=== PATIENT | male | born 1965 | race Hispanic/Latino ===

== ENCOUNTER 2016-11-05 17:50 | Inpatient (IN) | payer OTHER ==
[~2016-11-05 17:50] MED LIST: AMIDATE IV ONE; ZEMURON IV ONE
[2016-11-05 18:21] LABS: Urine Drugs of Abuse Note Disclamer
--- NOTE | 2016-11-05 18:26 | Emergency Department Report ---
HPI - General Chief Complaint: Altered Mental Status Time Seen by Provider: 11/05/16 18:13 - HPI HPI: Room 1 The patient is a 50-year-old male presenting with a chief complaint of altered mental status. The patient is not speaking and is unable to provide a history. Per EMS family called 911 and the patient walked down the stairs sat down and began having incoherent speech. Family was concerned the patient may have taken "speed." Patient does not respond to my questions verbally but does make eye contact Location: Mental status Duration: [see above] Quality: Altered Severity: Moderate Modifying factors: [see above] Context: [see above] Mode of transportation: [not driving] ED Past Medical Hx - Past Medical History Previous Medical History?: Yes Hx Hypertension: Yes - Surgical History Past Surgical History?: No - Family History Family history: no significant - Social History Smoking Status: Unknown if ever smoked - Medications Home Medications: Home Medications Medication Instructions Recorded Confirmed Last Taken Type Ketorolac [Toradol] 10 mg PO Q6H PRN #20 tablet 07/24/16 Unknown Rx Lisinopril [Zestril TAB] 20 mg PO QDAY #30 tablet 07/24/16 Unknown Rx oxyCODONE [Roxicodone] 5 mg PO Q6HR PRN #15 tablet 07/24/16 Unknown Rx ED Review of Systems ROS: Stated complaint: AMS Other details as noted in HPI Comment: Unobtainable due to pts medical conditions Physical Exam - Physical Exam Vital Signs: Vital Signs 11/05/16 17:53 Temperature 101.4 F H Pulse Rate 102 H Respiratory 40 H Rate Blood Pressure 125/99 Blood Pressure 125/99 [Left] O2 Sat by Pulse 100 Oximetry Physical Exam: GENERAL: The patient is well-developed well-nourished male lying on stretcher nonverbal with eyes and mouth open. [] HEENT: Normocephalic. Mucous membranes appear dry. Extraocular muscles intact NECK: Supple. Trachea midline CHEST/LUNGS: Clear to auscultation. There is no respiratory distress noted. HEART/CARDIOVASCULAR: Regular. There is tachycardia. There is no gallop rub or murmur. ABDOMEN: Abdomen is soft, but patient jumps and grimaces whenever palpated diffusely. Patient has normal bowel sounds. There is no abdominal distention. SKIN: There is no rash. There is no edema. There is no diaphoresis. NEURO: The patient is awake but does not respond verbally. Patient makes eye contact and grimaces when his abdomen is palpated. Gag reflex intact MUSCULOSKELETAL: There is no evidence of acute injury. ED Course Vital Signs 11/05/16 17:53 Temperature 101.4 F H Pulse Rate 102 H Respiratory 40 H Rate Blood Pressure 125/99 Blood Pressure 125/99 [Left] O2 Sat by Pulse 100 Oximetry - Consultations Consultation #1: 11/05/16 19:51 Nephrology paged 20:02-case discussed with Dr. Taylor. Requests plastic surgery be notified for access placement 11/05/16 20:02 Consultation #2: 11/05/16 20:02 Vascular surgery paged 20:14-case discussed with Dr. Sterling. Will come into the hospital to place dialysis access 11/05/16 20:14 ED Medical Decision Making - Lab Data Result diagrams: 11/05/16 19:03 11/05/16 19:03 Laboratory Tests 11/05/16 11/05/16 11/05/16 18:01 18:01 19:00 WBC RBC Hgb Hct MCV MCH MCHC RDW Plt Count Add Manual Diff Total Counted Seg Neutrophils % Seg Neuts % (Manual) Band Neutrophils % Lymphocytes % (Manual) Reactive Lymphs % (Man) Monocytes % (Manual) Eosinophils % (Manual) Basophils % (Manual) Metamyelocytes % Myelocytes % Promyelocytes % Blast Cells % Nucleated RBC % Seg Neutrophils # Man Band Neutrophils # Lymphocytes # (Manual) Abs React Lymphs (Man) Monocytes # (Manual) Eosinophils # (Manual) Basophils # (Manual) Metamyelocytes # Myelocytes # Promyelocytes # Blast Cells # WBC Morphology Hypersegmented Neuts Hyposegmented Neuts Hypogranular Neuts Smudge Cells Toxic Granulation Toxic Vacuolation Dohle Bodies Pelger-Huet Anomaly Holli Rods Platelet Estimate Clumped Platelets Plt Clumps, EDTA Large Platelets Giant Platelets Platelet Satelliting Plt Morphology Comment RBC Morphology Dimorphic RBCs Polychromasia Hypochromasia Poikilocytosis Anisocytosis Microcytosis Macrocytosis Spherocytes Pappenheimer Bodies Sickle Cells Target Cells Tear Drop Cells Ovalocytes Helmet Cells Saavedra-Colma Bodies [place] Rings Veto Cells Bite Cells Crenated Cell Elliptocytes Acanthocytes (Spur) Rouleaux Hemoglobin C Crystals Schistocytes Malaria parasites Yasmani Bodies Hem Pathologist Commnt PT 17.5 H INR 1.44 H APTT 40.0 H Sodium Potassium Chloride Carbon Dioxide Anion Gap BUN Creatinine Estimated GFR BUN/Creatinine Ratio Glucose Lactic Acid Calcium Magnesium Total Bilirubin AST ALT Alkaline Phosphatase Ammonia Total Creatine Kinase CK-MB (CK-2) CK-MB (CK-2) Rel Index Troponin T Total Protein Albumin Albumin/Globulin Ratio Triglycerides Cholesterol LDL Cholesterol Direct HDL Cholesterol Cholesterol/HDL Ratio TSH Free T4 Urine Color [place] Urine Turbidity Cloudy Urine pH 5.0 Ur Specific [place] 1.024 Urine Protein 100 mg/dl Urine Glucose (UA) 150 Urine Ketones Tr Urine Blood Lg Urine Nitrite Neg Urine Bilirubin Neg Urine Urobilinogen < 2.0 Ur Leukocyte Esterase Tr Urine WBC (Auto) 5.0 Urine RBC (Auto) 32.0 U Epithel Cells (Auto) 3.0 Urine Bacteria (Auto) 1+ Salicylates Urine Opiates Screen Presumptive negative Urine Methadone Screen Presumptive negative Acetaminophen Ur Barbiturates Screen Presumptive negative Ur Phencyclidine Scrn Presumptive negative Ur Amphetamines Screen Presumptive positive U Benzodiazepines Scrn Presumptive negative Urine Cocaine Screen Presumptive negative U Marijuana (THC) Screen Presumptive negative Drugs of Abuse Note Disclamer Plasma/Serum Alcohol 11/05/16 11/05/16 11/05/16 19:03 19:03 19:03 WBC 23.0 H RBC 6.48 H Hgb 19.1 H Hct 58.5 H MCV 90 MCH 30 MCHC 33 RDW 15.8 H Plt Count 239 Add Manual Diff Complete Total Counted 100 Seg Neutrophils % Metal Tube Cutter Seg Neuts % (Manual) 87.0 H Band Neutrophils % 0 Lymphocytes % (Manual) 9.0 L Reactive Lymphs % (Man) 0 Monocytes % (Manual) 4.0 Eosinophils % (Manual) 0 Basophils % (Manual) 0 Metamyelocytes % 0 Myelocytes % 0 Promyelocytes % 0 Blast Cells % 0 Nucleated RBC % Not Reportable Seg Neutrophils # Man 20.0 H Band Neutrophils # 0.0 Lymphocytes # (Manual) 2.1 Abs React Lymphs (Man) 0.0 Monocytes # (Manual) 0.9 H Eosinophils # (Manual) 0.0 Basophils # (Manual) 0.0 Metamyelocytes # 0.0 Myelocytes # 0.0 Promyelocytes # 0.0 Blast Cells # 0.0 WBC Morphology Not Reportable Hypersegmented Neuts Not Reportable Hyposegmented Neuts Not Reportable Hypogranular Neuts Not Reportable Smudge Cells Not Reportable Toxic Granulation Not Reportable Toxic Vacuolation Not Reportable Dohle Bodies Not Reportable Pelger-Huet Anomaly Not Reportable Holli Rods Not Reportable Platelet Estimate Appears normal Clumped Platelets Not Reportable Plt Clumps, EDTA Not Reportable Large Platelets Not Reportable Giant Platelets Not Reportable Platelet Satelliting Not Reportable Plt Morphology Comment Not Reportable RBC Morphology Normal Dimorphic RBCs Not Reportable Polychromasia Not Reportable Hypochromasia Not Reportable Poikilocytosis Not Reportable Anisocytosis Not Reportable Microcytosis Not Reportable Macrocytosis Not Reportable Spherocytes Not Reportable Pappenheimer Bodies Not Reportable Sickle Cells Not Reportable Target Cells Not Reportable Tear Drop Cells Not Reportable Ovalocytes Not Reportable Helmet Cells Not Reportable Saavedra-Colma Bodies Not Reportable [place] Rings Not Reportable [place] Cells Not Reportable Bite Cells Not Reportable Crenated Cell Not Reportable Elliptocytes Not Reportable Acanthocytes (Spur) Not Reportable Rouleaux Not Reportable Hemoglobin C Crystals Not Reportable Schistocytes Not Reportable Malaria parasites Not Reportable Yasmani Bodies Not Reportable Hem Pathologist Commnt No PT INR APTT Sodium 153 H Potassium 8.0 H* Chloride 102.8 Carbon Dioxide 10 L Anion Gap 48 BUN 110 H Creatinine 12.3 H Estimated GFR 4 BUN/Creatinine Ratio 8.94 Glucose 115 H Lactic Acid 5.7 H* Calcium 7.7 L Magnesium 3.5 H Total Bilirubin 1.1 AST 4086 H ALT 1684 H Alkaline Phosphatase 108 Ammonia Total Creatine Kinase CK-MB (CK-2) CK-MB (CK-2) Rel Index Troponin T Total Protein 9.1 H Albumin 4.3 Albumin/Globulin Ratio 0.9 Triglycerides Cholesterol LDL Cholesterol Direct HDL Cholesterol Cholesterol/HDL Ratio TSH Free T4 Urine Color Urine Turbidity Urine pH Ur Specific [place] Urine Protein Urine Glucose (UA) Urine Ketones Urine Blood Urine Nitrite Urine Bilirubin Urine Urobilinogen Ur Leukocyte Esterase Urine WBC (Auto) Urine RBC (Auto) U Epithel Cells (Auto) Urine Bacteria (Auto) Salicylates Urine Opiates Screen Urine Methadone Screen Acetaminophen Ur Barbiturates Screen Ur Phencyclidine Scrn Ur Amphetamines Screen U Benzodiazepines Scrn Urine Cocaine Screen U Marijuana (THC) Screen Drugs of Abuse Note Plasma/Serum Alcohol 11/05/16 11/05/16 11/05/16 19:03 19:03 19:03 WBC RBC Hgb Hct MCV MCH MCHC RDW Plt Count Add Manual Diff Total Counted Seg Neutrophils % Seg Neuts % (Manual) Band Neutrophils % Lymphocytes % (Manual) Reactive Lymphs % (Man) Monocytes % (Manual) Eosinophils % (Manual) Basophils % (Manual) Metamyelocytes % Myelocytes % Promyelocytes % Blast Cells % Nucleated RBC % Seg Neutrophils # Man Band Neutrophils # Lymphocytes # (Manual) Abs React Lymphs (Man) Monocytes # (Manual) Eosinophils # (Manual) Basophils # (Manual) Metamyelocytes # Myelocytes # Promyelocytes # Blast Cells # WBC Morphology Hypersegmented Neuts Hyposegmented Neuts Hypogranular Neuts Smudge Cells Toxic Granulation Toxic Vacuolation Dohle Bodies Pelger-Huet Anomaly Holli Rods Platelet Estimate Clumped Platelets Plt Clumps, EDTA Large Platelets Giant Platelets Platelet Satelliting Plt Morphology Comment RBC Morphology Dimorphic RBCs Polychromasia Hypochromasia Poikilocytosis Anisocytosis Microcytosis Macrocytosis Spherocytes Pappenheimer Bodies Sickle Cells Target Cells Tear Drop Cells Ovalocytes Helmet Cells Saavedra-Colma Bodies [place] Rings [place] Cells Bite Cells Crenated Cell Elliptocytes Acanthocytes (Spur) Rouleaux Hemoglobin C Crystals Schistocytes Malaria parasites Yasmani Bodies Hem Pathologist Commnt PT INR APTT Sodium Potassium Chloride Carbon Dioxide Anion Gap BUN Creatinine Estimated GFR BUN/Creatinine Ratio Glucose Lactic Acid Calcium Magnesium Total Bilirubin AST ALT Alkaline Phosphatase Ammonia Total Creatine Kinase CK-MB (CK-2) CK-MB (CK-2) Rel Index Troponin T Total Protein Albumin Albumin/Globulin Ratio Triglycerides Cholesterol LDL Cholesterol Direct HDL Cholesterol Cholesterol/HDL Ratio TSH Free T4 Urine Color Urine Turbidity Urine pH Ur Specific [place] Urine Protein Urine Glucose (UA) Urine Ketones Urine Blood Urine Nitrite Urine Bilirubin Urine Urobilinogen Ur Leukocyte Esterase Urine WBC (Auto) Urine RBC (Auto) U Epithel Cells (Auto) Urine Bacteria (Auto) Salicylates < 0.3 L Urine Opiates Screen Urine Methadone Screen Acetaminophen < 15.0 Ur Barbiturates Screen Ur Phencyclidine Scrn Ur Amphetamines Screen U Benzodiazepines Scrn Urine Cocaine Screen U Marijuana (THC) Screen Drugs of Abuse Note Plasma/Serum Alcohol < 0.01 11/05/16 11/05/16 11/05/16 19:03 19:03 19:03 WBC RBC Hgb Hct MCV MCH MCHC RDW Plt Count Add Manual Diff Total Counted Seg Neutrophils % Seg Neuts % (Manual) Band Neutrophils % Lymphocytes % (Manual) Reactive Lymphs % (Man) Monocytes % (Manual) Eosinophils % (Manual) Basophils % (Manual) Metamyelocytes % Myelocytes % Promyelocytes % Blast Cells % Nucleated RBC % Seg Neutrophils # Man Band Neutrophils # Lymphocytes # (Manual) Abs React Lymphs (Man) Monocytes # (Manual) Eosinophils # (Manual) Basophils # (Manual) Metamyelocytes # Myelocytes # Promyelocytes # Blast Cells # WBC Morphology Hypersegmented Neuts Hyposegmented Neuts Hypogranular Neuts Smudge Cells Toxic Granulation Toxic Vacuolation Dohle Bodies Pelger-Huet Anomaly Holli Rods Platelet Estimate Clumped Platelets Plt Clumps, EDTA Large Platelets Giant Platelets Platelet Satelliting Plt Morphology Comment RBC Morphology Dimorphic RBCs Polychromasia Hypochromasia Poikilocytosis Anisocytosis Microcytosis Macrocytosis Spherocytes Pappenheimer Bodies Sickle Cells Target Cells Tear Drop Cells Ovalocytes Helmet Cells Saavedra-Colma Bodies [place] Rings [place] Cells Bite Cells Crenated Cell Elliptocytes Acanthocytes (Spur) Rouleaux Hemoglobin C Crystals Schistocytes Malaria parasites Yasmani Bodies Hem Pathologist Commnt PT INR APTT Sodium Potassium Chloride Carbon Dioxide Anion Gap BUN Creatinine Estimated GFR BUN/Creatinine Ratio Glucose Lactic Acid Calcium Magnesium Total Bilirubin AST ALT Alkaline Phosphatase Ammonia 62.0 H Total Creatine Kinase 16429 H CK-MB (CK-2) 229.9 H CK-MB (CK-2) Rel Index 0.2 Troponin T 0.179 H* Total Protein Albumin Albumin/Globulin Ratio Triglycerides 551 H Cholesterol 255 H LDL Cholesterol Direct TNR HDL Cholesterol 36 L Cholesterol/HDL Ratio 7.08 TSH 3.430 Free T4 1.03 Urine Color Urine Turbidity Urine pH Ur Specific [place] Urine Protein Urine Glucose (UA) Urine Ketones Urine Blood Urine Nitrite Urine Bilirubin Urine Urobilinogen Ur Leukocyte Esterase Urine WBC (Auto) Urine RBC (Auto) U Epithel Cells (Auto) Urine Bacteria (Auto) Salicylates Urine Opiates Screen Urine Methadone Screen Acetaminophen Ur Barbiturates Screen Ur Phencyclidine Scrn Ur Amphetamines Screen U Benzodiazepines Scrn Urine Cocaine Screen U Marijuana (THC) Screen Drugs of Abuse Note Plasma/Serum Alcohol - EKG Data -: EKG Interpreted by Me EKG shows normal: sinus rhythm Rate: tachycardia (103 bpm) - EKG Data When compared to previous EKG there are: previous EKG unavailable Interpretation: other (no ischemic changes seen) - Radiology Data Radiology results: report reviewed (CT head, CT abdomen and pelvis), image reviewed (CT head, chest x-ray, CT abdomen and pelvis) interpreted by me: Chest x-ray-no definite focal infiltrates, no pneumothorax CT head (read by radiologist)-normal examination CT abdomen and pelvis (read by radiologist)-colitis with wall thickening on the right is likely infectious or inflammatory. No prescription. Hiatal hernia. - Differential Diagnosis substance abuse, pneumonia, sepsis, UTI, ICH Critical Care Time: Yes Critical care time in (mins) excluding proc time.: 45 Critical care attestation.: If time is entered above; I have spent that time in minutes in the direct care of this critically ill patient, excluding procedure time. ED Disposition Clinical Impression: Acute renal failure, Altered mental status, Fever, Hepatorenal failure, Hyperkalemia, Hepatic encephalopathy, Rhabdomyolysis, Acute colitis Disposition: OP ADMITTED IP TO THIS HOSP Is pt being admited?: Yes Does the pt Need Aspirin: No Condition: Serious Time of Disposition: 20:16 (hospitalist notified) Blank Doc - Documentation Documentation: Central line note Central line was placed secondary to lack of IV access and unsuccessful venipuncture Consent was unobtainable Location: Right femoral The site was prepped and draped in a sterile fashion Site was anesthetized with lidocaine 1% approximately 3 mL Landmarks identified and needle introduced until return of dark nonpulsatile blood Blood was obtained on first attempt Guidewire introduced using Seldinger technique and triple lumen catheter placed over guidewire There was blood return from all 3 ports Catheter was secured to patient by adhesive The patient tolerated procedure well There were no complications
[2016-11-05 18:55] LABS: Bacteria,Urine 1+ /HPF (Negative); Bilirubin,Urine NEG (Negative); Blood,Urine LG (Negative); Ketones,Urine TR mg/dL (Negative); Leukocyte Esterase,Urine TR (Negative); Nitrite,Urine NEG (Negative); Urobilinogen,Urine < 2.0 mg/dL (<2.0)
[2016-11-05 19:18] LABS: Hematocrit 58.5 % (35.5-45.6); Hemoglobin 19.1 gm/dl (11.8-15.2); Mean Corpuscular HGB Conc 33 % (32-34); Mean Corpuscular Hemoglobin 30 pg (28-32); Mean Corpuscular Volume 90 fl (84-94); Platelet Count 239 K/mm3 (140-440); Red Blood Count 6.48 M/mm3 (3.65-5.03); Red Cell Distribution Width 15.8 % (13.2-15.2)
[2016-11-05 19:42] LABS: Albumin 4.3 g/dL (3.9-5); Albumin/Globulin Ratio 0.9 %; BUN/Creatinine Ratio 8.94; Bilirubin,Total 1.1 mg/dL (0.1-1.2); Calcium 7.7 mg/dL (8.4-10.2); Magnesium 3.5 mg/dL (1.7-2.3); Total Protein 9.1 g/dL (6.3-8.2)
[2016-11-05 19:43] LABS: Chloride 102.8 mmol/L (98-107)
[2016-11-05] MEDS ORDERED: CALCIUM GLUCONATE 1,000 MG in NACL 0.9% 100 ML IV ONE (19:50)
[2016-11-05] MEDS ORDERED: D50W (25GM) IV ONE (19:50)
[2016-11-05] MEDS ORDERED: SODIUM BICARBONATE IV ONE ×2 (19:50→21:00)
[2016-11-05] MEDS ORDERED: PROVENTIL IH ONE (19:50)
[2016-11-05 20:10] LABS: Basophils % (Manual) 0 % (0.0-1.8); Blastocytes % (Manual) 0 %; Eosinophils % (Manual) 0 % (0.0-4.3)
[2016-11-05 20:11] LABS: Diff Status Complete; RBC Morphology Normal
[2016-11-05] MEDS ORDERED: KAYEXALATE PO ONE (20:14)
[2016-11-05] MEDS ORDERED: NACL 0.9% 1000 ML 100 ML IV PRN (20:15)
[2016-11-05 20:20] LABS: INR 1.44 (0.87-1.13)
[2016-11-05 20:34] LABS: Creatine Kinase MB 229.9 ng/mL (0.0-4.0)
[2016-11-05 20:47] LABS: Creatine Kinase 88982 units/L (55-170)
[2016-11-05 20:51] LABS: Cholesterol 255 mg/dL (50-199); HDL Cholesterol 36 mg/dL (40-59); LDL Cholesterol,Direct TNR mg/dL (50-130); Triglycerides 551 mg/dL (2-149)
--- NOTE | 2016-11-05 20:57 | Event Note ---
Date: 11/05/16 See H/p in reports Acute Renal failure Acute Hepatitis Methamphetamine OD Toxic encephalopathy Rhabdomyolysis Hyperkalemia
[2016-11-05] MEDS ORDERED: PANCREAZE DR 10,500 UNIT FEEDTUBE PRN (21:01)
[2016-11-05] MEDS ORDERED: MILK OF MAGNESIA PO PRN (21:01)
[2016-11-05] MEDS ORDERED: ALUM-MAG HYDROX-SIMETH 200-200-20MG/5ML PO PRN (21:01)
[2016-11-05] MEDS ORDERED: DULCOLAX PR PRN (21:01)
[2016-11-05] MEDS ORDERED: SODIUM BICARBONATE FEEDTUBE PRN (21:01)
[2016-11-05] MEDS ORDERED: SIMPLE SYRUP FEEDTUBE PRN ×2 (21:01)
[2016-11-05] MEDS ORDERED: KAYEXALATE PR ONE (21:09)
--- NOTE | 2016-11-05 21:38 | Cat Scan Report ---
FINAL REPORT PROCEDURE: CT HEAD/BRAIN WO CON TECHNIQUE: Computerized tomography of the head was performed without contrast material. HISTORY: altered mental status COMPARISON: No prior studies are available for comparison. FINDINGS: Skull and scalp: Normal. Paranasal sinuses: Normal. Ventricles and subarachnoid spaces: Normal. Cerebrum: No evidence of hemorrhage, acute infarction or mass . Cerebellum and brainstem: No evidence of hemorrhage, acute infarction or mass. Vasculature: Normal. Comments: None. IMPRESSION: Normal Examination
[2016-11-05] MEDS ORDERED: HEPARIN 10,000 UNITS/10 ML ONE (21:44)
[2016-11-05] MEDS ORDERED: LOVENOX SUB-Q SCH (22:00)
--- NOTE | 2016-11-05 22:04 | Operative Report ---
Operative Report Operative Report: EXAM: 1. Ultrasound-guided puncture of the left common femoral vein 2. Placement of a left common femoral vein nontunneled noncuffed hemodialysis catheter. DATE: 11/05/16 INDICATION: Acute renal failure with hyperkalemia and peaked T waves requiring emergent hemodialysis. Patient with severe altered mental status and indwelling right triple lumen catheter. MEDICATIONS: Local anesthetic (1% lidocaine). DEVICES: Triple lumen 30 cm nontunneled noncuffed hemodialysis catheter DRY WALL INSTALLATIONS MECHANIC: YAIMA CHO MD CONTRAST: None PROCEDURE: The risks, benefits, and alternatives were discussed and informed consent was obtained. The patient's left common femoral vein was assessed with ultrasound at bedside and determined to be patent prior to procedure. The patient was prepped and draped in a sterile fashion. The puncture site was anesthetized. Under sonographic guidance, the left common femoral vein was punctured with a 18-gauge micropuncture needle and a 0.035 inch wire was advanced through the needle. Over the 0.035 inch wire, dilatation was performed. The catheter was advanced over the wire. 2-0 silk suture was used to secure the catheter. The PICC lumen of the catheter was charged with saline. The hemodialysis lumens were charged with 1000 units of heparin per mL of space. Biopatch and tegaderm were applied. Silk tape applied over tegaderm to prevent dislodgement due to patient' s altered mental status. Sterile dressing applied. FINDINGS: 1. Ultrasound documented patency of the left common femoral vein. The vessel was accessed under direct ultrasound guidance. IMPRESSION: 1. Successful ultrasound guided bedside placement of a left common femoral vein 30 cm triple lumen nontunneled noncuffed dual lumen hemodialysis catheter.
--- NOTE | 2016-11-05 22:06 | Cat Scan Report ---
FINAL REPORT PROCEDURE: CT ABDOMEN PELVIS WO CON TECHNIQUE: Computerized axial tomography of the abdomen and pelvis was performed without intravenous contrast. HISTORY: diffuse abdominal tenderness, fever, AMS COMPARISON: No prior studies are available for comparison. FINDINGS: Visualized lower thorax: No significant abnormality. Liver: Normal size and attenuation. Spleen: Normal size and attenuation. Gallbladder and biliary system: Normal. Pancreas: Normal. Adrenals: Normal. Kidneys: Normal. GI tract: Moderate hiatal hernia. No dilated small bowel. Wall thickening of the cecum and ascending colon, series 2 images 48 through 57. Appendix is normal. Lymph nodes and mesentery: Normal. Vasculature: Normal. Bladder: Wall thickening. Reproductive organs: Normal. Peritoneum: No free fluid. Musculoskeletal structures: Sclerosis at the sacroiliac joints. Other: Right femoral venous catheter extending to the iliac vein. IMPRESSION: Colitis with wall thickening on the right is likely infectious or inflammatory. No obstruction. Hiatal hernia..
--- NOTE | 2016-11-05 22:08 | Event Note ---
Date: 11/05/16 Contacted regarding patient with ARF with hyperkalemia of 8 with peaked T waves requiring emergent dialysis. AMS prevents IJ placement. R femoral TLC already placed. L femoral vascath will be placed.
[2016-11-05] MEDS ORDERED: D5W 1,000 ML IV SCH (23:00)
[2016-11-05] MEDS ORDERED: HEPARIN 10,000 UNITS/10 ML IV ONE (23:15)
[2016-11-06] MEDS ORDERED: LEVOPHED DRIP 4 MG/NS 250 ML 250 ML IV ONE (00:38)
[2016-11-06] MEDS: LEVOPHED DRIP 4 MG/NS 250 ML 250 ML IV SCH ×4 (00:40→21:27)
--- NOTE | 2016-11-06 01:01 | History and Physical Report ---
CHIEF COMPLAINT: Severely altered mental status. HISTORY OF PRESENT ILLNESS: A 50-year-old male presenting with severe altered mental status. Not able to speak and unable to provide any history, staring into space with incoherent speech. The family is concerned that patient may have taken ____. Apparently, the patient denies sleeping in his room for the last 2 to 3 days. The patient used to take methamphetamine 4 years ago and was clean for the last 4 years. The family does not know over the holidays whether he has taken significant amount of methamphetamine. PAST MEDICAL HISTORY: Significant for only hypertension. PAST SURGICAL HISTORY: None. FAMILY HISTORY: No hypertension, no diabetes. SOCIAL HISTORY: Methamphetamine abuse on a regular basis until 4 years ago and may have started in the last 3 days and overdosed on it. REVIEW OF SYSTEMS: Significant for severely altered sensorium. The patient has severe nystagmus and staring into the space, but otherwise breathing normally. No respiratory distress. Fever present. Otherwise, review of systems is negative. PHYSICAL EXAMINATION: GENERAL: Middle-aged male, looks older than his age. VITAL SIGNS: Temperature of 101.4, pulse is 102, respirations 40, blood pressure 125/99, and sats are 100%. HEENT: Dry mucous membranes. NECK: Supple, no lymphadenopathy, no thyromegaly. LUNGS: Scattered rhonchi present. CARDIOVASCULAR: S1, S2 heard. No gallop, no murmur, no rub. Apical impulse in left fifth intercostal space and midclavicular line. ABDOMEN: Soft and benign. No hepatosplenomegaly. No guarding, no rigidity. Hernial orifices are normal. EXTREMITIES: Good pedal pulses. No pedal edema. CENTRAL NERVOUS SYSTEM: Alert, but not oriented to time and place. Severely confused and lethargic with ____. Moves all 4 extremities. SKIN: Normal. LABORATORY DATA: Significant for white count of 23,000, hemoglobin of 19.1, hematocrit of 58.5, platelet count of 239,000. Sodium is 153, potassium is 8.0, BUN and creatinine is 110/12.3, lactic acid is 5.7. Troponin 0.179, triglycerides are 551. Cholesterol was 255. Urine specific gravity is 1.024. Drug screen is positive for amphetamines. CT of the abdomen shows colitis thickening on the right side, likely infectious. Head CT normal examination. Abdominal x-ray, no signs of intestinal obstruction. EKG shows no ischemic changes. Tachycardia at 103 per minute. ASSESSMENT AND PLAN: 1. Severe acute renal failure, possibly secondary to methamphetamine abuse and poor p.o. intake and rhabdomyolysis. IV fluids at 250 mL per hour and emergent dialysis. 2. Rhabdomyolysis, 250 mL of IV fluids in the form of D5W and D5 half normal saline. We will monitor his kidney function. Kidney function is already worsened and needs a temporary dialysis for a couple of weeks for the kidneys to recover. 3. Leukocytosis, possible aspiration pneumonia, will treat empirically with IV Zosyn at 2.25 q. 8 hours. 4. Polycythemia. Possibly pseudopolycythemia secondary to volume contraction. Will give volume in the form of IV fluids. 5. Hyperkalemia. Treat aggressively with anti-hyperkalemia cocktail. The patient was given Kayexalate and calcium chloride and sodium bicarbonate in the ER. Also, dextrose with IV insulin was given. Kayexalate repeated. 6. High troponin, possibly secondary to high CK level of 90,000. Cardiac events unlikely. Nephrology and Critical Care, ____ consulted, Dr. Taylor consulted, and also Dr. Michele consulted for emergent ____ and emergent dialysis. In summary, the patient has severe rhabdomyolysis leading to acute renal failure and also severe transaminitis and severe dehydration. 7. Acute hepatitis with possible hepatic failure. Ammonia level was high and AST is 4086 and ALT is 1684. I had discussion with the family over the prognosis. The family was informed about the guarded prognosis. CRITICAL CARE STATEMENT: The high probability of a clinically significant sudden or life-threatening deterioration of the cardiorespiratory system, requirement of full and direct attention, intervention, and personal management. The aggregate critical care time was 40 minutes. The time is in addition to time spent performing reported procedures, but includes the followin. Data review and interpretation. 2. The patient assessment and monitoring of vital signs. 3. Documentation 4. Medication orders and management. JOB# [id number] SHOAIB/NEGAR
[2016-11-06] MEDS: HEPARIN IV PRN ×2 (02:11→14:25)
[2016-11-06] MEDS: D5/0.45NS 1,000 ML IV SCH ×2 (02:41→18:12)
[2016-11-06] MEDS: ZOSYN/NS 2.25 GM/50ML 50 ML IV SCH ×4 (02:42→21:38)
[2016-11-06] MEDS ORDERED: D50W (25GM) IV ONE ×3 (03:00→18:05)
[2016-11-06] MEDS: PITRESSin 20 UNIT in NACL 0.9% 100 ML IV SCH ×3 (03:15→22:52)
[2016-11-06 03:24] LABS: Albumin 4.3 g/dL (3.9-5); Albumin/Globulin Ratio 0.9 %; BUN/Creatinine Ratio 7.01; Bilirubin,Total 2.8 mg/dL (0.1-1.2); Calcium 8.6 mg/dL (8.4-10.2); Chloride 92.6 mmol/L (98-107); Total Protein 9.1 g/dL (6.3-8.2)
[2016-11-06 03:28] LABS: Potassium 5.9 mmol/L (3.6-5.0)
[2016-11-06 03:30] LABS: Hematocrit 58.1 % (35.5-45.6); Hemoglobin 19.7 gm/dl (11.8-15.2); Mean Corpuscular HGB Conc 32 % (32-34); Mean Corpuscular Hemoglobin 30 pg (28-32); Mean Corpuscular Volume 91 fl (84-94); Platelet Count 176 K/mm3 (140-440); Red Blood Count 6.69 M/mm3 (3.65-5.03); Red Cell Distribution Width 16.3 % (13.2-15.2); White Blood Count 20.7 K/mm3 (4.5-11.0)
[2016-11-06] MEDS ORDERED: SODIUM BICARBONATE IV ONE ×3 (04:03→12:47)
[2016-11-06] MEDS ORDERED: NACL 0.9% 500 ML 500 ML IV ONE (04:03)
[2016-11-06 04:19] LABS: ISTAT Base Excess -16; ISTAT HCO3 9.4; ISTAT PCO2 17.4 (35-45); ISTAT PH 7.338 (7.35-7.45); ISTAT PO2 213 (80-105); ISTAT SO2 100; ISTAT TCO2 10
[2016-11-06 05:30] LABS: Basophils % (Manual) 0 % (0.0-1.8); Blastocytes % (Manual) 0 %
[2016-11-06 05:31] LABS: Diff Status Complete; Eosinophils % (Manual) 0 % (0.0-4.3); Large Platelets Rare
--- NOTE | 2016-11-06 05:40 | XRay Report ---
FINAL REPORT PROCEDURE: XR CHEST 1V AP PORTABLE TECHNIQUE: Chest radiograph anteroposterior portable view. CPT 81863 HISTORY: Respiratory distress. Shortness of breath. Evaluate ETT placement COMPARISON: There no prior chest films to compare. Reference is made to the lung base images on the upper portion the abdomen and pelvic CT scan obtained 1 day ago on November 05, 2016 FINDINGS: Heart: Normal. Mediastinum/Vessels: Normal. Lungs/Pleural space: Patchy increased density over medial left lung base is nonspecific. Although this could be an infiltrate, it more likely corresponds to the moderate to large hiatal hernia seen here on the CT scan of 1 day ago. There may be mild atelectasis in lateral left lung base. There is no pulmonary edema or pleural effusion. There is no plain film evidence of pneumothorax.. Bony thorax: No acute osseous abnormality. Life support devices: The ET tube tip appears to be right at the level of the tracheal bifurcation. It may be of benefit to pull it back slightly. IMPRESSION: 1. The ET tube tip is right at the level of the tracheal bifurcation. It may be of benefit to pull it back slightly to prevent it from going into the left or right mainstem bronchus. 2. There is no pulmonary edema or infiltrate. There is mild atelectasis in lateral left lung base. Density over medial left lung base likely corresponds to hiatal hernia seen on abdomen CT scan
[2016-11-06 05:49] LABS: Anion Gap TNR mmol/L; BUN/Creatinine Ratio TNR; Blood Urea Nitrogen TNR mg/dL (9-20); Carbon Dioxide TNR mmol/L (22-30); Chloride TNR mmol/L (98-107); Glucose TNR mg/dL (75-100); Potassium TNR mmol/L (3.6-5.0)
[2016-11-06 05:50] LABS: Calcium TNR mg/dL (8.4-10.2); Creatine Kinase TNR units/L (55-170); Phosphorous TNR mg/dL (2.5-4.5); Sodium TNR mmol/L (137-145)
[2016-11-06 06:31] LABS: ISTAT Base Excess -11; ISTAT HCO3 16.2; ISTAT PCO2 37.3 (35-45); ISTAT PH 7.247 (7.35-7.45); ISTAT PO2 142 (80-105); ISTAT SO2 99; ISTAT TCO2 17
--- NOTE | 2016-11-06 06:32 | Event Note ---
Date: 11/06/16 I was asked to come and see this patient with the intent for orotracheal intubation. The hospitalist had seen the patient and found him to have tachypnea, some accessory muscle use and some alteration in his mental status. Denies the patient he was tachycardic, had a respiratory rate of almost 50 and did appear confused. The patient's mother was there and the risks and benefits of the orotracheal intubation procedure was discussed and she gave verbal consent. Respiratory therapy was bedside. There was IV suction available and the patient was already on a monitor with IV placement. Patient had RSI with 20 mg of etomidate and 100 mg of vecuronium. Successful orotracheal intubation was done using a Mac 4 blade and a 7.5 ET tube with direct visualization of the vocal cords. The tube was placed to about 24 cm at the lips and the bulb was inflated. There was good condensation of the tube, capnography color change, bilateral breath sounds of the lungs. Repeat chest x-ray shows successful intubation but the tube may need to be pulled out 1-2 cm. The hospitalist has been informed and will start a drip for sedation.
[2016-11-06 06:46] LABS: Hematocrit 54.8 % (35.5-45.6); Hemoglobin 17.8 gm/dl (11.8-15.2); Mean Corpuscular HGB Conc 32 % (32-34); Mean Corpuscular Hemoglobin 30 pg (28-32); Mean Corpuscular Volume 91 fl (84-94); Red Blood Count 6.02 M/mm3 (3.65-5.03); White Blood Count 17.9 K/mm3 (4.5-11.0)
[2016-11-06 06:49] LABS: BUN/Creatinine Ratio 7.12; Calcium 6.4 mg/dL (8.4-10.2)
[2016-11-06 06:50] LABS: Phosphorous 15.2 mg/dL (2.5-4.5)
[2016-11-06 06:51] LABS: Potassium 6.8 mmol/L (3.6-5.0)
[2016-11-06 07:39] LABS: Anisocytosis 1+; Basophils % (Manual) 0 % (0.0-1.8); Blastocytes % (Manual) 0 %; Diff Status Complete; Eosinophils % (Manual) 0 % (0.0-4.3); Giant Platelets Few; Large Platelets Few; Poikilocytosis 1+; Polychromasia Few
[2016-11-06 07:40] LABS: Platelet Count 152 K/mm3 (140-440)
--- NOTE | 2016-11-06 08:21 | XRay Report ---
KUB. Findings: The NG tube terminates in the proximal stomach. Scattered small bowel gas is present without dilatation. Gas is also seen throughout the colon. A mild ileus cannot be excluded.
--- NOTE | 2016-11-06 08:58 | XRay Report ---
PORTABLE CHEST INDICATION: Fever, altered mental status. COMPARISON: 11/23/2010 FINDINGS: Portable, frontal chest radiograph demonstrates poorer inspiration with mild exaggerated, though grossly stable cardiomediastinal silhouette and slightly crowded markings. Approximately 6 cm left retrocardiac opacity with some intrinsic lucency may now represent a hiatal hernia. No pleural effusions or CHF. Mild bony degenerative changes. Some extrinsic artifacts. CONCLUSION: Hypoinflation and probable hiatal hernia, as described. Thank you for the opportunity to participate in this patient's care.
[2016-11-06] MEDS ORDERED: ATIVAN 100 MG in NACL 0.9% 50 ML, VIAFLEX EMPTY CONTAINER 0 ML IV SCH (09:00)
[2016-11-06] MEDS ORDERED: DIPRIVAN 10 MG/ML 100 ML IV SCH (09:00)
--- NOTE | 2016-11-06 09:40 | Consultation ---
History of Present Illness - Reason for Consult Consult date: 11/06/16 acute renal failure, hyperkalemia, metabolic acidosis Requesting physician: AARON FOLEY - History of Present Illness The patient is a 50-year-old male presenting with a chief complaint of altered mental status. The patient is currently intubated and not able to get any additional information from him. History obtained from patient's mother at bedside. Apparently patient had returned from work yesterday and family members think he may have taken some methamphetamine. Per EMS family called 911 and the patient walked down the stairs sat down and began having incoherent speech. Family was concerned the patient may have taken "speed." Patient was found to be hyperkalemic and acidotic and renal failure. Vas-Cath has been placed by vascular surgery and he had urgent hemodialysis late last night. Currently on the ventilator. Unresponsive. Past History Past Medical History: hypertension, other Past Surgical History: Other (not long) Social history: other (not known. Apparently he does have history of illicit drug use) Medications and Allergies Allergies Allergy/AdvReac Type Severity Reaction Status Date / Time No Known Allergies Allergy Unverified 07/24/16 09:58 Home Medications Medication Instructions Recorded Confirmed Last Taken Type Lisinopril [Zestril TAB] 20 mg PO QDAY #30 tablet 07/24/16 11/05/16 Unknown Rx Active Meds: Active Medications Al Hydrox/Mg Hydrox/Simethicone (Alum-Mag Hydrox-Simeth [phone]/5ml) 30 ml PO Q4H PRN PRN Reason: Indigestion Lipase/Protease/Amylase ([place] Dr 10,500 Unit) 1 each FEEDTUBE PRN PRN PRN Reason: For Clogged Feeding Tube Bisacodyl (Dulcolax) 10 mg [place] QDAY PRN PRN Reason: constipation unrelieved by MOM Heparin Sodium (Porcine) (Heparin) 5,000 unit IV IMELDA PRN PRN Reason: hemodialysis Last Admin: 11/06/16 02:11 Dose: 5,000 unit Heparin Sodium (Porcine) (Heparin) 5,000 unit SUB-Q Q12HR ANDREW Sodium Chloride (Nacl 0.9% 1000 Ml) 100 mls @ 999 mls/hr IV IMELDA PRN PRN Reason: Hypotension Sodium Bicarbonate 150 meq/ (Dextrose) 1,150 mls @ 75 mls/hr IV DIRECT ANDREW Dextrose/Sodium Chloride (D5/0.45ns) 1,000 mls @ 100 mls/hr IV DIRECT ANDREW Last Admin: 11/06/16 02:41 Dose: 100 mls/hr Piperacillin Sod/Tazobactam Sod (Zosyn/Ns 2.25 Gm/50ml) 50 mls @ 100 mls/hr IV Q8HR ANDREW PRN Reason: Protocol Last Admin: 11/06/16 02:42 Dose: 100 mls/hr Dextrose (D5w) 1,000 mls @ 150 mls/hr IV DIRECT ANDREW Stop: 11/06/16 23:55 Norepinephrine (Levophed Drip 4 Mg/Ns 250 Ml) 250 mls @ 7.5 mls/hr IV TITR ANDREW ; 2 MCG/MIN PRN Reason: Protocol Last Admin: 11/06/16 00:40 Dose: 7.5 mls/hr Vasopressin 20 unit/ Sodium (Chloride) 101 mls @ 9.09 mls/hr IV TITR ANDREW; 0.03 UNITS/MIN PRN Reason: Protocol Last Admin: 11/06/16 03:15 Dose: 9.09 mls/hr Propofol (Diprivan 10 Mg/Ml) 100 mls @ 2.313 mls/hr IV TITR ANDREW; 5 MCG/KG/MIN PRN Reason: Protocol Lorazepam 100 mg/ Sodium Chloride/ Miscellaneous Information 100 mls @ 1 mls/ hr IV TITR ANDREW; 1 MG/HR PRN Reason: Protocol Influenza Virus Vaccine Quadrival (Fluarix Quad [id number](36 Mos+)) 60 mcg IM .ONCE ONE Stop: 11/06/16 12:01 Magnesium Hydroxide (Milk Of Magnesia) 30 ml PO Q4H PRN PRN Reason: Constipation Pneumococcal Polyvalent Vaccine (Pneumovax 23) 0.5 ml IM .ONCE ONE Stop: 11/06/16 12:01 Simple Syrup (Simple Syrup) 15 ml FEEDTUBE PRN PRN PRN Reason: Hypoglycemia Simple Syrup (Simple Syrup) 30 ml FEEDTUBE PRN PRN PRN Reason: Hypoglycemia Sodium Bicarbonate (Sodium Bicarbonate) 325 mg FEEDTUBE PRN PRN PRN Reason: For Clogged Feeding Tube Review of Systems ROS unobtainable: due to mental status Exam - Vital Signs Vital signs: Vital Signs Temp Pulse Resp BP Pulse Ox 101.4 F H 99 H 40 H 125/99 40 L 11/05/16 17:53 11/05/16 17:53 11/05/16 17:53 11/05/16 17:53 11/05/16 17:53 - General Appearance General appearance: well-developed, intubated EENT: PERRL, mucous membranes moist Neck: Present: neck supple, trachea midline. Absent: JVD/HJR, Masses Respiratory: Ronchi (few scattered rhonchi) Heart: regular, normal heart rate, S1S2, no murmurs Gastrointestinal: Present: normal, normoactive bowel sounds Integumentary: no rash, other (left femoral Vas-Cath in place) Results - Lab Results 11/06/16 06:00 11/06/16 06:00 Most recent lab results Calcium 6.4 mg/dL (8.4-10.2) L D 11/06/16 06:00 Phosphorus 15.2 mg/dL (2.5-4.5) H 11/06/16 06:00 Magnesium 3.0 mg/dL (1.7-2.3) H 11/06/16 06:00 Assessment and Plan Impression * Acute renal failure. Most likely secondary to ATN * Severe hyperkalemia * Metabolic acidosis. Secondary to lactic acidosis * Respiratory failure * Drug overdose * History of hypertension Recommendations * Status post urgent hemodialysis last night. Patient's potassium is still elevated and he is also hyperkalemic. Shall attempt to dialyze him again today. He is however noted to be hypotensive and on 2 pressors at this time. * Continue pressors to keep map greater than 65 * Shall check a UA as well as a fractional excretion of sodium * Shall also check an osmolar gap as well as serum ethylene glycol as well as methanol * Shall do vasculitis workup as well * Renal ultrasound to assess kidney size and echogenicity * Avoid nephrotoxins * Monitor patient's fluid status, electrolytes and renal function closely * Adjust meds for GFR less than 10 * Thank you very much for the consultation. Shall follow along with you
[2016-11-06] MEDS ORDERED: NACL 0.9% 1000 ML 100 ML IV PRN (09:41)
[2016-11-06] MEDS: HEPARIN SUB-Q SCH ×2 (10:01→21:39)
--- NOTE | 2016-11-06 10:03 | Consultation ---
History of Present Illness Consult date: 11/06/16 Requesting physician: ZENAIDA MAHMOOD Reason for consult: dyspnea, other (tachypnea with altered mentals status and acute respiratory failure) History of present illness: 50 y/o male, with past medical history of HTN, GERD and allergies admitted with acute renal failure requiring emergent HD and hyperkalemia, presented to the ED with inability to urinate. BUN was 110 and Cr 12.3. K elevated at 8 and hypotensive. Central line placed and vascath placed. Dialysis done last night however patient's potassium is rising again with very little urine output. Mother at bedside. 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 Was not feeling well on Saturday after work but complained more so of inability to urinate. No abdominal pain. Mother states that patient has been out of meds for several months now. CT of abdomen and pelvis shows colitis, infectious vs inflammatory. Past History Past Medical History: hypertension, other Past Surgical History: Other (not long) Social history: other (not known. Apparently he does have history of illicit drug use) Medications and Allergies Allergies Allergy/AdvReac Type Severity Reaction Status Date / Time No Known Allergies Allergy Unverified 07/24/16 09:58 Home Medications Medication Instructions Recorded Confirmed Last Taken Type Lisinopril [Zestril TAB] 20 mg PO QDAY #30 tablet 07/24/16 11/05/16 Unknown Rx Active Meds: Active Medications Al Hydrox/Mg Hydrox/Simethicone (Alum-Mag Hydrox-Simeth [phone]/5ml) 30 ml PO Q4H PRN PRN Reason: Indigestion Lipase/Protease/Amylase ([place]ren [place] 10,500 Unit) 1 each FEEDTUBE PRN PRN PRN Reason: For Clogged Feeding Tube Bisacodyl (Dulcolax) 10 mg [place] QDAY PRN PRN Reason: constipation unrelieved by MOM Heparin Sodium (Porcine) (Heparin) 5,000 unit IV IMELDA PRN PRN Reason: hemodialysis Last Admin: 11/06/16 02:11 Dose: 5,000 unit Heparin Sodium (Porcine) (Heparin) 5,000 unit SUB-Q Q12HR ANDREW Sodium Chloride (Nacl 0.9% 1000 Ml) 100 mls @ 999 mls/hr IV IMELDA PRN PRN Reason: Hypotension Sodium Bicarbonate 150 meq/ (Dextrose) 1,150 mls @ 75 mls/hr IV DIRECT ANDREW Dextrose/Sodium Chloride (D5/0.45ns) 1,000 mls @ 100 mls/hr IV DIRECT ANDREW Last Admin: 11/06/16 02:41 Dose: 100 mls/hr Piperacillin Sod/Tazobactam Sod (Zosyn/Ns 2.25 Gm/50ml) 50 mls @ 100 mls/hr IV Q8HR ANDREW PRN Reason: Protocol Last Admin: 11/06/16 02:42 Dose: 100 mls/hr Dextrose (D5w) 1,000 mls @ 150 mls/hr IV DIRECT ANDREW Stop: 11/06/16 23:55 Norepinephrine (Levophed Drip 4 Mg/Ns 250 Ml) 250 mls @ 7.5 mls/hr IV TITR ANDREW ; 2 MCG/MIN PRN Reason: Protocol Last Admin: 11/06/16 00:40 Dose: 7.5 mls/hr Vasopressin 20 unit/ Sodium (Chloride) 101 mls @ 9.09 mls/hr IV TITR ANDREW; 0.03 UNITS/MIN PRN Reason: Protocol Last Admin: 11/06/16 03:15 Dose: 9.09 mls/hr Propofol (Diprivan 10 Mg/Ml) 100 mls @ 2.313 mls/hr IV TITR ANDREW; 5 MCG/KG/MIN PRN Reason: Protocol Lorazepam 100 mg/ Sodium Chloride/ Miscellaneous Information 100 mls @ 1 mls/ hr IV TITR ANDREW; 1 MG/HR PRN Reason: Protocol Sodium Chloride (Nacl 0.9% 1000 Ml) 100 mls @ 999 mls/hr IV IMELDA PRN PRN Reason: Hypotension Influenza Virus Vaccine Quadrival (Fluarix Quad [id number](36 Mos+)) 60 mcg IM .ONCE ONE Stop: 11/06/16 12:01 Magnesium Hydroxide (Milk Of Magnesia) 30 ml PO Q4H PRN PRN Reason: Constipation Pneumococcal Polyvalent Vaccine (Pneumovax 23) 0.5 ml IM .ONCE ONE Stop: 11/06/16 12:01 Simple Syrup (Simple Syrup) 15 ml FEEDTUBE PRN PRN PRN Reason: Hypoglycemia Simple Syrup (Simple Syrup) 30 ml FEEDTUBE PRN PRN PRN Reason: Hypoglycemia Sodium Bicarbonate (Sodium Bicarbonate) 325 mg FEEDTUBE PRN PRN PRN Reason: For Clogged Feeding Tube Physical Examination Vital signs: Vital Signs Temp Pulse Resp BP Pulse Ox 101.4 F H 99 H 40 H 125/99 40 L 11/05/16 17:53 11/05/16 17:53 11/05/16 17:53 11/05/16 17:53 11/05/16 17:53 Results - Laboratory Findings CBC and BMP: 11/06/16 06:00 11/06/16 06:00 ABG POC ABG pH 7.247 (7.35-7.45) L 11/06/16 06:19 POC ABG pCO2 37.3 (35-45) 11/06/16 06:19 POC ABG pO2 142 (80-105) H 11/06/16 06:19 POC ABG HCO3 16.2 11/06/16 06:19 POC ABG Total CO2 17 11/06/16 06:19 POC ABG O2 Sat 99 11/06/16 06:19 PT/INR, D-dimer PT 17.5 Sec. (12.2-14.9) H 11/05/16 19:00 INR 1.44 (0.87-1.13) H 11/05/16 19:00 Abnormal lab findings: Abnormal Labs 11/06/16 11/06/16 11/06/16 03:00 03:00 03:16 WBC 20.7 H RBC 6.69 H Hgb 19.7 H Hct 58.1 H RDW 16.3 H Seg Neuts % (Manual) Lymphocytes % (Manual) 5.0 L Monocytes % (Manual) 8.0 H Nucleated RBC % 4.0 H Seg Neutrophils # Man 9.1 H Lymphocytes # (Manual) 1.0 L Monocytes # (Manual) 1.7 H POC ABG pH 7.338 L POC ABG pCO2 17.4 L POC ABG pO2 213 H Sodium 150 H Potassium 5.9 H D Chloride 92.6 L Carbon Dioxide 13 L BUN 73 H Creatinine 10.4 H Glucose Lactic Acid Calcium Phosphorus Magnesium Total Bilirubin 2.8 H AST 16549 H ALT 3771 H Total Protein 9.1 H 11/06/16 11/06/16 11/06/16 06:00 06:00 06:00 WBC 17.9 H RBC 6.02 H Hgb 17.8 H Hct 54.8 H RDW 16.0 H Seg Neuts % (Manual) 74.0 H Lymphocytes % (Manual) 2.0 L Monocytes % (Manual) Nucleated RBC % 1.0 H Seg Neutrophils # Man 13.2 H Lymphocytes # (Manual) 0.4 L Monocytes # (Manual) POC ABG pH POC ABG pCO2 POC ABG pO2 Sodium Potassium Chloride Carbon Dioxide BUN Creatinine Glucose Lactic Acid 10.0 H* Calcium Phosphorus 15.2 H Magnesium 3.0 H Total Bilirubin AST ALT Total Protein 11/06/16 11/06/16 06:00 06:19 WBC RBC Hgb Hct RDW Seg Neuts % (Manual) Lymphocytes % (Manual) Monocytes % (Manual) Nucleated RBC % Seg Neutrophils # Man Lymphocytes # (Manual) Monocytes # (Manual) POC ABG pH 7.247 L POC ABG pCO2 POC ABG pO2 142 H Sodium 153 H Potassium 6.8 H* Chloride 97.0 L Carbon Dioxide 17 L BUN 77 H Creatinine 10.8 H Glucose 203 H Lactic Acid Calcium 6.4 L D Phosphorus Magnesium Total Bilirubin AST ALT Total Protein - Diagnostic Findings Chest x-ray: image reviewed (clear, with cardiomegaly) Assessment and Plan 50 y/o male with acute renal failure thought secondary to rhabdomyolysis, metabolic acidosis, hypotension and what appears to be severe dehydration and methamphetamine use 1. Normal saline bolus of 2 liters 2. Increase pressors to keep maps >65 3. Continue bicarb drip 4. Continue IV zosyn for now 5. Will place NG tube 6. Repeat Lactic acid 7. Repeat CK levels. 8. Overall prognosis is guarded. CCT 31 minutes.
[2016-11-06] MEDS ORDERED: PNEUMOVAX 23 IM ONE (12:00)
[2016-11-06] MEDS ORDERED: FLUARIX QUAD 2016-2017(36 MOS+) IM ONE (12:00)
[2016-11-06] MEDS: NEO-SYNEPHRINE 100 MG in NACL 0.9% 90 ML IV SCH ×5 (13:08→22:53)
[2016-11-06] MEDS: NACL 0.9% 1000 ML 1,000 ML IV SCH ×2 (13:11→13:23)
[2016-11-06] MEDS: PEPCID IV SCH (13:18)
[2016-11-06] MEDS ORDERED: NACL 0.9% 500 ML 500 ML ONE (13:20)
--- NOTE | 2016-11-06 13:20 | Progress Note ---
Assessment and Plan Assessment and plan: 1. Acute hypoxic better failure with ventilator dependence-continue ventilator support. Follow-up with pulmonary/critical care for vent management 2. Septic shock possibly related to colitis-continue IV fluids and IV for boluses as needed, continue vasopressor support patient is currently on levo fed and vasopressin will add. Vasopressor, will also start IV hydrocortisone. Continue with IV Zosyn. White count is improving; follow-up with critical care 3. Acute renal failure with severe metabolic acidosis and hyperkalemia-patient had hemodialysis earlier this morning for approximately 2 hours. He was also started on hemodialysis for about an hour however it had to be abandoned due to worsening hypotension. Continue bicarbonate infusion and when necessary bicarbonate as needed. Follow-up with nephrology appreciated. Continue to monitor electrolytes 4. Severe rhabdomyolysis -continue aggressive hydration with normal saline, monitor CPK level 5. Metabolic encephalopathy with amphetamine use secondary to the above- management as discussed above continue supportive care 6. Elevated troponin-consult cardiology, will get serial enzymes. Echocardiogram 7. DVT prophylaxis-heparin 8. GI prophylaxis -pepcid Family updated- prognosis-guarded; remains full code CCT exclusive of all other billable proceduers 40 minutes History Interval history: f/u respiratory failure; acute renal failure, rhabdomyolysis Patient is seen at the bedside. He is vented and on 2 pressors levofed and vasopressin; patient had emergent hemodialysis last night Hospitalist Physical - Constitutional Vitals: Temp Pulse Resp BP Pulse Ox 97.9 F 116 H 28 H 228/117 97 11/06/16 10:45 11/06/16 12:55 11/06/16 12:55 11/06/16 12:00 11/06/16 12:00 General appearance: Present: other (patient is vented with moderate distress gasping type respirations; T-tube in place) - EENT Eyes: Present: PERRL, conjunctival injection. Absent: scleral icterus ENT: other (ET-tube in place) - Neck Neck: Present: supple, normal ROM. Absent: enlarged thyroid, masses or JVD - Respiratory Respiratory effort: accessory muscle use, other (vented with respiratory distress) Respiratory: bilateral: diminished, rhonchi, negative: rales, wheezing - Cardiovascular Rhythm: regular (tachycardia) Heart Sounds: Present: S1 & S2. Absent: gallop - Extremities Extremities: no ischemia, pulses intact, pulses symmetrical Peripheral Pulses: within normal limits - Abdominal General gastrointestinal: soft, tender (he moves hand to palpitaions ), distended (moves hand to palpation), hypoactive bowel sounds - Integumentary Integumentary: Present: pale (cold ) - Psychiatric Psychiatric: other (unable to assess as he is vented and unresponsive) - Neurologic Neurologic: other (does not obey commands; vented ) Results - Labs CBC & Chem 7: 11/06/16 06:00 11/06/16 09:43 Labs: Laboratory Last Values WBC 17.9 K/mm3 (4.5-11.0) H 11/06/16 06:00 RBC 6.02 M/mm3 (3.65-5.03) H 11/06/16 06:00 Hgb 17.8 gm/dl (11.8-15.2) H 11/06/16 06:00 Hct 54.8 % (35.5-45.6) H 11/06/16 06:00 MCV 91 fl (84-94) 11/06/16 06:00 MCH 30 pg (28-32) 11/06/16 06:00 MCHC 32 % (32-34) 11/06/16 06:00 RDW 16.0 % (13.2-15.2) H 11/06/16 06:00 Plt Count 152 K/mm3 (140-440) 11/06/16 06:00 Add Manual Diff Complete 11/06/16 06:00 Total Counted 100 11/06/16 06:00 Seg Neutrophils % [employer] Specialist 11/06/16 06:00 Seg Neuts % (Manual) 74.0 % (40.0-70.0) H 11/06/16 06:00 Band Neutrophils % 20.0 % 11/06/16 06:00 Lymphocytes % (Manual) 2.0 % (13.4-35.0) L 11/06/16 06:00 Reactive Lymphs % (Man) 0 % 11/06/16 06:00 Monocytes % (Manual) 1.0 % (0.0-7.3) 11/06/16 06:00 Eosinophils % (Manual) 0 % (0.0-4.3) 11/06/16 06:00 Basophils % (Manual) 0 % (0.0-1.8) 11/06/16 06:00 Metamyelocytes % 0 % 11/06/16 06:00 Myelocytes % 3.0 % 11/06/16 06:00 Promyelocytes % 0 % 11/06/16 06:00 Blast Cells % 0 % 11/06/16 06:00 Nucleated RBC % 1.0 % (0.0-0.9) H 11/06/16 06:00 Seg Neutrophils # Man 13.2 K/mm3 (1.8-7.7) H 11/06/16 06:00 Band Neutrophils # 3.6 K/mm3 11/06/16 06:00 Lymphocytes # (Manual) 0.4 K/mm3 (1.2-5.4) L 11/06/16 06:00 Abs React Lymphs (Man) 0.0 K/mm3 11/06/16 06:00 Monocytes # (Manual) 0.2 K/mm3 (0.0-0.8) 11/06/16 06:00 Eosinophils # (Manual) 0.0 K/mm3 (0.0-0.4) 11/06/16 06:00 Basophils # (Manual) 0.0 K/mm3 (0.0-0.1) 11/06/16 06:00 Metamyelocytes # 0.0 K/mm3 11/06/16 06:00 Myelocytes # 0.5 K/mm3 11/06/16 06:00 Promyelocytes # 0.0 K/mm3 11/06/16 06:00 Blast Cells # 0.0 K/mm3 11/06/16 06:00 WBC Morphology Not Reportable 11/06/16 Unknown Hypersegmented Neuts Not Reportable 11/06/16 Unknown Hyposegmented Neuts Not Reportable 11/06/16 Unknown Hypogranular Neuts Not Reportable 11/06/16 Unknown Smudge Cells Not Reportable 11/06/16 Unknown Toxic Granulation Not Reportable 11/06/16 Unknown Toxic Vacuolation Not Reportable 11/06/16 Unknown Dohle Bodies Not Reportable 11/06/16 Unknown Pelger-Huet Anomaly Not Reportable 11/06/16 Unknown Holli Rods Not Reportable 11/06/16 Unknown Platelet Estimate Appears normal 11/06/16 06:00 Clumped Platelets Not Reportable 11/06/16 Unknown Plt Clumps, EDTA Not Reportable 11/06/16 Unknown Large Platelets Few 11/06/16 06:00 Giant Platelets Not Reportable 11/06/16 Unknown Platelet Satelliting Not Reportable 11/06/16 Unknown Plt Morphology Comment Not Reportable 11/06/16 Unknown RBC Morphology Not Reportable 11/06/16 Unknown Dimorphic RBCs Not Reportable 11/06/16 Unknown Polychromasia Not Reportable 11/06/16 Unknown Hypochromasia Not Reportable 11/06/16 Unknown Poikilocytosis Not Reportable 11/06/16 Unknown Anisocytosis Not Reportable 11/06/16 Unknown Microcytosis Not Reportable 11/06/16 Unknown Macrocytosis Not Reportable 11/06/16 Unknown Spherocytes Not Reportable 11/06/16 Unknown Pappenheimer Bodies Not Reportable 11/06/16 Unknown Sickle Cells Not Reportable 11/06/16 Unknown Target Cells Not Reportable 11/06/16 Unknown Tear Drop Cells Not Reportable 11/06/16 Unknown Ovalocytes Not Reportable 11/06/16 Unknown Helmet Cells Not Reportable 11/06/16 Unknown [place] Bodies Not Reportable 11/06/16 Unknown [place] Rings Not Reportable 11/06/16 Unknown Veto Cells Not Reportable 11/06/16 Unknown Bite Cells Not Reportable 11/06/16 Unknown Crenated Cell Not Reportable 11/06/16 Unknown Elliptocytes Not Reportable 11/06/16 Unknown Acanthocytes (Spur) Not Reportable 11/06/16 Unknown Rouleaux Not Reportable 11/06/16 Unknown Hemoglobin C Crystals Not Reportable 11/06/16 Unknown Schistocytes Not Reportable 11/06/16 Unknown Malaria parasites Not Reportable 11/06/16 Unknown Yasmani Bodies Not Reportable 11/06/16 Unknown Hem Pathologist Commnt No 11/06/16 06:00 PT 17.5 Sec. (12.2-14.9) H 11/05/16 19:00 INR 1.44 (0.87-1.13) H 11/05/16 19:00 APTT 40.0 Sec. (24.2-36.6) H 11/05/16 19:00 POC ABG pH 7.247 (7.35-7.45) L 11/06/16 06:19 POC ABG pCO2 37.3 (35-45) 11/06/16 06:19 POC ABG pO2 142 (80-105) H 11/06/16 06:19 POC ABG HCO3 16.2 11/06/16 06:19 POC ABG Total CO2 17 11/06/16 06:19 POC ABG O2 Sat 99 11/06/16 06:19 POC ABG Base Excess -11 11/06/16 06:19 FiO2 50 % 11/06/16 06:19 Sodium 138 mmol/L (137-145) D 11/06/16 09:43 Potassium 6.8 mmol/L (3.6-5.0) H* 11/06/16 06:00 Chloride 97.0 mmol/L (98-107) L 11/06/16 06:00 Carbon Dioxide 17 mmol/L (22-30) L 11/06/16 06:00 Anion Gap 46 mmol/L 11/06/16 06:00 BUN 77 mg/dL (9-20) H 11/06/16 06:00 Creatinine 1.7 mg/dL (0.8-1.5) H D 11/06/16 09:43 Estimated GFR 5 ml/min 11/06/16 06:00 BUN/Creatinine Ratio 7.12 % 11/06/16 06:00 Glucose 203 mg/dL (75-100) H 11/06/16 06:00 Osmolality 358 Mosm/kg 11/06/16 10:17 Lactic Acid 7.1 mmol/L (0.7-2.0) H* 11/06/16 Unknown Calcium 6.4 mg/dL (8.4-10.2) L D 11/06/16 06:00 Phosphorus 15.2 mg/dL (2.5-4.5) H 11/06/16 06:00 Magnesium 3.0 mg/dL (1.7-2.3) H 11/06/16 06:00 Total Bilirubin 1.1 mg/dL (0.1-1.2) 11/05/16 19:03 AST 4086 units/L (5-40) H 11/05/16 19:03 ALT 1684 units/L (7-56) H 11/05/16 19:03 Alkaline Phosphatase 108 units/L (35-129) 11/05/16 19:03 Ammonia 62.0 umol/L (25-60) H 11/05/16 19:03 Total Creatine Kinase TNR 11/06/16 04:46 CK-MB (CK-2) 229.9 ng/mL (0.0-4.0) H 11/05/16 19:03 CK-MB (CK-2) Rel Index 0.2 (0-4) 11/05/16 19:03 Troponin T 0.179 ng/mL (0.00-0.029) H* 11/05/16 19:03 Total Protein 9.1 g/dL (6.3-8.2) H 11/05/16 19:03 Albumin 4.3 g/dL (3.9-5) 11/05/16 19:03 Albumin/Globulin Ratio 0.9 % 11/05/16 19:03 Triglycerides 551 mg/dL (2-149) H 11/05/16 19:03 Cholesterol 255 mg/dL (50-199) H 11/05/16 19:03 LDL Cholesterol Direct TNR 11/05/16 19:03 HDL Cholesterol 36 mg/dL (40-59) L 11/05/16 19:03 Cholesterol/HDL Ratio 7.08 % 11/05/16 19:03 TSH 3.430 mlU/mL (0.270-4.200) 11/05/16 19:03 Free T4 1.03 ng/dL (0.76-1.46) 11/05/16 19:03 Urine Color Christina (Yellow) 11/05/16 18:01 Urine Turbidity Cloudy (Clear) 11/05/16 18:01 Urine pH 5.0 (5.0-7.0) 11/05/16 18:01 Ur Specific [place] 1.024 (1.003-1.030) 11/05/16 18:01 Urine Protein 100 mg/dl mg/dL (Negative) 11/05/16 18:01 Urine Glucose (UA) 150 mg/dL (Negative) 11/05/16 18:01 Urine Ketones Tr mg/dL (Negative) 11/05/16 18:01 Urine Blood Lg (Negative) 11/05/16 18:01 Urine Nitrite Neg (Negative) 11/05/16 18:01 Urine Bilirubin Neg (Negative) 11/05/16 18:01 Urine Urobilinogen < 2.0 mg/dL (<2.0) 11/05/16 18:01 Ur Leukocyte Esterase Tr (Negative) 11/05/16 18:01 Urine WBC (Auto) 5.0 /HPF (0.0-6.0) 11/05/16 18:01 Urine RBC (Auto) 32.0 /HPF (0.0-6.0) 11/05/16 18:01 U Epithel Cells (Auto) 3.0 /HPF (0-13.0) 11/05/16 18:01 Urine Bacteria (Auto) 1+ /HPF (Negative) 11/05/16 18:01 Salicylates < 0.3 mg/dL (2.8-20.0) L 11/05/16 19:03 Urine Opiates Screen Presumptive negative 11/05/16 18:01 Urine Methadone Screen Presumptive negative 11/05/16 18:01 Acetaminophen < 15.0 ug/mL (10.0-30.0) 11/05/16 19:03 Ur Barbiturates Screen Presumptive negative 11/05/16 18:01 Ur Phencyclidine Scrn Presumptive negative 11/05/16 18:01 Ur Amphetamines Screen Presumptive positive 11/05/16 18:01 U Benzodiazepines Scrn Presumptive negative 11/05/16 18:01 Urine Cocaine Screen Presumptive negative 11/05/16 18:01 U Marijuana (THC) Screen Presumptive negative 11/05/16 18:01 Drugs of Abuse Note Disclamer 11/05/16 18:01 Plasma/Serum Alcohol < 0.01 gm% (0-0.07) 11/05/16 19:03 Hepatitis A IgM Ab -1 (NonReactive) 11/05/16 23:35 Hep Bs Antigen Non-reactive (Negative) 11/05/16 23:35 Hep B Core IgM Ab Non-reactive (NonReactive) 11/05/16 23:35 Hepatitis C Antibody Reactive (NonReactive) 11/05/16 23:35 Microbiology 11/06/16 06:20 Tracheal Aspirate Sputum Culture - Preliminary 11/05/16 16:43 Peripheral/Venous Blood Culture - Preliminary Culture in Progress 11/05/16 19:03 Peripheral/Venous Blood Culture - Preliminary Culture in Progress - Imaging and Cardiology Chest x-ray: report reviewed (Chest x-ray showed 11/05/2016-hyperinflation and probable hiatal hernia no pleural effusions or CHF.), other (cX-ray 11/06/2016- mild atelectasis in the lateral left lung base. No pulmonary edema or pleural effusion) CT scan - abdomen: report reviewed (CT [id number] with wall thickening on the RT is likely infectious or inflammatory; no obstruction)
[2016-11-06] MEDS ORDERED: D10W IV SCH (14:00)
[2016-11-06] MEDS ORDERED: NACL 0.9% 500 ML 1,000 ML ONE (14:46)
[2016-11-06] MEDS ORDERED: D10W 1,000 ML IV SCH (15:00)
[2016-11-06] MEDS: ADRENALIN 8 MG in NACL 0.9% 250ML 242 ML IV SCH (15:58)
[2016-11-06 16:01] LABS: Hematocrit 41.5 % (35.5-45.6); Hemoglobin 13.1 gm/dl (11.8-15.2)
--- NOTE | 2016-11-06 16:09 | Consultation ---
Addendum entered and electronically signed by JUDY MITCHELL MD 11/06/16 17:54: I have seen and examined the patient and agree with the documentation below. Original Note: History of Present Illness Consult date: 11/06/16 Requesting physician: ZENAIDA MAHMOOD Consult reason: abnormal cardiac enzymes, hypotension History of present illness: The history was obtained from the patient's mother and from the medical record as the patient is currently intubated and unresponsive. Mr. Munguia is a 50 year old male who presented to the ER for evaluation of altered mental status. His mother reports that on Saturday he locked himself in his bedroom but was able to communicate to his mother through the door. Yesterday, he came out of his room and she stated that he was confused and "talking out of his head" so she called 911. She believes that he used methamphetamine. Upon presentation to the ER, he was found to be in acute renal failure with a potassium of 8.0. He was emergently dialyzed and later intubated. Cardiac enzymes reveal markedly elevated CK, CK-MB and a mildly elevated troponin. He is currently intubated and on multiple vasopressors. Past History Past Medical History: hypertension Past Surgical History: No surgical history Social history: lives with family, other (methamphetamine ) Family history: no significant family history Medications and Allergies Allergies Allergy/AdvReac Type Severity Reaction Status Date / Time No Known Allergies Allergy Unverified 07/24/16 09:58 Home Medications Medication Instructions Recorded Confirmed Last Taken Type Lisinopril [Zestril TAB] 20 mg PO QDAY #30 tablet 07/24/16 11/05/16 Unknown Rx Active Meds: Active Medications Al Hydrox/Mg Hydrox/Simethicone (Alum-Mag Hydrox-Simeth [id number]/5ml) 30 ml PO Q4H PRN PRN Reason: Indigestion Lipase/Protease/Amylase (Lauren Rivera 10,500 Unit) 1 each FEEDTUBE PRN PRN PRN Reason: For Clogged Feeding Tube Bisacodyl (Dulcolax) 10 mg VT QDAY PRN PRN Reason: constipation unrelieved by MOM Famotidine (Pepcid) 20 mg IV DAILY ANDREW Last Admin: 11/06/16 13:18 Dose: 20 mg Heparin Sodium (Porcine) (Heparin) 5,000 unit IV IMELDA PRN PRN Reason: hemodialysis Last Admin: 11/06/16 14:25 Dose: 5,000 unit Heparin Sodium (Porcine) (Heparin) 5,000 unit SUB-Q Q12HR ANDREW Last Admin: 11/06/16 10:01 Dose: 5,000 unit Hydrocortisone Sodium Succinate (Solu-Cortef) 100 mg IV Q8HR ANDREW Last Admin: 11/06/16 14:33 Dose: 100 mg Sodium Chloride (Nacl 0.9% 1000 Ml) 100 mls @ 999 mls/hr IV IMELDA PRN PRN Reason: Hypotension Last Admin: 11/06/16 14:10 Dose: 999 mls/hr Sodium Bicarbonate 150 meq/ (Dextrose) 1,150 mls @ 75 mls/hr IV DIRECT ANDREW Dextrose/Sodium Chloride (D5/0.45ns) 1,000 mls @ 100 mls/hr IV DIRECT ANDREW Last Admin: 11/06/16 02:41 Dose: 100 mls/hr Piperacillin Sod/Tazobactam Sod (Zosyn/Ns 2.25 Gm/50ml) 50 mls @ 100 mls/hr IV Q8HR ANDREW PRN Reason: Protocol Last Admin: 11/06/16 15:15 Dose: Not Given Dextrose (D5w) 1,000 mls @ 150 mls/hr IV DIRECT ANDREW Stop: 11/06/16 23:55 Norepinephrine (Levophed Drip 4 Mg/Ns 250 Ml) 250 mls @ 7.5 mls/hr IV TITR ANDREW ; 2 MCG/MIN PRN Reason: Protocol Last Admin: 11/06/16 13:30 Dose: 112.5 mls/hr Vasopressin 20 unit/ Sodium (Chloride) 101 mls @ 9.09 mls/hr IV TITR ANDREW; 0.03 UNITS/MIN PRN Reason: Protocol Last Admin: 11/06/16 14:15 Dose: 1,212 mls/hr Sodium Chloride (Nacl 0.9% 1000 Ml) 100 mls @ 999 mls/hr IV IMELDA PRN PRN Reason: Hypotension Last Admin: 11/06/16 14:12 Dose: 999 mls/hr Phenylephrine HCl 100 mg/ (Sodium Chloride) 100 mls @ 3 mls/hr IV TITR ANDREW; 50 MCG/MIN PRN Reason: Protocol Last Admin: 11/06/16 15:59 Dose: 36 mls/hr Dextrose (D10w) 1,000 mls @ 50 mls/hr IV DIRECT ANDREW Last Admin: 11/06/16 14:26 Dose: 50 mls/hr Epinephrine 8 mg/ Sodium (Chloride) 250 mls @ 3.75 mls/hr IV TITR ANDREW; 2 MCG/ MIN PRN Reason: Protocol Last Admin: 11/06/16 15:58 Dose: 3.75 mls/hr Magnesium Hydroxide (Milk Of Magnesia) 30 ml PO Q4H PRN PRN Reason: Constipation Simple Syrup (Simple Syrup) 15 ml FEEDTUBE PRN PRN PRN Reason: Hypoglycemia Simple Syrup (Simple Syrup) 30 ml FEEDTUBE PRN PRN PRN Reason: Hypoglycemia Sodium Bicarbonate (Sodium Bicarbonate) 325 mg FEEDTUBE PRN PRN PRN Reason: For Clogged Feeding Tube Review of Systems ROS unobtainable: due to endotracheal tube, due to mental status Physical Examination Vital Signs Temp Pulse Resp BP Pulse Ox 101.4 F H 99 H 40 H 125/99 40 L 11/05/16 17:53 11/05/16 17:53 11/05/16 17:53 11/05/16 17:53 11/05/16 17:53 General appearance: other (intubated and unresponsive) HEENT: Positive: Normocephaly, Mucus Membranes Moist Neck: Positive: neck supple, trachea midline Cardiac: Positive: Reg Rate and Rhythm, S1/S2 Lungs: Positive: Rhonchi Neuro: Positive: Other (intubated, unresponsive) Abdomen: Positive: Distended Skin: Positive: Clear. Negative: Rash Extremities: Present: normal. Absent: edema Results 11/06/16 15:17 11/06/16 15:17 Cardiac Enzymes 11/06/16 Range/Units 03:00 AST 28180 H (5-40) units/L CBC 11/06/16 11/06/16 11/06/16 Range/Units 03:00 06:00 15:17 WBC 20.7 H 17.9 H (4.5-11.0) K/mm3 RBC 6.69 H 6.02 H (3.65-5.03) M/mm3 Hgb 19.7 H 17.8 H 13.1 D (11.8-15.2) gm/dl Hct 58.1 H 54.8 H 41.5 D (35.5-45.6) % Plt Count 176 152 (140-440) K/mm3 Comprehensive Metabolic Panel 11/06/16 11/06/16 11/06/16 Range/Units 03:00 04:46 06:00 Sodium 150 H TNR 153 H (137-145) mmol/L Potassium 5.9 H D TNR 6.8 H* (3.6-5.0) mmol/L Chloride 92.6 L TNR 97.0 L (98-107) mmol/L Carbon Dioxide 13 L TNR 17 L (22-30) mmol/L BUN 73 H TNR 77 H (9-20) mg/dL Creatinine 10.4 H TNR 10.8 H (0.8-1.5) mg/dL Glucose 87 TNR 203 H (75-100) mg/dL Calcium 8.6 TNR 6.4 L D (8.4-10.2) mg/dL AST 66649 H (5-40) units/L ALT 3771 H (7-56) units/L Alkaline Phosphatase 119 (35-129) units/L Total Protein 9.1 H (6.3-8.2) g/dL Albumin 4.3 (3.9-5) g/dL 11/06/16 Range/Units 09:43 Sodium 138 D (137-145) mmol/L Potassium (3.6-5.0) mmol/L Chloride (98-107) mmol/L Carbon Dioxide (22-30) mmol/L BUN (9-20) mg/dL Creatinine 1.7 H D (0.8-1.5) mg/dL Glucose (75-100) mg/dL Calcium (8.4-10.2) mg/dL AST (5-40) units/L ALT (7-56) units/L Alkaline Phosphatase (35-129) units/L Total Protein (6.3-8.2) g/dL Albumin (3.9-5) g/dL - Imaging and Cardiology Echo: pending EKG: image reviewed EKG interpretations - Telemetry EKG Rhythm: Sinus Tachycardia - EKG Sinus rhythms and dysrhythmias: sinus tachycardia Assessment and Plan Obtain additional sets of cardiac enzymes. Obtain echocardiogram. Continue vasopressors and supportive care. - Patient Problems (1) Acute respiratory failure Current Visit: Yes Status: Acute (2) Acute renal failure Current Visit: Yes Status: Acute (3) Hyperkalemia Current Visit: Yes Status: Acute (4) Rhabdomyolysis Current Visit: Yes Status: Acute (5) Hypotension Current Visit: Yes Status: Acute (6) Elevated troponin Current Visit: Yes Status: Acute (7) Multisystem organ failure Current Visit: Yes Status: Acute
[2016-11-06 16:17] LABS: BUN/Creatinine Ratio 6.3; Chloride 100.7 mmol/L (98-107); Potassium 5.1 mmol/L (3.6-5.0)
[2016-11-06 16:27] LABS: Calcium 4.7 mg/dL (8.4-10.2)
--- NOTE | 2016-11-06 17:00 | Admit Criteria Form ---
Admission Criteria Documentation: INTENSIVE CARE UNIT ADMISSION Intensive Care Admission Guidelines ( Place 'X' for any and all applicable criteria): Admission to ICU may be indicated when need is demonstrated by ANY ONE of the following (1)(2)(3)(4)(5)(6)(7)(8)(9) : [ ]I. Vital sign abnormalities, including ANY ONE of the following: [ ]a) Systolic arterial pressure less than 90 mm Hg, or 20 mm Hg below the patient's usual pressure [ ]b) Diastolic arterial pressure greater than 120 mm Hg [ ]c) Mean arterial pressure less than 70 mm Hg [A] [ ]d) Pulse less than 40 or greater than 140 beats per minute (in adult) [ ]e) Respiratory rate greater than 35 or less than 8 breaths per minute [X ]II. Laboratory findings (new), including ANY ONE of the following (10): [ ]a) Saturation of arterial oxygen less than 88% or partial pressure of oxygen less than 60 mm Hg (8.0 kPa) despite oxygen supplementation [ ]b) Rising partial pressure of carbon dioxide with respiratory acidosis [ ]c) pH less than 7.2 or greater than 7.65 [ ]d) Serum glucose greater than 800 mg/dL (44.4 mmol/L) [ ]e) Serum sodium less than 110 mEq/L (mmol/L) or greater than 160 mEq/L (mmol/L) [X ]f) Serum potassium less than 2 mEq/L (mmol/L) or greater than 7 mEq/L (mmol/L) [ ]g) Serum calcium greater than 15 mg/dL (3.75 mmol/L) [ ]h) Serum phosphorus less than 1 mg/dL (0.32 mmol/L) [ ]i) Toxic drug level or poisoning causing or likely to cause neurologic or Hemodynamic instability [X ]j) Less severe laboratory abnormalities contributing to ANY ONE of the following: [ ]i) Seizure [X ]ii) Altered mental status [ ]iii) Muscle weakness [ ]iv) Arrhythmias [ ]v) Hemodynamic instability [ ]vi) Other significant clinical manifestations [ ]III. Electrocardiogram (or cardiac monitoring) findings, including ANY ONE of the following: [ ]a) Inherently unstable or life-threatening arrhythmia (eg, sustained ventricular tachycardia, ventricular fibrillation, asystole) [ ]b) Arrhythmia causing severe hypotension (eg, bradycardia, tachycardia) [ ]c) Complete heart block causing severe hypotension [ ]d) Other findings indicative of a need for intensive care (eg , OK) [ ]IV.Physical findings, including ANY ONE of the following: [ ]a) Threatened airway [ ]b) Sudden altered mental status [ ]c) Repeated or prolonged seizures [ ]d) Coma [ ]e) New-onset anuria (urine output <0.1 mL/kg/hr over 4 h) [ ]f) Cyanosis (new) [ ]g) Cardiac tamponade [ ]h) Status post respiratory or cardiac arrest [ ]i) Severe johnson (eg, partial thickness johnson over more than 10% of body surface, third-degree johnson) [ ]j) Findings consistent with abdominal emergency (eg, peritoneal signs) [ ]V.Imaging findings, such as dissecting aneurysm or ruptured viscus [ ].Specific intervention or monitoring needed, as indicated by ANY ONE of the following: [ ]a) New need for assisted ventilation, invasive or noninvasive(11) [ ]b) New need for intubation (eg, to protect airway) [ ]c) New tracheostomy (less than 48 hours old) [ ]d) Hourly vital signs or neurologic checks [ ]e) Pulmonary artery line monitoring needed [ ]f) Continuous arterial line monitoring needed [ ]g) Continuous IV vasoactive drugs [ ]h) Continuous IV antiarrhythmics [ ]i) Large volume IV fluid resuscitation (eg, greater than 6 L per day ) [ ]j) Large or rapid transfusion needs (eg, more than 6 units within 24 hours) [ ]k) High-risk IV treatment, such as bolus IV medicatns or mannitol infusion [ ]l) Acute cardiac pacing [ ]m) Intra-aortic balloon pump [ ]n) Ventricular assist device [ ]o) Cardioversion [ ]p) Pericardiocentesis [ ]q) Hemodialysis in unstable patient [ ]r) Continuous renal replacement therapy (eg, continuous veno-venous hemofiltration) [ ]s) Peritoneal dialysis initiation [ ]t) Emergency bronchoscopic therapy (eg, for hemoptysis) [ ]u) Emergency endoscopic therapy for bleeding [ ]v) Balloon tamponade for variceal bleeding [ ]w) Intracranial pressure monitoring or tissue oxygen monitoring [ ]x) Ventriculostomy monitoring [ ]y) Treatment of ongoing seizures [ ]z) Induced hypothermia or coma [ ]aa) Ongoing frequent testing and treatment for acute conditions, including ANY ONE of the following: [ ]i) Correction of severe metabolic acidosis/ alkalosis [ ]ii). Severe fluid overload [ ]iii) Cerebral edema [ ]iv) Monitoring or suctioning for respiratory insufficiency or acidosis [ ]v) Monitoring for active bleeding [ ]bb) Rapid desensitization for high-risk hypersensitivity reaction to required medication (eg, penicillin)(12) [ ]cc) Other need for treatment or monitoring not available outside the ICU [ ]VII.Cardiology diagnoses or procedures, including ANY ONE of the following (13)(14)(15)(16)(17): [ ]a) Chest pain with ANY ONE of the following: [ ]i) Hemodynamic instability [ ]ii) Suspicion of diagnoses needing ICU care (eg, aortic dissection) [ ]iii) New unstable or symptomatic arrhythmia or ECG finding (eg, ventricular tachycardia, ventricular fibrillation, advanced heart block) [ ]iv) Syncope or near-syncope [ ]v) SBP less than 100 mm Hg [ ]vi) Pulmonary edema thought to be due to ischemia [ ]vii) New or worsening mitral regurgitation murmur, S3 , or rales [ ]b) Acute OK with complications as indicated by ANY ONE of the following: [ ]i) Persistent chest pain [ ]ii) Hemodynamic instability [ ]iii) New unstable or symptomatic arrhythmia or ECG finding (eg, ventricular tachycardia, ventricular fibrillation, advanced heart block) [ ]iv) Syncope or near-syncope [ ]v) Pulmonary edema thought to be due to ischemia [ ]vi) New or worsening mitral regurgitation murmur, S3 , or rales [ ]vii) New-onset bundle branch block [ ]viii) Hemorrhagic complication (eg, intracranial or access site bleed following thrombolysis) [ ]c) Cardiac arrhythmia or conduction defect with Hemodynamic instability [ ]d) Complication of cardiac ablation, including ANY ONE of the following(18): [ ]i) Pericardial tamponade [ ]ii) Hemodynamic instability [ ]iii) Thromboembolic stroke [ ]iv) Aortic valve injury [ ]v) Vascular injuries [ ]vi) Esophageal perforation [ ]vii) Severe arrhythmia [ ]viii) Air embolism [ ]ix) Other severe complication [ ]e) Cardiogenic shock [ ]f) Hypertensive emergency, with need for ANY ONE of the following(19): [ ]i) IV antihypertensive therapy [ ]ii) Invasive hemodynamic monitoring (eg, arterial line) [ ]g) Pericardial tamponade [ ]h) Severe heart failure, with ANY ONE of the following(15): [ ]i) Respiratory failure [ ]ii) Cardiogenic shock [ ]iii) Severe arrhythmias [ ]iv) Evidence of cardiac ischemia [ ]i Myocarditis, with ANY ONE of the following [ ]i) Hemodynamic instability [ ]ii) Respiratory failure [ ]iii) Severe arrhythmias [ ]iv) Need for cardiac assist device (eg, left ventricular assist device or extracorporeal membrane oxygenator) [ ]j) Status post cardiac arrest(20) [ ]VIII. Cardiovascular Surgery diagnoses or procedures, including ANY ONE of the following.(21)(22): [ ]a) Acute aortic dissection [ ]b) Aortic surgery for ANY ONE of the following: [ ]i) Thoracic aneurysm [ ]ii) Abdominal aneurysm with ANY ONE of the following(23): [ ]1) Emergency repair [ ]2) Severe cardiopulmonary disease [ ]3) Dialysis-dependent renal failure [ ]4) Need for IV blood pressure control [ ]5) Need for ongoing ventilatory support [ ]6) Perioperative complications, including ANY ONE of the following: [ ]A. Sustained Hemodynamic instability [ ]B. Cardiac ischemia or arrhythmia [ ]C. Hypothermia (less than 35 degrees C (95 degrees F)) [ ]D. Blood transfusion greater than 3 L [ ]iii) Aortic coarctation operative excision or repair [ ]iv) Aortofemoral or aortoiliac bypass with ANY ONE of the following: [ ]1) Continued intubation [ ]2) Hemodynamic instability [ ]3) Need for IV blood pressure control [ ]4) Severe cardiopulmonary disease [ ]c) Cardiac surgery [ ]d) Carotid endarterectomy or stent placement with ANY ONE of the following: [ ]i) Blood pressure <100/60 mm Hg or >160/90 mm Hg despite 4 h of postanesthetic management [ ]ii) New or progressive neurologic defect [ ]iii) Chest pain [ ]iv) Continued intubation [ ]v) Heart failure [ ]vi) Airway compromise by hematoma or vocal cord paralysis [ ]vi) Need for IV blood pressure control [ ]e) Heart transplant [ ]f) Infrainguinal peripheral vascular surgery with ANY ONE of the following: [ ]i) Hemodynamic instability [ ]ii) Acute complications such as persistent chest pain or respiratory distress [ ]iii) Requirement for IV antiarrhythmic or vasoactive agent [ ]iv) Requirement for pulmonary artery catheter [ ]v) Severe hypertension despite 6 hours of recovery room management [ ]g) Complications of any surgery requiring ICU intervention as indicated by ANY ONE of the following(24): [ ]i) Hemodynamic instability [ ]ii) Myocardial infarction with complications (eg, severe arrhythmia, hypotension) [ ]iii) Excessive bleeding or severe coagulopathy [ ]iv) Respiratory failure [ ]v) Renal failure [ ]vi) Airway instability or obstruction [ ]vii) Neurologic deterioration [ ]viii) Infection with likelihood of sepsis syndrome or significant fluid shifts [ ]IX.Endocrinology diagnoses or procedures, including ANY ONE of the following(25)(26): [ ]a) Adrenal crisis with Hemodynamic instability(27) [ ]b) Pheochromocytoma with ANY ONE of the following(28): [ ]i) Hypertensive crisis [ ]ii) Postoperative Hemodynamic instability [ ]iii) Need for IV vasoactive therapy [ ]iv) Need for invasive arterial or central venous pressure monitoring [ ]v) Organ ischemia [ ]c) Diabetic hyperosmolar state with obtundation or coma [ ]d) Diabetic ketoacidosis with ANY ONE of the following: [ ]i) Serum pH less than 7.10 or bicarbonate level less than 10 mEq/L (mmol/L) [ ]ii) Rapidly changing electrolytes [ ]iii) Hypotension [ ]iv) Requirement for large-volume fluid resuscitation [ ]v) Respiratory insufficiency [ ]vi) Life-threatening cardiac dysrhythmias [ ]vii) Obtundation [ ]viii) Severe precipitating condition such as sepsis, stroke, or acute OK [ ]e) Severe hypoglycemia requiring continuous glucose infusion with frequent adjustment or glucagon infusion [ ]f) Hyperthyroidism associated with thyroid storm (also known as thyrotoxic crisis)(29) [ ]g) Myxedema with life-threatening neurologic, cardiovascular, electrolyte, or renal dysfunction(29) [ ]h) Diabetes insipidus that cannot be controlled with routine medication (30) [ X]X. Gastroenterology diagnoses or procedures, including ANY ONE of the following: [ ]a) Esophageal perforation(31) [ ]b) Severe caustic esophageal injury(31) [X ]c) Liver disease complications with ANY ONE of the following(32): [X ]i) Severe hepatic encephalopathy (eg, stage 3 (somnolent) or higher) [ ]ii) Type 1 hepatorenal syndrome [ ]iii) Other cirrhosis-associated causes of acute renal failure ( eg, severe hypovolemia, acute tubular necrosis, abdominal compartment syndrome) [ ]iv) Hemodynamic instability [ ]v) Respiratory insufficiency due to severe ascites [ ]vi) Sepsis due to spontaneous bacterial peritonitis [ ]d) Fulminant hepatic failure when aggressive intervention or transplant is anticipated (32) [ ]e) Gastrointestinal hemorrhage (upper or lower) with ANY ONE of the following(33)(34): [ ]i) Active ongoing bleeding [ ]ii) Transfusion requirement greater than 2 units of packed red cells [ ]iii) Bleeding ulcer or nonbleeding visible vessel seen on endoscopy [ ]iv) Bleeding ulcer, visible blood vessel, bleeding (or recently bleeding) esophageal varices seen on endoscopy [ ]v) Hypotension [ ]vi) Syncope [ ]vii) Coagulopathy [ ]viii) Hepatic cirrhosis [ ]ix) Abnormal mental status [ ]x) Unstable comorbid condition or end organ dysfunction [ ]xi) Ischemia due to poor perfusion [ ]xii) Need for hemodynamic monitoring (eg, for patients with heart failure or valvular disease) [ ]f) Severe pancreatitis indicated by ANY ONE of the following (35)(36): [ ]i) Requirement for aggressive fluid resuscitation [ ]ii) Life-threatening electrolyte abnormality [ ]iii) SBP less than 90 mm Hg [ ]iv) Persistent tachycardia greater than 120 beats per minute [ ]v) Patients at high risk of rapid deterioration, including ANY ONE of the following: [ ]1) Calculated [place] II score greater than 8 [ ]2) Age older than 55 years [ ]3) BMI greater than 30 [ ]4) Greater than 30% pancreatic necrosis on CT scan [ ]5) Admission hematocrit greater than 47% (0.47) [ ]vi) Organ failure as indicated by ANY ONE of the following: [ ]1) Serum creatinine greater than 1.9 mg/dL (168 micromoles/L) [ ]2) Requirement for mechanical ventilation [ ]3) Urine output less than 50 mL/hour [ ]4) Arterial partial pressure of oxygen less than 60 mm Hg (8.0 kPa) despite supplemental oxygen [ ]5) PiO2/FiO2 ratio less than 300 [ ]vii) Expanding pseudocyst [ ]viii) Infected pancreas [ ]ix) Pleural effusion [ ]x) Encephalopathy [ ]xi) Severe comorbidities [ ]XI. General Surgery diagnoses or procedures, including ANY ONE of the following (9)(24)(37): [ ]a) Acute abdominal catastrophe (eg, ischemic bowel, perforated viscus, abdominal compartment syndrome) [ ]b) Complications of any surgery requiring ICU intervention as indicated by ANY ONE of the following: [ ]i) Hemodynamic instability [ ]ii) OK with complications (eg, severe arrhythmia, hypotension) [ ]iii) Excessive bleeding or severe coagulopathy [ ]iv) Respiratory failure [ ]v) Renal failure [ ]vi) Airway instability or obstruction [ ]vii) Neurologic deterioration [ ]viii) Infection with likelihood of sepsis syndrome or significant fluid shifts [ ]c) Multiple trauma with complicating features as indicated by ANY ONE of the following(38): [ ]i) Impending acute respiratory failure due to lung contusion, unstable chest wall, aspiration, or hemorrhage [ ]ii) Facial or neck injury threatening airway patency [ ]iii) Cardiac contusion [ ]iv) Pericardial effusion [ ]v) Bronchial tear [ ]vi) Hemodynamic instability [ ]vii) Rhabdomyolisis requiring large volume IV fluid resuscitation [ ]viii)Other significant complicating feature [ ]d) Organ transplant(39)(40) [ ]e) Esophagectomy(31) [ ]f) Whipple procedure [ ]g) Preoperative or postoperative patients requiring ICU intervention, such as hemodynamic optimization, pulmonary artery monitoring, mechanical ventilation, or extensive nursing care [ ]h) Obesity surgery patients with ANY ONE of the following(41): [ ]i) ICU management needs for comorbid conditions, such as sleep apnea or airway management needs [ ]ii) Failed postoperative extubation [ ]iii) Intraoperative complications [ ]XII. Nephrology diagnoses or procedures, including acute, or acute on chronic renal insufficiency with ANY ONE of the following(44)(45): [ ]a) Life-threatening electrolyte or acid-base disorder [ ]b) Acute pulmonary edema [ ]c) Hypotension or significant volume depletion [ ]d) Hypertensive emergency [ ]e) Underlying critical illness contributing to renal failure (eg, septic shock, hepatorenal syndrome) [ ]f) Need for continuous renal replacement therapy [ ]XIII. Neurology diagnoses or procedures, including ANY ONE of the following (46)(47) [B] : [ ]a) Intracranial hypertension requiring ANY ONE of the following(49 ): [ ]i) Induced barbiturate coma [ ]ii) Pharmacologic paralysis or deep sedation and mechanical ventilation [ ]iii) Intracranial pressure or cerebral perfusion pressure monitoring [ ]iv) IV mannitol or hypertonic saline [ ]v) Frequent serum osmolality measurements [ ]b) Seizures with ANY ONE of the following(50): [ ]i) Status epilepticus [ ]ii) Airway compromise requiring or likely to require mechanical ventilation [ ]iii) Severe electrolyte abnormalities causing seizures [ ]c) Progressive acute neurologic dysfunction requiring or likely to require ANY ONE of the following: [ ]i) Mechanical ventilation [ ]ii) Intracranial pressure or cerebral perfusion pressure monitoring [ ]d) Meningitis with obtundation or respiratory insufficiency [C])(51 ) [ ]e) Stroke with ANY ONE of the following(52)(53): [ ]i) Need for observation after thrombolysis [ ]ii) Altered mental status [ ]iii) Need for mechanical ventilation [ ]iv) Elevated intracranial pressure [ ]v) Hypertensive emergency [ ]vi) High risk of progressive infarction or deterioration based on CT scan or MRI [ ]vii) Hemorrhage [ ]f) Acute coma [ ]g) Acute spontaneous intracranial hemorrhage(53)(54) [ ]h) Drug ingestion with ANY ONE of the following(56)(57): [ ]i) Hemodynamic instability [ ]ii) Respiratory depression (partial pressure of carbon dioxide >45 mm Hg (6.0 kPa), new) [ ]iii) Patient requires or is likely to require mechanical ventilation. [ ]iv) Arrhythmias [ ]v) Seizures [ ]vi) Altered mental status ([place] coma scale score less than 12, new) [ ]vii) Significant risk for acute deterioration (eg, toxic level of hypotension or arrhythmia-producing drug) [ ]viii) Drug-induced hypothermia or hyperthermia [ ]ix) Increasing metabolic acidosis [ ]x) Severe hypoglycemia requiring glucose infusion with frequent adjustment or glucagon administration [ ]xi) Ongoing antidote administration (eg, continuous naloxone infusion, organophosphate toxicity treatment) [ ]xii) Emergency intervention need (eg, dialysis, hemoperfusion, restraints) [ ]i) Brain with preparation for organ donation [ ]j) Traumatic brain injury with ANY ONE of the following(55): [ ]i) Altered mental status (eg, new onset [place] coma scale score less than 10) [ ]ii) Cerebral edema [ ]iii) Cerebral hemorrhage [ ]iv) Increased intracranial pressure [ ]XIV. Neurosurgery diagnoses or procedures, including ANY ONE of the following(49)(58)(59): [ ]a) Emergency craniotomy for tumor, hematoma, or trauma [ ]b) Elective craniotomy for posterior fossa tumor [ ]c) Elective craniotomy (supratentorial) for tumor with ANY ONE of the following: [ ]i) Postoperative neurologic deficit or impaired consciousness 6 hours after completion of procedure [ ]ii) SBP less than 110 mm Hg or greater than 180 mm Hg despite therapy [ ]iii) Extensive operative blood loss [ ]iv) High anesthesia risk (eg, [place] [employer] score greater than 3 [ ]d) Craniotomy for aneurysm with ANY ONE of the following: [ ]i) Postoperative neurologic deficit or impaired consciousness 6 hours after completion of procedure [ ]ii) Preoperative Floyd-Manuel grade 3 or higher [ ]iii) SBP less than 110 mm Hg or greater than 180 mm Hg despite therapy [ ]iv) Intracranial pressure monitoring [ ]e) Acute spinal cord injury [ ]f) Subarachnoid hemorrhage [ ]g) Traumatic brain injury with ANY ONE of the following: [ ]i) Acute mental status change ([place] coma scale score less than 10) [ ]ii) CT scan showing cerebral edema or hemorrhage [ ]iii) Intracranial pressure monitoring [ ]h) Complications of any surgery requiring ICU intervention as indicated by ANY ONE of the following(60): [ ]i) Hemodynamic instability [ ]ii) OK with complications (eg, severe arrhythmia, hypotension) [ ]iii) Excessive bleeding or severe coagulopathy [ ]iv) Respiratory failure [ ] v) Renal failure [ ]vi) Airway instability or obstruction [ ]vii) Neurologic deterioration [ ]viii) Infection with likelihood of sepsis syndrome or significant fluid shifts [ ]i) Preoperative or postoperative patients requiring ICU intervention, such as hemodynamic optimization, pulmonary artery monitoring, mechanical ventilation, or extensive nursing care [ ]XV.Obstetrics and Gynecology diagnoses or procedures, including ANY ONE of the ffg. (61)(62)(63): [ ]a) Severe peripartum condition as indicated by ANY ONE of the following: [ ]i) Eclampsia [ ]ii) Hypertensive emergency [ ]iii) HELLP syndrome (hemolysis, elevated liver enzymes, and low platelet count) [ ]iv) Pulmonary edema [ ]v) Respiratory failure [ ]vi) Pulmonary embolism [ ]vii) Anaphylactoid syndrome of (amniotic fluid embolus) [ ]viii) Ovarian hyperstimulation syndrome [D] [ ]ix) Acute fatty liver of (hepatic failure) [ ]x) Complications such as placental abruption or severe hemorrhage [ ]xi) Sepsis (eg, puerperal sepsis, chorioamnionitis, septic ) [ ]xii) cardiomyopathy with severe congestive heart failure (eg, respiratory failure, cardiogenic shock) [ ]b) Ruptured ectopic [ ]c) Complications of any surgery requiring ICU intervention as indicated by ANY ONE of the following: [ ]i) Hemodynamic instability [ ]ii) OK with complications (eg, severe arrhythmia, hypotension) [ ]iii) Excessive bleeding or severe coagulopathy [ ]iv) Respiratory failure [ ]v) Renal failure [ ]vi) Airway instability or obstruction [ ]vii) Neurologic deterioration [ ]viii) Infection with likelihood of sepsis syndrome or significant fluid shifts [ ]d) Preoperative or postoperative patients requiring ICU intervention , such as hemodynamic optimization, pulmonary artery monitoring, mechanical ventilation, or extensive nursing care [ ]XVI.Ophthalmology diagnoses or procedures, including ANY ONE of the following (64): [ ]a) Complications of any surgery requiring ICU intervention, such as ANY ONE of the following: [ ]i) Hemodynamic instability [ ]ii) OK with complications (eg, severe arrhythmia, hypotension) [ ]iii) Excessive bleeding or severe coagulopathy [ ]iv) Respiratory failure [ ]v) Renal failure [ ]vi) Airway instability or obstruction [ ]vii) Neurologic deterioration [ ]viii) Infection with likelihood of sepsis syndrome or significant fluid shifts [ ]b) Preoperative or postoperative patients requiring ICU intervention , such as hemodynamic optimization, pulmonary artery monitoring, mechanical ventilation, or extensive nursing care [ ]XVII.Orthopedics diagnoses or procedures, including ANY ONE of the following [phone]): [ ]a) Complications of any surgery requiring ICU intervention as indicated by ANY ONE of the following: [ ]i) Hemodynamic instability [ ]ii) OK with complications (eg, severe arrhythmia, hypotension) [ ]iii) Excessive bleeding or severe coagulopathy [ ]iv) Respiratory failure [ ]v) Renal failure [ ]vi) Airway instability or obstruction [ ] vii) Neurologic deterioration [ ]viii) Infection with likelihood of sepsis syndrome or significant fluid shifts [ ]b) Multiple trauma with complicating features as indicated by ANY ONE of the following(38): [ ]i) Impending acute respiratory failure due to lung contusion, unstable chest wall, pneumothorax, aspiration, or hemorrhage [ ]ii) Facial or neck injury threatening airway patency [ ]iii) Cardiac contusion [ ]iv) Rhabdomyolysis requiring large volume IV fluid resuscitation [ ]v) Pericardial effusion [ ]vi) Bronchial tear [ ]vii) Hemodynamic instability [ ]viii) Other significant complicating feature [ ]c) Threatened compartment syndrome [ ]d) Severe johnson with ANY ONE of the following(68)(69)(70): [ ]i) Hypotension or requirement for aggressive fluid resuscitation [ ]ii) Respiratory insufficiency with requirement for high- flow oxygen or mechanical ventilation [ ]iii) Carbon monoxide poisoning [ ]iv) Life-threatening cardiac, renal, pulmonary, or neurologic dysfunction [ ]v) High-voltage (eg, 1000 volts or more) electrical burn [ ]vi) Requirement for frequent or intensive debridement and dressing changes; examples include: [ ]1) Partial thickness johnson greater than 10% of body surface [ ]2) Johnson on face, hands, feet, genitalia, perineum , or major joints [ ]3) Third-degree johnson [ ]4) Any burn greater than 15% of body surface area [ ]vii) Inhalation lung injury [ ]viii) Concomitant trauma or other medical condition requiring ICU care [ ]e) Preoperative or postoperative patients requiring ICU intervention , such as hemodynamic optimization, pulmonary artery monitoring, mechanical ventilation, or extensive nursing care [ ]XVIII.Otolaryngology diagnoses or procedures, including ANY ONE of the following (71)(72): [ ]a) Complications of any surgery requiring ICU intervention as indicated by ANY ONE of the following: [ ]i) Hemodynamic instability [ ]ii) OK with complications (eg, severe arrhythmia, hypotension) [ ]iii) Excessive bleeding or severe coagulopathy [ ]iv) Respiratory failure [ ]v) Renal failure [ ]vi) Airway instability or obstruction [ ]vii) Neurologic deterioration [ ]viii) Infection with likelihood of sepsis syndrome or significant fluid shifts [ ]b) Airway or hemodynamic compromise that persists after 3 hours of observation in postanesthesia care unit following nasal, palate (eg, uvulopalatopharyngoplasty or palatoplasty), or tongue surgery for sleep apnea [ ]c) Preoperative or postoperative patient requiring ICU intervention, such as hemodynamic optimization, pulmonary artery monitoring, mechanical ventilation, or extensive nursing care [ ]d) Symptomatic upper airway compromise (eg, laryngeal edema, mass) [ ]e) Other airway-compromising procedure (eg, posterior nasal packing) [ ]XIX.Thoracic Surgery and Pulmonary Disease Diagnosis or procedures, including ANY ONE of the following(6): [ ]a) Asthma with ANY ONE of the following(73)(74): [ ]i) Impending or actual respiratory arrest [ ]ii) Need for mechanical ventilation [ ]iii) Peak expiratory flow rate less than 30% of predicted or personal best [ ]iv) Peak expiratory flow rate or FEV1 less than 40% predicted after 1 hour of initial treatment [ ]v) Acidosis [ ]vi) Persistent or worsening hypoxia after initial treatment [ ]vii) Hypercapnia (eg, partial pressure of carbon dioxide greater than 43 mm Hg (5.7 kPa)) [ ]viii) Severe drowsiness, confusion, or coma [ ]ix) Requiring continuous inhaled bronchodilator [ ]b) COPD with ANY ONE of the following(75): [ ]i) Need for assisted ventilation [ ]ii) Hemodynamic instability [ ]iii) Severe dyspnea unresponsive to initial treatment [ ]iv) Change in level of consciousness [ ]v) Persistent findings despite oxygen and outpatient management, including ANY ONE of the following: [ ]1) Partial pressure of oxygen less than 40 mm Hg ( 5.3 kPa) [ ]2) Partial pressure of carbon dioxide greater than 60 mm Hg (8.0 kPa) [ ]3) pH less than 7.25 [ ]4) Worsening hypoxemia or acidosis [ ]c) Cor pulmonale with ANY ONE of the following(75)(76)(77): [ ]i) Hemodynamic instability [ ]ii) Need for IV inotropic or vasoactive agent [ ]iii) Need for invasive hemodynamic monitoring (eg, central venous, pulmonary artery, or arterial catheter) [ ]iv) Hypoxemia with partial pressure of oxygen less than 40 mm Hg (5.3 kPa) [ ]v) Worsening hypoxemia or acidosis despite oxygen therapy [ ]vi) Need for assisted ventilation [ ]vii) Need for right ventricular assist device [ ]viii) Unstable atrial tachyarrhythmia [ ]ix) Need for inhaled nitric oxide [ ]d) Aspiration pneumonia with ANY ONE of the following(78): [ ]i) Acute respiratory distress syndrome (PaO2/FiO2 ratio of 300 or less) [ ]ii) Impending or actual respiratory arrest [ ]iii) Need for invasive or noninvasive mechanical ventilation [ ]e) Pneumocystis jiroveci pneumonia with ANY ONE of the following(79): [ ]i) Impending or actual respiratory arrest [ ]ii) Hypoxia (eg, PO260 mmGh (8.0 kPa) or less despite oxygen therapy) [ ]iii) Need for invasive or noninvasive mechanical ventilation [ ]f) Pneumonia with ANY ONE of the following(80)(81)(82): [ ]i) Need for invasive or noninvasive assisted ventilation [ ]ii) Hemodynamic instability [ ]iii) Severity factors as indicated by 3 or MORE of the following: [ ]1) Respiratory rate 30 breaths per minute or greater [ ]2) PaO2/FiO2 ratio of 250 or less [ ]3) Multilobed infiltrates [ ]4) Altered mental status [ ]5) BUN 20 mg/dL (7.1 mmol/L) or greater [ ]6) WBC count less than 4000/mm3 (4 x109/L) [ ]7) Platelet count <100,000/mm3 (100 x109/L) [ ]8) Temperature less than 36 degrees C (96.8 degrees F ) [ ]9) Hypotension requiring aggressive fluid resuscitation [ ]g) Pulmonary hypertension requiring initiation of parenteral pulmonary vasodilator or trial of inhaled nitric oxide (eg, need for right heart catheterization)(76) [ ]h) Impending respiratory failure as indicated by ANY ONE of the following: [ ]i) Respiratory rate greater than 30 or partial pressure of oxygen less than 60 mm Hg (8.0 kPa) on 50% oxygen or more [ ]ii) Partial pressure of carbon dioxide greater than 45 mm Hg (6.0 kPa) with pH less than 7.35 [ ]i) Respiratory failure with ANY ONE of the following (47): [ ]i) Need for invasive or noninvasive mechanical ventilation [ ]ii) High likelihood of requiring mechanical ventilation within 24 hours [ ]iii) Observation in the first several hours immediately after extubation from mechanical ventilation [ ]iv) Need for close observation and aggressive therapy, such as suctioning, chest physiotherapy, or inhalation treatments at intervals less than 1 hour [ ]v) Pharmacologic ventilatory paralysis [ ]j) Venous thromboembolism with need for systemic or catheter- directed thrombolysis (eg, for limb-threatening thrombosis, phlegmasia cerulea dolens) (83) [ ]k) Pulmonary embolus with ANY ONE of the following(83): [ ]i) Hypotension [ ]ii) Severe hypoxia [ ]iii) Dangerous arrhythmia [ ]iv) Bleeding [ ]v) Need for systemic or catheter-directed thrombolysis [ ]l) Lobectomy or other major thoracic surgery [ ]m) Lung transplant [ ]n) Symptomatic upper airway obstruction (eg, laryngeal edema, mass) [ ]o) Massive hemoptysis [ ]p) Infection or thrombosis of an intravenous device with ANY ONE of the following(6)(84): [ ]i) Hemodynamic instability [ ]ii) Requirement for frequent hemodynamic measurements [ ]iii) Shock [ ]iv) End organ dysfunction [ ] v) Acute renal failure due to missed dialysis [ ]vi) Unstable acute complication (eg, pericardial tamponade , tension pneumothorax) [ ]q) Traumatic rib fracture or fractures with ANY ONE of the following(85): [ ]i) Injury severity score of 19 or greater [ ]ii) Respiratory insufficiency [ ]iii) Flail chest [ ]iv) Sternum fracture [ ]v) Vascular injury (eg, heart or great vessels) [ ]r) Pleural effusion with ANY ONE of the following(86): [ ]i) Respiratory insufficiency [ ]ii) Hemothorax with active ongoing bleeding [ ]iii) Hemodynamic instability [ ]iv) Unstable comorbid condition (eg, sepsis or heart failure [ ]XX. Urology diagnoses or procedures, including ANY ONE of the following ( 87)(88): [ ]a) Renal transplant [ ]b) Complications of any surgery requiring ICU intervention as indicated by ANY ONE of the following: [ ]i) Hemodynamic instability [ ]ii) OK with complications (eg, severe arrhythmia, hypotension) [ ]iii) Excessive bleeding or severe coagulopathy [ ]iv) Respiratory failure [ ]v) Renal failure [ ]vi) Airway instability or obstruction [ ]vii) Neurologic deterioration [ ]viii) Infection with likelihood of sepsis syndrome or significant fluid shifts [ ]c) Preoperative or postoperative patients requiring ICU intervention , such as hemodynamic optimization, pulmonary artery monitoring, mechanical ventilation , or extensive nursing care [ ]XXI.Infectious Disease diagnoses or procedures, with ANY ONE of the following (6)(43): [ ]a) Hemodynamic instability [ ]b) Shock [ ]c) Requirement for frequent hemodynamic measurements (eg, arterial catheter, pulmonary artery catheter) [ ]d) Sepsis or suspected sepsis with end organ dysfunction (eg, acute kidney injury, acute respiratory distress syndrome) [ ]e) Necrotizing soft tissue infection [ ] XXII.Hematology - Oncology diagnoses or procedures, including chemotherapy administration with ANY ONE of the following(42): [ ]a) Hemodynamic instability [ ]b) Tumor lysis syndrome with ANY ONE of the following : [ ]1) Acute kidney injury [ ]2) Severe electrolyte abnormality [ ]3) Cardiac dysrhythmia [ ]XXIII. Systemic conditions, including ANY ONE of the following: [ ]a) Severe electrolyte or metabolic disturbance causing or likely to cause ANY ONE of the following(10)(89)(90): [ ]i) Life-threatening cardiac dysrhythmia [ ]ii) Respiratory insufficiency [ ]iii) Altered mental status [ ]iv) Seizures [ ]v) Hemodynamic instability [ ]vi) Muscular weakness [ ]b) Environmental injuries such as hypothermia, hyperthermia, electrical injuries, or near drowning(70)(91)(92) The original [employer] content created by [employer] has been revised. The portions of the content which have been revised are identified through the use of italic text or in bold, and [facility] has neither reviewed nor approved the modified material. All other unmodified content is copyright [employer]. Please see references footnoted in the original [facility] edition 2016 Admission Criteria Met: Yes
[2016-11-06 22:29] LABS: Creatine Kinase MB 47.6 ng/mL (0.0-4.0)
[2016-11-06] MEDS: LEVOPHED 8 MG in NACL 0.9% 250ML 242 ML IV SCH (22:53)
[2016-11-07] MEDS: LEVOPHED 8 MG in NACL 0.9% 250ML 242 ML IV SCH ×5 (02:18→22:36)
[2016-11-07] MEDS: NEO-SYNEPHRINE 100 MG in NACL 0.9% 90 ML IV SCH ×6 (02:19→22:35)
[2016-11-07 05:33] LABS: ISTAT Base Excess -8; ISTAT HCO3 17.8; ISTAT PCO2 33.9 (35-45); ISTAT PH 7.329 (7.35-7.45); ISTAT PO2 157 (80-105); ISTAT SO2 99; ISTAT TCO2 19
[2016-11-07] MEDS: ZOSYN/NS 2.25 GM/50ML 50 ML IV SCH ×3 (05:44→21:25)
[2016-11-07] MEDS: ADRENALIN 8 MG in NACL 0.9% 250ML 242 ML IV SCH (06:02)
[2016-11-07] MEDS: SODIUM BICARBONATE 150 MEQ in D5W 1,000 ML IV SCH ×2 (06:16→21:53)
[2016-11-07 06:35] LABS: Hematocrit 39.4 % (35.5-45.6); Hemoglobin 12.6 gm/dl (11.8-15.2); Mean Corpuscular HGB Conc 32 % (32-34); Mean Corpuscular Hemoglobin 29 pg (28-32); Mean Corpuscular Volume 91 fl (84-94); Red Blood Count 4.33 M/mm3 (3.65-5.03); Red Cell Distribution Width 16.2 % (13.2-15.2)
[2016-11-07 06:48] LABS: Platelet Count 37 K/mm3 (140-440); White Blood Count 22.6 K/mm3 (4.5-11.0)
[2016-11-07 06:56] LABS: BUN/Creatinine Ratio 6.42
[2016-11-07] MEDS: D10W 1,000 ML IV SCH (06:56)
[2016-11-07 07:00] LABS: Potassium 6.1 mmol/L (3.6-5.0)
[2016-11-07 07:01] LABS: Calcium 3.4 mg/dL (8.4-10.2)
[2016-11-07 07:07] LABS: INR 5.49 (0.87-1.13)
[2016-11-07] MEDS ORDERED: SODIUM BICARBONATE IV ONE (07:18)
[2016-11-07] MEDS ORDERED: CALCIUM CHLORIDE 1,000 MG in NACL 0.9% 100 ML IV ONE (08:00)
[2016-11-07] MEDS ORDERED: D50W (25GM) IV ONE ×2 (08:42→15:05)
[2016-11-07 08:54] LABS: Blastocytes % (Manual) 0 %
[2016-11-07 08:55] LABS: Basophils % (Manual) 0 % (0.0-1.8); Eosinophils % (Manual) 0 % (0.0-4.3)
[2016-11-07] MEDS ORDERED: NACL 0.9% 1000 ML 100 ML IV PRN (08:55)
--- NOTE | 2016-11-07 08:55 | Progress Note ---
Assessment and Plan 50 y/o male with acute renal failure thought secondary to rhabdomyolysis, metabolic acidosis, hypotension and what appears to be severe dehydration and methamphetamine use, now with hypoglycemia, and cardiovascular collapse requiring epinephrine drip and coagulopathy. 1. Vitamin K dose today. 2. Will also give FFP today. 3. Continue bicarb drip 4. Continue IV zosyn for now, consider a one time dose of Vanc and even an antifungal. Will check blood cultures and urine if possible. 5. No feeds for now. 6. Repeat Lactic acid, continues to increase despite aggressive volume resuscitation 7. continue D10 drip and q1 hour FSBS, hold on insulin for K. Will give kayexalate instead. Ok with calcium 8. Unable to wean any drips currently, goal is to keep mat at 65 or greater 9. Overall prognosis here is extremely poor. Long discussion with family at bedside yesterday and this am. They appear to understand. Patient is to remain a full code. CCT 31 minutes. Subjective Date of service: 11/07/16 Interval history: patient's clinical status has worsened significantly in the last 24 hours. He is currently on 4 pressors including epinephrine. He has not made any urine. He is not able to tolerate dialysis. He is hypoglycemic. He is hyperthermic. He is also unresponsive on the VENT at 100% despite a clear CXR. His INR is out at 5.94. Objective Vital Signs - 12hr 11/06/16 11/06/16 11/06/16 21:00 21:16 21:17 Temperature Pulse Rate 108 H 108 H 108 H Pulse Rate [ From Monitor] Respiratory 38 H 38 H 39 H Rate Blood Pressure 127/90 126/81 128/81 O2 Sat by Pulse 88 89 89 Oximetry 11/06/16 11/06/16 11/06/16 21:18 21:30 21:46 Temperature Pulse Rate 109 H 107 H 107 H Pulse Rate [ From Monitor] Respiratory 39 H 39 H 38 H Rate Blood Pressure 128/81 128/81 100/51 O2 Sat by Pulse 89 88 90 Oximetry 11/06/16 11/06/16 11/06/16 22:00 22:01 22:15 Temperature Pulse Rate 108 H 107 H Pulse Rate [ 108 H From Monitor] Respiratory 40 H 40 H 40 H Rate Blood Pressure 123/90 132/102 O2 Sat by Pulse 90 90 91 Oximetry 11/06/16 11/06/16 11/06/16 22:31 22:45 22:53 Temperature Pulse Rate 109 H 107 H 107 H Pulse Rate [ From Monitor] Respiratory 39 H 38 H 34 H Rate Blood Pressure 153/31 153/31 75/56 O2 Sat by Pulse 91 90 89 Oximetry 11/06/16 11/06/16 11/06/16 23:01 23:03 23:15 Temperature Pulse Rate 109 H 108 H 107 H Pulse Rate [ From Monitor] Respiratory 37 H 39 H 38 H Rate Blood Pressure 62/38 62/38 62/38 O2 Sat by Pulse 90 90 86 Oximetry 11/06/16 11/06/16 11/06/16 23:30 23:45 23:46 Temperature Pulse Rate 110 H 108 H 108 H Pulse Rate [ From Monitor] Respiratory 38 H 37 H Rate Blood Pressure 111/69 111/69 81/65 O2 Sat by Pulse 84 97 97 Oximetry 11/07/16 11/07/16 11/07/16 00:00 00:01 00:05 Temperature 99.0 F Pulse Rate 109 H 108 H Pulse Rate [ From Monitor] Respiratory 38 H 39 H Rate Blood Pressure 75/46 115/78 O2 Sat by Pulse 96 96 Oximetry 11/07/16 11/07/16 11/07/16 00:15 00:31 00:45 Temperature Pulse Rate 108 H 110 H 109 H Pulse Rate [ From Monitor] Respiratory 38 H 38 H 38 H Rate Blood Pressure 115/78 91/43 115/92 O2 Sat by Pulse 95 95 96 Oximetry 11/07/16 11/07/16 11/07/16 00:59 01:00 01:01 Temperature Pulse Rate 108 H 110 H Pulse Rate [ 108 H From Monitor] Respiratory 36 H 37 H 37 H Rate Blood Pressure 193/156 193/156 O2 Sat by Pulse 96 97 97 Oximetry 11/07/16 11/07/16 11/07/16 01:03 01:15 01:31 Temperature Pulse Rate 110 H 110 H 111 H Pulse Rate [ From Monitor] Respiratory 38 H 37 H 38 H Rate Blood Pressure 148/95 148/95 172/115 O2 Sat by Pulse 96 95 97 Oximetry 11/07/16 11/07/16 11/07/16 01:45 02:01 02:15 Temperature Pulse Rate 111 H 113 H 112 H Pulse Rate [ From Monitor] Respiratory 36 H 40 H 38 H Rate Blood Pressure 124/46 124/46 85/32 O2 Sat by Pulse 96 95 93 Oximetry 11/07/16 11/07/16 11/07/16 02:31 02:45 03:01 Temperature Pulse Rate 111 H 113 H 113 H Pulse Rate [ From Monitor] Respiratory 36 H 39 H 38 H Rate Blood Pressure 85/32 113/50 120/38 O2 Sat by Pulse 95 96 96 Oximetry 11/07/16 11/07/16 11/07/16 03:15 03:30 03:45 Temperature Pulse Rate 111 H 115 H 115 H Pulse Rate [ From Monitor] Respiratory 32 H 37 H 37 H Rate Blood Pressure 104/35 104/35 104/35 O2 Sat by Pulse 96 94 94 Oximetry 11/07/16 11/07/16 11/07/16 04:00 04:01 04:15 Temperature 103.1 F H Pulse Rate 116 H 117 H Pulse Rate [ From Monitor] Respiratory 37 H 39 H Rate Blood Pressure 86/53 85/59 O2 Sat by Pulse 95 94 Oximetry 11/07/16 11/07/16 11/07/16 04:31 04:45 05:00 Temperature Pulse Rate 116 H 118 H Pulse Rate [ 113 H From Monitor] Respiratory 34 H 38 H 25 H Rate Blood Pressure 78/52 78/52 O2 Sat by Pulse 90 85 96 Oximetry 11/07/16 11/07/16 11/07/16 05:01 05:15 05:18 Temperature Pulse Rate 113 H 113 H 114 H Pulse Rate [ From Monitor] Respiratory 25 H 38 H Rate Blood Pressure 96/53 96/53 83/63 O2 Sat by Pulse 96 85 83 L Oximetry 11/07/16 11/07/16 11/07/16 05:31 05:45 06:00 Temperature Pulse Rate 113 H 111 H 111 H Pulse Rate [ From Monitor] Respiratory 36 H 36 H 36 H Rate Blood Pressure 96/53 96/53 109/59 O2 Sat by Pulse 92 92 91 Oximetry 11/07/16 11/07/16 11/07/16 06:15 06:21 06:23 Temperature Pulse Rate 111 H 110 H 110 H Pulse Rate [ From Monitor] Respiratory 36 H 36 H 36 H Rate Blood Pressure 67/30 67/30 86/50 O2 Sat by Pulse 90 92 92 Oximetry 11/07/16 11/07/16 11/07/16 06:30 06:45 07:00 Temperature Pulse Rate 110 H 109 H 110 H Pulse Rate [ From Monitor] Respiratory 37 H 36 H 36 H Rate Blood Pressure 93/36 93/36 90/25 O2 Sat by Pulse 91 92 97 Oximetry 11/07/16 11/07/16 11/07/16 07:15 07:31 07:45 Temperature Pulse Rate 109 H 110 H 109 H Pulse Rate [ From Monitor] Respiratory 36 H 37 H 36 H Rate Blood Pressure 90/25 106/68 100/19 O2 Sat by Pulse 91 91 89 Oximetry 11/07/16 11/07/16 11/07/16 08:00 08:01 08:19 Temperature 102.8 F H Pulse Rate 110 H 108 H Pulse Rate [ From Monitor] Respiratory 36 H Rate Blood Pressure 64/31 96/65 O2 Sat by Pulse 85 88 Oximetry Constitutional: comatose, appears uncomfortable, other (severely ill appearing) Eyes: non-icteric ENT: other (orally intubated, not on sedation) Neck: supple Effort: very labored Ascultation: Bilateral: clear Percussion: Bilateral: not dull Cardiovascular: other (tachy but sinus) Gastrointestinal: other (mild distention) Extremities: cool Neurologic: unable to assess CBC and BMP: 11/07/16 06:00 11/07/16 04:00 ABG, PT/INR, D-dimer: ABG POC ABG pH 7.329 (7.35-7.45) L 11/07/16 05:28 POC ABG pCO2 33.9 (35-45) L 11/07/16 05:28 POC ABG pO2 157 (80-105) H 11/07/16 05:28 POC ABG HCO3 17.8 11/07/16 05:28 POC ABG Total CO2 19 11/07/16 05:28 POC ABG O2 Sat 99 11/07/16 05:28 PT/INR, D-dimer PT 50.6 Sec. (12.2-14.9) H 11/07/16 05:00 INR 5.49 (0.87-1.13) H* 11/07/16 05:00 Abnormal lab findings: Abnormal Labs 11/06/16 11/06/16 11/06/16 02:49 03:00 03:00 WBC 20.7 H RBC 6.69 H Hgb 19.7 H Hct 58.1 H RDW 16.3 H Plt Count Seg Neuts % (Manual) Lymphocytes % (Manual) 5.0 L Monocytes % (Manual) 8.0 H Nucleated RBC % 4.0 H Seg Neutrophils # Man 9.1 H Lymphocytes # (Manual) 1.0 L Monocytes # (Manual) 1.7 H PT INR POC ABG pH POC ABG pCO2 POC ABG pO2 Sodium 150 H Potassium 5.9 H D Chloride 92.6 L Carbon Dioxide 13 L BUN 73 H Creatinine 10.4 H Glucose POC Glucose 53 L Lactic Acid Calcium Phosphorus Magnesium Total Bilirubin 2.8 H AST 55867 H ALT 3771 H Total Creatine Kinase CK-MB (CK-2) Troponin T Total Protein 9.1 H 11/06/16 11/06/16 11/06/16 03:16 05:37 06:00 WBC RBC Hgb Hct RDW Plt Count Seg Neuts % (Manual) Lymphocytes % (Manual) Monocytes % (Manual) Nucleated RBC % Seg Neutrophils # Man Lymphocytes # (Manual) Monocytes # (Manual) PT INR POC ABG pH 7.338 L POC ABG pCO2 17.4 L POC ABG pO2 213 H Sodium Potassium Chloride Carbon Dioxide BUN Creatinine Glucose POC Glucose 111 H Lactic Acid 10.0 H* Calcium Phosphorus Magnesium Total Bilirubin AST ALT Total Creatine Kinase CK-MB (CK-2) Troponin T Total Protein 11/06/16 11/06/16 11/06/16 06:00 06:00 06:00 WBC 17.9 H RBC 6.02 H Hgb 17.8 H Hct 54.8 H RDW 16.0 H Plt Count Seg Neuts % (Manual) 74.0 H Lymphocytes % (Manual) 2.0 L Monocytes % (Manual) Nucleated RBC % 1.0 H Seg Neutrophils # Man 13.2 H Lymphocytes # (Manual) 0.4 L Monocytes # (Manual) PT INR POC ABG pH POC ABG pCO2 POC ABG pO2 Sodium 153 H Potassium 6.8 H* Chloride 97.0 L Carbon Dioxide 17 L BUN 77 H Creatinine 10.8 H Glucose 203 H POC Glucose Lactic Acid Calcium 6.4 L D Phosphorus 15.2 H Magnesium 3.0 H Total Bilirubin AST ALT Total Creatine Kinase CK-MB (CK-2) Troponin T Total Protein 11/06/16 11/06/16 11/06/16 06:19 09:43 15:17 WBC RBC Hgb Hct RDW Plt Count Seg Neuts % (Manual) Lymphocytes % (Manual) Monocytes % (Manual) Nucleated RBC % Seg Neutrophils # Man Lymphocytes # (Manual) Monocytes # (Manual) PT INR POC ABG pH 7.247 L POC ABG pCO2 POC ABG pO2 142 H Sodium Potassium Chloride Carbon Dioxide BUN Creatinine 1.7 H D Glucose POC Glucose Lactic Acid 9.0 H* Calcium Phosphorus Magnesium Total Bilirubin AST ALT Total Creatine Kinase CK-MB (CK-2) Troponin T Total Protein 11/06/16 11/06/16 11/06/16 15:17 15:17 18:05 WBC RBC Hgb Hct RDW Plt Count Seg Neuts % (Manual) Lymphocytes % (Manual) Monocytes % (Manual) Nucleated RBC % Seg Neutrophils # Man Lymphocytes # (Manual) Monocytes # (Manual) PT INR POC ABG pH POC ABG pCO2 POC ABG pO2 Sodium 146 H D Potassium 5.1 H D Chloride Carbon Dioxide 17 L BUN 53 H Creatinine 8.4 H D Glucose 120 H POC Glucose 56 L Lactic Acid Calcium 4.7 L* D Phosphorus Magnesium Total Bilirubin AST ALT Total Creatine Kinase CK-MB (CK-2) Troponin T 0.258 H* D Total Protein 11/06/16 11/06/16 11/06/16 18:38 21:45 21:45 WBC RBC Hgb Hct RDW Plt Count Seg Neuts % (Manual) Lymphocytes % (Manual) Monocytes % (Manual) Nucleated RBC % Seg Neutrophils # Man Lymphocytes # (Manual) Monocytes # (Manual) PT INR POC ABG pH POC ABG pCO2 POC ABG pO2 Sodium Potassium Chloride Carbon Dioxide BUN Creatinine Glucose POC Glucose 134 H Lactic Acid 10.3 H* Calcium Phosphorus Magnesium Total Bilirubin AST ALT Total Creatine Kinase 71612 H CK-MB (CK-2) 47.6 H Troponin T 0.284 H* Total Protein 11/06/16 11/07/16 11/07/16 Unknown 02:06 04:00 WBC RBC Hgb Hct RDW Plt Count Seg Neuts % (Manual) Lymphocytes % (Manual) Monocytes % (Manual) Nucleated RBC % Seg Neutrophils # Man Lymphocytes # (Manual) Monocytes # (Manual) PT INR POC ABG pH POC ABG pCO2 POC ABG pO2 Sodium Potassium 6.1 H* Chloride Carbon Dioxide 16 L BUN 63 H Creatinine 9.8 H Glucose 307 H POC Glucose 222 H Lactic Acid 7.1 H* Calcium 3.4 L* D Phosphorus Magnesium Total Bilirubin AST ALT Total Creatine Kinase 47269 H CK-MB (CK-2) Troponin T Total Protein 11/07/16 11/07/16 11/07/16 05:00 05:28 06:00 WBC 22.6 H RBC Hgb Hct RDW 16.2 H Plt Count 37 L Seg Neuts % (Manual) Lymphocytes % (Manual) Monocytes % (Manual) Nucleated RBC % Seg Neutrophils # Man Lymphocytes # (Manual) Monocytes # (Manual) PT 50.6 H INR 5.49 H* POC ABG pH 7.329 L POC ABG pCO2 33.9 L POC ABG pO2 157 H Sodium Potassium Chloride Carbon Dioxide BUN Creatinine Glucose POC Glucose Lactic Acid Calcium Phosphorus Magnesium Total Bilirubin AST ALT Total Creatine Kinase CK-MB (CK-2) Troponin T Total Protein 11/07/16 11/07/16 06:00 06:21 WBC RBC Hgb Hct RDW Plt Count Seg Neuts % (Manual) Lymphocytes % (Manual) Monocytes % (Manual) Nucleated RBC % Seg Neutrophils # Man Lymphocytes # (Manual) Monocytes # (Manual) PT INR POC ABG pH POC ABG pCO2 POC ABG pO2 Sodium Potassium Chloride Carbon Dioxide BUN Creatinine Glucose POC Glucose 193 H Lactic Acid Calcium Phosphorus Magnesium Total Bilirubin AST ALT Total Creatine Kinase 05307 H CK-MB (CK-2) 79.0 H Troponin T 0.242 H* Total Protein Chest x-ray: image reviewed (clear lung marquez)
--- NOTE | 2016-11-07 08:55 | Progress Note ---
Assessment and Plan Impression * Acute renal failure. Most likely secondary to ATN from hypotension and rhabdomyolysis * Severe hyperkalemia * Metabolic acidosis. Secondary to lactic acidosis * Respiratory failure * Drug overdose * History of hypertension Recommendations * Status post additional dialysis treatment yesterday. However limited dialysis due to hypotension. * Currently on 3 pressors and blood pressure is also borderline. He is also hyperkalemic and acidotic. Shall attempt another dialysis session today. However would be difficult in face of hypotension and pressors * Continue pressors to keep map greater than 65 * Follow-up results of urine as well as vasculitis workup * Avoid nephrotoxins * Monitor patient's fluid status, electrolytes and renal function closely * Adjust meds for GFR less than 10 * Patient's overall prognosis appears to be quite grim Subjective Date of service: 11/07/16 Interval history: Patient remains on the ventilator. Currently on 100% FiO2. On 3 pressors. Unresponsive Objective - Vital Signs Vital signs: Vital Signs - 12hr 11/06/16 11/06/16 11/06/16 21:00 21:16 21:17 Temperature Pulse Rate 108 H 108 H 108 H Pulse Rate [ From Monitor] Respiratory 38 H 38 H 39 H Rate Blood Pressure 127/90 126/81 128/81 O2 Sat by Pulse 88 89 89 Oximetry 11/06/16 11/06/16 11/06/16 21:18 21:30 21:46 Temperature Pulse Rate 109 H 107 H 107 H Pulse Rate [ From Monitor] Respiratory 39 H 39 H 38 H Rate Blood Pressure 128/81 128/81 100/51 O2 Sat by Pulse 89 88 90 Oximetry 11/06/16 11/06/16 11/06/16 22:00 22:01 22:15 Temperature Pulse Rate 108 H 107 H Pulse Rate [ 108 H From Monitor] Respiratory 40 H 40 H 40 H Rate Blood Pressure 123/90 132/102 O2 Sat by Pulse 90 90 91 Oximetry 11/06/16 11/06/16 11/06/16 22:31 22:45 22:53 Temperature Pulse Rate 109 H 107 H 107 H Pulse Rate [ From Monitor] Respiratory 39 H 38 H 34 H Rate Blood Pressure 153/31 153/31 75/56 O2 Sat by Pulse 91 90 89 Oximetry 11/06/16 11/06/16 11/06/16 23:01 23:03 23:15 Temperature Pulse Rate 109 H 108 H 107 H Pulse Rate [ From Monitor] Respiratory 37 H 39 H 38 H Rate Blood Pressure 62/38 62/38 62/38 O2 Sat by Pulse 90 90 86 Oximetry 11/06/16 11/06/16 11/06/16 23:30 23:45 23:46 Temperature Pulse Rate 110 H 108 H 108 H Pulse Rate [ From Monitor] Respiratory 38 H 37 H Rate Blood Pressure 111/69 111/69 81/65 O2 Sat by Pulse 84 97 97 Oximetry 11/07/16 11/07/16 11/07/16 00:00 00:01 00:05 Temperature 99.0 F Pulse Rate 109 H 108 H Pulse Rate [ From Monitor] Respiratory 38 H 39 H Rate Blood Pressure 75/46 115/78 O2 Sat by Pulse 96 96 Oximetry 11/07/16 11/07/16 11/07/16 00:15 00:31 00:45 Temperature Pulse Rate 108 H 110 H 109 H Pulse Rate [ From Monitor] Respiratory 38 H 38 H 38 H Rate Blood Pressure 115/78 91/43 115/92 O2 Sat by Pulse 95 95 96 Oximetry 11/07/16 11/07/16 11/07/16 00:59 01:00 01:01 Temperature Pulse Rate 108 H 110 H Pulse Rate [ 108 H From Monitor] Respiratory 36 H 37 H 37 H Rate Blood Pressure 193/156 193/156 O2 Sat by Pulse 96 97 97 Oximetry 11/07/16 11/07/16 11/07/16 01:03 01:15 01:31 Temperature Pulse Rate 110 H 110 H 111 H Pulse Rate [ From Monitor] Respiratory 38 H 37 H 38 H Rate Blood Pressure 148/95 148/95 172/115 O2 Sat by Pulse 96 95 97 Oximetry 11/07/16 11/07/16 11/07/16 01:45 02:01 02:15 Temperature Pulse Rate 111 H 113 H 112 H Pulse Rate [ From Monitor] Respiratory 36 H 40 H 38 H Rate Blood Pressure 124/46 124/46 85/32 O2 Sat by Pulse 96 95 93 Oximetry 11/07/16 11/07/16 11/07/16 02:31 02:45 03:01 Temperature Pulse Rate 111 H 113 H 113 H Pulse Rate [ From Monitor] Respiratory 36 H 39 H 38 H Rate Blood Pressure 85/32 113/50 120/38 O2 Sat by Pulse 95 96 96 Oximetry 0111/07/16 11/07/16 03:15 03:30 03:45 Temperature Pulse Rate 111 H 115 H 115 H Pulse Rate [ From Monitor] Respiratory 32 H 37 H 37 H Rate Blood Pressure 104/35 104/35 104/35 O2 Sat by Pulse 96 94 94 Oximetry 11/07/16 11/07/16 11/07/16 04:00 04:01 04:15 Temperature 103.1 F H Pulse Rate 116 H 117 H Pulse Rate [ From Monitor] Respiratory 37 H 39 H Rate Blood Pressure 86/53 85/59 O2 Sat by Pulse 95 94 Oximetry 11/07/16 11/07/16 11/07/16 04:31 04:45 05:00 Temperature Pulse Rate 116 H 118 H Pulse Rate [ 113 H From Monitor] Respiratory 34 H 38 H 25 H Rate Blood Pressure 78/52 78/52 O2 Sat by Pulse 90 85 96 Oximetry 11/07/16 11/07/16 11/07/16 05:01 05:15 05:18 Temperature Pulse Rate 113 H 113 H 114 H Pulse Rate [ From Monitor] Respiratory 25 H 38 H Rate Blood Pressure 96/53 96/53 83/63 O2 Sat by Pulse 96 85 83 L Oximetry 11/07/16 11/07/16 11/07/16 05:31 05:45 06:00 Temperature Pulse Rate 113 H 111 H 111 H Pulse Rate [ From Monitor] Respiratory 36 H 36 H 36 H Rate Blood Pressure 96/53 96/53 109/59 O2 Sat by Pulse 92 92 91 Oximetry 11/07/16 11/07/16 11/07/16 06:15 06:21 06:23 Temperature Pulse Rate 111 H 110 H 110 H Pulse Rate [ From Monitor] Respiratory 36 H 36 H 36 H Rate Blood Pressure 67/30 67/30 86/50 O2 Sat by Pulse 90 92 92 Oximetry 11/07/16 11/07/16 11/07/16 06:30 06:45 07:00 Temperature Pulse Rate 110 H 109 H 110 H Pulse Rate [ From Monitor] Respiratory 37 H 36 H 36 H Rate Blood Pressure 93/36 93/36 90/25 O2 Sat by Pulse 91 92 97 Oximetry 11/07/16 11/07/16 11/07/16 07:15 07:31 07:45 Temperature Pulse Rate 109 H 110 H 109 H Pulse Rate [ From Monitor] Respiratory 36 H 37 H 36 H Rate Blood Pressure 90/25 106/68 100/19 O2 Sat by Pulse 91 91 89 Oximetry 11/07/16 11/07/16 11/07/16 08:00 08:01 08:19 Temperature 102.8 F H Pulse Rate 110 H 108 H Pulse Rate [ From Monitor] Respiratory 36 H Rate Blood Pressure 64/31 96/65 O2 Sat by Pulse 85 88 Oximetry - General Appearance General appearance: well-developed, well-nourished, appears stated age, intubated EENT: PERRL, mucous membranes moist Neck: no JVD, no thyromegaly, no carotid bruit, supple Respiratory: Present: Other (bilateral coarse breath sounds) Cardiology: regular, normal heart rate, S1S2, no murmurs Gastrointestinal: normal, normoactive bowel sounds Integumentary: other (no edema. Left femoral Vas-Cath in place) - Lab 11/07/16 06:00 11/07/16 04:00 Most recent lab results Calcium 3.4 mg/dL (8.4-10.2) L* D 11/07/16 04:00 Phosphorus 15.2 mg/dL (2.5-4.5) H 11/06/16 06:00 Magnesium 3.0 mg/dL (1.7-2.3) H 11/06/16 06:00
[2016-11-07 08:56] LABS: Anisocytosis 1+
[2016-11-07 08:58] LABS: Polychromasia Few
[2016-11-07 09:00] LABS: Diff Status Complete; Large Platelets Few; Platelet Estimate Appears Decreased
[2016-11-07] MEDS ORDERED: NACL 0.9% 500 ML 500 ML IV ONE (09:09)
[2016-11-07] MEDS: PEPCID IV SCH (09:39)
--- NOTE | 2016-11-07 09:48 | XRay Report ---
PORTABLE CHEST: INDICATION: Follow-up respiratory failure. COMPARISON: Yesterday. FINDINGS: Portable, frontal chest radiograph, 1:58 AM, 11/07/2016 demonstrates endotracheal tube tip in the right mainstem bronchus, approximately 2-2.5 cm past the bc. New esophagogastric tube extending beyond the GE junction and the inferior radiographic margin. Stable cardiomediastinal silhouette, left retrocardiac opacity with obscured left hemidiaphragm medially and mild left basilar atelectasis. No large pleural effusions or CHF with clear remainder lungs. EKG leads. Unremarkable bones. CONCLUSION: 1. Right mainstem bronchus intubation. Endotracheal tube may be retracted by approximately 5 cm for more optimal placement, as appropriate. 2. Stable left basilar opacity and new esophagogastric tube. I phoned the above results to Dr. Ortiz, 9:25 AM, 11/07/2016. Thank you for the opportunity to participate in this patient's care.
[2016-11-07] MEDS ORDERED: VANCOMYCIN VIAL 1,500 MG in NACL 0.9% 500 ML 500 ML IV ONE (10:00)
[2016-11-07] MEDS ORDERED: KAYEXALATE PR ONE (10:00)
[2016-11-07] MEDS ORDERED: VITAMIN K (ADULT ONLY) 10 MG in NACL 0.9% 50 ML IV ONE (10:00)
--- NOTE | 2016-11-07 10:58 | Progress Note ---
Addendum entered and electronically signed by JUDY MITCHELL MD 11/07/16 13:10: I have seen and examined the patient and agree with the documentation below. Original Note: Assessment and Plan Await echo findings. Continue vasopressors and supportive care. - Patient Problems (1) Acute respiratory failure Current Visit: Yes Status: Acute (2) Acute renal failure Current Visit: Yes Status: Acute (3) Hyperkalemia Current Visit: Yes Status: Acute (4) Rhabdomyolysis Current Visit: Yes Status: Acute (5) Hypotension Current Visit: Yes Status: Acute (6) Elevated troponin Current Visit: Yes Status: Acute (7) Multisystem organ failure Current Visit: Yes Status: Acute Subjective Date of service: 11/07/16 Principal diagnosis: hypotension, MSOF Interval history: The patient remains intubated and unresponsive. On 3 pressors currently. Sinus tach on the monitor. Objective Last Vital Signs Temp 103.4 F H 11/07/16 10:46 Pulse 108 H 11/07/16 10:46 Resp 33 H 11/07/16 10:46 BP 86/65 11/07/16 10:46 Pulse Ox 88 11/07/16 09:32 - Physical Examination General: No Apparent Distress (intubated, unresponsive) HEENT: Positive: Normocephaly, Mucus Membranes Moist Neck: Positive: neck supple, trachea midline Cardiac: Positive: Regular Rhythm, S1/S2, Tachycardia Lungs: Positive: Rhonchi Neuro: Positive: Other (intubated, unresponsive) Abdomen: Positive: Distended Skin: Positive: Clear. Negative: Rash Extremities: Present: normal. Absent: edema - Labs and Meds Cardiac Enzymes 11/06/16 11/07/16 Range/Units 21:45 06:00 CK-MB (CK-2) 47.6 H 79.0 H (0.0-4.0) ng/mL Coagulation 11/07/16 Range/Units 05:00 PT 50.6 H (12.2-14.9) Sec. INR 5.49 H* (0.87-1.13) CBC 11/06/16 11/07/16 Range/Units 15:17 06:00 WBC 22.6 H (4.5-11.0) K/mm3 RBC 4.33 (3.65-5.03) M/mm3 Hgb 13.1 D 12.6 (11.8-15.2) gm/dl Hct 41.5 D 39.4 (35.5-45.6) % Plt Count 37 L (140-440) K/mm3 Comprehensive Metabolic Panel 11/06/16 11/06/16 11/07/16 Range/Units 09:43 15:17 04:00 Sodium 138 D 146 H D 139 (137-145) mmol/L Potassium 5.1 H D 6.1 H* (3.6-5.0) mmol/L Chloride 100.7 98.0 (98-107) mmol/L Carbon Dioxide 17 L 16 L (22-30) mmol/L BUN 53 H 63 H (9-20) mg/dL Creatinine 1.7 H D 8.4 H D 9.8 H (0.8-1.5) mg/dL Glucose 120 H 307 H (75-100) mg/dL Calcium 4.7 L* D 3.4 L* D (8.4-10.2) mg/dL - Imaging and Cardiology EKG: image reviewed Echo: pending - Telemetry EKG Rhythm: Sinus Tachycardia - EKG Sinus rhythms and dysrhythmias: sinus tachycardia
[2016-11-07] MEDS: TYLENOL PO PRN ×2 (11:12→21:25)
[2016-11-07 11:14] LABS: ISTAT Base Excess -7; ISTAT HCO3 19.6; ISTAT PCO2 39.1 (35-45); ISTAT PH 7.308 (7.35-7.45); ISTAT PO2 275 (80-105); ISTAT SO2 100; ISTAT TCO2 21
[2016-11-07 13:15] LABS: Bilirubin,Urine NEG (Negative); Blood,Urine LG (Negative); Ketones,Urine TR mg/dL (Negative); Leukocyte Esterase,Urine SM (Negative); Mucus,Urine FEW /HPF; Nitrite,Urine NEG (Negative); Urobilinogen,Urine < 2.0 mg/dL (<2.0)
[2016-11-07 13:27] LABS: Fractional Sodium Excretion 0.5
[2016-11-07] MEDS: D5/0.45NS 1,000 ML IV SCH ×2 (14:06→22:41)
[2016-11-07] MEDS: PITRESSin 20 UNIT in NACL 0.9% 100 ML IV SCH ×2 (14:25→22:34)
--- NOTE | 2016-11-07 15:11 | Progress Note ---
Assessment and Plan Assessment and plan: 1. Multiorgan failure- manx as discussed below 2. Acute hypoxic better failure with ventilator dependence-continue ventilator support. Follow-up with pulmonary/critical care for vent management 3. Septic shock possibly related to colitis with DIC-continue IV fluids and IV for boluses as needed, continue vasopressor support patient is currently 4 vasopressor support agents at maximal doses and he remains severely hypotensive ; FFP and vitamin K a per critical care; cont IV hydrocortisone. Continue with IV Zosyn. Follow-up with critical care 3. Acute renal failure with severe metabolic acidosis and hyperkalemia with anuria -calcium /insulin/ dextrose / bicarb cocktail; unable to do HD due to severe hypotension; Continue bicarbonate infusion and when necessary bicarbonate as needed. Follow-up with nephrology appreciated. Continue to monitor electrolytes 4. Severe rhabdomyolysis -continue aggressive hydration with normal saline, monitor CPK level 5. Metabolic encephalopathy with amphetamine use secondary to the above- management as discussed above continue supportive care 6. Elevated troponin-consult cardiology, f/u Echocardiogram 7. DVT prophylaxis-heparin 8. GI prophylaxis -pepcid Family updated at bedside- prognosis-poor; remains full code- mother will d/w her other son his code status CCT exclusive of all other billable proceduers 45 minutes History Interval history: f/u respiratory failure; acute renal failure, rhabdomyolysis Patient is seen at the bedside. He is vented and on 4 pressors; mother at bedside Hospitalist Physical - Constitutional Vitals: Temp Pulse Resp BP Pulse Ox 103.1 F H 126 H 25 H 64/39 93 11/07/16 12:00 11/07/16 13:15 11/07/16 13:15 11/07/16 13:15 11/07/16 13:15 General appearance: Present: other (intubated and unresponsive) - EENT Eyes: Absent: scleral icterus ENT: other (ETT In place) - Neck Neck: Present: supple - Respiratory Respiratory effort: other (vented) Respiratory: bilateral: diminished, negative: rales, rhonchi, wheezing - Cardiovascular Rhythm: regular (tachycardic) Heart Sounds: Present: S1 & S2 - Extremities Extremities: abnormal (toes are cyanotic) Peripheral Pulses: abnormal (difficult to palpate) - Abdominal General gastrointestinal: soft, distended, hypoactive bowel sounds - Psychiatric Psychiatric: other (unable to assess) - Neurologic Neurologic: other (unresponsive) Results - Labs CBC & Chem 7: 11/07/16 06:00 11/07/16 04:00 Labs: Laboratory Last Values WBC 22.6 K/mm3 (4.5-11.0) H 11/07/16 06:00 RBC 4.33 M/mm3 (3.65-5.03) 11/07/16 06:00 Hgb 12.6 gm/dl (11.8-15.2) 11/07/16 06:00 Hct 39.4 % (35.5-45.6) 11/07/16 06:00 MCV 91 fl (84-94) 11/07/16 06:00 MCH 29 pg (28-32) 11/07/16 06:00 MCHC 32 % (32-34) 11/07/16 06:00 RDW 16.2 % (13.2-15.2) H 11/07/16 06:00 Plt Count 37 K/mm3 (140-440) L 11/07/16 06:00 Add Manual Diff Complete 11/07/16 06:00 Total Counted 100 11/07/16 06:00 Seg Neutrophils % Sprinkler Fitter 11/07/16 06:00 Seg Neuts % (Manual) 63.0 % (40.0-70.0) 11/07/16 06:00 Band Neutrophils % 32.0 % 11/07/16 06:00 Lymphocytes % (Manual) 1.0 % (13.4-35.0) L 11/07/16 06:00 Reactive Lymphs % (Man) 0 % 11/07/16 06:00 Monocytes % (Manual) 4.0 % (0.0-7.3) 11/07/16 06:00 Eosinophils % (Manual) 0 % (0.0-4.3) 11/07/16 06:00 Basophils % (Manual) 0 % (0.0-1.8) 11/07/16 06:00 Metamyelocytes % 0 % 11/07/16 06:00 Myelocytes % 0 % 11/07/16 06:00 Promyelocytes % 0 % 11/07/16 06:00 Blast Cells % 0 % 11/07/16 06:00 Nucleated RBC % 3.0 % (0.0-0.9) H 11/07/16 06:00 Seg Neutrophils # Man 14.2 K/mm3 (1.8-7.7) H 11/07/16 06:00 Band Neutrophils # 7.2 K/mm3 11/07/16 06:00 Lymphocytes # (Manual) 0.2 K/mm3 (1.2-5.4) L 11/07/16 06:00 Abs React Lymphs (Man) 0.0 K/mm3 11/07/16 06:00 Monocytes # (Manual) 0.9 K/mm3 (0.0-0.8) H 11/07/16 06:00 Eosinophils # (Manual) 0.0 K/mm3 (0.0-0.4) 11/07/16 06:00 Basophils # (Manual) 0.0 K/mm3 (0.0-0.1) 11/07/16 06:00 Metamyelocytes # 0.0 K/mm3 11/07/16 06:00 Myelocytes # 0.0 K/mm3 11/07/16 06:00 Promyelocytes # 0.0 K/mm3 11/07/16 06:00 Blast Cells # 0.0 K/mm3 11/07/16 06:00 WBC Morphology Not Reportable 11/07/16 06:00 Hypersegmented Neuts Not Reportable 11/07/16 06:00 Hyposegmented Neuts Not Reportable 11/07/16 06:00 Hypogranular Neuts Not Reportable 11/07/16 06:00 Smudge Cells Not Reportable 11/07/16 06:00 Toxic Granulation Not Reportable 11/07/16 06:00 Toxic Vacuolation Not Reportable 11/07/16 06:00 Dohle Bodies Not Reportable 11/07/16 06:00 Pelger-Huet Anomaly Not Reportable 11/07/16 06:00 Holli Rods Not Reportable 11/07/16 06:00 Platelet Estimate Appears decreased 11/07/16 06:00 Clumped Platelets Not Reportable 11/07/16 06:00 Plt Clumps, EDTA Not Reportable 11/07/16 06:00 Large Platelets Few 11/07/16 06:00 Giant Platelets Not Reportable 11/07/16 06:00 Platelet Satelliting Not Reportable 11/07/16 06:00 Plt Morphology Comment Not Reportable 11/07/16 06:00 RBC Morphology Not Reportable 11/07/16 06:00 Dimorphic RBCs Not Reportable 11/07/16 06:00 Polychromasia Few 11/07/16 06:00 Hypochromasia Not Reportable 11/07/16 06:00 Poikilocytosis Not Reportable 11/07/16 06:00 Anisocytosis 1+ 11/07/16 06:00 Microcytosis Not Reportable 11/07/16 06:00 Macrocytosis Not Reportable 11/07/16 06:00 Spherocytes Not Reportable 11/07/16 06:00 Pappenheimer Bodies Not Reportable 11/07/16 06:00 Sickle Cells Not Reportable 11/07/16 06:00 Target Cells Not Reportable 11/07/16 06:00 Tear Drop Cells Not Reportable 11/07/16 06:00 Ovalocytes Not Reportable 11/07/16 06:00 Helmet Cells Not Reportable 11/07/16 06:00 [place] Bodies Not Reportable 11/07/16 06:00 [place] Rings Not Reportable 11/07/16 06:00 [place] Cells Not Reportable 11/07/16 06:00 Bite Cells Not Reportable 11/07/16 06:00 Crenated Cell Not Reportable 11/07/16 06:00 Elliptocytes Not Reportable 11/07/16 06:00 Acanthocytes (Spur) Not Reportable 11/07/16 06:00 Rouleaux Not Reportable 11/07/16 06:00 Hemoglobin C Crystals Not Reportable 11/07/16 06:00 Schistocytes Not Reportable 11/07/16 06:00 Malaria parasites Not Reportable 11/07/16 06:00 Yasmani Bodies Not Reportable 11/07/16 06:00 Hem Pathologist Commnt No 11/07/16 06:00 PT 50.6 Sec. (12.2-14.9) H 11/07/16 05:00 INR 5.49 (0.87-1.13) H* 11/07/16 05:00 APTT 40.0 Sec. (24.2-36.6) H 11/05/16 19:00 POC ABG pH 7.329 (7.35-7.45) L 11/07/16 05:28 POC ABG pCO2 33.9 (35-45) L 11/07/16 05:28 POC ABG pO2 157 (80-105) H 11/07/16 05:28 POC ABG HCO3 17.8 11/07/16 05:28 POC ABG Total CO2 19 11/07/16 05:28 POC ABG O2 Sat 99 11/07/16 05:28 POC ABG Base Excess -8 11/07/16 05:28 FiO2 100 % 11/07/16 05:28 Sodium 139 mmol/L (137-145) 11/07/16 04:00 Potassium 6.1 mmol/L (3.6-5.0) H* 11/07/16 04:00 Chloride 98.0 mmol/L (98-107) 11/07/16 04:00 Carbon Dioxide 16 mmol/L (22-30) L 11/07/16 04:00 Anion Gap 31 mmol/L 11/07/16 04:00 BUN 63 mg/dL (9-20) H 11/07/16 04:00 Creatinine 9.8 mg/dL (0.8-1.5) H 11/07/16 04:00 Estimated GFR 6 ml/min 11/07/16 04:00 BUN/Creatinine Ratio 6.42 % 11/07/16 04:00 Glucose 307 mg/dL (75-100) H 11/07/16 04:00 POC Glucose 123 (70-105) H 11/07/16 11:48 Osmolality 358 Mosm/kg 11/06/16 10:17 Lactic Acid 7.1 mmol/L (0.7-2.0) H* 11/06/16 Unknown Calcium 3.4 mg/dL (8.4-10.2) L* D 11/07/16 04:00 Phosphorus 15.2 mg/dL (2.5-4.5) H 11/06/16 06:00 Magnesium 3.0 mg/dL (1.7-2.3) H 11/06/16 06:00 Total Bilirubin 1.1 mg/dL (0.1-1.2) 11/05/16 19:03 AST 4086 units/L (5-40) H 11/05/16 19:03 ALT 1684 units/L (7-56) H 11/05/16 19:03 Alkaline Phosphatase 108 units/L (35-129) 11/05/16 19:03 Ammonia 62.0 umol/L (25-60) H 11/05/16 19:03 Total Creatine Kinase 84410 units/L (55-170) H 11/07/16 06:00 CK-MB (CK-2) 79.0 ng/mL (0.0-4.0) H 11/07/16 06:00 CK-MB (CK-2) Rel Index 0.1 (0-4) 11/07/16 06:00 Troponin T 0.242 ng/mL (0.00-0.029) H* 11/07/16 06:00 Total Protein 9.1 g/dL (6.3-8.2) H 11/05/16 19:03 Albumin 4.3 g/dL (3.9-5) 11/05/16 19:03 Albumin/Globulin Ratio 0.9 % 11/05/16 19:03 Triglycerides 551 mg/dL (2-149) H 11/05/16 19:03 Cholesterol 255 mg/dL (50-199) H 11/05/16 19:03 LDL Cholesterol Direct TNR 11/05/16 19:03 HDL Cholesterol 36 mg/dL (40-59) L 11/05/16 19:03 Cholesterol/HDL Ratio 7.08 % 11/05/16 19:03 TSH 3.430 mlU/mL (0.270-4.200) 11/05/16 19:03 Free T4 1.03 ng/dL (0.76-1.46) 11/05/16 19:03 Urine Color [place] (Yellow) 11/06/16 12:10 Urine Turbidity Slightly-cloudy (Clear) 11/06/16 12:10 Urine pH 7.0 (5.0-7.0) 11/06/16 12:10 Ur Specific [place] 1.021 (1.003-1.030) 11/06/16 12:10 Urine Protein 100 mg/dl mg/dL (Negative) 11/06/16 12:10 Urine Glucose (UA) 150 mg/dL (Negative) 11/06/16 12:10 Urine Ketones Tr mg/dL (Negative) 11/06/16 12:10 Urine Blood Lg (Negative) 11/06/16 12:10 Urine Nitrite Neg (Negative) 11/06/16 12:10 Urine Bilirubin Neg (Negative) 11/06/16 12:10 Urine Urobilinogen < 2.0 mg/dL (<2.0) 11/06/16 12:10 Ur Leukocyte Esterase Sm (Negative) 11/06/16 12:10 Urine WBC (Auto) 49.0 /HPF (0.0-6.0) H 11/06/16 12:10 Urine RBC (Auto) 112.0 /HPF (0.0-6.0) 11/06/16 12:10 U Epithel Cells (Auto) 2.0 /HPF (0-13.0) 11/06/16 12:10 Urine Bacteria (Auto) 1+ /HPF (Negative) 11/05/16 18:01 Urine WBC Clumps 1+ /HPF 11/06/16 12:10 Hyaline Casts 5 /LPF 11/06/16 12:10 Urine Mucus Few /HPF 11/06/16 12:10 Urine Creatinine 117.9 mg/dL (0.1-20.0) H 11/06/16 12:10 Urine Sodium 67 mEq/L 11/06/16 12:10 Fraction Sodium Excret 0.5 11/06/16 12:10 Salicylates < 0.3 mg/dL (2.8-20.0) L 11/05/16 19:03 Urine Opiates Screen Presumptive negative 11/05/16 18:01 Urine Methadone Screen Presumptive negative 11/05/16 18:01 Acetaminophen < 15.0 ug/mL (10.0-30.0) 11/05/16 19:03 Ur Barbiturates Screen Presumptive negative 11/05/16 18:01 Ur Phencyclidine Scrn Presumptive negative 11/05/16 18:01 Ur Amphetamines Screen Presumptive positive 11/05/16 18:01 U Benzodiazepines Scrn Presumptive negative 11/05/16 18:01 Urine Cocaine Screen Presumptive negative 11/05/16 18:01 U Marijuana (THC) Screen Presumptive negative 11/05/16 18:01 Drugs of Abuse Note Disclamer 11/05/16 18:01 Plasma/Serum Alcohol < 0.01 gm% (0-0.07) 11/05/16 19:03 Hepatitis A IgM Ab -1 (NonReactive) 11/05/16 23:35 Hep Bs Antigen Non-reactive (Negative) 11/05/16 23:35 Hep B Core IgM Ab Non-reactive (NonReactive) 11/05/16 23:35 Hepatitis C Antibody Reactive (NonReactive) 11/05/16 23:35 Blood Type A NEGATIVE 11/06/16 15:17 Antibody Screen Negative 11/06/16 15:17 - Imaging and Cardiology Chest x-ray: report reviewed (Rt mainsterm intubation )
[2016-11-07] MEDS: D50W (25GM) IV PRN (15:12)
[2016-11-07 17:47] LABS: Hematocrit 39.9 % (35.5-45.6); Hemoglobin 12.6 gm/dl (11.8-15.2); Mean Corpuscular HGB Conc 32 % (32-34); Mean Corpuscular Hemoglobin 29 pg (28-32); Mean Corpuscular Volume 91 fl (84-94); Red Blood Count 4.36 M/mm3 (3.65-5.03); Red Cell Distribution Width 16.1 % (13.2-15.2)
[2016-11-07 17:48] LABS: Platelet Count 27 K/mm3 (140-440)
[2016-11-07 18:10] LABS: INR 5.64 (0.87-1.13)
[2016-11-07 18:18] LABS: Potassium TNR mmol/L (3.6-5.0)
[2016-11-07 18:19] LABS: Calcium TNR mg/dL (8.4-10.2)
[2016-11-07 18:27] LABS: Anisocytosis 1+; Basophils % (Manual) 0 % (0.0-1.8); Blastocytes % (Manual) 0 %; Eosinophils % (Manual) 0 % (0.0-4.3)
[2016-11-07 18:28] LABS: Diff Status Complete; Large Platelets 1+; Platelet Estimate Appears Decreased
[2016-11-07 18:43] LABS: Carbon Dioxide TNR mmol/L (22-30); Chloride TNR mmol/L (98-107); Sodium TNR mmol/L (137-145)
[2016-11-07 18:44] LABS: Anion Gap TNR mmol/L; BUN/Creatinine Ratio TNR; Blood Urea Nitrogen TNR mg/dL (9-20); Glucose TNR mg/dL (75-100)
[2016-11-07] MEDS ORDERED: NACL 0.9% 500 ML 500 ML ONE (21:05)
[2016-11-08] MEDS: TYLENOL PO PRN (03:15)
[2016-11-08] MEDS: NEO-SYNEPHRINE 100 MG in NACL 0.9% 90 ML IV SCH (03:34)
[2016-11-08] MEDS: D10W 1,000 ML IV SCH (03:34)
[2016-11-08] MEDS: LEVOPHED 8 MG in NACL 0.9% 250ML 242 ML IV SCH ×2 (03:35→18:23)
[2016-11-08] MEDS: ZOSYN/NS 2.25 GM/50ML 50 ML IV SCH ×3 (05:16→21:19)
[2016-11-08 05:59] LABS: ISTAT Base Excess -9; ISTAT HCO3 16.8; ISTAT PH 7.315 (7.35-7.45); ISTAT PO2 124 (80-105); ISTAT SO2 99; ISTAT TCO2 18
[2016-11-08 07:25] LABS: INR 3.31 (0.87-1.13)
[2016-11-08] MEDS: PITRESSin 20 UNIT in NACL 0.9% 100 ML IV SCH (07:32)
[2016-11-08 07:55] LABS: Albumin 1.8 g/dL (3.9-5); BUN/Creatinine Ratio 6.54; Bilirubin,Total 4.8 mg/dL (0.1-1.2); Chloride 94.2 mmol/L (98-107); Magnesium 1.4 mg/dL (1.7-2.3); Phosphorous 8.7 mg/dL (2.5-4.5); Potassium 5.5 mmol/L (3.6-5.0); Total Protein 3.6 g/dL (6.3-8.2)
[2016-11-08 07:58] LABS: Calcium 3.4 mg/dL (8.4-10.2)
--- NOTE | 2016-11-08 08:35 | XRay Report ---
Portable chest: The lungs are hypoventilated. The bronchovascular markings appear generally crowded but there is no obvious infiltrate or atelectasis. It is of note however that the left hemidiaphragm is inadequately visualized for comment raising the possibility of an abnormal process at the left base. Compared to the prior study the hemidiaphragm was somewhat better defined with little other change. Nasogastric and endotracheal tubes are in good positions. Impression: Suboptimal inspiration. Questionable pathology at left lung base. Recommendation: Repeat study with improved inspiration and penetration.
[2016-11-08] MEDS ORDERED: VANCOMYCIN PHARMACY TO DOSE IV SCH (09:00)
--- NOTE | 2016-11-08 09:00 | Progress Note ---
Assessment and Plan Impression * Acute renal failure. Most likely secondary to ATN from hypotension and rhabdomyolysis * Severe hyperkalemia * Metabolic acidosis. Secondary to lactic acidosis * Respiratory failure * Drug overdose * History of hypertension * Hypocalcemia * Hypomagnesemia Recommendations * Status post additional dialysis treatment yesterday. * Currently on 2 pressors and blood pressure is also borderline. He is also hyperkalemic and acidotic. Shall attempt another dialysis session today. However would be difficult in face of hypotension and pressors * Continue pressors to keep map greater than 65 * Follow-up results of urine as well as vasculitis workup * Avoid nephrotoxins * Monitor patient's fluid status, electrolytes and renal function closely * Adjust meds for GFR less than 10 * Patient's overall prognosis appears to be quite grim * Shall replace his magnesium as well as calcium. Check a PTH level as well as a vitamin D level Subjective Date of service: 11/08/16 Principal diagnosis: hypotension, MSOF Interval history: Patient remains on the ventilator. Currently on 60% FiO2. Patient also receiving bicarbonate drip as well as a D10 drip. He is currently on 2 pressors , on Levophed as well as vasopressin. Objective - Vital Signs Vital signs: Vital Signs - 12hr 11/07/16 11/07/16 11/07/16 21:01 21:15 21:23 Temperature 102.7 F H Pulse Rate 121 H 121 H 121 H Pulse Rate [ From Monitor] Respiratory 24 24 24 Rate Blood Pressure 109/72 109/72 80/61 O2 Sat by Pulse 97 97 96 Oximetry 11/07/16 11/07/16 11/07/16 21:25 21:30 21:38 Temperature 102.7 F H Pulse Rate 120 H 121 H Pulse Rate [ From Monitor] Respiratory 24 24 24 Rate Blood Pressure 164/134 87/64 O2 Sat by Pulse 98 96 Oximetry 11/07/16 11/07/16 11/07/16 21:45 22:01 22:08 Temperature 102.5 F H Pulse Rate 121 H 121 H 121 H Pulse Rate [ From Monitor] Respiratory 24 24 24 Rate Blood Pressure 112/19 112/19 88/65 O2 Sat by Pulse 96 98 99 Oximetry 11/07/16 11/07/16 11/07/16 22:15 22:25 22:30 Temperature Pulse Rate 121 H 120 H Pulse Rate [ From Monitor] Respiratory 24 24 24 Rate Blood Pressure 112/19 115/60 O2 Sat by Pulse 97 99 Oximetry 11/07/16 11/07/16 11/07/16 22:38 22:45 22:49 Temperature 102.5 F H Pulse Rate 120 H 120 H 120 H Pulse Rate [ From Monitor] Respiratory 24 24 24 Rate Blood Pressure 124/66 124/66 124/66 O2 Sat by Pulse 100 99 100 Oximetry 11/07/16 11/07/16 11/07/16 23:00 23:08 23:15 Temperature 102.7 F H Pulse Rate 120 H 119 H 119 H Pulse Rate [ From Monitor] Respiratory 24 24 24 Rate Blood Pressure 118/57 96/69 128/72 O2 Sat by Pulse 99 99 99 Oximetry 11/07/16 11/07/16 11/07/16 23:30 23:36 23:45 Temperature 102.7 F H Pulse Rate 119 H 119 H 119 H Pulse Rate [ From Monitor] Respiratory 24 24 24 Rate Blood Pressure 115/65 91/67 125/69 O2 Sat by Pulse 99 99 99 Oximetry 11/07/16 11/07/16 11/08/16 23:47 23:51 00:00 Temperature 102.4 F H 103.1 F H Pulse Rate 119 H 119 H 119 H Pulse Rate [ From Monitor] Respiratory 24 24 24 Rate Blood Pressure 125/69 87/64 125/69 O2 Sat by Pulse 99 99 100 Oximetry 11/08/16 11/08/16 11/08/16 00:15 00:21 00:27 Temperature 102.4 F H Pulse Rate 119 H 119 H 119 H Pulse Rate [ From Monitor] Respiratory 24 24 24 Rate Blood Pressure 122/65 118/62 122/65 O2 Sat by Pulse 99 99 99 Oximetry 11/08/16 11/08/16 11/08/16 00:30 00:43 00:45 Temperature Pulse Rate 119 H 119 H Pulse Rate [ 119 H From Monitor] Respiratory 24 24 24 Rate Blood Pressure 118/62 127/66 O2 Sat by Pulse 99 99 99 Oximetry 11/08/16 11/08/16 11/08/16 00:48 00:51 01:00 Temperature 102.7 F H Pulse Rate 119 H 120 H 120 H Pulse Rate [ From Monitor] Respiratory 24 24 Rate Blood Pressure 127/66 123/71 118/65 O2 Sat by Pulse 99 97 96 Oximetry 11/08/16 11/08/16 11/08/16 01:15 01:21 01:30 Temperature 102.7 F H Pulse Rate 120 H 121 H Pulse Rate [ From Monitor] Respiratory 25 H 21 Rate Blood Pressure 127/69 98/66 139/81 O2 Sat by Pulse 96 97 Oximetry 11/08/16 11/08/16 11/08/16 01:45 01:53 02:00 Temperature Pulse Rate 120 H 119 H 119 H Pulse Rate [ From Monitor] Respiratory 25 H 24 24 Rate Blood Pressure 123/71 123/71 120/68 O2 Sat by Pulse 97 97 97 Oximetry 11/08/16 11/08/16 11/08/16 02:07 02:15 02:30 Temperature Pulse Rate 119 H 117 H 118 H Pulse Rate [ From Monitor] Respiratory 24 24 24 Rate Blood Pressure 120/68 117/68 123/69 O2 Sat by Pulse 97 96 96 Oximetry 11/08/16 11/08/16 11/08/16 02:45 03:00 03:09 Temperature 103.8 F H Pulse Rate 118 H 118 H 118 H Pulse Rate [ From Monitor] Respiratory 24 24 24 Rate Blood Pressure 118/69 121/69 91/63 O2 Sat by Pulse 96 96 95 Oximetry 11/08/16 11/08/16 11/08/16 03:15 03:24 03:30 Temperature 103.6 F H Pulse Rate 118 H 118 H 118 H Pulse Rate [ From Monitor] Respiratory 24 24 24 Rate Blood Pressure 111/68 94/64 118/71 O2 Sat by Pulse 96 97 97 Oximetry 11/08/16 11/08/16 11/08/16 03:45 03:54 04:00 Temperature 103.4 F H 103.0 F H Pulse Rate 119 H 118 H 118 H Pulse Rate [ From Monitor] Respiratory 24 24 24 Rate Blood Pressure 107/71 99/67 123/64 O2 Sat by Pulse 96 96 96 Oximetry 11/08/16 11/08/16 11/08/16 04:15 04:24 04:30 Temperature 103.4 F H Pulse Rate 118 H 119 H Pulse Rate [ 119 H From Monitor] Respiratory 24 24 24 Rate Blood Pressure 134/71 113/73 O2 Sat by Pulse 96 97 97 Oximetry 11/08/16 11/08/16 11/08/16 04:31 04:45 05:00 Temperature Pulse Rate 119 H 118 H 118 H Pulse Rate [ From Monitor] Respiratory 24 25 H 24 Rate Blood Pressure 142/77 128/70 123/68 O2 Sat by Pulse 97 97 97 Oximetry 11/08/16 11/08/16 11/08/16 05:15 05:21 05:30 Temperature Pulse Rate 117 H 117 H 117 H Pulse Rate [ From Monitor] Respiratory 24 24 24 Rate Blood Pressure 122/71 122/71 125/69 O2 Sat by Pulse 97 97 97 Oximetry 11/08/16 11/08/16 11/08/16 05:45 05:46 06:00 Temperature Pulse Rate 116 H 116 H 115 H Pulse Rate [ From Monitor] Respiratory 24 24 Rate Blood Pressure 109/67 109/67 108/63 O2 Sat by Pulse 97 97 96 Oximetry 11/08/16 11/08/16 11/08/16 06:15 06:30 06:45 Temperature Pulse Rate 115 H 115 H 114 H Pulse Rate [ From Monitor] Respiratory 24 24 24 Rate Blood Pressure 105/69 114/64 114/69 O2 Sat by Pulse 95 95 96 Oximetry 11/08/16 11/08/16 11/08/16 07:00 07:15 07:50 Temperature 101.6 F H Pulse Rate 115 H 114 H Pulse Rate [ From Monitor] Respiratory 24 24 Rate Blood Pressure 125/74 115/77 O2 Sat by Pulse 96 97 Oximetry 11/08/16 08:02 Temperature Pulse Rate 114 H Pulse Rate [ From Monitor] Respiratory Rate Blood Pressure 115/77 O2 Sat by Pulse Oximetry - General Appearance General appearance: well-developed, well-nourished, appears stated age EENT: PERRL, mucous membranes moist Neck: no JVD, no thyromegaly, no carotid bruit, supple Respiratory: Present: Other (bilateral coarse breath sounds) Cardiology: regular, normal heart rate, S1S2, no murmurs Gastrointestinal: normal, normoactive bowel sounds Integumentary: no rash, other (left femoral Vas-Cath in place) - Lab 11/07/16 17:15 11/08/16 07:00 Most recent lab results Calcium 3.4 mg/dL (8.4-10.2) L* 11/08/16 07:00 Phosphorus 8.7 mg/dL (2.5-4.5) H 11/08/16 07:00 Magnesium 1.4 mg/dL (1.7-2.3) L 11/08/16 07:00 Urine Creatinine 117.9 mg/dL (0.1-20.0) H 11/06/16 12:10 Urine Sodium 67 mEq/L 11/06/16 12:10
[2016-11-08] MEDS ORDERED: NACL 0.9% 1000 ML 100 ML IV PRN ×2 (09:03→10:56)
[2016-11-08] MEDS ORDERED: MAGNESIUM SULFATE 2GM/50ML 50 ML IV ONE (09:05)
[2016-11-08] MEDS ORDERED: CALCIUM CHLORIDE IV ONE (09:06)
[2016-11-08] MEDS ORDERED: D5/0.45NS 1,000 ML IV ONE (09:12)
[2016-11-08] MEDS ORDERED: NACL 0.9% 500 ML 500 ML IV ONE ×2 (09:33→09:37)
[2016-11-08] MEDS ORDERED: PROTONIX IV ONE (09:36)
[2016-11-08 09:56] LABS: Hematocrit 33.4 % (35.5-45.6); Hemoglobin 10.9 gm/dl (11.8-15.2); Mean Corpuscular HGB Conc 33 % (32-34); Mean Corpuscular Hemoglobin 29 pg (28-32); Mean Corpuscular Volume 90 fl (84-94); Red Blood Count 3.71 M/mm3 (3.65-5.03); White Blood Count 17.1 K/mm3 (4.5-11.0)
[2016-11-08] MEDS ORDERED: VITAMIN K (ADULT ONLY) SUB-Q ONE ×2 (10:00→15:00)
[2016-11-08] MEDS ORDERED: CALCIUM CHLORIDE 1,000 MG in NACL 0.9% 100 ML IV ONE (10:00)
[2016-11-08] MEDS ORDERED: PROTONIX 80 MG in NACL 0.9% 100 ML IV SCH ×2 (10:00→12:00)
[2016-11-08 10:13] LABS: Platelet Count 18 K/mm3 (140-440)
--- NOTE | 2016-11-08 10:21 | Echocardiography Report ---
Transthoracic Echocardiogram Indication: HYPOTENSIVE BP: 100/19 HR: 116 Conclusions *Global left ventricular systolic function is mildly decreased. *The estimated ejection fraction is 40-45%. *The mid anteroseptal, mid inferoseptal, and apical septal wall segments are hypokinetic. *Mild concentric left ventricular hypertrophy is observed. *The right ventricular global systolic function is moderately reduced. *The aortic valve is trileaflet. The leaflets are thin with normal excursion. There is no aortic stenosis or regurgitation present. *There is no evidence of mitral regurgitation. *There is trace tricuspid regurgitation. *The right ventricular systolic pressure is calculated at 27 mmHg. *There is trace pulmonic regurgitation. Findings Procedure Info: The study quality is poor. The study is technically limited due to poor acoustic windows. The study is technically limited due to patient body habitus. The study was technically limited due to the patient's inability to lay in the left lateral decubitus position. Left Ventricle: The left ventricular chamber size is normal. Mild concentric left ventricular hypertrophy is observed. Global left ventricular systolic function is mildly decreased. The estimated ejection fraction is 40-45%. The mid anteroseptal, mid inferoseptal, and apical septal wall segments are hypokinetic. Left Atrium: The left atrial chamber size is normal. Right Ventricle: The right ventricle wall thickness is normal. The right ventricular cavity size is normal. The right ventricular global systolic function is moderately reduced. Right Atrium: The right atrial cavity size is normal. No pacemaker wire is visualized in the right atrium. Aortic Valve: The aortic valve is trileaflet. The leaflets are thin with normal excursion. There is no aortic stenosis or regurgitation present. The aortic valve is trileaflet. There is no evidence of aortic regurgitation. There is no evidence of aortic stenosis. The peak instantaneous gradient of the aortic valve is 10 mmHg. The aortic valve area, by peak velocities, is calculated at 2.16 cm2. Mitral Valve: The mitral valve is not well visualized. There is no evidence of mitral regurgitation. There is no evidence of mitral stenosis. Tricuspid Valve: The tricuspid valve is not well visualized. There is trace tricuspid regurgitation. The right ventricular systolic pressure is calculated at 27 mmHg. No pulmonary hypertension is noted. There is no tricuspid stenosis. Pulmonic Valve: The pulmonic valve is not well visualized. There is trace pulmonic regurgitation. There is no pulmonic stenosis. Pericardium: There is no pericardial effusion. No pleural effusion is present. Aorta: The aorta appears normal. Pulmonary Artery: The main pulmonary artery is not well visualized. Measurements Chambers MM Name Value Normal Range Ao root diameter (MM) 3.1 cm (2 - 3.7) LA dimension (AP) MM 3.6 cm (1.9 - 4) LA:Ao ratio (MM) 1.16 ratio - AV cusp separation (MM) 2 cm (1.5 - 2.6) Chambers 2D Name Value Normal Range IVSd (2D) 1.27 cm (0.6 - 1.1) LVPWd 1.1 cm - LVPWd (2D) 1.07 cm (0.6 - 1.1) IVS:LVPW ratio (2D) 1.19 ratio - LVIDd 3.2 cm - LVIDs 1.9 cm - LVIDd (2D) 3.18 cm (3.7 - 5.6) LVIDs (2D) 1.86 cm (2 - 3.8) LV FS (Teichholz) (2D) 41.5 % - LV FS (cube) (2D) 41.5 % - LV EF (2D) 73 % - EF Teichholz (2D) 73.7 % - LA dimension 2.3 cm - Ao root diameter (2D) 3.2 cm (2 - 3.7) LA dimension (AP) 2D 2.3 cm (1.9 - 4) LA:Ao ratio (2D) 0.72 ratio - Volumes/Mass Name Value Normal Range LA ESV SP 4CH (MOD) 17 ml - LV EDV SP 4CH (MOD) 84 ml - LV ESV SP 4CH (MOD) 39 ml - EF SP 4CH (MOD) 54 % - LV EDV SP 2CH (MOD) 71 ml - LV ESV SP 2CH (MOD) 33 ml - EF SP 2CH (MOD) 54 % - LV EDV BP 85 ml - LV ESV BP 39 ml - BP EF (MOD) 54 % - Diastolic/Systolic Function Name Value Normal Range MV E-wave Vmax 0.51 m/sec - MV deceleration time 218 msec - MV A-wave Vmax 0.61 m/sec - MV E:A ratio 0.8 ratio - LV septal e' Vmax 0.06 m/sec - LV lateral e' Vmax 0.11 m/sec - LV E:e' septal ratio 8 ratio - LV E:e' lateral ratio 4.5 ratio - Aortic Valve Name Value Normal Range AV Vmax 1.57 m/sec - AV peak gradient 10 mmHg - LVOT diameter 2 cm - LVOT Vmax 1.08 m/sec - LVOT peak gradient 5 mmHg - PRASHANT (continuity Vmax) 2.16 cm2 - Tricuspid Valve Name Value Normal Range TR Vmax 2.44 m/sec - TR peak gradient 24 mmHg - RAP 3 mmHg - RVSP 27 mmHg - Pulmonic Valve/Qp:Qs Name Value Normal Range PV Vmax 1.04 m/sec - PV peak gradient 4 mmHg - PV acceleration time 88 msec - Wallmotion BAS Not Seen BA Not Seen BAL Not Seen MAURICIO Not Seen BI Not Seen BIS Not Seen MAS Hypokinetic MA Not Seen MAL Not Seen MIL Not Seen DE Not Seen MIS Hypokinetic Hypokinetic AA Not Seen AL Not Seen AI Not Seen APEX Not Seen
[2016-11-08] MEDS ORDERED: HEPARIN IV PRN (10:56)
--- NOTE | 2016-11-08 11:13 | Progress Note ---
Addendum entered and electronically signed by JUDY MITCHELL MD 11/08/16 12:36: I have seen and examined the patient and agree with the documentation below. Original Note: Assessment and Plan Continue vasopressors and supportive care. - Patient Problems (1) Acute respiratory failure Current Visit: Yes Status: Acute (2) Acute renal failure Current Visit: Yes Status: Acute (3) Hyperkalemia Current Visit: Yes Status: Acute (4) Rhabdomyolysis Current Visit: Yes Status: Acute (5) Hypotension Current Visit: Yes Status: Acute (6) Elevated troponin Current Visit: Yes Status: Acute (7) Multisystem organ failure Current Visit: Yes Status: Acute Subjective Date of service: 11/08/16 Principal diagnosis: hypotension, MSOF Interval history: The patient remains intubated and unresponsive. On 2 pressors currently. Sinus tach on the monitor. Objective Last Vital Signs Temp 101.6 F H 11/08/16 07:50 Pulse 114 H 11/08/16 08:02 Resp 24 11/08/16 07:15 BP 115/77 11/08/16 08:02 Pulse Ox 97 11/08/16 07:15 - Physical Examination General: No Apparent Distress (intubated, unresponsive) HEENT: Positive: Normocephaly, Mucus Membranes Moist Neck: Positive: neck supple, trachea midline Cardiac: Positive: Reg Rate and Rhythm, S1/S2 Lungs: Positive: Rhonchi Neuro: Positive: Other (intubated, unresponsive) Abdomen: Positive: Distended Skin: Positive: Clear. Negative: Rash Extremities: Present: Cyanosis (toes). Absent: edema - Labs and Meds Cardiac Enzymes 11/08/16 Range/Units 07:00 AST 06621 H (5-40) units/L Coagulation 11/07/16 11/08/16 Range/Units 17:15 07:00 PT 51.7 H 33.9 H (12.2-14.9) Sec. INR 5.64 H* 3.31 H (0.87-1.13) CBC 11/07/16 11/08/16 Range/Units 17:15 09:49 WBC 20.0 H 17.1 H (4.5-11.0) K/mm3 RBC 4.36 3.71 (3.65-5.03) M/mm3 Hgb 12.6 10.9 L (11.8-15.2) gm/dl Hct 39.9 33.4 L D (35.5-45.6) % Plt Count 27 L 18 L* (140-440) K/mm3 Comprehensive Metabolic Panel 11/07/16 11/08/16 Range/Units 17:15 07:00 Sodium TNR 135 L Potassium TNR 5.5 H Chloride TNR 94.2 L Carbon Dioxide TNR 17 L BUN TNR 72 H Creatinine TNR 11.0 H Glucose TNR 230 H Calcium TNR 3.4 L* AST 58838 H (5-40) units/L ALT 2515 H (7-56) units/L Alkaline Phosphatase 124 (35-129) units/L Total Protein 3.6 L D (6.3-8.2) g/dL Albumin 1.8 L (3.9-5) g/dL - Imaging and Cardiology EKG: image reviewed Echo: report reviewed (11/2016: mild LVH, EF 40-45%) - Telemetry EKG Rhythm: Sinus Tachycardia - EKG Sinus rhythms and dysrhythmias: sinus tachycardia
--- NOTE | 2016-11-08 11:26 | Gastroenterology Consultation ---
History of Present Illness - Reason for Consult Consult date: 11/08/16 Requesting physician: ZENAIDA MAHMOOD Past History Past Medical History: hypertension Past Surgical History: No surgical history Social history: lives with family, other (methamphetamine ) Family history: no significant family history Medications and Allergies Allergies Allergy/AdvReac Type Severity Reaction Status Date / Time No Known Allergies Allergy Unverified 07/24/16 09:58 Home Medications Medication Instructions Recorded Confirmed Last Taken Type Lisinopril [Zestril TAB] 20 mg PO QDAY #30 tablet 07/24/16 11/05/16 Unknown Rx Active Meds: Active Medications Acetaminophen (Tylenol) 650 mg PO Q4H PRN PRN Reason: Fever >101 Last Admin: 11/08/16 03:15 Dose: 650 mg Al Hydrox/Mg Hydrox/Simethicone (Alum-Mag Hydrox-Simeth [phone]/5ml) 30 ml PO Q4H PRN PRN Reason: Indigestion Lipase/Protease/Amylase (Pancrediana Rivera 10,500 Unit) 1 each FEEDTUBE PRN PRN PRN Reason: For Clogged Feeding Tube Bisacodyl (Dulcolax) 10 mg CO QDAY PRN PRN Reason: constipation unrelieved by MOM Dextrose (D50w (25gm)) 50 gm IV PRN PRN PRN Reason: Hypoglycemia Last Admin: 11/07/16 15:12 Dose: 50 gm Heparin Sodium (Porcine) (Heparin) 5,000 unit IV IMELDA PRN PRN Reason: hemodialysis Last Admin: 11/06/16 14:25 Dose: 5,000 unit Hydrocortisone Sodium Succinate (Solu-Cortef) 100 mg IV Q8HR ANDREW Last Admin: 11/08/16 05:19 Dose: 100 mg Sodium Bicarbonate 150 meq/ (Dextrose) 1,150 mls @ 75 mls/hr IV DIRECT ANDREW Last Admin: 11/07/16 21:53 Dose: 75 mls/hr Piperacillin Sod/Tazobactam Sod (Zosyn/Ns 2.25 Gm/50ml) 50 mls @ 100 mls/hr IV Q8HR ANDREW PRN Reason: Protocol Last Admin: 11/08/16 05:16 Dose: 100 mls/hr Vasopressin 20 unit/ Sodium (Chloride) 101 mls @ 9.09 mls/hr IV TITR ANDREW; 0.03 UNITS/MIN PRN Reason: Protocol Last Admin: 11/08/16 07:32 Dose: 12.12 mls/hr Phenylephrine HCl 100 mg/ (Sodium Chloride) 100 mls @ 3 mls/hr IV TITR ANDREW; 50 MCG/MIN PRN Reason: Protocol Last Titration: 11/08/16 05:40 Dose: 0 mcg/min Epinephrine 8 mg/ Sodium (Chloride) 250 mls @ 3.75 mls/hr IV TITR ANDREW; 2 MCG/ MIN PRN Reason: Protocol Last Titration: 11/07/16 23:24 Dose: 0 mcg/min Norepinephrine 8 mg/ Sodium (Chloride) 250 mls @ 3.75 mls/hr IV TITR ANDREW; 2 MCG /MIN PRN Reason: Protocol Last Titration: 11/08/16 07:00 Dose: 28 mcg/min Dextrose (D10w) 1,000 mls @ 75 mls/hr IV DIRECT ANDREW Last Admin: 11/08/16 03:34 Dose: 75 mls/hr Sodium Chloride (Nacl 0.9% 1000 Ml) 100 mls @ 999 mls/hr IV IMELDA PRN PRN Reason: Hypotension Pantoprazole Sodium 80 mg/ (Sodium Chloride) 100 mls @ 10 mls/hr IV DIRECT ANDREW PRN Reason: 8 MG/HR Vancomycin HCl (Vancomycin/Ns 1 Gm/250 Ml) 250 mls @ 167 mls/hr IV ONCE ONE Stop: 11/08/16 21:29 Magnesium Hydroxide (Milk Of Magnesia) 30 ml PO Q4H PRN PRN Reason: Constipation Simple Syrup (Simple Syrup) 15 ml FEEDTUBE PRN PRN PRN Reason: Hypoglycemia Simple Syrup (Simple Syrup) 30 ml FEEDTUBE PRN PRN PRN Reason: Hypoglycemia Sodium Bicarbonate (Sodium Bicarbonate) 325 mg FEEDTUBE PRN PRN PRN Reason: For Clogged Feeding Tube Exam - Constitutional Vital Signs: Temp Pulse Resp BP Pulse Ox 101.6 F H 121 H 24 77/56 94 11/08/16 07:50 11/08/16 11:17 11/08/16 07:15 11/08/16 11:17 11/08/16 11:17 - Labs CBC & Chem 7: 11/08/16 09:49 11/08/16 07:00 Lab Results: Laboratory Results - last 24 hr 11/06/16 11/06/16 11/06/16 10:17 12:10 12:10 WBC RBC Hgb Hct MCV MCH MCHC RDW Plt Count Add Manual Diff Total Counted Seg Neutrophils % Seg Neuts % (Manual) Band Neutrophils % Lymphocytes % (Manual) Reactive Lymphs % (Man) Monocytes % (Manual) Eosinophils % (Manual) Basophils % (Manual) Metamyelocytes % Myelocytes % Promyelocytes % Blast Cells % Nucleated RBC % Seg Neutrophils # Man Band Neutrophils # Lymphocytes # (Manual) Abs React Lymphs (Man) Monocytes # (Manual) Eosinophils # (Manual) Basophils # (Manual) Metamyelocytes # Myelocytes # Promyelocytes # Blast Cells # WBC Morphology Hypersegmented Neuts Hyposegmented Neuts Hypogranular Neuts Smudge Cells Toxic Granulation Toxic Vacuolation Dohle Bodies Pelger-Huet Anomaly Holli Rods Platelet Estimate Clumped Platelets Plt Clumps, EDTA Large Platelets Giant Platelets Platelet Satelliting Plt Morphology Comment RBC Morphology Dimorphic RBCs Polychromasia Hypochromasia Poikilocytosis Anisocytosis Microcytosis Macrocytosis Spherocytes Pappenheimer Bodies Sickle Cells Target Cells Tear Drop Cells Ovalocytes Helmet Cells [place] Bodies Fence Rings [place] Cells Bite Cells Crenated Cell Elliptocytes Acanthocytes (Spur) Rouleaux Hemoglobin C Crystals Schistocytes Malaria parasites [place] Bodies Hem Pathologist Commnt PT INR POC ABG pH POC ABG pCO2 POC ABG pO2 POC ABG HCO3 POC ABG Total CO2 POC ABG O2 Sat POC ABG Base Excess FiO2 Sodium Potassium Chloride Carbon Dioxide Anion Gap BUN Creatinine Estimated GFR BUN/Creatinine Ratio Glucose POC Glucose Calcium Phosphorus Magnesium Total Bilirubin AST ALT Alkaline Phosphatase Total Creatine Kinase Total Protein Albumin Albumin/Globulin Ratio Urine Color [place] Urine Turbidity Slightly-cloudy Urine pH 7.0 Ur Specific [place] 1.021 Urine Protein 100 mg/dl Urine Glucose (UA) 150 Urine Ketones Tr Urine Blood Lg Urine Nitrite Neg Urine Bilirubin Neg Urine Urobilinogen < 2.0 Ur Leukocyte Esterase Sm Urine WBC (Auto) 49.0 H Urine RBC (Auto) 112.0 U Epithel Cells (Auto) 2.0 Urine WBC Clumps 1+ Hyaline Casts 5 Urine Mucus Few Urine Creatinine 117.9 H Urine Sodium 67 Fraction Sodium Excret 0.5 Double Strand DNA Ab 1 Blood Type Antibody Screen 11/06/16 11/07/16 11/07/16 15:17 09:50 10:46 WBC RBC Hgb Hct MCV MCH MCHC RDW Plt Count Add Manual Diff Total Counted Seg Neutrophils % Seg Neuts % (Manual) Band Neutrophils % Lymphocytes % (Manual) Reactive Lymphs % (Man) Monocytes % (Manual) Eosinophils % (Manual) Basophils % (Manual) Metamyelocytes % Myelocytes % Promyelocytes % Blast Cells % Nucleated RBC % Seg Neutrophils # Man Band Neutrophils # Lymphocytes # (Manual) Abs React Lymphs (Man) Monocytes # (Manual) Eosinophils # (Manual) Basophils # (Manual) Metamyelocytes # Myelocytes # Promyelocytes # Blast Cells # WBC Morphology Hypersegmented Neuts Hyposegmented Neuts Hypogranular Neuts Smudge Cells Toxic Granulation Toxic Vacuolation Dohle Bodies Pelger-Huet Anomaly Holli Rods Platelet Estimate Clumped Platelets Plt Clumps, EDTA Large Platelets Giant Platelets Platelet Satelliting Plt Morphology Comment RBC Morphology Dimorphic RBCs Polychromasia Hypochromasia Poikilocytosis Anisocytosis Microcytosis Macrocytosis Spherocytes Pappenheimer Bodies Sickle Cells Target Cells Tear Drop Cells Ovalocytes Helmet Cells [place] Bodies Fence Rings [place] Cells Bite Cells Crenated Cell Elliptocytes Acanthocytes (Spur) Rouleaux Hemoglobin C Crystals Schistocytes Malaria parasites [place] Bodies Hem Pathologist Commnt PT INR POC ABG pH POC ABG pCO2 POC ABG pO2 POC ABG HCO3 POC ABG Total CO2 POC ABG O2 Sat POC ABG Base Excess FiO2 Sodium Potassium Chloride Carbon Dioxide Anion Gap BUN Creatinine Estimated GFR BUN/Creatinine Ratio Glucose POC Glucose 283 H 169 H Calcium Phosphorus Magnesium Total Bilirubin AST ALT Alkaline Phosphatase Total Creatine Kinase Total Protein Albumin Albumin/Globulin Ratio Urine Color Urine Turbidity Urine pH Ur Specific [place] Urine Protein Urine Glucose (UA) Urine Ketones Urine Blood Urine Nitrite Urine Bilirubin Urine Urobilinogen Ur Leukocyte Esterase Urine WBC (Auto) Urine RBC (Auto) U Epithel Cells (Auto) Urine WBC Clumps Hyaline Casts Urine Mucus Urine Creatinine Urine Sodium Fraction Sodium Excret Double Strand DNA Ab Blood Type A NEGATIVE Antibody Screen Negative 11/07/16 11/07/16 11/07/16 11:48 13:10 14:12 WBC RBC Hgb Hct MCV MCH MCHC RDW Plt Count Add Manual Diff Total Counted Seg Neutrophils % Seg Neuts % (Manual) Band Neutrophils % Lymphocytes % (Manual) Reactive Lymphs % (Man) Monocytes % (Manual) Eosinophils % (Manual) Basophils % (Manual) Metamyelocytes % Myelocytes % Promyelocytes % Blast Cells % Nucleated RBC % Seg Neutrophils # Man Band Neutrophils # Lymphocytes # (Manual) Abs React Lymphs (Man) Monocytes # (Manual) Eosinophils # (Manual) Basophils # (Manual) Metamyelocytes # Myelocytes # Promyelocytes # Blast Cells # WBC Morphology Hypersegmented Neuts Hyposegmented Neuts Hypogranular Neuts Smudge Cells Toxic Granulation Toxic Vacuolation Dohle Bodies Pelger-Huet Anomaly Holli Rods Platelet Estimate Clumped Platelets Plt Clumps, EDTA Large Platelets Giant Platelets Platelet Satelliting Plt Morphology Comment RBC Morphology Dimorphic RBCs Polychromasia Hypochromasia Poikilocytosis Anisocytosis Microcytosis Macrocytosis Spherocytes Pappenheimer Bodies Sickle Cells Target Cells Tear Drop Cells Ovalocytes Helmet Cells [place] Bodies Fence Rings Veto Cells Bite Cells Crenated Cell Elliptocytes Acanthocytes (Spur) Rouleaux Hemoglobin C Crystals Schistocytes Malaria parasites [place] Bodies Hem Pathologist Commnt PT INR POC ABG pH POC ABG pCO2 POC ABG pO2 POC ABG HCO3 POC ABG Total CO2 POC ABG O2 Sat POC ABG Base Excess FiO2 Sodium Potassium Chloride Carbon Dioxide Anion Gap BUN Creatinine Estimated GFR BUN/Creatinine Ratio Glucose POC Glucose 123 H 102 121 H Calcium Phosphorus Magnesium Total Bilirubin AST ALT Alkaline Phosphatase Total Creatine Kinase Total Protein Albumin Albumin/Globulin Ratio Urine Color Urine Turbidity Urine pH Ur Specific [place] Urine Protein Urine Glucose (UA) Urine Ketones Urine Blood Urine Nitrite Urine Bilirubin Urine Urobilinogen Ur Leukocyte Esterase Urine WBC (Auto) Urine RBC (Auto) U Epithel Cells (Auto) Urine WBC Clumps Hyaline Casts Urine Mucus Urine Creatinine Urine Sodium Fraction Sodium Excret Double Strand DNA Ab Blood Type Antibody Screen 11/07/16 11/07/16 11/07/16 15:05 15:30 16:19 WBC RBC Hgb Hct MCV MCH MCHC RDW Plt Count Add Manual Diff Total Counted Seg Neutrophils % Seg Neuts % (Manual) Band Neutrophils % Lymphocytes % (Manual) Reactive Lymphs % (Man) Monocytes % (Manual) Eosinophils % (Manual) Basophils % (Manual) Metamyelocytes % Myelocytes % Promyelocytes % Blast Cells % Nucleated RBC % Seg Neutrophils # Man Band Neutrophils # Lymphocytes # (Manual) Abs React Lymphs (Man) Monocytes # (Manual) Eosinophils # (Manual) Basophils # (Manual) Metamyelocytes # Myelocytes # Promyelocytes # Blast Cells # WBC Morphology Hypersegmented Neuts Hyposegmented Neuts Hypogranular Neuts Smudge Cells Toxic Granulation Toxic Vacuolation Dohle Bodies Pelger-Huet Anomaly Holli Rods Platelet Estimate Clumped Platelets Plt Clumps, EDTA Large Platelets Giant Platelets Platelet Satelliting Plt Morphology Comment RBC Morphology Dimorphic RBCs Polychromasia Hypochromasia Poikilocytosis Anisocytosis Microcytosis Macrocytosis Spherocytes Pappenheimer Bodies Sickle Cells Target Cells Tear Drop Cells Ovalocytes Helmet Cells [place] Bodies Fence Rings [place] Cells Bite Cells Crenated Cell Elliptocytes Acanthocytes (Spur) Rouleaux Hemoglobin C Crystals Schistocytes Malaria parasites [place] Bodies Hem Pathologist Commnt PT INR POC ABG pH POC ABG pCO2 POC ABG pO2 POC ABG HCO3 POC ABG Total CO2 POC ABG O2 Sat POC ABG Base Excess FiO2 Sodium Potassium Chloride Carbon Dioxide Anion Gap BUN Creatinine Estimated GFR BUN/Creatinine Ratio Glucose POC Glucose 61 L 97 216 H Calcium Phosphorus Magnesium Total Bilirubin AST ALT Alkaline Phosphatase Total Creatine Kinase Total Protein Albumin Albumin/Globulin Ratio Urine Color Urine Turbidity Urine pH Ur Specific [place] Urine Protein Urine Glucose (UA) Urine Ketones Urine Blood Urine Nitrite Urine Bilirubin Urine Urobilinogen Ur Leukocyte Esterase Urine WBC (Auto) Urine RBC (Auto) U Epithel Cells (Auto) Urine WBC Clumps Hyaline Casts Urine Mucus Urine Creatinine Urine Sodium Fraction Sodium Excret Double Strand DNA Ab Blood Type Antibody Screen 11/07/16 11/07/16 11/07/16 17:12 17:15 17:15 WBC 20.0 H RBC 4.36 Hgb 12.6 Hct 39.9 MCV 91 MCH 29 MCHC 32 RDW 16.1 H Plt Count 27 L Add Manual Diff Complete Total Counted 100 Seg Neutrophils % Booth Operator Seg Neuts % (Manual) 88.0 H Band Neutrophils % 2.0 Lymphocytes % (Manual) 7.0 L Reactive Lymphs % (Man) 0 Monocytes % (Manual) 3.0 Eosinophils % (Manual) 0 Basophils % (Manual) 0 Metamyelocytes % 0 Myelocytes % 0 Promyelocytes % 0 Blast Cells % 0 Nucleated RBC % 1.0 H Seg Neutrophils # Man 17.6 H Band Neutrophils # 0.4 Lymphocytes # (Manual) 1.4 Abs React Lymphs (Man) 0.0 Monocytes # (Manual) 0.6 Eosinophils # (Manual) 0.0 Basophils # (Manual) 0.0 Metamyelocytes # 0.0 Myelocytes # 0.0 Promyelocytes # 0.0 Blast Cells # 0.0 WBC Morphology Not Reportable Hypersegmented Neuts Not Reportable Hyposegmented Neuts Not Reportable Hypogranular Neuts Not Reportable Smudge Cells Not Reportable Toxic Granulation Not Reportable Toxic Vacuolation Not Reportable Dohle Bodies Not Reportable Pelger-Huet Anomaly Not Reportable Holli Rods Not Reportable Platelet Estimate Appears decreased Clumped Platelets Not Reportable Plt Clumps, EDTA Not Reportable Large Platelets 1+ Giant Platelets Not Reportable Platelet Satelliting Not Reportable Plt Morphology Comment Not Reportable RBC Morphology Not Reportable Dimorphic RBCs Not Reportable Polychromasia Not Reportable Hypochromasia Not Reportable Poikilocytosis Not Reportable Anisocytosis 1+ Microcytosis Not Reportable Macrocytosis Not Reportable Spherocytes Not Reportable Pappenheimer Bodies Not Reportable Sickle Cells Not Reportable Target Cells Not Reportable Tear Drop Cells Not Reportable Ovalocytes Not Reportable Helmet Cells Not Reportable [place] Bodies Not Reportable Fence Rings Not Reportable [place] Cells Not Reportable Bite Cells Not Reportable Crenated Cell Not Reportable Elliptocytes Not Reportable Acanthocytes (Spur) Not Reportable Rouleaux Not Reportable Hemoglobin C Crystals Not Reportable Schistocytes Not Reportable Malaria parasites Not Reportable [place] Bodies Not Reportable Hem Pathologist Commnt No PT 51.7 H INR 5.64 H* POC ABG pH POC ABG pCO2 POC ABG pO2 POC ABG HCO3 POC ABG Total CO2 POC ABG O2 Sat POC ABG Base Excess FiO2 Sodium Potassium Chloride Carbon Dioxide Anion Gap BUN Creatinine Estimated GFR BUN/Creatinine Ratio Glucose POC Glucose 91 Calcium Phosphorus Magnesium Total Bilirubin AST ALT Alkaline Phosphatase Total Creatine Kinase Total Protein Albumin Albumin/Globulin Ratio Urine Color Urine Turbidity Urine pH Ur Specific [place] Urine Protein Urine Glucose (UA) Urine Ketones Urine Blood Urine Nitrite Urine Bilirubin Urine Urobilinogen Ur Leukocyte Esterase Urine WBC (Auto) Urine RBC (Auto) U Epithel Cells (Auto) Urine WBC Clumps Hyaline Casts Urine Mucus Urine Creatinine Urine Sodium Fraction Sodium Excret Double Strand DNA Ab Blood Type Antibody Screen 11/07/16 11/07/16 11/07/16 17:15 18:21 20:44 WBC RBC Hgb Hct MCV MCH MCHC RDW Plt Count Add Manual Diff Total Counted Seg Neutrophils % Seg Neuts % (Manual) Band Neutrophils % Lymphocytes % (Manual) Reactive Lymphs % (Man) Monocytes % (Manual) Eosinophils % (Manual) Basophils % (Manual) Metamyelocytes % Myelocytes % Promyelocytes % Blast Cells % Nucleated RBC % Seg Neutrophils # Man Band Neutrophils # Lymphocytes # (Manual) Abs React Lymphs (Man) Monocytes # (Manual) Eosinophils # (Manual) Basophils # (Manual) Metamyelocytes # Myelocytes # Promyelocytes # Blast Cells # WBC Morphology Hypersegmented Neuts Hyposegmented Neuts Hypogranular Neuts Smudge Cells Toxic Granulation Toxic Vacuolation Dohle Bodies Pelger-Huet Anomaly Holli Rods Platelet Estimate Clumped Platelets Plt Clumps, EDTA Large Platelets Giant Platelets Platelet Satelliting Plt Morphology Comment RBC Morphology Dimorphic RBCs Polychromasia Hypochromasia Poikilocytosis Anisocytosis Microcytosis Macrocytosis Spherocytes Pappenheimer Bodies Sickle Cells Target Cells Tear Drop Cells Ovalocytes Helmet Cells [place] Bodies Fence Rings [place] Cells Bite Cells Crenated Cell Elliptocytes Acanthocytes (Spur) Rouleaux Hemoglobin C Crystals Schistocytes Malaria parasites [place] Bodies Hem Pathologist Commnt PT INR POC ABG pH POC ABG pCO2 POC ABG pO2 POC ABG HCO3 POC ABG Total CO2 POC ABG O2 Sat POC ABG Base Excess FiO2 Sodium TNR Potassium TNR Chloride TNR Carbon Dioxide TNR Anion Gap TNR BUN TNR Creatinine TNR Estimated GFR TNR BUN/Creatinine Ratio TNR Glucose TNR POC Glucose 83 145 H Calcium TNR Phosphorus Magnesium Total Bilirubin AST ALT Alkaline Phosphatase Total Creatine Kinase Total Protein Albumin Albumin/Globulin Ratio Urine Color Urine Turbidity Urine pH Ur Specific [place] Urine Protein Urine Glucose (UA) Urine Ketones Urine Blood Urine Nitrite Urine Bilirubin Urine Urobilinogen Ur Leukocyte Esterase Urine WBC (Auto) Urine RBC (Auto) U Epithel Cells (Auto) Urine WBC Clumps Hyaline Casts Urine Mucus Urine Creatinine Urine Sodium Fraction Sodium Excret Double Strand DNA Ab Blood Type Antibody Screen 11/08/16 11/08/16 11/08/16 03:30 05:50 05:52 WBC RBC Hgb Hct MCV MCH MCHC RDW Plt Count Add Manual Diff Total Counted Seg Neutrophils % Seg Neuts % (Manual) Band Neutrophils % Lymphocytes % (Manual) Reactive Lymphs % (Man) Monocytes % (Manual) Eosinophils % (Manual) Basophils % (Manual) Metamyelocytes % Myelocytes % Promyelocytes % Blast Cells % Nucleated RBC % Seg Neutrophils # Man Band Neutrophils # Lymphocytes # (Manual) Abs React Lymphs (Man) Monocytes # (Manual) Eosinophils # (Manual) Basophils # (Manual) Metamyelocytes # Myelocytes # Promyelocytes # Blast Cells # WBC Morphology Hypersegmented Neuts Hyposegmented Neuts Hypogranular Neuts Smudge Cells Toxic Granulation Toxic Vacuolation Dohle Bodies Pelger-Huet Anomaly Holli Rods Platelet Estimate Clumped Platelets Plt Clumps, EDTA Large Platelets Giant Platelets Platelet Satelliting Plt Morphology Comment RBC Morphology Dimorphic RBCs Polychromasia Hypochromasia Poikilocytosis Anisocytosis Microcytosis Macrocytosis Spherocytes Pappenheimer Bodies Sickle Cells Target Cells Tear Drop Cells Ovalocytes Helmet Cells [place] Bodies Fence Rings [place] Cells Bite Cells Crenated Cell Elliptocytes Acanthocytes (Spur) Rouleaux Hemoglobin C Crystals Schistocytes Malaria parasites [place] Bodies Hem Pathologist Commnt PT INR POC ABG pH 7.315 L POC ABG pCO2 33.0 L POC ABG pO2 124 H POC ABG HCO3 16.8 POC ABG Total CO2 18 POC ABG O2 Sat 99 POC ABG Base Excess -9 FiO2 75 Sodium Potassium Chloride Carbon Dioxide Anion Gap BUN Creatinine Estimated GFR BUN/Creatinine Ratio Glucose POC Glucose 160 H 187 H Calcium Phosphorus Magnesium Total Bilirubin AST ALT Alkaline Phosphatase Total Creatine Kinase Total Protein Albumin Albumin/Globulin Ratio Urine Color Urine Turbidity Urine pH Ur Specific [place] Urine Protein Urine Glucose (UA) Urine Ketones Urine Blood Urine Nitrite Urine Bilirubin Urine Urobilinogen Ur Leukocyte Esterase Urine WBC (Auto) Urine RBC (Auto) U Epithel Cells (Auto) Urine WBC Clumps Hyaline Casts Urine Mucus Urine Creatinine Urine Sodium Fraction Sodium Excret Double Strand DNA Ab Blood Type Antibody Screen 11/08/16 11/08/16 11/08/16 07:00 07:00 09:49 WBC 17.1 H RBC 3.71 Hgb 10.9 L Hct 33.4 L D MCV 90 MCH 29 MCHC 33 RDW 16.0 H Plt Count 18 L* Add Manual Diff Total Counted Seg Neutrophils % Seg Neuts % (Manual) Band Neutrophils % Lymphocytes % (Manual) Reactive Lymphs % (Man) Monocytes % (Manual) Eosinophils % (Manual) Basophils % (Manual) Metamyelocytes % Myelocytes % Promyelocytes % Blast Cells % Nucleated RBC % Seg Neutrophils # Man Band Neutrophils # Lymphocytes # (Manual) Abs React Lymphs (Man) Monocytes # (Manual) Eosinophils # (Manual) Basophils # (Manual) Metamyelocytes # Myelocytes # Promyelocytes # Blast Cells # WBC Morphology Hypersegmented Neuts Hyposegmented Neuts Hypogranular Neuts Smudge Cells Toxic Granulation Toxic Vacuolation Dohle Bodies Pelger-Huet Anomaly Holli Rods Platelet Estimate Clumped Platelets Plt Clumps, EDTA Large Platelets Giant Platelets Platelet Satelliting Plt Morphology Comment RBC Morphology Dimorphic RBCs Polychromasia Hypochromasia Poikilocytosis Anisocytosis Microcytosis Macrocytosis Spherocytes Pappenheimer Bodies Sickle Cells Target Cells Tear Drop Cells Ovalocytes Helmet Cells [place] Bodies Fence Rings Veto Cells Bite Cells Crenated Cell Elliptocytes Acanthocytes (Spur) Rouleaux Hemoglobin C Crystals Schistocytes Malaria parasites [place] Bodies Hem Pathologist Commnt PT 33.9 H INR 3.31 H POC ABG pH POC ABG pCO2 POC ABG pO2 POC ABG HCO3 POC ABG Total CO2 POC ABG O2 Sat POC ABG Base Excess FiO2 Sodium 135 L Potassium 5.5 H Chloride 94.2 L Carbon Dioxide 17 L Anion Gap 29 BUN 72 H Creatinine 11.0 H Estimated GFR 5 BUN/Creatinine Ratio 6.54 Glucose 230 H POC Glucose Calcium 3.4 L* Phosphorus 8.7 H Magnesium 1.4 L Total Bilirubin 4.8 H AST 36211 H ALT 2515 H Alkaline Phosphatase 124 Total Creatine Kinase 19796 H Total Protein 3.6 L D Albumin 1.8 L Albumin/Globulin Ratio 1.0 Urine Color Urine Turbidity Urine pH Ur Specific [place] Urine Protein Urine Glucose (UA) Urine Ketones Urine Blood Urine Nitrite Urine Bilirubin Urine Urobilinogen Ur Leukocyte Esterase Urine WBC (Auto) Urine RBC (Auto) U Epithel Cells (Auto) Urine WBC Clumps Hyaline Casts Urine Mucus Urine Creatinine Urine Sodium Fraction Sodium Excret Double Strand DNA Ab Blood Type Antibody Screen
--- NOTE | 2016-11-08 11:33 | Gastroenterology Consultation ---
<MELISSA HERNANDEZ - Last Filed: 11/08/16 11:37> History of Present Illness - Reason for Consult Consult date: 11/08/16 BRBPR Requesting physician: ZENAIDA MAHMOOD - History of Present Illness Mr Mancini is a 50 y/o male admitted on 11/05/15 with AMS.The history was obtained from the medical record as the patient is currently intubated and receiving HD and no family is in the room. Per note his mother reports that on Saturday he locked himself in his bedroom but was able to communicate to his mother through the door. Yesterday, he came out of his room and she stated that he was confused and "talking out of his head" so she called 911. She believes that he used methamphetamine.He has a known hx of Meth usage and his tox screen was positive for amphetamine usage. Upon presentation to the ER, he was found to be in acute renal failure with a potassium of 8.0. He was emergently dialyzed and later intubated. He was also noted to have elevated cardiac enzymes as well as markedly elevated CK, CK-MB and a mildly elevated troponin. He is currently intubated and on multiple vasopressors. He is being treated for Sepsis with MOF. CT of A/P revealed wall thickening in right colon. It is unclear if the patient has a hx of GI disease, however his Hepatitis C NEHEMIAS was positive. This AM, nursing reports that the patient had a large area of BRBPR noted in the bed. His platelets are 18K with an elevated INR of 3.31, S/P FFP and vitamin K yesterday at which time his INR was 5.64. Past History Past Medical History: hypertension Past Surgical History: No surgical history Social history: lives with family, other (methamphetamine ) Family history: no significant family history Medications and Allergies Allergies Allergy/AdvReac Type Severity Reaction Status Date / Time No Known Allergies Allergy Unverified 07/24/16 09:58 Home Medications Medication Instructions Recorded Confirmed Last Taken Type Lisinopril [Zestril TAB] 20 mg PO QDAY #30 tablet 07/24/16 11/05/16 Unknown Rx Active Meds: Active Medications Acetaminophen (Tylenol) 650 mg PO Q4H PRN PRN Reason: Fever >101 Last Admin: 11/08/16 03:15 Dose: 650 mg Al Hydrox/Mg Hydrox/Simethicone (Alum-Mag Hydrox-Simeth [id number]/5ml) 30 ml PO Q4H PRN PRN Reason: Indigestion Lipase/Protease/Amylase (Lauren Rivera 10,500 Unit) 1 each FEEDTUBE PRN PRN PRN Reason: For Clogged Feeding Tube Bisacodyl (Dulcolax) 10 mg KS QDAY PRN PRN Reason: constipation unrelieved by MOM Dextrose (D50w (25gm)) 50 gm IV PRN PRN PRN Reason: Hypoglycemia Last Admin: 11/07/16 15:12 Dose: 50 gm Heparin Sodium (Porcine) (Heparin) 5,000 unit IV IMELDA PRN PRN Reason: hemodialysis Last Admin: 11/06/16 14:25 Dose: 5,000 unit Hydrocortisone Sodium Succinate (Solu-Cortef) 100 mg IV Q8HR ANDREW Last Admin: 11/08/16 05:19 Dose: 100 mg Sodium Bicarbonate 150 meq/ (Dextrose) 1,150 mls @ 75 mls/hr IV DIRECT ANDREW Last Admin: 11/07/16 21:53 Dose: 75 mls/hr Piperacillin Sod/Tazobactam Sod (Zosyn/Ns 2.25 Gm/50ml) 50 mls @ 100 mls/hr IV Q8HR ANDREW PRN Reason: Protocol Last Admin: 11/08/16 05:16 Dose: 100 mls/hr Vasopressin 20 unit/ Sodium (Chloride) 101 mls @ 9.09 mls/hr IV TITR ANDREW; 0.03 UNITS/MIN PRN Reason: Protocol Last Admin: 11/08/16 07:32 Dose: 12.12 mls/hr Phenylephrine HCl 100 mg/ (Sodium Chloride) 100 mls @ 3 mls/hr IV TITR ANDREW; 50 MCG/MIN PRN Reason: Protocol Last Titration: 11/08/16 05:40 Dose: 0 mcg/min Epinephrine 8 mg/ Sodium (Chloride) 250 mls @ 3.75 mls/hr IV TITR ANDREW; 2 MCG/ MIN PRN Reason: Protocol Last Titration: 11/07/16 23:24 Dose: 0 mcg/min Norepinephrine 8 mg/ Sodium (Chloride) 250 mls @ 3.75 mls/hr IV TITR ANDREW; 2 MCG /MIN PRN Reason: Protocol Last Titration: 11/08/16 07:00 Dose: 28 mcg/min Dextrose (D10w) 1,000 mls @ 75 mls/hr IV DIRECT ANDREW Last Admin: 11/08/16 03:34 Dose: 75 mls/hr Sodium Chloride (Nacl 0.9% 1000 Ml) 100 mls @ 999 mls/hr IV IMELAD PRN PRN Reason: Hypotension Pantoprazole Sodium 80 mg/ (Sodium Chloride) 100 mls @ 10 mls/hr IV DIRECT ANDREW PRN Reason: 8 MG/HR Vancomycin HCl (Vancomycin/Ns 1 Gm/250 Ml) 250 mls @ 167 mls/hr IV ONCE ONE Stop: 11/08/16 21:29 Magnesium Hydroxide (Milk Of Magnesia) 30 ml PO Q4H PRN PRN Reason: Constipation Simple Syrup (Simple Syrup) 15 ml FEEDTUBE PRN PRN PRN Reason: Hypoglycemia Simple Syrup (Simple Syrup) 30 ml FEEDTUBE PRN PRN PRN Reason: Hypoglycemia Sodium Bicarbonate (Sodium Bicarbonate) 325 mg FEEDTUBE PRN PRN PRN Reason: For Clogged Feeding Tube Review of Systems - Review of Systems ROS unobtainable: due to endotracheal tube Exam - Constitutional Vital Signs: Temp Pulse Resp BP Pulse Ox 101.6 F H 121 H 24 77/56 94 11/08/16 07:50 11/08/16 11:17 11/08/16 07:15 11/08/16 11:17 11/08/16 11:17 General appearance: no acute distress - Neck Neck: supple - Respiratory Respiratory: bilateral: CTA - Cardiovascular Rhythm: regular (tachycardia) Heart Sounds: Present: S1 & S2 Extremities: No edema - Gastrointestinal General gastrointestinal: Present: distended, hypoactive bowel sounds - Integumentary Integumentary: Present: warm, dry - Neurologic Neurological: other (intubated and nonresponsive) - Labs CBC & Chem 7: 11/08/16 09:49 11/08/16 07:00 Lab Results: Laboratory Results - last 24 hr 11/06/16 11/06/16 11/06/16 10:17 12:10 12:10 WBC RBC Hgb Hct MCV MCH MCHC RDW Plt Count Add Manual Diff Total Counted Seg Neutrophils % Seg Neuts % (Manual) Band Neutrophils % Lymphocytes % (Manual) Reactive Lymphs % (Man) Monocytes % (Manual) Eosinophils % (Manual) Basophils % (Manual) Metamyelocytes % Myelocytes % Promyelocytes % Blast Cells % Nucleated RBC % Seg Neutrophils # Man Band Neutrophils # Lymphocytes # (Manual) Abs React Lymphs (Man) Monocytes # (Manual) Eosinophils # (Manual) Basophils # (Manual) Metamyelocytes # Myelocytes # Promyelocytes # Blast Cells # WBC Morphology Hypersegmented Neuts Hyposegmented Neuts Hypogranular Neuts Smudge Cells Toxic Granulation Toxic Vacuolation Dohle Bodies Pelger-Huet Anomaly Holli Rods Platelet Estimate Clumped Platelets Plt Clumps, EDTA Large Platelets Giant Platelets Platelet Satelliting Plt Morphology Comment RBC Morphology Dimorphic RBCs Polychromasia Hypochromasia Poikilocytosis Anisocytosis Microcytosis Macrocytosis Spherocytes Pappenheimer Bodies Sickle Cells Target Cells Tear Drop Cells Ovalocytes Helmet Cells [place] Bodies [place] Rings [place] Cells Bite Cells Crenated Cell Elliptocytes Acanthocytes (Spur) Rouleaux Hemoglobin C Crystals Schistocytes Malaria parasites [place]i Bodies Hem Pathologist Commnt PT INR POC ABG pH POC ABG pCO2 POC ABG pO2 POC ABG HCO3 POC ABG Total CO2 POC ABG O2 Sat POC ABG Base Excess FiO2 Sodium Potassium Chloride Carbon Dioxide Anion Gap BUN Creatinine Estimated GFR BUN/Creatinine Ratio Glucose POC Glucose Calcium Phosphorus Magnesium Total Bilirubin AST ALT Alkaline Phosphatase Total Creatine Kinase Total Protein Albumin Albumin/Globulin Ratio Urine Color [place] Urine Turbidity Slightly-cloudy Urine pH 7.0 Ur Specific [place] 1.021 Urine Protein 100 mg/dl Urine Glucose (UA) 150 Urine Ketones Tr Urine Blood Lg Urine Nitrite Neg Urine Bilirubin Neg Urine Urobilinogen < 2.0 Ur Leukocyte Esterase Sm Urine WBC (Auto) 49.0 H Urine RBC (Auto) 112.0 U Epithel Cells (Auto) 2.0 Urine WBC Clumps 1+ Hyaline Casts 5 Urine Mucus Few Urine Creatinine 117.9 H Urine Sodium 67 Fraction Sodium Excret 0.5 Double Strand DNA Ab 1 Blood Type Antibody Screen 11/06/16 11/07/16 11/07/16 15:17 09:50 10:46 WBC RBC Hgb Hct MCV MCH MCHC RDW Plt Count Add Manual Diff Total Counted Seg Neutrophils % Seg Neuts % (Manual) Band Neutrophils % Lymphocytes % (Manual) Reactive Lymphs % (Man) Monocytes % (Manual) Eosinophils % (Manual) Basophils % (Manual) Metamyelocytes % Myelocytes % Promyelocytes % Blast Cells % Nucleated RBC % Seg Neutrophils # Man Band Neutrophils # Lymphocytes # (Manual) Abs React Lymphs (Man) Monocytes # (Manual) Eosinophils # (Manual) Basophils # (Manual) Metamyelocytes # Myelocytes # Promyelocytes # Blast Cells # WBC Morphology Hypersegmented Neuts Hyposegmented Neuts Hypogranular Neuts Smudge Cells Toxic Granulation Toxic Vacuolation Dohle Bodies Pelger-Huet Anomaly Holli Rods Platelet Estimate Clumped Platelets Plt Clumps, EDTA Large Platelets Giant Platelets Platelet Satelliting Plt Morphology Comment RBC Morphology Dimorphic RBCs Polychromasia Hypochromasia Poikilocytosis Anisocytosis Microcytosis Macrocytosis Spherocytes Pappenheimer Bodies Sickle Cells Target Cells Tear Drop Cells Ovalocytes Helmet Cells [place] Bodies [place] Rings [place] Cells Bite Cells Crenated Cell Elliptocytes Acanthocytes (Spur) Rouleaux Hemoglobin C Crystals Schistocytes Malaria parasites [place]i Bodies Hem Pathologist Commnt PT INR POC ABG pH POC ABG pCO2 POC ABG pO2 POC ABG HCO3 POC ABG Total CO2 POC ABG O2 Sat POC ABG Base Excess FiO2 Sodium Potassium Chloride Carbon Dioxide Anion Gap BUN Creatinine Estimated GFR BUN/Creatinine Ratio Glucose POC Glucose 283 H 169 H Calcium Phosphorus Magnesium Total Bilirubin AST ALT Alkaline Phosphatase Total Creatine Kinase Total Protein Albumin Albumin/Globulin Ratio Urine Color Urine Turbidity Urine pH Ur Specific [place] Urine Protein Urine Glucose (UA) Urine Ketones Urine Blood Urine Nitrite Urine Bilirubin Urine Urobilinogen Ur Leukocyte Esterase Urine WBC (Auto) Urine RBC (Auto) U Epithel Cells (Auto) Urine WBC Clumps Hyaline Casts Urine Mucus Urine Creatinine Urine Sodium Fraction Sodium Excret Double Strand DNA Ab Blood Type A NEGATIVE Antibody Screen Negative 11/07/16 11/07/16 11/07/16 11:48 13:10 14:12 WBC RBC Hgb Hct MCV MCH MCHC RDW Plt Count Add Manual Diff Total Counted Seg Neutrophils % Seg Neuts % (Manual) Band Neutrophils % Lymphocytes % (Manual) Reactive Lymphs % (Man) Monocytes % (Manual) Eosinophils % (Manual) Basophils % (Manual) Metamyelocytes % Myelocytes % Promyelocytes % Blast Cells % Nucleated RBC % Seg Neutrophils # Man Band Neutrophils # Lymphocytes # (Manual) Abs React Lymphs (Man) Monocytes # (Manual) Eosinophils # (Manual) Basophils # (Manual) Metamyelocytes # Myelocytes # Promyelocytes # Blast Cells # WBC Morphology Hypersegmented Neuts Hyposegmented Neuts Hypogranular Neuts Smudge Cells Toxic Granulation Toxic Vacuolation Dohle Bodies Pelger-Huet Anomaly Holli Rods Platelet Estimate Clumped Platelets Plt Clumps, EDTA Large Platelets Giant Platelets Platelet Satelliting Plt Morphology Comment RBC Morphology Dimorphic RBCs Polychromasia Hypochromasia Poikilocytosis Anisocytosis Microcytosis Macrocytosis Spherocytes Pappenheimer Bodies Sickle Cells Target Cells Tear Drop Cells Ovalocytes Helmet Cells [place] Bodies [place] Rings Veto Cells Bite Cells Crenated Cell Elliptocytes Acanthocytes (Spur) Rouleaux Hemoglobin C Crystals Schistocytes Malaria parasites [place] Bodies Hem Pathologist Commnt PT INR POC ABG pH POC ABG pCO2 POC ABG pO2 POC ABG HCO3 POC ABG Total CO2 POC ABG O2 Sat POC ABG Base Excess FiO2 Sodium Potassium Chloride Carbon Dioxide Anion Gap BUN Creatinine Estimated GFR BUN/Creatinine Ratio Glucose POC Glucose 123 H 102 121 H Calcium Phosphorus Magnesium Total Bilirubin AST ALT Alkaline Phosphatase Total Creatine Kinase Total Protein Albumin Albumin/Globulin Ratio Urine Color Urine Turbidity Urine pH Ur Specific [place] Urine Protein Urine Glucose (UA) Urine Ketones Urine Blood Urine Nitrite Urine Bilirubin Urine Urobilinogen Ur Leukocyte Esterase Urine WBC (Auto) Urine RBC (Auto) U Epithel Cells (Auto) Urine WBC Clumps Hyaline Casts Urine Mucus Urine Creatinine Urine Sodium Fraction Sodium Excret Double Strand DNA Ab Blood Type Antibody Screen 11/07/16 11/07/16 11/07/16 15:05 15:30 16:19 WBC RBC Hgb Hct MCV MCH MCHC RDW Plt Count Add Manual Diff Total Counted Seg Neutrophils % Seg Neuts % (Manual) Band Neutrophils % Lymphocytes % (Manual) Reactive Lymphs % (Man) Monocytes % (Manual) Eosinophils % (Manual) Basophils % (Manual) Metamyelocytes % Myelocytes % Promyelocytes % Blast Cells % Nucleated RBC % Seg Neutrophils # Man Band Neutrophils # Lymphocytes # (Manual) Abs React Lymphs (Man) Monocytes # (Manual) Eosinophils # (Manual) Basophils # (Manual) Metamyelocytes # Myelocytes # Promyelocytes # Blast Cells # WBC Morphology Hypersegmented Neuts Hyposegmented Neuts Hypogranular Neuts Smudge Cells Toxic Granulation Toxic Vacuolation Dohle Bodies Pelger-Huet Anomaly Holli Rods Platelet Estimate Clumped Platelets Plt Clumps, EDTA Large Platelets Giant Platelets Platelet Satelliting Plt Morphology Comment RBC Morphology Dimorphic RBCs Polychromasia Hypochromasia Poikilocytosis Anisocytosis Microcytosis Macrocytosis Spherocytes Pappenheimer Bodies Sickle Cells Target Cells Tear Drop Cells Ovalocytes Helmet Cells [place] Bodies [place] Rings [place] Cells Bite Cells Crenated Cell Elliptocytes Acanthocytes (Spur) Rouleaux Hemoglobin C Crystals Schistocytes Malaria parasites [place]i Bodies Hem Pathologist Commnt PT INR POC ABG pH POC ABG pCO2 POC ABG pO2 POC ABG HCO3 POC ABG Total CO2 POC ABG O2 Sat POC ABG Base Excess FiO2 Sodium Potassium Chloride Carbon Dioxide Anion Gap BUN Creatinine Estimated GFR BUN/Creatinine Ratio Glucose POC Glucose 61 L 97 216 H Calcium Phosphorus Magnesium Total Bilirubin AST ALT Alkaline Phosphatase Total Creatine Kinase Total Protein Albumin Albumin/Globulin Ratio Urine Color Urine Turbidity Urine pH Ur Specific [place] Urine Protein Urine Glucose (UA) Urine Ketones Urine Blood Urine Nitrite Urine Bilirubin Urine Urobilinogen Ur Leukocyte Esterase Urine WBC (Auto) Urine RBC (Auto) U Epithel Cells (Auto) Urine WBC Clumps Hyaline Casts Urine Mucus Urine Creatinine Urine Sodium Fraction Sodium Excret Double Strand DNA Ab Blood Type Antibody Screen 11/07/16 11/07/16 11/07/16 17:12 17:15 17:15 WBC 20.0 H RBC 4.36 Hgb 12.6 Hct 39.9 MCV 91 MCH 29 MCHC 32 RDW 16.1 H Plt Count 27 L Add Manual Diff Complete Total Counted 100 Seg Neutrophils % [employer] Chief Seg Neuts % (Manual) 88.0 H Band Neutrophils % 2.0 Lymphocytes % (Manual) 7.0 L Reactive Lymphs % (Man) 0 Monocytes % (Manual) 3.0 Eosinophils % (Manual) 0 Basophils % (Manual) 0 Metamyelocytes % 0 Myelocytes % 0 Promyelocytes % 0 Blast Cells % 0 Nucleated RBC % 1.0 H Seg Neutrophils # Man 17.6 H Band Neutrophils # 0.4 Lymphocytes # (Manual) 1.4 Abs React Lymphs (Man) 0.0 Monocytes # (Manual) 0.6 Eosinophils # (Manual) 0.0 Basophils # (Manual) 0.0 Metamyelocytes # 0.0 Myelocytes # 0.0 Promyelocytes # 0.0 Blast Cells # 0.0 WBC Morphology Not Reportable Hypersegmented Neuts Not Reportable Hyposegmented Neuts Not Reportable Hypogranular Neuts Not Reportable Smudge Cells Not Reportable Toxic Granulation Not Reportable Toxic Vacuolation Not Reportable Dohle Bodies Not Reportable Pelger-Huet Anomaly Not Reportable Holli Rods Not Reportable Platelet Estimate Appears decreased Clumped Platelets Not Reportable Plt Clumps, EDTA Not Reportable Large Platelets 1+ Giant Platelets Not Reportable Platelet Satelliting Not Reportable Plt Morphology Comment Not Reportable RBC Morphology Not Reportable Dimorphic RBCs Not Reportable Polychromasia Not Reportable Hypochromasia Not Reportable Poikilocytosis Not Reportable Anisocytosis 1+ Microcytosis Not Reportable Macrocytosis Not Reportable Spherocytes Not Reportable Pappenheimer Bodies Not Reportable Sickle Cells Not Reportable Target Cells Not Reportable Tear Drop Cells Not Reportable Ovalocytes Not Reportable Helmet Cells Not Reportable [place] Bodies Not Reportable [place] Rings Not Reportable [place] Cells Not Reportable Bite Cells Not Reportable Crenated Cell Not Reportable Elliptocytes Not Reportable Acanthocytes (Spur) Not Reportable Rouleaux Not Reportable Hemoglobin C Crystals Not Reportable Schistocytes Not Reportable Malaria parasites Not Reportable Yasmani Bodies Not Reportable Hem Pathologist Commnt No PT 51.7 H INR 5.64 H* POC ABG pH POC ABG pCO2 POC ABG pO2 POC ABG HCO3 POC ABG Total CO2 POC ABG O2 Sat POC ABG Base Excess FiO2 Sodium Potassium Chloride Carbon Dioxide Anion Gap BUN Creatinine Estimated GFR BUN/Creatinine Ratio Glucose POC Glucose 91 Calcium Phosphorus Magnesium Total Bilirubin AST ALT Alkaline Phosphatase Total Creatine Kinase Total Protein Albumin Albumin/Globulin Ratio Urine Color Urine Turbidity Urine pH Ur Specific [place] Urine Protein Urine Glucose (UA) Urine Ketones Urine Blood Urine Nitrite Urine Bilirubin Urine Urobilinogen Ur Leukocyte Esterase Urine WBC (Auto) Urine RBC (Auto) U Epithel Cells (Auto) Urine WBC Clumps Hyaline Casts Urine Mucus Urine Creatinine Urine Sodium Fraction Sodium Excret Double Strand DNA Ab Blood Type Antibody Screen 11/07/16 11/07/16 11/07/16 17:15 18:21 20:44 WBC RBC Hgb Hct MCV MCH MCHC RDW Plt Count Add Manual Diff Total Counted Seg Neutrophils % Seg Neuts % (Manual) Band Neutrophils % Lymphocytes % (Manual) Reactive Lymphs % (Man) Monocytes % (Manual) Eosinophils % (Manual) Basophils % (Manual) Metamyelocytes % Myelocytes % Promyelocytes % Blast Cells % Nucleated RBC % Seg Neutrophils # Man Band Neutrophils # Lymphocytes # (Manual) Abs React Lymphs (Man) Monocytes # (Manual) Eosinophils # (Manual) Basophils # (Manual) Metamyelocytes # Myelocytes # Promyelocytes # Blast Cells # WBC Morphology Hypersegmented Neuts Hyposegmented Neuts Hypogranular Neuts Smudge Cells Toxic Granulation Toxic Vacuolation Dohle Bodies Pelger-Huet Anomaly Holli Rods Platelet Estimate Clumped Platelets Plt Clumps, EDTA Large Platelets Giant Platelets Platelet Satelliting Plt Morphology Comment RBC Morphology Dimorphic RBCs Polychromasia Hypochromasia Poikilocytosis Anisocytosis Microcytosis Macrocytosis Spherocytes Pappenheimer Bodies Sickle Cells Target Cells Tear Drop Cells Ovalocytes Helmet Cells [place] Bodies [place] Rings [place] Cells Bite Cells Crenated Cell Elliptocytes Acanthocytes (Spur) Rouleaux Hemoglobin C Crystals Schistocytes Malaria parasites Yasmani Bodies Hem Pathologist Commnt PT INR POC ABG pH POC ABG pCO2 POC ABG pO2 POC ABG HCO3 POC ABG Total CO2 POC ABG O2 Sat POC ABG Base Excess FiO2 Sodium TNR Potassium TNR Chloride TNR Carbon Dioxide TNR Anion Gap TNR BUN TNR Creatinine TNR Estimated GFR TNR BUN/Creatinine Ratio TNR Glucose TNR POC Glucose 83 145 H Calcium TNR Phosphorus Magnesium Total Bilirubin AST ALT Alkaline Phosphatase Total Creatine Kinase Total Protein Albumin Albumin/Globulin Ratio Urine Color Urine Turbidity Urine pH Ur Specific [place] Urine Protein Urine Glucose (UA) Urine Ketones Urine Blood Urine Nitrite Urine Bilirubin Urine Urobilinogen Ur Leukocyte Esterase Urine WBC (Auto) Urine RBC (Auto) U Epithel Cells (Auto) Urine WBC Clumps Hyaline Casts Urine Mucus Urine Creatinine Urine Sodium Fraction Sodium Excret Double Strand DNA Ab Blood Type Antibody Screen 11/08/16 11/08/16 11/08/16 03:30 05:50 05:52 WBC RBC Hgb Hct MCV MCH MCHC RDW Plt Count Add Manual Diff Total Counted Seg Neutrophils % Seg Neuts % (Manual) Band Neutrophils % Lymphocytes % (Manual) Reactive Lymphs % (Man) Monocytes % (Manual) Eosinophils % (Manual) Basophils % (Manual) Metamyelocytes % Myelocytes % Promyelocytes % Blast Cells % Nucleated RBC % Seg Neutrophils # Man Band Neutrophils # Lymphocytes # (Manual) Abs React Lymphs (Man) Monocytes # (Manual) Eosinophils # (Manual) Basophils # (Manual) Metamyelocytes # Myelocytes # Promyelocytes # Blast Cells # WBC Morphology Hypersegmented Neuts Hyposegmented Neuts Hypogranular Neuts Smudge Cells Toxic Granulation Toxic Vacuolation Dohle Bodies Pelger-Huet Anomaly Holli Rods Platelet Estimate Clumped Platelets Plt Clumps, EDTA Large Platelets Giant Platelets Platelet Satelliting Plt Morphology Comment RBC Morphology Dimorphic RBCs Polychromasia Hypochromasia Poikilocytosis Anisocytosis Microcytosis Macrocytosis Spherocytes Pappenheimer Bodies Sickle Cells Target Cells Tear Drop Cells Ovalocytes Helmet Cells [place] Bodies [place] Rings Veto Cells Bite Cells Crenated Cell Elliptocytes Acanthocytes (Spur) Rouleaux Hemoglobin C Crystals Schistocytes Malaria parasites Yasmani Bodies Hem Pathologist Commnt PT INR POC ABG pH 7.315 L POC ABG pCO2 33.0 L POC ABG pO2 124 H POC ABG HCO3 16.8 POC ABG Total CO2 18 POC ABG O2 Sat 99 POC ABG Base Excess -9 FiO2 75 Sodium Potassium Chloride Carbon Dioxide Anion Gap BUN Creatinine Estimated GFR BUN/Creatinine Ratio Glucose POC Glucose 160 H 187 H Calcium Phosphorus Magnesium Total Bilirubin AST ALT Alkaline Phosphatase Total Creatine Kinase Total Protein Albumin Albumin/Globulin Ratio Urine Color Urine Turbidity Urine pH Ur Specific [place] Urine Protein Urine Glucose (UA) Urine Ketones Urine Blood Urine Nitrite Urine Bilirubin Urine Urobilinogen Ur Leukocyte Esterase Urine WBC (Auto) Urine RBC (Auto) U Epithel Cells (Auto) Urine WBC Clumps Hyaline Casts Urine Mucus Urine Creatinine Urine Sodium Fraction Sodium Excret Double Strand DNA Ab Blood Type Antibody Screen 11/08/16 11/08/16 11/08/16 07:00 07:00 09:49 WBC 17.1 H RBC 3.71 Hgb 10.9 L Hct 33.4 L D MCV 90 MCH 29 MCHC 33 RDW 16.0 H Plt Count 18 L* Add Manual Diff Total Counted Seg Neutrophils % Seg Neuts % (Manual) Band Neutrophils % Lymphocytes % (Manual) Reactive Lymphs % (Man) Monocytes % (Manual) Eosinophils % (Manual) Basophils % (Manual) Metamyelocytes % Myelocytes % Promyelocytes % Blast Cells % Nucleated RBC % Seg Neutrophils # Man Band Neutrophils # Lymphocytes # (Manual) Abs React Lymphs (Man) Monocytes # (Manual) Eosinophils # (Manual) Basophils # (Manual) Metamyelocytes # Myelocytes # Promyelocytes # Blast Cells # WBC Morphology Hypersegmented Neuts Hyposegmented Neuts Hypogranular Neuts Smudge Cells Toxic Granulation Toxic Vacuolation Dohle Bodies Pelger-Huet Anomaly Holli Rods Platelet Estimate Clumped Platelets Plt Clumps, EDTA Large Platelets Giant Platelets Platelet Satelliting Plt Morphology Comment RBC Morphology Dimorphic RBCs Polychromasia Hypochromasia Poikilocytosis Anisocytosis Microcytosis Macrocytosis Spherocytes Pappenheimer Bodies Sickle Cells Target Cells Tear Drop Cells Ovalocytes Helmet Cells [place] Bodies [place] Rings Veto Cells Bite Cells Crenated Cell Elliptocytes Acanthocytes (Spur) Rouleaux Hemoglobin C Crystals Schistocytes Malaria parasites Yasmani Bodies Hem Pathologist Commnt PT 33.9 H INR 3.31 H POC ABG pH POC ABG pCO2 POC ABG pO2 POC ABG HCO3 POC ABG Total CO2 POC ABG O2 Sat POC ABG Base Excess FiO2 Sodium 135 L Potassium 5.5 H Chloride 94.2 L Carbon Dioxide 17 L Anion Gap 29 BUN 72 H Creatinine 11.0 H Estimated GFR 5 BUN/Creatinine Ratio 6.54 Glucose 230 H POC Glucose Calcium 3.4 L* Phosphorus 8.7 H Magnesium 1.4 L Total Bilirubin 4.8 H AST 43754 H ALT 2515 H Alkaline Phosphatase 124 Total Creatine Kinase 86494 H Total Protein 3.6 L D Albumin 1.8 L Albumin/Globulin Ratio 1.0 Urine Color Urine Turbidity Urine pH Ur Specific [place] Urine Protein Urine Glucose (UA) Urine Ketones Urine Blood Urine Nitrite Urine Bilirubin Urine Urobilinogen Ur Leukocyte Esterase Urine WBC (Auto) Urine RBC (Auto) U Epithel Cells (Auto) Urine WBC Clumps Hyaline Casts Urine Mucus Urine Creatinine Urine Sodium Fraction Sodium Excret Double Strand DNA Ab Blood Type Antibody Screen Assessment and Plan 1. BRBPR -In the setting of a colitis per CT, with platelets of 18K, it is likely that the patient will bleed. -Recommend addressing INR, platelet count at this time to prevent further bleeding. ( patient is receiving FFP, Vitamin K, and Platelets when available) -H/H stable prior to today with a noted drop to 10.9/33.4. Would recommend trending H/H , however cautious with blood draws. -Patient is currently on a PPI gtt as well as Vancomycin and Zosyn. -Will follow closely, would not recommend endoscopy at this time in the setting of significant thrombocytopenia, would prefer correction of INR/platelets and reassess. <KURT WOODS - Last Filed: 11/08/16 14:08> History of Present Illness - Reason for Consult Consult date: 11/08/16 Medications and Allergies Active Meds: Active Medications Acetaminophen (Tylenol) 650 mg PO Q4H PRN PRN Reason: Fever >101 Last Admin: 11/08/16 03:15 Dose: 650 mg Al Hydrox/Mg Hydrox/Simethicone (Alum-Mag Hydrox-Simeth [phone]/5ml) 30 ml PO Q4H PRN PRN Reason: Indigestion Lipase/Protease/Amylase (Pancreaze Dr 10,500 Unit) 1 each FEEDTUBE PRN PRN PRN Reason: For Clogged Feeding Tube Bisacodyl (Dulcolax) 10 mg KS QDAY PRN PRN Reason: constipation unrelieved by MOM Dextrose (D50w (25gm)) 50 gm IV PRN PRN PRN Reason: Hypoglycemia Last Admin: 11/07/16 15:12 Dose: 50 gm Heparin Sodium (Porcine) (Heparin) 5,000 unit IV IMELDA PRN PRN Reason: hemodialysis Last Admin: 11/08/16 13:52 Dose: 5,000 unit Hydrocortisone Sodium Succinate (Solu-Cortef) 100 mg IV Q8HR ANDREW Last Admin: 11/08/16 05:19 Dose: 100 mg Sodium Bicarbonate 150 meq/ (Dextrose) 1,150 mls @ 75 mls/hr IV DIRECT ANDREW Last Admin: 11/07/16 21:53 Dose: 75 mls/hr Piperacillin Sod/Tazobactam Sod (Zosyn/Ns 2.25 Gm/50ml) 50 mls @ 100 mls/hr IV Q8HR ANDREW PRN Reason: Protocol Last Admin: 11/08/16 05:16 Dose: 100 mls/hr Vasopressin 20 unit/ Sodium (Chloride) 101 mls @ 9.09 mls/hr IV TITR ANDREW; 0.03 UNITS/MIN PRN Reason: Protocol Last Admin: 11/08/16 07:32 Dose: 12.12 mls/hr Phenylephrine HCl 100 mg/ (Sodium Chloride) 100 mls @ 3 mls/hr IV TITR ANDREW; 50 MCG/MIN PRN Reason: Protocol Last Titration: 11/08/16 05:40 Dose: 0 mcg/min Epinephrine 8 mg/ Sodium (Chloride) 250 mls @ 3.75 mls/hr IV TITR ANDREW; 2 MCG/ MIN PRN Reason: Protocol Last Titration: 11/07/16 23:24 Dose: 0 mcg/min Norepinephrine 8 mg/ Sodium (Chloride) 250 mls @ 3.75 mls/hr IV TITR ANDREW; 2 MCG /MIN PRN Reason: Protocol Last Titration: 11/08/16 07:00 Dose: 28 mcg/min Dextrose (D10w) 1,000 mls @ 75 mls/hr IV DIRECT ANDREW Last Admin: 11/08/16 03:34 Dose: 75 mls/hr Sodium Chloride (Nacl 0.9% 1000 Ml) 100 mls @ 999 mls/hr IV IMELDA PRN PRN Reason: Hypotension Pantoprazole Sodium 80 mg/ (Sodium Chloride) 100 mls @ 10 mls/hr IV DIRECT ANDREW PRN Reason: 8 MG/HR Vancomycin HCl (Vancomycin/Ns 1 Gm/250 Ml) 250 mls @ 167 mls/hr IV ONCE ONE Stop: 11/08/16 21:29 Magnesium Hydroxide (Milk Of Magnesia) 30 ml PO Q4H PRN PRN Reason: Constipation Phytonadione (Vitamin K (Adult Only)) 10 mg SUB-Q ONCE ONE Stop: 11/08/16 15:01 Simple Syrup (Simple Syrup) 15 ml FEEDTUBE PRN PRN PRN Reason: Hypoglycemia Simple Syrup (Simple Syrup) 30 ml FEEDTUBE PRN PRN PRN Reason: Hypoglycemia Sodium Bicarbonate (Sodium Bicarbonate) 325 mg FEEDTUBE PRN PRN PRN Reason: For Clogged Feeding Tube Exam - Constitutional Vital Signs: Temp Pulse Resp BP Pulse Ox 98.7 F 125 H 24 153/86 95 11/08/16 13:06 11/08/16 13:30 11/08/16 13:30 11/08/16 13:30 11/08/16 13:30 - Labs CBC & Chem 7: 11/08/16 09:49 11/08/16 07:00 Lab Results: Laboratory Results - last 24 hr 11/06/16 11/06/16 11/07/16 10:17 15:17 09:50 WBC RBC Hgb Hct MCV MCH MCHC RDW Plt Count Add Manual Diff Total Counted Seg Neutrophils % Seg Neuts % (Manual) Band Neutrophils % Lymphocytes % (Manual) Reactive Lymphs % (Man) Monocytes % (Manual) Eosinophils % (Manual) Basophils % (Manual) Metamyelocytes % Myelocytes % Promyelocytes % Blast Cells % Nucleated RBC % Seg Neutrophils # Man Band Neutrophils # Lymphocytes # (Manual) Abs React Lymphs (Man) Monocytes # (Manual) Eosinophils # (Manual) Basophils # (Manual) Metamyelocytes # Myelocytes # Promyelocytes # Blast Cells # WBC Morphology Hypersegmented Neuts Hyposegmented Neuts Hypogranular Neuts Smudge Cells Toxic Granulation Toxic Vacuolation Dohle Bodies Pelger-Huet Anomaly Holli Rods Platelet Estimate Clumped Platelets Plt Clumps, EDTA Large Platelets Giant Platelets Platelet Satelliting Plt Morphology Comment RBC Morphology Dimorphic RBCs Polychromasia Hypochromasia Poikilocytosis Anisocytosis Microcytosis Macrocytosis Spherocytes Pappenheimer Bodies Sickle Cells Target Cells Tear Drop Cells Ovalocytes Helmet Cells [place] Bodies [place] Rings [place] Cells Bite Cells Crenated Cell Elliptocytes Acanthocytes (Spur) Rouleaux Hemoglobin C Crystals Schistocytes Malaria parasites [place] Bodies Hem Pathologist Commnt PT INR POC ABG pH POC ABG pCO2 POC ABG pO2 POC ABG HCO3 POC ABG Total CO2 POC ABG O2 Sat POC ABG Base Excess FiO2 Sodium Potassium Chloride Carbon Dioxide Anion Gap BUN Creatinine Estimated GFR BUN/Creatinine Ratio Glucose POC Glucose 283 H Lactic Acid Calcium Phosphorus Magnesium Total Bilirubin AST ALT Alkaline Phosphatase Total Creatine Kinase Total Protein Albumin Albumin/Globulin Ratio PTH Intact Double Strand DNA Ab 1 Blood Type A NEGATIVE Antibody Screen Negative Crossmatch See Detail 11/07/16 11/07/16 11/07/16 10:46 13:10 14:12 WBC RBC Hgb Hct MCV MCH MCHC RDW Plt Count Add Manual Diff Total Counted Seg Neutrophils % Seg Neuts % (Manual) Band Neutrophils % Lymphocytes % (Manual) Reactive Lymphs % (Man) Monocytes % (Manual) Eosinophils % (Manual) Basophils % (Manual) Metamyelocytes % Myelocytes % Promyelocytes % Blast Cells % Nucleated RBC % Seg Neutrophils # Man Band Neutrophils # Lymphocytes # (Manual) Abs React Lymphs (Man) Monocytes # (Manual) Eosinophils # (Manual) Basophils # (Manual) Metamyelocytes # Myelocytes # Promyelocytes # Blast Cells # WBC Morphology Hypersegmented Neuts Hyposegmented Neuts Hypogranular Neuts Smudge Cells Toxic Granulation Toxic Vacuolation Dohle Bodies Pelger-Huet Anomaly Holli Rods Platelet Estimate Clumped Platelets Plt Clumps, EDTA Large Platelets Giant Platelets Platelet Satelliting Plt Morphology Comment RBC Morphology Dimorphic RBCs Polychromasia Hypochromasia Poikilocytosis Anisocytosis Microcytosis Macrocytosis Spherocytes Pappenheimer Bodies Sickle Cells Target Cells Tear Drop Cells Ovalocytes Helmet Cells [place] Bodies [place] Rings Veto Cells Bite Cells Crenated Cell Elliptocytes Acanthocytes (Spur) Rouleaux Hemoglobin C Crystals Schistocytes Malaria parasites [place] Bodies Hem Pathologist Commnt PT INR POC ABG pH POC ABG pCO2 POC ABG pO2 POC ABG HCO3 POC ABG Total CO2 POC ABG O2 Sat POC ABG Base Excess FiO2 Sodium Potassium Chloride Carbon Dioxide Anion Gap BUN Creatinine Estimated GFR BUN/Creatinine Ratio Glucose POC Glucose 169 H 102 121 H Lactic Acid Calcium Phosphorus Magnesium Total Bilirubin AST ALT Alkaline Phosphatase Total Creatine Kinase Total Protein Albumin Albumin/Globulin Ratio PTH Intact Double Strand DNA Ab Blood Type Antibody Screen Crossmatch 11/07/16 11/07/16 11/07/16 15:05 15:30 16:19 WBC RBC Hgb Hct MCV MCH MCHC RDW Plt Count Add Manual Diff Total Counted Seg Neutrophils % Seg Neuts % (Manual) Band Neutrophils % Lymphocytes % (Manual) Reactive Lymphs % (Man) Monocytes % (Manual) Eosinophils % (Manual) Basophils % (Manual) Metamyelocytes % Myelocytes % Promyelocytes % Blast Cells % Nucleated RBC % Seg Neutrophils # Man Band Neutrophils # Lymphocytes # (Manual) Abs React Lymphs (Man) Monocytes # (Manual) Eosinophils # (Manual) Basophils # (Manual) Metamyelocytes # Myelocytes # Promyelocytes # Blast Cells # WBC Morphology Hypersegmented Neuts Hyposegmented Neuts Hypogranular Neuts Smudge Cells Toxic Granulation Toxic Vacuolation Dohle Bodies Pelger-Huet Anomaly Holli Rods Platelet Estimate Clumped Platelets Plt Clumps, EDTA Large Platelets Giant Platelets Platelet Satelliting Plt Morphology Comment RBC Morphology Dimorphic RBCs Polychromasia Hypochromasia Poikilocytosis Anisocytosis Microcytosis Macrocytosis Spherocytes Pappenheimer Bodies Sickle Cells Target Cells Tear Drop Cells Ovalocytes Helmet Cells [place] Bodies [place] Rings Veto Cells Bite Cells Crenated Cell Elliptocytes Acanthocytes (Spur) Rouleaux Hemoglobin C Crystals Schistocytes Malaria parasites [place] Bodies Hem Pathologist Commnt PT INR POC ABG pH POC ABG pCO2 POC ABG pO2 POC ABG HCO3 POC ABG Total CO2 POC ABG O2 Sat POC ABG Base Excess FiO2 Sodium Potassium Chloride Carbon Dioxide Anion Gap BUN Creatinine Estimated GFR BUN/Creatinine Ratio Glucose POC Glucose 61 L 97 216 H Lactic Acid Calcium Phosphorus Magnesium Total Bilirubin AST ALT Alkaline Phosphatase Total Creatine Kinase Total Protein Albumin Albumin/Globulin Ratio PTH Intact Double Strand DNA Ab Blood Type Antibody Screen Crossmatch 11/07/16 11/07/16 11/07/16 17:12 17:15 17:15 WBC 20.0 H RBC 4.36 Hgb 12.6 Hct 39.9 MCV 91 MCH 29 MCHC 32 RDW 16.1 H Plt Count 27 L Add Manual Diff Complete Total Counted 100 Seg Neutrophils % [place] Seg Neuts % (Manual) 88.0 H Band Neutrophils % 2.0 Lymphocytes % (Manual) 7.0 L Reactive Lymphs % (Man) 0 Monocytes % (Manual) 3.0 Eosinophils % (Manual) 0 Basophils % (Manual) 0 Metamyelocytes % 0 Myelocytes % 0 Promyelocytes % 0 Blast Cells % 0 Nucleated RBC % 1.0 H Seg Neutrophils # Man 17.6 H Band Neutrophils # 0.4 Lymphocytes # (Manual) 1.4 Abs React Lymphs (Man) 0.0 Monocytes # (Manual) 0.6 Eosinophils # (Manual) 0.0 Basophils # (Manual) 0.0 Metamyelocytes # 0.0 Myelocytes # 0.0 Promyelocytes # 0.0 Blast Cells # 0.0 WBC Morphology Not Reportable Hypersegmented Neuts Not Reportable Hyposegmented Neuts Not Reportable Hypogranular Neuts Not Reportable Smudge Cells Not Reportable Toxic Granulation Not Reportable Toxic Vacuolation Not Reportable Dohle Bodies Not Reportable Pelger-Huet Anomaly Not Reportable Holli Rods Not Reportable Platelet Estimate Appears decreased Clumped Platelets Not Reportable Plt Clumps, EDTA Not Reportable Large Platelets 1+ Giant Platelets Not Reportable Platelet Satelliting Not Reportable Plt Morphology Comment Not Reportable RBC Morphology Not Reportable Dimorphic RBCs Not Reportable Polychromasia Not Reportable Hypochromasia Not Reportable Poikilocytosis Not Reportable Anisocytosis 1+ Microcytosis Not Reportable Macrocytosis Not Reportable Spherocytes Not Reportable Pappenheimer Bodies Not Reportable Sickle Cells Not Reportable Target Cells Not Reportable Tear Drop Cells Not Reportable Ovalocytes Not Reportable Helmet Cells Not Reportable [place] Bodies Not Reportable [place] Rings Not Reportable [place] Cells Not Reportable Bite Cells Not Reportable Crenated Cell Not Reportable Elliptocytes Not Reportable Acanthocytes (Spur) Not Reportable Rouleaux Not Reportable Hemoglobin C Crystals Not Reportable Schistocytes Not Reportable Malaria parasites Not Reportable [place]mani Bodies Not Reportable Hem Pathologist Commnt No PT 51.7 H INR 5.64 H* POC ABG pH POC ABG pCO2 POC ABG pO2 POC ABG HCO3 POC ABG Total CO2 POC ABG O2 Sat POC ABG Base Excess FiO2 Sodium Potassium Chloride Carbon Dioxide Anion Gap BUN Creatinine Estimated GFR BUN/Creatinine Ratio Glucose POC Glucose 91 Lactic Acid Calcium Phosphorus Magnesium Total Bilirubin AST ALT Alkaline Phosphatase Total Creatine Kinase Total Protein Albumin Albumin/Globulin Ratio PTH Intact Double Strand DNA Ab Blood Type Antibody Screen Crossmatch 11/07/16 11/07/16 11/07/16 17:15 18:21 20:44 WBC RBC Hgb Hct MCV MCH MCHC RDW Plt Count Add Manual Diff Total Counted Seg Neutrophils % Seg Neuts % (Manual) Band Neutrophils % Lymphocytes % (Manual) Reactive Lymphs % (Man) Monocytes % (Manual) Eosinophils % (Manual) Basophils % (Manual) Metamyelocytes % Myelocytes % Promyelocytes % Blast Cells % Nucleated RBC % Seg Neutrophils # Man Band Neutrophils # Lymphocytes # (Manual) Abs React Lymphs (Man) Monocytes # (Manual) Eosinophils # (Manual) Basophils # (Manual) Metamyelocytes # Myelocytes # Promyelocytes # Blast Cells # WBC Morphology Hypersegmented Neuts Hyposegmented Neuts Hypogranular Neuts Smudge Cells Toxic Granulation Toxic Vacuolation Dohle Bodies Pelger-Huet Anomaly Holli Rods Platelet Estimate Clumped Platelets Plt Clumps, EDTA Large Platelets Giant Platelets Platelet Satelliting Plt Morphology Comment RBC Morphology Dimorphic RBCs Polychromasia Hypochromasia Poikilocytosis Anisocytosis Microcytosis Macrocytosis Spherocytes Pappenheimer Bodies Sickle Cells Target Cells Tear Drop Cells Ovalocytes Helmet Cells [place] Bodies [place] Rings [place] Cells Bite Cells Crenated Cell Elliptocytes Acanthocytes (Spur) Rouleaux Hemoglobin C Crystals Schistocytes Malaria parasites [place]mani Bodies Hem Pathologist Commnt PT INR POC ABG pH POC ABG pCO2 POC ABG pO2 POC ABG HCO3 POC ABG Total CO2 POC ABG O2 Sat POC ABG Base Excess FiO2 Sodium TNR Potassium TNR Chloride TNR Carbon Dioxide TNR Anion Gap TNR BUN TNR Creatinine TNR Estimated GFR TNR BUN/Creatinine Ratio TNR Glucose TNR POC Glucose 83 145 H Lactic Acid Calcium TNR Phosphorus Magnesium Total Bilirubin AST ALT Alkaline Phosphatase Total Creatine Kinase Total Protein Albumin Albumin/Globulin Ratio PTH Intact Double Strand DNA Ab Blood Type Antibody Screen Crossmatch 11/08/16 11/08/16 11/08/16 03:30 05:50 05:52 WBC RBC Hgb Hct MCV MCH MCHC RDW Plt Count Add Manual Diff Total Counted Seg Neutrophils % Seg Neuts % (Manual) Band Neutrophils % Lymphocytes % (Manual) Reactive Lymphs % (Man) Monocytes % (Manual) Eosinophils % (Manual) Basophils % (Manual) Metamyelocytes % Myelocytes % Promyelocytes % Blast Cells % Nucleated RBC % Seg Neutrophils # Man Band Neutrophils # Lymphocytes # (Manual) Abs React Lymphs (Man) Monocytes # (Manual) Eosinophils # (Manual) Basophils # (Manual) Metamyelocytes # Myelocytes # Promyelocytes # Blast Cells # WBC Morphology Hypersegmented Neuts Hyposegmented Neuts Hypogranular Neuts Smudge Cells Toxic Granulation Toxic Vacuolation Dohle Bodies Pelger-Huet Anomaly Holli Rods Platelet Estimate Clumped Platelets Plt Clumps, EDTA Large Platelets Giant Platelets Platelet Satelliting Plt Morphology Comment RBC Morphology Dimorphic RBCs Polychromasia Hypochromasia Poikilocytosis Anisocytosis Microcytosis Macrocytosis Spherocytes Pappenheimer Bodies Sickle Cells Target Cells Tear Drop Cells Ovalocytes Helmet Cells [place] Bodies [place] Rings [place] Cells Bite Cells Crenated Cell Elliptocytes Acanthocytes (Spur) Rouleaux Hemoglobin C Crystals Schistocytes Malaria parasites Yasmani Bodies Hem Pathologist Commnt PT INR POC ABG pH 7.315 L POC ABG pCO2 33.0 L POC ABG pO2 124 H POC ABG HCO3 16.8 POC ABG Total CO2 18 POC ABG O2 Sat 99 POC ABG Base Excess -9 FiO2 75 Sodium Potassium Chloride Carbon Dioxide Anion Gap BUN Creatinine Estimated GFR BUN/Creatinine Ratio Glucose POC Glucose 160 H 187 H Lactic Acid Calcium Phosphorus Magnesium Total Bilirubin AST ALT Alkaline Phosphatase Total Creatine Kinase Total Protein Albumin Albumin/Globulin Ratio PTH Intact Double Strand DNA Ab Blood Type Antibody Screen Crossmatch 11/08/16 11/08/16 11/08/16 07:00 07:00 09:49 WBC 17.1 H RBC 3.71 Hgb 10.9 L Hct 33.4 L D MCV 90 MCH 29 MCHC 33 RDW 16.0 H Plt Count 18 L* Add Manual Diff Total Counted Seg Neutrophils % Seg Neuts % (Manual) Band Neutrophils % Lymphocytes % (Manual) Reactive Lymphs % (Man) Monocytes % (Manual) Eosinophils % (Manual) Basophils % (Manual) Metamyelocytes % Myelocytes % Promyelocytes % Blast Cells % Nucleated RBC % Seg Neutrophils # Man Band Neutrophils # Lymphocytes # (Manual) Abs React Lymphs (Man) Monocytes # (Manual) Eosinophils # (Manual) Basophils # (Manual) Metamyelocytes # Myelocytes # Promyelocytes # Blast Cells # WBC Morphology Hypersegmented Neuts Hyposegmented Neuts Hypogranular Neuts Smudge Cells Toxic Granulation Toxic Vacuolation Dohle Bodies Pelger-Huet Anomaly Holli Rods Platelet Estimate Clumped Platelets Plt Clumps, EDTA Large Platelets Giant Platelets Platelet Satelliting Plt Morphology Comment RBC Morphology Dimorphic RBCs Polychromasia Hypochromasia Poikilocytosis Anisocytosis Microcytosis Macrocytosis Spherocytes Pappenheimer Bodies Sickle Cells Target Cells Tear Drop Cells Ovalocytes Helmet Cells [place] Bodies [place] Rings [place] Cells Bite Cells Crenated Cell Elliptocytes Acanthocytes (Spur) Rouleaux Hemoglobin C Crystals Schistocytes Malaria parasites Yasmani Bodies Hem Pathologist Commnt PT 33.9 H INR 3.31 H POC ABG pH POC ABG pCO2 POC ABG pO2 POC ABG HCO3 POC ABG Total CO2 POC ABG O2 Sat POC ABG Base Excess FiO2 Sodium 135 L Potassium 5.5 H Chloride 94.2 L Carbon Dioxide 17 L Anion Gap 29 BUN 72 H Creatinine 11.0 H Estimated GFR 5 BUN/Creatinine Ratio 6.54 Glucose 230 H POC Glucose Lactic Acid Calcium 3.4 L* Phosphorus 8.7 H Magnesium 1.4 L Total Bilirubin 4.8 H AST 53437 H ALT 2515 H Alkaline Phosphatase 124 Total Creatine Kinase 59413 H Total Protein 3.6 L D Albumin 1.8 L Albumin/Globulin Ratio 1.0 PTH Intact Double Strand DNA Ab Blood Type Antibody Screen Crossmatch 11/08/16 11/08/16 11/08/16 11:20 11:40 12:05 WBC RBC Hgb Hct MCV MCH MCHC RDW Plt Count Add Manual Diff Total Counted Seg Neutrophils % Seg Neuts % (Manual) Band Neutrophils % Lymphocytes % (Manual) Reactive Lymphs % (Man) Monocytes % (Manual) Eosinophils % (Manual) Basophils % (Manual) Metamyelocytes % Myelocytes % Promyelocytes % Blast Cells % Nucleated RBC % Seg Neutrophils # Man Band Neutrophils # Lymphocytes # (Manual) Abs React Lymphs (Man) Monocytes # (Manual) Eosinophils # (Manual) Basophils # (Manual) Metamyelocytes # Myelocytes # Promyelocytes # Blast Cells # WBC Morphology Hypersegmented Neuts Hyposegmented Neuts Hypogranular Neuts Smudge Cells Toxic Granulation Toxic Vacuolation Dohle Bodies Pelger-Huet Anomaly Holli Rods Platelet Estimate Clumped Platelets Plt Clumps, EDTA Large Platelets Giant Platelets Platelet Satelliting Plt Morphology Comment RBC Morphology Dimorphic RBCs Polychromasia Hypochromasia Poikilocytosis Anisocytosis Microcytosis Macrocytosis Spherocytes Pappenheimer Bodies Sickle Cells Target Cells Tear Drop Cells Ovalocytes Helmet Cells [place] Bodies [place] Rings [place] Cells Bite Cells Crenated Cell Elliptocytes Acanthocytes (Spur) Rouleaux Hemoglobin C Crystals Schistocytes Malaria parasites [place] Bodies Hem Pathologist Commnt PT INR POC ABG pH POC ABG pCO2 POC ABG pO2 POC ABG HCO3 POC ABG Total CO2 POC ABG O2 Sat POC ABG Base Excess FiO2 Sodium Potassium Chloride Carbon Dioxide Anion Gap BUN Creatinine Estimated GFR BUN/Creatinine Ratio Glucose POC Glucose 194 H Lactic Acid Calcium Phosphorus Magnesium Total Bilirubin AST ALT Alkaline Phosphatase Total Creatine Kinase Total Protein Albumin Albumin/Globulin Ratio PTH Intact 419.1 H Double Strand DNA Ab Blood Type A NEGATIVE Antibody Screen Negative Crossmatch 11/08/16 13:20 WBC RBC Hgb Hct MCV MCH MCHC RDW Plt Count Add Manual Diff Total Counted Seg Neutrophils % Seg Neuts % (Manual) Band Neutrophils % Lymphocytes % (Manual) Reactive Lymphs % (Man) Monocytes % (Manual) Eosinophils % (Manual) Basophils % (Manual) Metamyelocytes % Myelocytes % Promyelocytes % Blast Cells % Nucleated RBC % Seg Neutrophils # Man Band Neutrophils # Lymphocytes # (Manual) Abs React Lymphs (Man) Monocytes # (Manual) Eosinophils # (Manual) Basophils # (Manual) Metamyelocytes # Myelocytes # Promyelocytes # Blast Cells # WBC Morphology Hypersegmented Neuts Hyposegmented Neuts Hypogranular Neuts Smudge Cells Toxic Granulation Toxic Vacuolation Dohle Bodies Pelger-Huet Anomaly Holli Rods Platelet Estimate Clumped Platelets Plt Clumps, EDTA Large Platelets Giant Platelets Platelet Satelliting Plt Morphology Comment RBC Morphology Dimorphic RBCs Polychromasia Hypochromasia Poikilocytosis Anisocytosis Microcytosis Macrocytosis Spherocytes Pappenheimer Bodies Sickle Cells Target Cells Tear Drop Cells Ovalocytes Helmet Cells [place] Bodies [place] Rings Veto Cells Bite Cells Crenated Cell Elliptocytes Acanthocytes (Spur) Rouleaux Hemoglobin C Crystals Schistocytes Malaria parasites [place] Bodies Hem Pathologist Commnt PT INR POC ABG pH POC ABG pCO2 POC ABG pO2 POC ABG HCO3 POC ABG Total CO2 POC ABG O2 Sat POC ABG Base Excess FiO2 Sodium Potassium Chloride Carbon Dioxide Anion Gap BUN Creatinine Estimated GFR BUN/Creatinine Ratio Glucose POC Glucose Lactic Acid 5.3 H* Calcium Phosphorus Magnesium Total Bilirubin AST ALT Alkaline Phosphatase Total Creatine Kinase Total Protein Albumin Albumin/Globulin Ratio PTH Intact Double Strand DNA Ab Blood Type Antibody Screen Crossmatch Assessment and Plan Pt has rhabdomyolysis, with multiorgan failure. Only 1 episode of bleeding, likely ischemic colitis with DIC and coagulopathy. Correct underlying condition, and transfuse and monitor H/H. No plans for endoscopy at present.
[2016-11-08] MEDS ORDERED: MAGNESIUM SULFATE 3 GM in NACL 0.9% 100 ML IV ONE (12:00)
--- NOTE | 2016-11-08 12:48 | Progress Note ---
Assessment and Plan 50 y/o male with acute renal failure thought secondary to rhabdomyolysis, metabolic acidosis, hypotension and what appears to be severe dehydration and methamphetamine use, now with hypoglycemia, and cardiovascular collapse requiring epinephrine drip and coagulopathy. 1. Agree with more Vitamin K and FFP. 2. Also needs platelets as he is likely bleeding and consuming these. Q6hr H/H 's for the next 24-48 hours. Will transfuse most likely with 15:00 H/h check 3. Continue bicarb drip 4. Continue gram negative coverage. Vanc was given yesterday. 5. No feeds for now. 6. Repeat Lactic acid, continues to increase despite aggressive volume resuscitation 7. Continue D10 Drip and Sodium Bicarb drip. Liver is continuing to fail 8. WEan pressors for MAP's greater than 65 9. Overall prognosis here is extremely poor. Long discussion with family at bedside yesterday. They appear to understand. Patient is to remain a full code. CCT 31 minutes. Subjective Date of service: 11/08/16 Principal diagnosis: hypotension, MSOF Interval history: No acute events. Off of two pressors but remains on Levo and Vaso. This am had a large blood BM, bright red blood per nursing. Currently undergoing HD. Stat H/H showed a hemoglobin of 10. Objective Vital Signs - 12hr 11/08/16 11/08/16 11/08/16 00:43 00:45 00:48 Temperature Pulse Rate 119 H 119 H Pulse Rate [ 119 H From Monitor] Respiratory 24 24 Rate Blood Pressure 127/66 127/66 O2 Sat by Pulse 99 99 99 Oximetry O2 Sat by Pulse Oximetry [ Bilateral] 11/08/16 11/08/16 11/08/16 00:51 01:00 01:15 Temperature 102.7 F H Pulse Rate 120 H 120 H Pulse Rate [ From Monitor] Respiratory 24 24 Rate Blood Pressure 123/71 118/65 127/69 O2 Sat by Pulse 97 96 96 Oximetry O2 Sat by Pulse Oximetry [ Bilateral] 11/08/16 11/08/16 11/08/16 01:21 01:30 01:45 Temperature 102.7 F H Pulse Rate 120 H 121 H 120 H Pulse Rate [ From Monitor] Respiratory 25 H 21 25 H Rate Blood Pressure 98/66 139/81 123/71 O2 Sat by Pulse 97 97 Oximetry O2 Sat by Pulse Oximetry [ Bilateral] 11/08/16 11/08/16 11/08/16 01:53 02:00 02:07 Temperature Pulse Rate 119 H 119 H 119 H Pulse Rate [ From Monitor] Respiratory 24 24 24 Rate Blood Pressure 123/71 120/68 120/68 O2 Sat by Pulse 97 97 97 Oximetry O2 Sat by Pulse Oximetry [ Bilateral] 11/08/16 11/08/16 11/08/16 02:15 02:30 02:45 Temperature Pulse Rate 117 H 118 H 118 H Pulse Rate [ From Monitor] Respiratory 24 24 24 Rate Blood Pressure 117/68 123/69 118/69 O2 Sat by Pulse 96 96 96 Oximetry O2 Sat by Pulse Oximetry [ Bilateral] 11/08/16 11/08/16 11/08/16 03:00 03:09 03:15 Temperature 103.8 F H Pulse Rate 118 H 118 H 118 H Pulse Rate [ From Monitor] Respiratory 24 24 24 Rate Blood Pressure 121/69 91/63 111/68 O2 Sat by Pulse 96 95 96 Oximetry O2 Sat by Pulse Oximetry [ Bilateral] 11/08/16 11/08/16 11/08/16 03:24 03:30 03:45 Temperature 103.6 F H Pulse Rate 118 H 118 H 119 H Pulse Rate [ From Monitor] Respiratory 24 24 24 Rate Blood Pressure 94/64 118/71 107/71 O2 Sat by Pulse 97 97 96 Oximetry O2 Sat by Pulse Oximetry [ Bilateral] 11/08/16 11/08/16 11/08/16 03:54 04:00 04:15 Temperature 103.4 F H 103.0 F H Pulse Rate 118 H 118 H 118 H Pulse Rate [ From Monitor] Respiratory 24 24 24 Rate Blood Pressure 99/67 123/64 134/71 O2 Sat by Pulse 96 96 96 Oximetry O2 Sat by Pulse Oximetry [ Bilateral] 11/08/16 11/08/16 11/08/16 04:24 04:30 04:31 Temperature 103.4 F H Pulse Rate 119 H 119 H Pulse Rate [ 119 H From Monitor] Respiratory 24 24 24 Rate Blood Pressure 113/73 142/77 O2 Sat by Pulse 97 97 97 Oximetry O2 Sat by Pulse Oximetry [ Bilateral] 11/08/16 11/08/16 11/08/16 04:45 05:00 05:15 Temperature Pulse Rate 118 H 118 H 117 H Pulse Rate [ From Monitor] Respiratory 25 H 24 24 Rate Blood Pressure 128/70 123/68 122/71 O2 Sat by Pulse 97 97 97 Oximetry O2 Sat by Pulse Oximetry [ Bilateral] 11/08/16 11/08/16 11/08/16 05:21 05:30 05:45 Temperature Pulse Rate 117 H 117 H 116 H Pulse Rate [ From Monitor] Respiratory 24 24 24 Rate Blood Pressure 122/71 125/69 109/67 O2 Sat by Pulse 97 97 97 Oximetry O2 Sat by Pulse Oximetry [ Bilateral] 11/08/16 11/08/16 11/08/16 05:46 06:00 06:15 Temperature Pulse Rate 116 H 115 H 115 H Pulse Rate [ From Monitor] Respiratory 24 24 Rate Blood Pressure 109/67 108/63 105/69 O2 Sat by Pulse 97 96 95 Oximetry O2 Sat by Pulse Oximetry [ Bilateral] 11/08/16 11/08/16 11/08/16 06:30 06:45 06:52 Temperature Pulse Rate 115 H 114 H 117 H Pulse Rate [ From Monitor] Respiratory 24 24 24 Rate Blood Pressure 114/64 114/69 114/69 O2 Sat by Pulse 95 96 96 Oximetry O2 Sat by Pulse Oximetry [ Bilateral] 11/08/16 11/08/16 11/08/16 07:00 07:15 07:19 Temperature Pulse Rate 115 H 114 H 113 H Pulse Rate [ From Monitor] Respiratory 24 24 24 Rate Blood Pressure 125/74 115/77 115/77 O2 Sat by Pulse 96 97 97 Oximetry O2 Sat by Pulse Oximetry [ Bilateral] 11/08/16 11/08/16 11/08/16 07:30 07:45 07:50 Temperature 101.6 F H Pulse Rate 113 H 113 H Pulse Rate [ From Monitor] Respiratory 24 24 Rate Blood Pressure 116/68 117/72 O2 Sat by Pulse 97 97 Oximetry O2 Sat by Pulse Oximetry [ Bilateral] 11/08/16 11/08/16 11/08/16 08:00 08:02 08:15 Temperature Pulse Rate 113 H 114 H 113 H Pulse Rate [ From Monitor] Respiratory 24 24 Rate Blood Pressure 116/67 115/77 116/69 O2 Sat by Pulse 97 97 Oximetry O2 Sat by Pulse Oximetry [ Bilateral] 11/08/16 11/08/16 11/08/16 08:30 08:45 09:00 Temperature Pulse Rate 113 H 113 H 113 H Pulse Rate [ From Monitor] Respiratory 24 24 24 Rate Blood Pressure 118/69 117/77 118/67 O2 Sat by Pulse 97 97 97 Oximetry O2 Sat by Pulse Oximetry [ Bilateral] 11/08/16 11/08/16 11/08/16 09:15 09:30 09:45 Temperature Pulse Rate 113 H 113 H 113 H Pulse Rate [ From Monitor] Respiratory 24 24 24 Rate Blood Pressure 122/69 113/73 112/68 O2 Sat by Pulse 97 97 96 Oximetry O2 Sat by Pulse Oximetry [ Bilateral] 11/08/16 11/08/16 11/08/16 10:00 10:15 10:30 Temperature 101.6 F H Pulse Rate 114 H 115 H Pulse Rate [ From Monitor] Respiratory 18 24 Rate Blood Pressure 128/65 120/66 116/69 O2 Sat by Pulse Oximetry O2 Sat by Pulse 97 Oximetry [ Bilateral] 11/08/16 11/08/16 11/08/16 10:45 11:00 11:15 Temperature Pulse Rate 118 H 121 H 122 H Pulse Rate [ From Monitor] Respiratory 18 18 11 L Rate Blood Pressure 102/63 111/68 95/60 O2 Sat by Pulse 88 Oximetry O2 Sat by Pulse Oximetry [ Bilateral] 11/08/16 11/08/16 11/08/16 11:17 11:30 11:45 Temperature Pulse Rate 121 H 124 H 124 H Pulse Rate [ From Monitor] Respiratory 18 17 Rate Blood Pressure 77/56 121/85 126/73 O2 Sat by Pulse 94 88 86 Oximetry O2 Sat by Pulse Oximetry [ Bilateral] 11/08/16 11/08/16 11/08/16 12:00 12:15 12:17 Temperature 98.8 F Pulse Rate 124 H 123 H 123 H Pulse Rate [ From Monitor] Respiratory 24 23 24 Rate Blood Pressure 114/46 110/41 69/52 O2 Sat by Pulse 93 91 Oximetry O2 Sat by Pulse Oximetry [ Bilateral] 11/08/16 12:30 Temperature Pulse Rate 124 H Pulse Rate [ From Monitor] Respiratory 24 Rate Blood Pressure 128/81 O2 Sat by Pulse 91 Oximetry O2 Sat by Pulse Oximetry [ Bilateral] Constitutional: comatose, appears uncomfortable, other (severely ill appearing) Eyes: non-icteric ENT: other (orally intubated, not on sedation) Neck: supple Effort: very labored Ascultation: Bilateral: clear Percussion: Bilateral: not dull Cardiovascular: other (tachy but sinus) Gastrointestinal: other (mild distention) Extremities: cool Neurologic: unable to assess CBC and BMP: 11/08/16 09:49 11/08/16 07:00 ABG, PT/INR, D-dimer: ABG POC ABG pH 7.315 (7.35-7.45) L 11/08/16 05:52 POC ABG pCO2 33.0 (35-45) L 11/08/16 05:52 POC ABG pO2 124 (80-105) H 11/08/16 05:52 POC ABG HCO3 16.8 11/08/16 05:52 POC ABG Total CO2 18 11/08/16 05:52 POC ABG O2 Sat 99 11/08/16 05:52 PT/INR, D-dimer PT 33.9 Sec. (12.2-14.9) H 11/08/16 07:00 INR 3.31 (0.87-1.13) H 11/08/16 07:00 Abnormal lab findings: Abnormal Labs 11/06/16 11/06/16 11/06/16 02:49 03:00 03:00 WBC 20.7 H RBC 6.69 H Hgb 19.7 H Hct 58.1 H RDW 16.3 H Plt Count Seg Neuts % (Manual) Lymphocytes % (Manual) 5.0 L Monocytes % (Manual) 8.0 H Nucleated RBC % 4.0 H Seg Neutrophils # Man 9.1 H Lymphocytes # (Manual) 1.0 L Monocytes # (Manual) 1.7 H PT INR POC ABG pH POC ABG pCO2 POC ABG pO2 Sodium 150 H Potassium 5.9 H D Chloride 92.6 L Carbon Dioxide 13 L BUN 73 H Creatinine 10.4 H Glucose POC Glucose 53 L Lactic Acid Calcium Phosphorus Magnesium Total Bilirubin 2.8 H AST 73750 H ALT 3771 H Total Creatine Kinase CK-MB (CK-2) Troponin T Total Protein 9.1 H Albumin PTH Intact Urine WBC (Auto) Urine Creatinine Crossmatch 11/06/16 11/06/16 11/06/16 03:16 05:37 06:00 WBC RBC Hgb Hct RDW Plt Count Seg Neuts % (Manual) Lymphocytes % (Manual) Monocytes % (Manual) Nucleated RBC % Seg Neutrophils # Man Lymphocytes # (Manual) Monocytes # (Manual) PT INR POC ABG pH 7.338 L POC ABG pCO2 17.4 L POC ABG pO2 213 H Sodium Potassium Chloride Carbon Dioxide BUN Creatinine Glucose POC Glucose 111 H Lactic Acid 10.0 H* Calcium Phosphorus Magnesium Total Bilirubin AST ALT Total Creatine Kinase CK-MB (CK-2) Troponin T Total Protein Albumin PTH Intact Urine WBC (Auto) Urine Creatinine Crossmatch 11/06/16 11/06/16 11/06/16 06:00 06:00 06:00 WBC 17.9 H RBC 6.02 H Hgb 17.8 H Hct 54.8 H RDW 16.0 H Plt Count Seg Neuts % (Manual) 74.0 H Lymphocytes % (Manual) 2.0 L Monocytes % (Manual) Nucleated RBC % 1.0 H Seg Neutrophils # Man 13.2 H Lymphocytes # (Manual) 0.4 L Monocytes # (Manual) PT INR POC ABG pH POC ABG pCO2 POC ABG pO2 Sodium 153 H Potassium 6.8 H* Chloride 97.0 L Carbon Dioxide 17 L BUN 77 H Creatinine 10.8 H Glucose 203 H POC Glucose Lactic Acid Calcium 6.4 L D Phosphorus 15.2 H Magnesium 3.0 H Total Bilirubin AST ALT Total Creatine Kinase CK-MB (CK-2) Troponin T Total Protein Albumin PTH Intact Urine WBC (Auto) Urine Creatinine Crossmatch 11/06/16 11/06/16 11/06/16 06:19 09:43 12:10 WBC RBC Hgb Hct RDW Plt Count Seg Neuts % (Manual) Lymphocytes % (Manual) Monocytes % (Manual) Nucleated RBC % Seg Neutrophils # Man Lymphocytes # (Manual) Monocytes # (Manual) PT INR POC ABG pH 7.247 L POC ABG pCO2 POC ABG pO2 142 H Sodium Potassium Chloride Carbon Dioxide BUN Creatinine 1.7 H D Glucose POC Glucose Lactic Acid Calcium Phosphorus Magnesium Total Bilirubin AST ALT Total Creatine Kinase CK-MB (CK-2) Troponin T Total Protein Albumin PTH Intact Urine WBC (Auto) Urine Creatinine 117.9 H Crossmatch 11/06/16 11/06/16 11/06/16 12:10 14:44 15:17 WBC RBC Hgb Hct RDW Plt Count Seg Neuts % (Manual) Lymphocytes % (Manual) Monocytes % (Manual) Nucleated RBC % Seg Neutrophils # Man Lymphocytes # (Manual) Monocytes # (Manual) PT INR POC ABG pH 7.308 L POC ABG pCO2 POC ABG pO2 275 H Sodium Potassium Chloride Carbon Dioxide BUN Creatinine Glucose POC Glucose Lactic Acid 9.0 H* Calcium Phosphorus Magnesium Total Bilirubin AST ALT Total Creatine Kinase CK-MB (CK-2) Troponin T Total Protein Albumin PTH Intact Urine WBC (Auto) 49.0 H Urine Creatinine Crossmatch 11/06/16 11/06/16 11/06/16 15:17 15:17 15:17 WBC RBC Hgb Hct RDW Plt Count Seg Neuts % (Manual) Lymphocytes % (Manual) Monocytes % (Manual) Nucleated RBC % Seg Neutrophils # Man Lymphocytes # (Manual) Monocytes # (Manual) PT INR POC ABG pH POC ABG pCO2 POC ABG pO2 Sodium 146 H D Potassium 5.1 H D Chloride Carbon Dioxide 17 L BUN 53 H Creatinine 8.4 H D Glucose 120 H POC Glucose Lactic Acid Calcium 4.7 L* D Phosphorus Magnesium Total Bilirubin AST ALT Total Creatine Kinase CK-MB (CK-2) Troponin T 0.258 H* D Total Protein Albumin PTH Intact Urine WBC (Auto) Urine Creatinine Crossmatch See Detail 11/06/16 11/06/16 11/06/16 18:05 18:38 21:45 WBC RBC Hgb Hct RDW Plt Count Seg Neuts % (Manual) Lymphocytes % (Manual) Monocytes % (Manual) Nucleated RBC % Seg Neutrophils # Man Lymphocytes # (Manual) Monocytes # (Manual) PT INR POC ABG pH POC ABG pCO2 POC ABG pO2 Sodium Potassium Chloride Carbon Dioxide BUN Creatinine Glucose POC Glucose 56 L 134 H Lactic Acid 10.3 H* Calcium Phosphorus Magnesium Total Bilirubin AST ALT Total Creatine Kinase CK-MB (CK-2) Troponin T Total Protein Albumin PTH Intact Urine WBC (Auto) Urine Creatinine Crossmatch 11/06/16 11/06/16 11/07/16 21:45 Unknown 02:06 WBC RBC Hgb Hct RDW Plt Count Seg Neuts % (Manual) Lymphocytes % (Manual) Monocytes % (Manual) Nucleated RBC % Seg Neutrophils # Man Lymphocytes # (Manual) Monocytes # (Manual) PT INR POC ABG pH POC ABG pCO2 POC ABG pO2 Sodium Potassium Chloride Carbon Dioxide BUN Creatinine Glucose POC Glucose 222 H Lactic Acid 7.1 H* Calcium Phosphorus Magnesium Total Bilirubin AST ALT Total Creatine Kinase 47171 H CK-MB (CK-2) 47.6 H Troponin T 0.284 H* Total Protein Albumin PTH Intact Urine WBC (Auto) Urine Creatinine Crossmatch 11/07/16 11/07/16 11/07/16 04:00 05:00 05:28 WBC RBC Hgb Hct RDW Plt Count Seg Neuts % (Manual) Lymphocytes % (Manual) Monocytes % (Manual) Nucleated RBC % Seg Neutrophils # Man Lymphocytes # (Manual) Monocytes # (Manual) PT 50.6 H INR 5.49 H* POC ABG pH 7.329 L POC ABG pCO2 33.9 L POC ABG pO2 157 H Sodium Potassium 6.1 H* Chloride Carbon Dioxide 16 L BUN 63 H Creatinine 9.8 H Glucose 307 H POC Glucose Lactic Acid Calcium 3.4 L* D Phosphorus Magnesium Total Bilirubin AST ALT Total Creatine Kinase 98250 H CK-MB (CK-2) Troponin T Total Protein Albumin PTH Intact Urine WBC (Auto) Urine Creatinine Crossmatch 11/07/16 11/07/16 11/07/16 06:00 06:00 06:21 WBC 22.6 H RBC Hgb Hct RDW 16.2 H Plt Count 37 L Seg Neuts % (Manual) Lymphocytes % (Manual) 1.0 L Monocytes % (Manual) Nucleated RBC % 3.0 H Seg Neutrophils # Man 14.2 H Lymphocytes # (Manual) 0.2 L Monocytes # (Manual) 0.9 H PT INR POC ABG pH POC ABG pCO2 POC ABG pO2 Sodium Potassium Chloride Carbon Dioxide BUN Creatinine Glucose POC Glucose 193 H Lactic Acid Calcium Phosphorus Magnesium Total Bilirubin AST ALT Total Creatine Kinase 96504 H CK-MB (CK-2) 79.0 H Troponin T 0.242 H* Total Protein Albumin PTH Intact Urine WBC (Auto) Urine Creatinine Crossmatch 11/07/16 11/07/16 11/07/16 09:50 10:46 11:48 WBC RBC Hgb Hct RDW Plt Count Seg Neuts % (Manual) Lymphocytes % (Manual) Monocytes % (Manual) Nucleated RBC % Seg Neutrophils # Man Lymphocytes # (Manual) Monocytes # (Manual) PT INR POC ABG pH POC ABG pCO2 POC ABG pO2 Sodium Potassium Chloride Carbon Dioxide BUN Creatinine Glucose POC Glucose 283 H 169 H 123 H Lactic Acid Calcium Phosphorus Magnesium Total Bilirubin AST ALT Total Creatine Kinase CK-MB (CK-2) Troponin T Total Protein Albumin PTH Intact Urine WBC (Auto) Urine Creatinine Crossmatch 11/07/16 11/07/1611/07/17 14:12 15:05 16:19 WBC RBC Hgb Hct RDW Plt Count Seg Neuts % (Manual) Lymphocytes % (Manual) Monocytes % (Manual) Nucleated RBC % Seg Neutrophils # Man Lymphocytes # (Manual) Monocytes # (Manual) PT INR POC ABG pH POC ABG pCO2 POC ABG pO2 Sodium Potassium Chloride Carbon Dioxide BUN Creatinine Glucose POC Glucose 121 H 61 L 216 H Lactic Acid Calcium Phosphorus Magnesium Total Bilirubin AST ALT Total Creatine Kinase CK-MB (CK-2) Troponin T Total Protein Albumin PTH Intact Urine WBC (Auto) Urine Creatinine Crossmatch 11/07/16 11/07/16 11/07/16 17:15 17:15 20:44 WBC 20.0 H RBC Hgb Hct RDW 16.1 H Plt Count 27 L Seg Neuts % (Manual) 88.0 H Lymphocytes % (Manual) 7.0 L Monocytes % (Manual) Nucleated RBC % 1.0 H Seg Neutrophils # Man 17.6 H Lymphocytes # (Manual) Monocytes # (Manual) PT 51.7 H INR 5.64 H* POC ABG pH POC ABG pCO2 POC ABG pO2 Sodium Potassium Chloride Carbon Dioxide BUN Creatinine Glucose POC Glucose 145 H Lactic Acid Calcium Phosphorus Magnesium Total Bilirubin AST ALT Total Creatine Kinase CK-MB (CK-2) Troponin T Total Protein Albumin PTH Intact Urine WBC (Auto) Urine Creatinine Crossmatch 11/08/16 11/08/16 11/08/16 03:30 05:50 05:52 WBC RBC Hgb Hct RDW Plt Count Seg Neuts % (Manual) Lymphocytes % (Manual) Monocytes % (Manual) Nucleated RBC % Seg Neutrophils # Man Lymphocytes # (Manual) Monocytes # (Manual) PT INR POC ABG pH 7.315 L POC ABG pCO2 33.0 L POC ABG pO2 124 H Sodium Potassium Chloride Carbon Dioxide BUN Creatinine Glucose POC Glucose 160 H 187 H Lactic Acid Calcium Phosphorus Magnesium Total Bilirubin AST ALT Total Creatine Kinase CK-MB (CK-2) Troponin T Total Protein Albumin PTH Intact Urine WBC (Auto) Urine Creatinine Crossmatch 11/08/16 11/08/16 11/08/16 07:00 07:00 09:49 WBC 17.1 H RBC Hgb 10.9 L Hct 33.4 L D RDW 16.0 H Plt Count 18 L* Seg Neuts % (Manual) Lymphocytes % (Manual) Monocytes % (Manual) Nucleated RBC % Seg Neutrophils # Man Lymphocytes # (Manual) Monocytes # (Manual) PT 33.9 H INR 3.31 H POC ABG pH POC ABG pCO2 POC ABG pO2 Sodium 135 L Potassium 5.5 H Chloride 94.2 L Carbon Dioxide 17 L BUN 72 H Creatinine 11.0 H Glucose 230 H POC Glucose Lactic Acid Calcium 3.4 L* Phosphorus 8.7 H Magnesium 1.4 L Total Bilirubin 4.8 H AST 35142 H ALT 2515 H Total Creatine Kinase 45806 H CK-MB (CK-2) Troponin T Total Protein 3.6 L D Albumin 1.8 L PTH Intact Urine WBC (Auto) Urine Creatinine Crossmatch 11/08/16 11:20 WBC RBC Hgb Hct RDW Plt Count Seg Neuts % (Manual) Lymphocytes % (Manual) Monocytes % (Manual) Nucleated RBC % Seg Neutrophils # Man Lymphocytes # (Manual) Monocytes # (Manual) PT INR POC ABG pH POC ABG pCO2 POC ABG pO2 Sodium Potassium Chloride Carbon Dioxide BUN Creatinine Glucose POC Glucose Lactic Acid Calcium Phosphorus Magnesium Total Bilirubin AST ALT Total Creatine Kinase CK-MB (CK-2) Troponin T Total Protein Albumin PTH Intact 419.1 H Urine WBC (Auto) Urine Creatinine Crossmatch
[2016-11-08] MEDS: HEPARIN IV PRN (13:52)
[2016-11-08] MEDS: SODIUM BICARBONATE 150 MEQ in D5W 1,000 ML IV SCH (14:15)
[2016-11-08 15:44] LABS: Hematocrit 29.6 % (35.5-45.6); Hemoglobin 9.6 gm/dl (11.8-15.2)
--- NOTE | 2016-11-08 18:20 | Progress Note ---
Assessment and Plan Assessment and plan: 1. Multiorgan failure- manx as discussed below 2. Acute hypoxic better failure with ventilator dependence-continue ventilator support. Follow-up with pulmonary/critical care for vent management 3. Septic shock possibly related to colitis with DIC and thrombocytopenia and MS bleeding-FFP; type and screen; platelet transfusion; continue IV fluids and IV for boluses as needed, continue vasopressor support patient is currently 3 vasopressor support agents at maximal doses and he remains severely hypotensive ; vitamin K; cont IV hydrocortisone. Continue with IV Zosyn; add vancomycin. Follow-up with critical care 3. Acute renal failure with severe metabolic acidosis and hyperkalemia with anuria -calcium /insulin/ dextrose / bicarb cocktail; unable to do HD due to severe hypotension; Continue bicarbonate infusion and when necessary bicarbonate as needed. Follow-up with nephrology appreciated. Continue to monitor electrolytes 4. Severe rhabdomyolysis -continue aggressive hydration with normal saline, monitor CPK level 5. Metabolic encephalopathy with amphetamine use secondary to the above- management as discussed above continue supportive care; EEG 6. Elevated troponin-consult cardiology, f/u Echocardiogram 7. DVT prophylaxis-heparin 8. GI prophylaxis -pepcid Family updated at bedside- prognosis-poor; remains full code- family updated CCT exclusive of all other billable procedures 40 minutes History Interval history: f/u respiratory failure; acute renal failure, rhabdomyolysis Patient is seen at the bedside. He is vented and on 3 pressors; had rectal bleeding this morning Hospitalist Physical - Constitutional Vitals: Temp Pulse Resp BP Pulse Ox 99.2 F 124 H 24 138/77 97 11/08/16 16:00 11/08/16 18:00 11/08/16 18:00 11/08/16 18:00 11/08/16 18:00 General appearance: Present: other (intubated and unresponsive) - EENT Eyes: Absent: PERRL (very sluggish on the left) ENT: other (ET-tube in place and vented) - Neck Neck: Present: supple. Absent: enlarged thyroid, masses or JVD - Respiratory Respiratory effort: other (vented) Respiratory: negative: diminished, rales, rhonchi, wheezing - Cardiovascular Rhythm: regular Heart Sounds: Present: S1 & S2. Absent: gallop - Extremities Extremities: no ischemia, pulses intact, pulses symmetrical, No edema Peripheral Pulses: within normal limits - Abdominal General gastrointestinal: deferred, soft, non-tender - Integumentary Integumentary: Absent: clear (toes cyanotic ) - Psychiatric Psychiatric: other (unable to assess ) - Neurologic Neurologic: other (unresponsive; minimal sluggish Lt pupillary reflex) Results - Labs CBC & Chem 7: 11/08/16 15:05 11/08/16 07:00 Labs: Laboratory Last Values WBC 17.1 K/mm3 (4.5-11.0) H 11/08/16 09:49 RBC 3.71 M/mm3 (3.65-5.03) 11/08/16 09:49 Hgb 9.6 gm/dl (11.8-15.2) L 11/08/16 15:05 Hct 29.6 % (35.5-45.6) L 11/08/16 15:05 MCV 90 fl (84-94) 11/08/16 09:49 MCH 29 pg (28-32) 11/08/16 09:49 MCHC 33 % (32-34) 11/08/16 09:49 RDW 16.0 % (13.2-15.2) H 11/08/16 09:49 Plt Count 18 K/mm3 (140-440) L* 11/08/16 09:49 Add Manual Diff Complete 11/07/16 17:15 Total Counted 100 11/07/16 17:15 Seg Neutrophils % [employer] 11/07/16 17:15 Seg Neuts % (Manual) 88.0 % (40.0-70.0) H 11/07/16 17:15 Band Neutrophils % 2.0 % 11/07/16 17:15 Lymphocytes % (Manual) 7.0 % (13.4-35.0) L 11/07/16 17:15 Reactive Lymphs % (Man) 0 % 11/07/16 17:15 Monocytes % (Manual) 3.0 % (0.0-7.3) 11/07/16 17:15 Eosinophils % (Manual) 0 % (0.0-4.3) 11/07/16 17:15 Basophils % (Manual) 0 % (0.0-1.8) 11/07/16 17:15 Metamyelocytes % 0 % 11/07/16 17:15 Myelocytes % 0 % 11/07/16 17:15 Promyelocytes % 0 % 11/07/16 17:15 Blast Cells % 0 % 11/07/16 17:15 Nucleated RBC % 1.0 % (0.0-0.9) H 11/07/16 17:15 Seg Neutrophils # Man 17.6 K/mm3 (1.8-7.7) H 11/07/16 17:15 Band Neutrophils # 0.4 K/mm3 11/07/16 17:15 Lymphocytes # (Manual) 1.4 K/mm3 (1.2-5.4) 11/07/16 17:15 Abs React Lymphs (Man) 0.0 K/mm3 11/07/16 17:15 Monocytes # (Manual) 0.6 K/mm3 (0.0-0.8) 11/07/16 17:15 Eosinophils # (Manual) 0.0 K/mm3 (0.0-0.4) 11/07/16 17:15 Basophils # (Manual) 0.0 K/mm3 (0.0-0.1) 11/07/16 17:15 Metamyelocytes # 0.0 K/mm3 11/07/16 17:15 Myelocytes # 0.0 K/mm3 11/07/16 17:15 Promyelocytes # 0.0 K/mm3 11/07/16 17:15 Blast Cells # 0.0 K/mm3 11/07/16 17:15 WBC Morphology Not Reportable 11/07/16 17:15 Hypersegmented Neuts Not Reportable 11/07/16 17:15 Hyposegmented Neuts Not Reportable 11/07/16 17:15 Hypogranular Neuts Not Reportable 11/07/16 17:15 Smudge Cells Not Reportable 11/07/16 17:15 Toxic Granulation Not Reportable 11/07/16 17:15 Toxic Vacuolation Not Reportable 11/07/16 17:15 Dohle Bodies Not Reportable 11/07/16 17:15 Pelger-Huet Anomaly Not Reportable 11/07/16 17:15 Holli Rods Not Reportable 11/07/16 17:15 Platelet Estimate Appears decreased 11/07/16 17:15 Clumped Platelets Not Reportable 11/07/16 17:15 Plt Clumps, EDTA Not Reportable 11/07/16 17:15 Large Platelets 1+ 11/07/16 17:15 Giant Platelets Not Reportable 11/07/16 17:15 Platelet Satelliting Not Reportable 11/07/16 17:15 Plt Morphology Comment Not Reportable 11/07/16 17:15 RBC Morphology Not Reportable 11/07/16 17:15 Dimorphic RBCs Not Reportable 11/07/16 17:15 Polychromasia Not Reportable 11/07/16 17:15 Hypochromasia Not Reportable 11/07/16 17:15 Poikilocytosis Not Reportable 11/07/16 17:15 Anisocytosis 1+ 11/07/16 17:15 Microcytosis Not Reportable 11/07/16 17:15 Macrocytosis Not Reportable 11/07/16 17:15 Spherocytes Not Reportable 11/07/16 17:15 Pappenheimer Bodies Not Reportable 11/07/16 17:15 Sickle Cells Not Reportable 11/07/16 17:15 Target Cells Not Reportable 11/07/16 17:15 Tear Drop Cells Not Reportable 11/07/16 17:15 Ovalocytes Not Reportable 11/07/16 17:15 Helmet Cells Not Reportable 11/07/16 17:15 [place] Bodies Not Reportable 11/07/16 17:15 [place] Rings Not Reportable 11/07/16 17:15 [place] Cells Not Reportable 11/07/16 17:15 Bite Cells Not Reportable 11/07/16 17:15 Crenated Cell Not Reportable 11/07/16 17:15 Elliptocytes Not Reportable 11/07/16 17:15 Acanthocytes (Spur) Not Reportable 11/07/16 17:15 Rouleaux Not Reportable 11/07/16 17:15 Hemoglobin C Crystals Not Reportable 11/07/16 17:15 Schistocytes Not Reportable 11/07/16 17:15 Malaria parasites Not Reportable 11/07/16 17:15 Yasmani Bodies Not Reportable 11/07/16 17:15 Hem Pathologist Commnt No 11/07/16 17:15 PT 33.9 Sec. (12.2-14.9) H 11/08/16 07:00 INR 3.31 (0.87-1.13) H 11/08/16 07:00 APTT 40.0 Sec. (24.2-36.6) H 11/05/16 19:00 POC ABG pH 7.315 (7.35-7.45) L 11/08/16 05:52 POC ABG pCO2 33.0 (35-45) L 11/08/16 05:52 POC ABG pO2 124 (80-105) H 11/08/16 05:52 POC ABG HCO3 16.8 11/08/16 05:52 POC ABG Total CO2 18 11/08/16 05:52 POC ABG O2 Sat 99 11/08/16 05:52 POC ABG Base Excess -9 11/08/16 05:52 FiO2 75 % 11/08/16 05:52 Sodium 135 mmol/L (137-145) L 11/08/16 07:00 Potassium 5.5 mmol/L (3.6-5.0) H 11/08/16 07:00 Chloride 94.2 mmol/L (98-107) L 11/08/16 07:00 Carbon Dioxide 17 mmol/L (22-30) L 11/08/16 07:00 Anion Gap 29 mmol/L 11/08/16 07:00 BUN 72 mg/dL (9-20) H 11/08/16 07:00 Creatinine 11.0 mg/dL (0.8-1.5) H 11/08/16 07:00 Estimated GFR 5 ml/min 11/08/16 07:00 BUN/Creatinine Ratio 6.54 % 11/08/16 07:00 Glucose 230 mg/dL (75-100) H 11/08/16 07:00 POC Glucose 193 (70-105) H 11/08/16 17:19 Osmolality 358 Mosm/kg 11/06/16 10:17 Lactic Acid 5.3 mmol/L (0.7-2.0) H* 11/08/16 13:20 Calcium 3.4 mg/dL (8.4-10.2) L* 11/08/16 07:00 Phosphorus 8.7 mg/dL (2.5-4.5) H 11/08/16 07:00 Magnesium 1.4 mg/dL (1.7-2.3) L 11/08/16 07:00 Total Bilirubin 4.8 mg/dL (0.1-1.2) H 11/08/16 07:00 AST 46749 units/L (5-40) H 11/08/16 07:00 ALT 2515 units/L (7-56) H 11/08/16 07:00 Alkaline Phosphatase 124 units/L (35-129) 11/08/16 07:00 Ammonia 62.0 umol/L (25-60) H 11/05/16 19:03 Total Creatine Kinase 72173 units/L (55-170) H 11/08/16 07:00 CK-MB (CK-2) 79.0 ng/mL (0.0-4.0) H 11/07/16 06:00 CK-MB (CK-2) Rel Index 0.1 (0-4) 11/07/16 06:00 Troponin T 0.242 ng/mL (0.00-0.029) H* 11/07/16 06:00 Total Protein 3.6 g/dL (6.3-8.2) L D 11/08/16 07:00 Albumin 1.8 g/dL (3.9-5) L 11/08/16 07:00 Albumin/Globulin Ratio 1.0 % 11/08/16 07:00 Triglycerides 551 mg/dL (2-149) H 11/05/16 19:03 Cholesterol 255 mg/dL (50-199) H 11/05/16 19:03 LDL Cholesterol Direct TNR 11/05/16 19:03 HDL Cholesterol 36 mg/dL (40-59) L 11/05/16 19:03 Cholesterol/HDL Ratio 7.08 % 11/05/16 19:03 TSH 3.430 mlU/mL (0.270-4.200) 11/05/16 19:03 Free T4 1.03 ng/dL (0.76-1.46) 11/05/16 19:03 PTH Intact 419.1 pg/mL (15-65) H 11/08/16 11:20 Urine Color [place] (Yellow) 11/06/16 12:10 Urine Turbidity Slightly-cloudy (Clear) 11/06/16 12:10 Urine pH 7.0 (5.0-7.0) 11/06/16 12:10 Ur Specific [place] 1.021 (1.003-1.030) 11/06/16 12:10 Urine Protein 100 mg/dl mg/dL (Negative) 11/06/16 12:10 Urine Glucose (UA) 150 mg/dL (Negative) 11/06/16 12:10 Urine Ketones Tr mg/dL (Negative) 11/06/16 12:10 Urine Blood Lg (Negative) 11/06/16 12:10 Urine Nitrite Neg (Negative) 11/06/16 12:10 Urine Bilirubin Neg (Negative) 11/06/16 12:10 Urine Urobilinogen < 2.0 mg/dL (<2.0) 11/06/16 12:10 Ur Leukocyte Esterase Sm (Negative) 11/06/16 12:10 Urine WBC (Auto) 49.0 /HPF (0.0-6.0) H 11/06/16 12:10 Urine RBC (Auto) 112.0 /HPF (0.0-6.0) 11/06/16 12:10 U Epithel Cells (Auto) 2.0 /HPF (0-13.0) 11/06/16 12:10 Urine Bacteria (Auto) 1+ /HPF (Negative) 11/05/16 18:01 Urine WBC Clumps 1+ /HPF 11/06/16 12:10 Hyaline Casts 5 /LPF 11/06/16 12:10 Urine Mucus Few /HPF 11/06/16 12:10 Urine Creatinine 117.9 mg/dL (0.1-20.0) H 11/06/16 12:10 Urine Sodium 67 mEq/L 11/06/16 12:10 Fraction Sodium Excret 0.5 11/06/16 12:10 Salicylates < 0.3 mg/dL (2.8-20.0) L 11/05/16 19:03 Urine Opiates Screen Presumptive negative 11/05/16 18:01 Urine Methadone Screen Presumptive negative 11/05/16 18:01 Acetaminophen < 15.0 ug/mL (10.0-30.0) 11/05/16 19:03 Ur Barbiturates Screen Presumptive negative 11/05/16 18:01 Ur Phencyclidine Scrn Presumptive negative 11/05/16 18:01 Ur Amphetamines Screen Presumptive positive 11/05/16 18:01 U Benzodiazepines Scrn Presumptive negative 11/05/16 18:01 Urine Cocaine Screen Presumptive negative 11/05/16 18:01 U Marijuana (THC) Screen Presumptive negative 11/05/16 18:01 Drugs of Abuse Note Disclamer 11/05/16 18:01 Plasma/Serum Alcohol < 0.01 gm% (0-0.07) 11/05/16 19:03 Double Strand DNA Ab 1 IU/mL (<=4) 11/06/16 10:17 Complement C3 68 mg/dL (90-180) L 11/06/16 10:17 Complement C4 33 mg/dL (16-47) 11/06/16 10:17 Hepatitis A IgM Ab -1 (NonReactive) 11/05/16 23:35 Hep Bs Antigen Non-reactive (Negative) 11/05/16 23:35 Hep B Core IgM Ab Non-reactive (NonReactive) 11/05/16 23:35 Hepatitis C Antibody Reactive (NonReactive) 11/05/16 23:35 Blood Type A NEGATIVE 11/08/16 11:40 Antibody Screen Negative 11/08/16 11:40 Crossmatch See Detail 11/06/16 15:17 Microbiology 11/06/16 06:20 Tracheal Aspirate Sputum Culture - Final 11/07/16 12:10 Urine,Catheterized - Indwelling Catheter Urine Culture - Preliminary NO GROWTH AFTER 24 HOURS 11/07/16 18:09 Central Venous Line Blood Culture - Preliminary Culture in Progress 11/07/16 18:09 Peripheral/Venous Blood Culture - Preliminary Culture in Progress 11/05/16 16:43 Peripheral/Venous Blood Culture - Preliminary NO GROWTH AFTER 48 HOURS 11/05/16 19:03 Peripheral/Venous Blood Culture - Preliminary NO GROWTH AFTER 48 HOURS
[2016-11-08 19:07] LABS: Myeloperoxidase Antibody <1.0 AI (<1.0)
[2016-11-08] MEDS ORDERED: VANCOMYCIN/NS 1 GM/250 ML 250 ML IV ONE (20:00)
[2016-11-08 20:59] LABS: Hematocrit 32.8 % (35.5-45.6); Hemoglobin 10.7 gm/dl (11.8-15.2)
[2016-11-09] MEDS: PITRESSin 20 UNIT in NACL 0.9% 100 ML IV SCH ×3 (01:17→16:54)
[2016-11-09 05:51] LABS: Hematocrit 31.8 % (35.5-45.6); Hemoglobin 10.2 gm/dl (11.8-15.2); Mean Corpuscular HGB Conc 32 % (32-34); Mean Corpuscular Hemoglobin 30 pg (28-32); Red Blood Count 3.42 M/mm3 (3.65-5.03); Red Cell Distribution Width 16.4 % (13.2-15.2); White Blood Count 17.9 K/mm3 (4.5-11.0)
[2016-11-09] MEDS: LEVOPHED 8 MG in NACL 0.9% 250ML 242 ML IV SCH ×4 (06:00→21:25)
[2016-11-09] MEDS: ZOSYN/NS 2.25 GM/50ML 50 ML IV SCH ×3 (06:00→23:57)
[2016-11-09 06:04] LABS: Mean Corpuscular Volume 92 fl (84-94); Platelet Count 14 K/mm3 (140-440)
[2016-11-09] MEDS: D10W 1,000 ML IV SCH ×3 (06:05→23:57)
[2016-11-09 06:08] LABS: INR 3.15 (0.87-1.13)
[2016-11-09 06:16] LABS: BUN/Creatinine Ratio 5.76; Chloride 92.2 mmol/L (98-107); Potassium 5.3 mmol/L (3.6-5.0)
[2016-11-09 06:17] LABS: Calcium 4.5 mg/dL (8.4-10.2)
[2016-11-09] MEDS ORDERED: NACL 0.9% 500 ML 500 ML IV ONE (06:26)
[2016-11-09 06:41] LABS: ISTAT Base Excess -12; ISTAT HCO3 16.6; ISTAT PCO2 44.3 (35-45); ISTAT PH 7.181 (7.35-7.45); ISTAT PO2 55 (80-105); ISTAT SO2 80; ISTAT TCO2 18
[2016-11-09 07:57] LABS: Anisocytosis 1+; Basophils % (Manual) 0 % (0.0-1.8); Blastocytes % (Manual) 0 %; Eosinophils % (Manual) 0 % (0.0-4.3); Ovalocytes 1+; Poikilocytosis 1+
[2016-11-09 07:58] LABS: Elliptocytes Rare; Polychromasia 1+; Tear Drop Cells Rare
[2016-11-09 08:00] LABS: Basophilic Stippling Few; Diff Status Complete; Giant Platelets Few; Platelet Estimate Appears Decreased
--- NOTE | 2016-11-09 08:12 | Gastroenterology Progress Note ---
<DAVIDMELISSA ANN - Last Filed: 11/09/16 08:09> Assessment and Plan 1. BRBPR -In the setting of a colitis per CT,likely ischemic, with platelets of 14K. Nursing reports one black BM overnight. H/H remains stable. -Recommend addressing INR, platelet count at this time to prevent further bleeding. ( patient is receiving FFP, Vitamin K, and Platelets when available) -H/H stable prior to today with a noted drop to 10.9/33.4. Would recommend trending H/H , however cautious with blood draws. -Patient is currently on a PPI gtt as well as Vancomycin and Zosyn. -Will follow closely, would not recommend endoscopy at this time in the setting of significant thrombocytopenia, would prefer correction of INR/platelets and reassess. Subjective Date of service: 11/09/16 Principal diagnosis: hypotension, MSOF Interval history: Patient remains intubated and mother is at bedside. She reports no prior GI hx and she is not aware if the patient had been taking NSAIDS. Objective - Constitutional Vitals: Temp Pulse Resp BP Pulse Ox 102.5 F H 129 H 24 120/53 91 11/09/16 07:47 11/09/16 07:00 11/09/16 07:00 11/09/16 07:00 11/09/16 07:00 General appearance: other (intubated) - Respiratory Respiratory: bilateral: diminished - Cardiovascular Rhythm: other (tachycardia) - Gastrointestinal General gastrointestinal: Present: distended, hypoactive bowel sounds - Neurologic Neurological: other (sedated) - Labs CBC & Chem 7: 11/09/16 05:30 11/09/16 05:30 Labs: Laboratory Results - last 24 hr 11/06/16 11/06/16 11/06/16 10:17 10:17 10:17 WBC RBC Hgb Hct MCV MCH MCHC RDW Plt Count Add Manual Diff Total Counted Seg Neutrophils % Seg Neuts % (Manual) Band Neutrophils % Lymphocytes % (Manual) Reactive Lymphs % (Man) Monocytes % (Manual) Eosinophils % (Manual) Basophils % (Manual) Metamyelocytes % Myelocytes % Promyelocytes % Blast Cells % Nucleated RBC % Seg Neutrophils # Man Band Neutrophils # Lymphocytes # (Manual) Abs React Lymphs (Man) Monocytes # (Manual) Eosinophils # (Manual) Basophils # (Manual) Metamyelocytes # Myelocytes # Promyelocytes # Blast Cells # WBC Morphology Hypersegmented Neuts Hyposegmented Neuts Hypogranular Neuts Smudge Cells Toxic Granulation Toxic Vacuolation Dohle Bodies Pelger-Huet Anomaly Holli Rods Platelet Estimate Clumped Platelets Plt Clumps, EDTA Large Platelets Giant Platelets Platelet Satelliting Plt Morphology Comment RBC Morphology Dimorphic RBCs Polychromasia Hypochromasia Poikilocytosis Basophilic Stippling Anisocytosis Microcytosis Macrocytosis Spherocytes Pappenheimer Bodies Sickle Cells Target Cells Tear Drop Cells Ovalocytes Helmet Cells Saavedra-Foreman Bodies [place] Rings [place] Cells Bite Cells Crenated Cell Elliptocytes Acanthocytes (Spur) Rouleaux Hemoglobin C Crystals Schistocytes Malaria parasites Yasmani Bodies Hem Pathologist Commnt PT INR POC ABG pH POC ABG pCO2 POC ABG pO2 POC ABG HCO3 POC ABG Total CO2 POC ABG O2 Sat POC ABG Base Excess FiO2 Sodium Potassium Chloride Carbon Dioxide Anion Gap BUN Creatinine Estimated GFR BUN/Creatinine Ratio Glucose POC Glucose Lactic Acid Calcium Magnesium AST ALT Total Creatine Kinase PTH Intact Ethylene Glycol Proteinase 3 (PR3) Ab <1.0 Myeloperoxidase Ab <1.0 Complement C3 68 L Complement C4 33 Blood Type Antibody Screen Crossmatch 11/06/16 11/06/16 11/08/16 10:17 15:17 07:00 WBC RBC Hgb Hct MCV MCH MCHC RDW Plt Count Add Manual Diff Total Counted Seg Neutrophils % Seg Neuts % (Manual) Band Neutrophils % Lymphocytes % (Manual) Reactive Lymphs % (Man) Monocytes % (Manual) Eosinophils % (Manual) Basophils % (Manual) Metamyelocytes % Myelocytes % Promyelocytes % Blast Cells % Nucleated RBC % Seg Neutrophils # Man Band Neutrophils # Lymphocytes # (Manual) Abs React Lymphs (Man) Monocytes # (Manual) Eosinophils # (Manual) Basophils # (Manual) Metamyelocytes # Myelocytes # Promyelocytes # Blast Cells # WBC Morphology Hypersegmented Neuts Hyposegmented Neuts Hypogranular Neuts Smudge Cells Toxic Granulation Toxic Vacuolation Dohle Bodies Pelger-Huet Anomaly Holli Rods Platelet Estimate Clumped Platelets Plt Clumps, EDTA Large Platelets Giant Platelets Platelet Satelliting Plt Morphology Comment RBC Morphology Dimorphic RBCs Polychromasia Hypochromasia Poikilocytosis Basophilic Stippling Anisocytosis Microcytosis Macrocytosis Spherocytes Pappenheimer Bodies Sickle Cells Target Cells Tear Drop Cells Ovalocytes Helmet Cells Saavedra-Foreman Bodies [place] Rings Veto Cells Bite Cells Crenated Cell Elliptocytes Acanthocytes (Spur) Rouleaux Hemoglobin C Crystals Schistocytes Malaria parasites Yasmani Bodies Hem Pathologist Commnt PT INR POC ABG pH POC ABG pCO2 POC ABG pO2 POC ABG HCO3 POC ABG Total CO2 POC ABG O2 Sat POC ABG Base Excess FiO2 Sodium Potassium Chloride Carbon Dioxide Anion Gap BUN Creatinine Estimated GFR BUN/Creatinine Ratio Glucose POC Glucose Lactic Acid Calcium Magnesium AST 69792 H ALT 2515 H Total Creatine Kinase 83902 H PTH Intact Ethylene Glycol <10.0 Proteinase 3 (PR3) Ab Myeloperoxidase Ab Complement C3 Complement C4 Blood Type A NEGATIVE Antibody Screen Negative Crossmatch See Detail 11/08/16 11/08/16 11/08/16 09:49 11:20 11:40 WBC 17.1 H RBC 3.71 Hgb 10.9 L Hct 33.4 L D MCV 90 MCH 29 MCHC 33 RDW 16.0 H Plt Count 18 L* Add Manual Diff Total Counted Seg Neutrophils % Seg Neuts % (Manual) Band Neutrophils % Lymphocytes % (Manual) Reactive Lymphs % (Man) Monocytes % (Manual) Eosinophils % (Manual) Basophils % (Manual) Metamyelocytes % Myelocytes % Promyelocytes % Blast Cells % Nucleated RBC % Seg Neutrophils # Man Band Neutrophils # Lymphocytes # (Manual) Abs React Lymphs (Man) Monocytes # (Manual) Eosinophils # (Manual) Basophils # (Manual) Metamyelocytes # Myelocytes # Promyelocytes # Blast Cells # WBC Morphology Hypersegmented Neuts Hyposegmented Neuts Hypogranular Neuts Smudge Cells Toxic Granulation Toxic Vacuolation Dohle Bodies Pelger-Huet Anomaly Holli Rods Platelet Estimate Clumped Platelets Plt Clumps, EDTA Large Platelets Giant Platelets Platelet Satelliting Plt Morphology Comment RBC Morphology Dimorphic RBCs Polychromasia Hypochromasia Poikilocytosis Basophilic Stippling Anisocytosis Microcytosis Macrocytosis Spherocytes Pappenheimer Bodies Sickle Cells Target Cells Tear Drop Cells Ovalocytes Helmet Cells Saavedra-Foreman Bodies [place] Rings Veto Cells Bite Cells Crenated Cell Elliptocytes Acanthocytes (Spur) Rouleaux Hemoglobin C Crystals Schistocytes Malaria parasites [place]i Bodies Hem Pathologist Commnt PT INR POC ABG pH POC ABG pCO2 POC ABG pO2 POC ABG HCO3 POC ABG Total CO2 POC ABG O2 Sat POC ABG Base Excess FiO2 Sodium Potassium Chloride Carbon Dioxide Anion Gap BUN Creatinine Estimated GFR BUN/Creatinine Ratio Glucose POC Glucose Lactic Acid Calcium Magnesium AST ALT Total Creatine Kinase PTH Intact 419.1 H Ethylene Glycol Proteinase 3 (PR3) Ab Myeloperoxidase Ab Complement C3 Complement C4 Blood Type A NEGATIVE Antibody Screen Negative Crossmatch 11/08/16 11/08/16 11/08/16 12:05 13:20 14:40 WBC RBC Hgb Hct MCV MCH MCHC RDW Plt Count Add Manual Diff Total Counted Seg Neutrophils % Seg Neuts % (Manual) Band Neutrophils % Lymphocytes % (Manual) Reactive Lymphs % (Man) Monocytes % (Manual) Eosinophils % (Manual) Basophils % (Manual) Metamyelocytes % Myelocytes % Promyelocytes % Blast Cells % Nucleated RBC % Seg Neutrophils # Man Band Neutrophils # Lymphocytes # (Manual) Abs React Lymphs (Man) Monocytes # (Manual) Eosinophils # (Manual) Basophils # (Manual) Metamyelocytes # Myelocytes # Promyelocytes # Blast Cells # WBC Morphology Hypersegmented Neuts Hyposegmented Neuts Hypogranular Neuts Smudge Cells Toxic Granulation Toxic Vacuolation Dohle Bodies Pelger-Huet Anomaly Holli Rods Platelet Estimate Clumped Platelets Plt Clumps, EDTA Large Platelets Giant Platelets Platelet Satelliting Plt Morphology Comment RBC Morphology Dimorphic RBCs Polychromasia Hypochromasia Poikilocytosis Basophilic Stippling Anisocytosis Microcytosis Macrocytosis Spherocytes Pappenheimer Bodies Sickle Cells Target Cells Tear Drop Cells Ovalocytes Helmet Cells Saavedra-Foreman Bodies [place] Rings Veto Cells Bite Cells Crenated Cell Elliptocytes Acanthocytes (Spur) Rouleaux Hemoglobin C Crystals Schistocytes Malaria parasites [place]i Bodies Hem Pathologist Commnt PT INR POC ABG pH POC ABG pCO2 POC ABG pO2 POC ABG HCO3 POC ABG Total CO2 POC ABG O2 Sat POC ABG Base Excess FiO2 Sodium Potassium Chloride Carbon Dioxide Anion Gap BUN Creatinine Estimated GFR BUN/Creatinine Ratio Glucose POC Glucose 194 H 189 H Lactic Acid 5.3 H* Calcium Magnesium AST ALT Total Creatine Kinase PTH Intact Ethylene Glycol Proteinase 3 (PR3) Ab Myeloperoxidase Ab Complement C3 Complement C4 Blood Type Antibody Screen Crossmatch 11/08/16 11/08/16 11/08/16 15:05 17:19 19:43 WBC RBC Hgb 9.6 L Hct 29.6 L MCV MCH MCHC RDW Plt Count Add Manual Diff Total Counted Seg Neutrophils % Seg Neuts % (Manual) Band Neutrophils % Lymphocytes % (Manual) Reactive Lymphs % (Man) Monocytes % (Manual) Eosinophils % (Manual) Basophils % (Manual) Metamyelocytes % Myelocytes % Promyelocytes % Blast Cells % Nucleated RBC % Seg Neutrophils # Man Band Neutrophils # Lymphocytes # (Manual) Abs React Lymphs (Man) Monocytes # (Manual) Eosinophils # (Manual) Basophils # (Manual) Metamyelocytes # Myelocytes # Promyelocytes # Blast Cells # WBC Morphology Hypersegmented Neuts Hyposegmented Neuts Hypogranular Neuts Smudge Cells Toxic Granulation Toxic Vacuolation Dohle Bodies Pelger-Huet Anomaly Holli Rods Platelet Estimate Clumped Platelets Plt Clumps, EDTA Large Platelets Giant Platelets Platelet Satelliting Plt Morphology Comment RBC Morphology Dimorphic RBCs Polychromasia Hypochromasia Poikilocytosis Basophilic Stippling Anisocytosis Microcytosis Macrocytosis Spherocytes Pappenheimer Bodies Sickle Cells Target Cells Tear Drop Cells Ovalocytes Helmet Cells Saavedra-Foreman Bodies [place] Rings Veto Cells Bite Cells Crenated Cell Elliptocytes Acanthocytes (Spur) Rouleaux Hemoglobin C Crystals Schistocytes Malaria parasites [place]i Bodies Hem Pathologist Commnt PT INR POC ABG pH POC ABG pCO2 POC ABG pO2 POC ABG HCO3 POC ABG Total CO2 POC ABG O2 Sat POC ABG Base Excess FiO2 Sodium Potassium Chloride Carbon Dioxide Anion Gap BUN Creatinine Estimated GFR BUN/Creatinine Ratio Glucose POC Glucose 193 H 171 H Lactic Acid Calcium Magnesium AST ALT Total Creatine Kinase PTH Intact Ethylene Glycol Proteinase 3 (PR3) Ab Myeloperoxidase Ab Complement C3 Complement C4 Blood Type Antibody Screen Crossmatch 11/08/16 11/08/16 11/08/16 20:45 20:49 23:00 WBC RBC Hgb 10.7 L Hct 32.8 L MCV MCH MCHC RDW Plt Count Add Manual Diff Total Counted Seg Neutrophils % Seg Neuts % (Manual) Band Neutrophils % Lymphocytes % (Manual) Reactive Lymphs % (Man) Monocytes % (Manual) Eosinophils % (Manual) Basophils % (Manual) Metamyelocytes % Myelocytes % Promyelocytes % Blast Cells % Nucleated RBC % Seg Neutrophils # Man Band Neutrophils # Lymphocytes # (Manual) Abs React Lymphs (Man) Monocytes # (Manual) Eosinophils # (Manual) Basophils # (Manual) Metamyelocytes # Myelocytes # Promyelocytes # Blast Cells # WBC Morphology Hypersegmented Neuts Hyposegmented Neuts Hypogranular Neuts Smudge Cells Toxic Granulation Toxic Vacuolation Dohle Bodies Pelger-Huet Anomaly Holli Rods Platelet Estimate Clumped Platelets Plt Clumps, EDTA Large Platelets Giant Platelets Platelet Satelliting Plt Morphology Comment RBC Morphology Dimorphic RBCs Polychromasia Hypochromasia Poikilocytosis Basophilic Stippling Anisocytosis Microcytosis Macrocytosis Spherocytes Pappenheimer Bodies Sickle Cells Target Cells Tear Drop Cells Ovalocytes Helmet Cells Saavedra-Foreman Bodies [place] Rings [place] Cells Bite Cells Crenated Cell Elliptocytes Acanthocytes (Spur) Rouleaux Hemoglobin C Crystals Schistocytes Malaria parasites [place]i Bodies Hem Pathologist Commnt PT INR POC ABG pH POC ABG pCO2 POC ABG pO2 POC ABG HCO3 POC ABG Total CO2 POC ABG O2 Sat POC ABG Base Excess FiO2 Sodium Potassium Chloride Carbon Dioxide Anion Gap BUN Creatinine Estimated GFR BUN/Creatinine Ratio Glucose POC Glucose 171 H 148 H Lactic Acid Calcium Magnesium AST ALT Total Creatine Kinase PTH Intact Ethylene Glycol Proteinase 3 (PR3) Ab Myeloperoxidase Ab Complement C3 Complement C4 Blood Type Antibody Screen Crossmatch 11/09/16 11/09/16 11/09/16 01:22 02:52 05:23 WBC RBC Hgb Hct MCV MCH MCHC RDW Plt Count Add Manual Diff Total Counted Seg Neutrophils % Seg Neuts % (Manual) Band Neutrophils % Lymphocytes % (Manual) Reactive Lymphs % (Man) Monocytes % (Manual) Eosinophils % (Manual) Basophils % (Manual) Metamyelocytes % Myelocytes % Promyelocytes % Blast Cells % Nucleated RBC % Seg Neutrophils # Man Band Neutrophils # Lymphocytes # (Manual) Abs React Lymphs (Man) Monocytes # (Manual) Eosinophils # (Manual) Basophils # (Manual) Metamyelocytes # Myelocytes # Promyelocytes # Blast Cells # WBC Morphology Hypersegmented Neuts Hyposegmented Neuts Hypogranular Neuts Smudge Cells Toxic Granulation Toxic Vacuolation Dohle Bodies Pelger-Huet Anomaly Holli Rods Platelet Estimate Clumped Platelets Plt Clumps, EDTA Large Platelets Giant Platelets Platelet Satelliting Plt Morphology Comment RBC Morphology Dimorphic RBCs Polychromasia Hypochromasia Poikilocytosis Basophilic Stippling Anisocytosis Microcytosis Macrocytosis Spherocytes Pappenheimer Bodies Sickle Cells Target Cells Tear Drop Cells Ovalocytes Helmet Cells [place]-Foreman Bodies [place] Cells Bite Cells Crenated Cell Elliptocytes Acanthocytes (Spur) Rouleaux Hemoglobin C Crystals Schistocytes Malaria parasites [place]i Bodies Hem Pathologist Commnt PT INR POC ABG pH POC ABG pCO2 POC ABG pO2 POC ABG HCO3 POC ABG Total CO2 POC ABG O2 Sat POC ABG Base Excess FiO2 Sodium Potassium Chloride Carbon Dioxide Anion Gap BUN Creatinine Estimated GFR BUN/Creatinine Ratio Glucose POC Glucose 116 H 141 H 94 Lactic Acid Calcium Magnesium AST ALT Total Creatine Kinase PTH Intact Ethylene Glycol Proteinase 3 (PR3) Ab Myeloperoxidase Ab Complement C3 Complement C4 Blood Type Antibody Screen Crossmatch 11/09/16 11/09/16 11/09/16 05:30 05:30 05:30 WBC 17.9 H RBC 3.42 L Hgb 10.2 L Hct 31.8 L MCV 92 MCH 30 MCHC 32 RDW 16.4 H Plt Count 14 L* Add Manual Diff Complete Total Counted 100 Seg Neutrophils % Surgical Supervisor Seg Neuts % (Manual) 65.0 Band Neutrophils % 26.0 Lymphocytes % (Manual) 1.0 L Reactive Lymphs % (Man) 0 Monocytes % (Manual) 1.0 Eosinophils % (Manual) 0 Basophils % (Manual) 0 Metamyelocytes % 1.0 Myelocytes % 2.0 Promyelocytes % 4.0 Blast Cells % 0 Nucleated RBC % 8.0 H Seg Neutrophils # Man 11.6 H Band Neutrophils # 4.7 Lymphocytes # (Manual) 0.2 L Abs React Lymphs (Man) 0.0 Monocytes # (Manual) 0.2 Eosinophils # (Manual) 0.0 Basophils # (Manual) 0.0 Metamyelocytes # 0.2 Myelocytes # 0.4 Promyelocytes # 0.7 Blast Cells # 0.0 WBC Morphology Not Reportable Hypersegmented Neuts Not Reportable Hyposegmented Neuts Not Reportable Hypogranular Neuts Not Reportable Smudge Cells Not Reportable Toxic Granulation Not Reportable Toxic Vacuolation Not Reportable Dohle Bodies Not Reportable Pelger-Huet Anomaly Not Reportable Holli Rods Not Reportable Platelet Estimate Appears decreased Clumped Platelets Not Reportable Plt Clumps, EDTA Not Reportable Large Platelets Not Reportable Giant Platelets Few Platelet Satelliting Not Reportable Plt Morphology Comment Not Reportable RBC Morphology Not Reportable Dimorphic RBCs Not Reportable Polychromasia 1+ Hypochromasia Not Reportable Poikilocytosis 1+ Basophilic Stippling Few Anisocytosis 1+ Microcytosis Not Reportable Macrocytosis Not Reportable Spherocytes Not Reportable Pappenheimer Bodies Not Reportable Sickle Cells Not Reportable Target Cells Not Reportable Tear Drop Cells Rare Ovalocytes 1+ Helmet Cells Not Reportable Saavedra-Foreman Bodies Not Reportable [place] Rings Not Reportable [place] Cells Not Reportable Bite Cells Not Reportable Crenated Cell Not Reportable Elliptocytes Rare Acanthocytes (Spur) Not Reportable Rouleaux Not Reportable Hemoglobin C Crystals Not Reportable Schistocytes Not Reportable Malaria parasites Not Reportable Yasmani Bodies Not Reportable Hem Pathologist Commnt No PT INR POC ABG pH POC ABG pCO2 POC ABG pO2 POC ABG HCO3 POC ABG Total CO2 POC ABG O2 Sat POC ABG Base Excess FiO2 Sodium 136 L Potassium 5.3 H Chloride 92.2 L Carbon Dioxide 15 L Anion Gap 34 BUN 49 H Creatinine 8.5 H Estimated GFR 7 BUN/Creatinine Ratio 5.76 Glucose 132 H POC Glucose Lactic Acid Calcium 4.5 L* D Magnesium 1.5 L AST ALT Total Creatine Kinase 87126 H PTH Intact Ethylene Glycol Proteinase 3 (PR3) Ab Myeloperoxidase Ab Complement C3 Complement C4 Blood Type Antibody Screen Crossmatch 11/09/16 11/09/16 05:30 06:00 WBC RBC Hgb Hct MCV MCH MCHC RDW Plt Count Add Manual Diff Total Counted Seg Neutrophils % Seg Neuts % (Manual) Band Neutrophils % Lymphocytes % (Manual) Reactive Lymphs % (Man) Monocytes % (Manual) Eosinophils % (Manual) Basophils % (Manual) Metamyelocytes % Myelocytes % Promyelocytes % Blast Cells % Nucleated RBC % Seg Neutrophils # Man Band Neutrophils # Lymphocytes # (Manual) Abs React Lymphs (Man) Monocytes # (Manual) Eosinophils # (Manual) Basophils # (Manual) Metamyelocytes # Myelocytes # Promyelocytes # Blast Cells # WBC Morphology Hypersegmented Neuts Hyposegmented Neuts Hypogranular Neuts Smudge Cells Toxic Granulation Toxic Vacuolation Dohle Bodies Pelger-Huet Anomaly Holli Rods Platelet Estimate Clumped Platelets Plt Clumps, EDTA Large Platelets Giant Platelets Platelet Satelliting Plt Morphology Comment RBC Morphology Dimorphic RBCs Polychromasia Hypochromasia Poikilocytosis Basophilic Stippling Anisocytosis Microcytosis Macrocytosis Spherocytes Pappenheimer Bodies Sickle Cells Target Cells Tear Drop Cells Ovalocytes Helmet Cells [place]-Foreman Bodies [place] Rings Veto Cells Bite Cells Crenated Cell Elliptocytes Acanthocytes (Spur) Rouleaux Hemoglobin C Crystals Schistocytes Malaria parasites Yasmani Bodies Hem Pathologist Commnt PT 32.6 H INR 3.15 H POC ABG pH 7.181 L POC ABG pCO2 44.3 POC ABG pO2 55 L POC ABG HCO3 16.6 POC ABG Total CO2 18 POC ABG O2 Sat 80 POC ABG Base Excess -12 FiO2 65 Sodium Potassium Chloride Carbon Dioxide Anion Gap BUN Creatinine Estimated GFR BUN/Creatinine Ratio Glucose POC Glucose Lactic Acid Calcium Magnesium AST ALT Total Creatine Kinase PTH Intact Ethylene Glycol Proteinase 3 (PR3) Ab Myeloperoxidase Ab Complement C3 Complement C4 Blood Type Antibody Screen Crossmatch <KURT WOODS R - Last Filed: 11/09/16 11:44> Assessment and Plan Pt seen. Discussed with Dr. Ortiz. Supportive care for now. Subjective Date of service: 11/09/16 Objective - Constitutional Vitals: Temp Pulse Resp BP Pulse Ox 101.1 F H 126 H 24 100/55 93 11/09/16 10:42 11/09/16 11:23 11/09/16 10:42 11/09/16 11:23 11/09/16 11:23 - Labs CBC & Chem 7: 11/09/16 05:30 11/09/16 05:30 Labs: Laboratory Results - last 24 hr 11/06/16 11/06/16 11/06/16 10:17 10:17 10:17 WBC RBC Hgb Hct MCV MCH MCHC RDW Plt Count Add Manual Diff Total Counted Seg Neutrophils % Seg Neuts % (Manual) Band Neutrophils % Lymphocytes % (Manual) Reactive Lymphs % (Man) Monocytes % (Manual) Eosinophils % (Manual) Basophils % (Manual) Metamyelocytes % Myelocytes % Promyelocytes % Blast Cells % Nucleated RBC % Seg Neutrophils # Man Band Neutrophils # Lymphocytes # (Manual) Abs React Lymphs (Man) Monocytes # (Manual) Eosinophils # (Manual) Basophils # (Manual) Metamyelocytes # Myelocytes # Promyelocytes # Blast Cells # WBC Morphology Hypersegmented Neuts Hyposegmented Neuts Hypogranular Neuts Smudge Cells Toxic Granulation Toxic Vacuolation Dohle Bodies Pelger-Huet Anomaly Holli Rods Platelet Estimate Clumped Platelets Plt Clumps, EDTA Large Platelets Giant Platelets Platelet Satelliting Plt Morphology Comment RBC Morphology Dimorphic RBCs Polychromasia Hypochromasia Poikilocytosis Basophilic Stippling Anisocytosis Microcytosis Macrocytosis Spherocytes Pappenheimer Bodies Sickle Cells Target Cells Tear Drop Cells Ovalocytes Helmet Cells [place]-Foreman Bodies [place] Rings Veto Cells Bite Cells Crenated Cell Elliptocytes Acanthocytes (Spur) Rouleaux Hemoglobin C Crystals Schistocytes Malaria parasites Yas[place]i Bodies Hem Pathologist Commnt PT INR POC ABG pH POC ABG pCO2 POC ABG pO2 POC ABG HCO3 POC ABG Total CO2 POC ABG O2 Sat POC ABG Base Excess FiO2 Sodium Potassium Chloride Carbon Dioxide Anion Gap BUN Creatinine Estimated GFR BUN/Creatinine Ratio Glucose POC Glucose Lactic Acid Calcium Magnesium Total Creatine Kinase PTH Intact Ethylene Glycol Proteinase 3 (PR3) Ab <1.0 Myeloperoxidase Ab <1.0 Complement C3 68 L Complement C4 33 Blood Type Antibody Screen Crossmatch 11/06/16 11/06/16 11/08/16 10:17 15:17 11:20 WBC RBC Hgb Hct MCV MCH MCHC RDW Plt Count Add Manual Diff Total Counted Seg Neutrophils % Seg Neuts % (Manual) Band Neutrophils % Lymphocytes % (Manual) Reactive Lymphs % (Man) Monocytes % (Manual) Eosinophils % (Manual) Basophils % (Manual) Metamyelocytes % Myelocytes % Promyelocytes % Blast Cells % Nucleated RBC % Seg Neutrophils # Man Band Neutrophils # Lymphocytes # (Manual) Abs React Lymphs (Man) Monocytes # (Manual) Eosinophils # (Manual) Basophils # (Manual) Metamyelocytes # Myelocytes # Promyelocytes # Blast Cells # WBC Morphology Hypersegmented Neuts Hyposegmented Neuts Hypogranular Neuts Smudge Cells Toxic Granulation Toxic Vacuolation Dohle Bodies Pelger-Huet Anomaly Holli Rods Platelet Estimate Clumped Platelets Plt Clumps, EDTA Large Platelets Giant Platelets Platelet Satelliting Plt Morphology Comment RBC Morphology Dimorphic RBCs Polychromasia Hypochromasia Poikilocytosis Basophilic Stippling Anisocytosis Microcytosis Macrocytosis Spherocytes Pappenheimer Bodies Sickle Cells Target Cells Tear Drop Cells Ovalocytes Helmet Cells [place]-Foreman Bodies [place] Rings [place] Cells Bite Cells Crenated Cell Elliptocytes Acanthocytes (Spur) Rouleaux Hemoglobin C Crystals Schistocytes Malaria parasites [place]i Bodies Hem Pathologist Commnt PT INR POC ABG pH POC ABG pCO2 POC ABG pO2 POC ABG HCO3 POC ABG Total CO2 POC ABG O2 Sat POC ABG Base Excess FiO2 Sodium Potassium Chloride Carbon Dioxide Anion Gap BUN Creatinine Estimated GFR BUN/Creatinine Ratio Glucose POC Glucose Lactic Acid Calcium Magnesium Total Creatine Kinase PTH Intact 419.1 H Ethylene Glycol <10.0 Proteinase 3 (PR3) Ab Myeloperoxidase Ab Complement C3 Complement C4 Blood Type A NEGATIVE Antibody Screen Negative Crossmatch See Detail 11/08/16 11/08/16 11/08/16 11:40 12:05 13:20 WBC RBC Hgb Hct MCV MCH MCHC RDW Plt Count Add Manual Diff Total Counted Seg Neutrophils % Seg Neuts % (Manual) Band Neutrophils % Lymphocytes % (Manual) Reactive Lymphs % (Man) Monocytes % (Manual) Eosinophils % (Manual) Basophils % (Manual) Metamyelocytes % Myelocytes % Promyelocytes % Blast Cells % Nucleated RBC % Seg Neutrophils # Man Band Neutrophils # Lymphocytes # (Manual) Abs React Lymphs (Man) Monocytes # (Manual) Eosinophils # (Manual) Basophils # (Manual) Metamyelocytes # Myelocytes # Promyelocytes # Blast Cells # WBC Morphology Hypersegmented Neuts Hyposegmented Neuts Hypogranular Neuts Smudge Cells Toxic Granulation Toxic Vacuolation Dohle Bodies Pelger-Huet Anomaly Holli Rods Platelet Estimate Clumped Platelets Plt Clumps, EDTA Large Platelets Giant Platelets Platelet Satelliting Plt Morphology Comment RBC Morphology Dimorphic RBCs Polychromasia Hypochromasia Poikilocytosis Basophilic Stippling Anisocytosis Microcytosis Macrocytosis Spherocytes Pappenheimer Bodies Sickle Cells Target Cells Tear Drop Cells Ovalocytes Helmet Cells [place]-Foreman Bodies [place] Rings [place] Cells Bite Cells Crenated Cell Elliptocytes Acanthocytes (Spur) Rouleaux Hemoglobin C Crystals Schistocytes Malaria parasites [place] Bodies Hem Pathologist Commnt PT INR POC ABG pH POC ABG pCO2 POC ABG pO2 POC ABG HCO3 POC ABG Total CO2 POC ABG O2 Sat POC ABG Base Excess FiO2 Sodium Potassium Chloride Carbon Dioxide Anion Gap BUN Creatinine Estimated GFR BUN/Creatinine Ratio Glucose POC Glucose 194 H Lactic Acid 5.3 H* Calcium Magnesium Total Creatine Kinase PTH Intact Ethylene Glycol Proteinase 3 (PR3) Ab Myeloperoxidase Ab Complement C3 Complement C4 Blood Type A NEGATIVE Antibody Screen Negative Crossmatch 11/08/16 11/08/16 11/08/16 14:40 15:05 17:19 WBC RBC Hgb 9.6 L Hct 29.6 L MCV MCH MCHC RDW Plt Count Add Manual Diff Total Counted Seg Neutrophils % Seg Neuts % (Manual) Band Neutrophils % Lymphocytes % (Manual) Reactive Lymphs % (Man) Monocytes % (Manual) Eosinophils % (Manual) Basophils % (Manual) Metamyelocytes % Myelocytes % Promyelocytes % Blast Cells % Nucleated RBC % Seg Neutrophils # Man Band Neutrophils # Lymphocytes # (Manual) Abs React Lymphs (Man) Monocytes # (Manual) Eosinophils # (Manual) Basophils # (Manual) Metamyelocytes # Myelocytes # Promyelocytes # Blast Cells # WBC Morphology Hypersegmented Neuts Hyposegmented Neuts Hypogranular Neuts Smudge Cells Toxic Granulation Toxic Vacuolation Dohle Bodies Pelger-Huet Anomaly Holli Rods Platelet Estimate Clumped Platelets Plt Clumps, EDTA Large Platelets Giant Platelets Platelet Satelliting Plt Morphology Comment RBC Morphology Dimorphic RBCs Polychromasia Hypochromasia Poikilocytosis Basophilic Stippling Anisocytosis Microcytosis Macrocytosis Spherocytes Pappenheimer Bodies Sickle Cells Target Cells Tear Drop Cells Ovalocytes Helmet Cells Saavedra-Foreman Bodies [place] Cells Bite Cells Crenated Cell Elliptocytes Acanthocytes (Spur) Rouleaux Hemoglobin C Crystals Schistocytes Malaria parasites Yasmani Bodies Hem Pathologist Commnt PT INR POC ABG pH POC ABG pCO2 POC ABG pO2 POC ABG HCO3 POC ABG Total CO2 POC ABG O2 Sat POC ABG Base Excess FiO2 Sodium Potassium Chloride Carbon Dioxide Anion Gap BUN Creatinine Estimated GFR BUN/Creatinine Ratio Glucose POC Glucose 189 H 193 H Lactic Acid Calcium Magnesium Total Creatine Kinase PTH Intact Ethylene Glycol Proteinase 3 (PR3) Ab Myeloperoxidase Ab Complement C3 Complement C4 Blood Type Antibody Screen Crossmatch 11/08/16 11/08/16 11/08/16 19:43 20:45 20:49 WBC RBC Hgb 10.7 L Hct 32.8 L MCV MCH MCHC RDW Plt Count Add Manual Diff Total Counted Seg Neutrophils % Seg Neuts % (Manual) Band Neutrophils % Lymphocytes % (Manual) Reactive Lymphs % (Man) Monocytes % (Manual) Eosinophils % (Manual) Basophils % (Manual) Metamyelocytes % Myelocytes % Promyelocytes % Blast Cells % Nucleated RBC % Seg Neutrophils # Man Band Neutrophils # Lymphocytes # (Manual) Abs React Lymphs (Man) Monocytes # (Manual) Eosinophils # (Manual) Basophils # (Manual) Metamyelocytes # Myelocytes # Promyelocytes # Blast Cells # WBC Morphology Hypersegmented Neuts Hyposegmented Neuts Hypogranular Neuts Smudge Cells Toxic Granulation Toxic Vacuolation Dohle Bodies Pelger-Huet Anomaly Holli Rods Platelet Estimate Clumped Platelets Plt Clumps, EDTA Large Platelets Giant Platelets Platelet Satelliting Plt Morphology Comment RBC Morphology Dimorphic RBCs Polychromasia Hypochromasia Poikilocytosis Basophilic Stippling Anisocytosis Microcytosis Macrocytosis Spherocytes Pappenheimer Bodies Sickle Cells Target Cells Tear Drop Cells Ovalocytes Helmet Cells Saavedra-Foreman Bodies [place] Rings Veto Cells Bite Cells Crenated Cell Elliptocytes Acanthocytes (Spur) Rouleaux Hemoglobin C Crystals Schistocytes Malaria parasites Yasmani Bodies Hem Pathologist Commnt PT INR POC ABG pH POC ABG pCO2 POC ABG pO2 POC ABG HCO3 POC ABG Total CO2 POC ABG O2 Sat POC ABG Base Excess FiO2 Sodium Potassium Chloride Carbon Dioxide Anion Gap BUN Creatinine Estimated GFR BUN/Creatinine Ratio Glucose POC Glucose 171 H 171 H Lactic Acid Calcium Magnesium Total Creatine Kinase PTH Intact Ethylene Glycol Proteinase 3 (PR3) Ab Myeloperoxidase Ab Complement C3 Complement C4 Blood Type Antibody Screen Crossmatch 11/08/16 11/09/16 11/09/16 23:00 01:22 02:52 WBC RBC Hgb Hct MCV MCH MCHC RDW Plt Count Add Manual Diff Total Counted Seg Neutrophils % Seg Neuts % (Manual) Band Neutrophils % Lymphocytes % (Manual) Reactive Lymphs % (Man) Monocytes % (Manual) Eosinophils % (Manual) Basophils % (Manual) Metamyelocytes % Myelocytes % Promyelocytes % Blast Cells % Nucleated RBC % Seg Neutrophils # Man Band Neutrophils # Lymphocytes # (Manual) Abs React Lymphs (Man) Monocytes # (Manual) Eosinophils # (Manual) Basophils # (Manual) Metamyelocytes # Myelocytes # Promyelocytes # Blast Cells # WBC Morphology Hypersegmented Neuts Hyposegmented Neuts Hypogranular Neuts Smudge Cells Toxic Granulation Toxic Vacuolation Dohle Bodies Pelger-Huet Anomaly Holli Rods Platelet Estimate Clumped Platelets Plt Clumps, EDTA Large Platelets Giant Platelets Platelet Satelliting Plt Morphology Comment RBC Morphology Dimorphic RBCs Polychromasia Hypochromasia Poikilocytosis Basophilic Stippling Anisocytosis Microcytosis Macrocytosis Spherocytes Pappenheimer Bodies Sickle Cells Target Cells Tear Drop Cells Ovalocytes Helmet Cells Saavedra-Foreman Bodies [place] Rings Veto Cells Bite Cells Crenated Cell Elliptocytes Acanthocytes (Spur) Rouleaux Hemoglobin C Crystals Schistocytes Malaria parasites Yasmani Bodies Hem Pathologist Commnt PT INR POC ABG pH POC ABG pCO2 POC ABG pO2 POC ABG HCO3 POC ABG Total CO2 POC ABG O2 Sat POC ABG Base Excess FiO2 Sodium Potassium Chloride Carbon Dioxide Anion Gap BUN Creatinine Estimated GFR BUN/Creatinine Ratio Glucose POC Glucose 148 H 116 H 141 H Lactic Acid Calcium Magnesium Total Creatine Kinase PTH Intact Ethylene Glycol Proteinase 3 (PR3) Ab Myeloperoxidase Ab Complement C3 Complement C4 Blood Type Antibody Screen Crossmatch 11/09/16 11/09/16 11/09/16 05:23 05:30 05:30 WBC RBC Hgb Hct MCV MCH MCHC RDW Plt Count Add Manual Diff Total Counted Seg Neutrophils % Seg Neuts % (Manual) Band Neutrophils % Lymphocytes % (Manual) Reactive Lymphs % (Man) Monocytes % (Manual) Eosinophils % (Manual) Basophils % (Manual) Metamyelocytes % Myelocytes % Promyelocytes % Blast Cells % Nucleated RBC % Seg Neutrophils # Man Band Neutrophils # Lymphocytes # (Manual) Abs React Lymphs (Man) Monocytes # (Manual) Eosinophils # (Manual) Basophils # (Manual) Metamyelocytes # Myelocytes # Promyelocytes # Blast Cells # WBC Morphology Hypersegmented Neuts Hyposegmented Neuts Hypogranular Neuts Smudge Cells Toxic Granulation Toxic Vacuolation Dohle Bodies Pelger-Huet Anomaly Holli Rods Platelet Estimate Clumped Platelets Plt Clumps, EDTA Large Platelets Giant Platelets Platelet Satelliting Plt Morphology Comment RBC Morphology Dimorphic RBCs Polychromasia Hypochromasia Poikilocytosis Basophilic Stippling Anisocytosis Microcytosis Macrocytosis Spherocytes Pappenheimer Bodies Sickle Cells Target Cells Tear Drop Cells Ovalocytes Helmet Cells Saavedra-Foreman Bodies [place] Rings Veto Cells Bite Cells Crenated Cell Elliptocytes Acanthocytes (Spur) Rouleaux Hemoglobin C Crystals Schistocytes Malaria parasites Yasmani Bodies Hem Pathologist Commnt PT INR POC ABG pH POC ABG pCO2 POC ABG pO2 POC ABG HCO3 POC ABG Total CO2 POC ABG O2 Sat POC ABG Base Excess FiO2 Sodium 136 L Potassium 5.3 H Chloride 92.2 L Carbon Dioxide 15 L Anion Gap 34 BUN 49 H Creatinine 8.5 H Estimated GFR 7 BUN/Creatinine Ratio 5.76 Glucose 132 H POC Glucose 94 Lactic Acid Calcium 4.5 L* D Magnesium 1.5 L Total Creatine Kinase 43401 H PTH Intact Ethylene Glycol Proteinase 3 (PR3) Ab Myeloperoxidase Ab Complement C3 Complement C4 Blood Type Antibody Screen Crossmatch 11/09/16 11/09/16 11/09/16 05:30 05:30 06:00 WBC 17.9 H RBC 3.42 L Hgb 10.2 L Hct 31.8 L MCV 92 MCH 30 MCHC 32 RDW 16.4 H Plt Count 14 L* Add Manual Diff Complete Total Counted 100 Seg Neutrophils % Surgical Supervisor Seg Neuts % (Manual) 65.0 Band Neutrophils % 26.0 Lymphocytes % (Manual) 1.0 L Reactive Lymphs % (Man) 0 Monocytes % (Manual) 1.0 Eosinophils % (Manual) 0 Basophils % (Manual) 0 Metamyelocytes % 1.0 Myelocytes % 2.0 Promyelocytes % 4.0 Blast Cells % 0 Nucleated RBC % 8.0 H Seg Neutrophils # Man 11.6 H Band Neutrophils # 4.7 Lymphocytes # (Manual) 0.2 L Abs React Lymphs (Man) 0.0 Monocytes # (Manual) 0.2 Eosinophils # (Manual) 0.0 Basophils # (Manual) 0.0 Metamyelocytes # 0.2 Myelocytes # 0.4 Promyelocytes # 0.7 Blast Cells # 0.0 WBC Morphology Not Reportable Hypersegmented Neuts Not Reportable Hyposegmented Neuts Not Reportable Hypogranular Neuts Not Reportable Smudge Cells Not Reportable Toxic Granulation Not Reportable Toxic Vacuolation Not Reportable Dohle Bodies Not Reportable Pelger-Huet Anomaly Not Reportable Holli Rods Not Reportable Platelet Estimate Appears decreased Clumped Platelets Not Reportable Plt Clumps, EDTA Not Reportable Large Platelets Not Reportable Giant Platelets Few Platelet Satelliting Not Reportable Plt Morphology Comment Not Reportable RBC Morphology Not Reportable Dimorphic RBCs Not Reportable Polychromasia 1+ Hypochromasia Not Reportable Poikilocytosis 1+ Basophilic Stippling Few Anisocytosis 1+ Microcytosis Not Reportable Macrocytosis Not Reportable Spherocytes Not Reportable Pappenheimer Bodies Not Reportable Sickle Cells Not Reportable Target Cells Not Reportable Tear Drop Cells Rare Ovalocytes 1+ Helmet Cells Not Reportable Saavedra-Foreman Bodies Not Reportable [place] Rings Not Reportable [place] Cells Not Reportable Bite Cells Not Reportable Crenated Cell Not Reportable Elliptocytes Rare Acanthocytes (Spur) Not Reportable Rouleaux Not Reportable Hemoglobin C Crystals Not Reportable Schistocytes Not Reportable Malaria parasites Not Reportable Yasmani Bodies Not Reportable Hem Pathologist Commnt No PT 32.6 H INR 3.15 H POC ABG pH 7.181 L POC ABG pCO2 44.3 POC ABG pO2 55 L POC ABG HCO3 16.6 POC ABG Total CO2 18 POC ABG O2 Sat 80 POC ABG Base Excess -12 FiO2 65 Sodium Potassium Chloride Carbon Dioxide Anion Gap BUN Creatinine Estimated GFR BUN/Creatinine Ratio Glucose POC Glucose Lactic Acid Calcium Magnesium Total Creatine Kinase PTH Intact Ethylene Glycol Proteinase 3 (PR3) Ab Myeloperoxidase Ab Complement C3 Complement C4 Blood Type Antibody Screen Crossmatch 11/09/16 11/09/16 11/09/16 07:59 08:02 08:54 WBC RBC Hgb Hct MCV MCH MCHC RDW Plt Count Add Manual Diff Total Counted Seg Neutrophils % Seg Neuts % (Manual) Band Neutrophils % Lymphocytes % (Manual) Reactive Lymphs % (Man) Monocytes % (Manual) Eosinophils % (Manual) Basophils % (Manual) Metamyelocytes % Myelocytes % Promyelocytes % Blast Cells % Nucleated RBC % Seg Neutrophils # Man Band Neutrophils # Lymphocytes # (Manual) Abs React Lymphs (Man) Monocytes # (Manual) Eosinophils # (Manual) Basophils # (Manual) Metamyelocytes # Myelocytes # Promyelocytes # Blast Cells # WBC Morphology Hypersegmented Neuts Hyposegmented Neuts Hypogranular Neuts Smudge Cells Toxic Granulation Toxic Vacuolation Dohle Bodies Pelger-Huet Anomaly Holli Rods Platelet Estimate Clumped Platelets Plt Clumps, EDTA Large Platelets Giant Platelets Platelet Satelliting Plt Morphology Comment RBC Morphology Dimorphic RBCs Polychromasia Hypochromasia Poikilocytosis Basophilic Stippling Anisocytosis Microcytosis Macrocytosis Spherocytes Pappenheimer Bodies Sickle Cells Target Cells Tear Drop Cells Ovalocytes Helmet Cells Saavedra-Foreman Bodies [place] Cells Bite Cells Crenated Cell Elliptocytes Acanthocytes (Spur) Rouleaux Hemoglobin C Crystals Schistocytes Malaria parasites Yasmani Bodies Hem Pathologist Commnt PT INR POC ABG pH POC ABG pCO2 POC ABG pO2 POC ABG HCO3 POC ABG Total CO2 POC ABG O2 Sat POC ABG Base Excess FiO2 Sodium Potassium Chloride Carbon Dioxide Anion Gap BUN Creatinine Estimated GFR BUN/Creatinine Ratio Glucose POC Glucose < 40 L 72 < 40 L Lactic Acid Calcium Magnesium Total Creatine Kinase PTH Intact Ethylene Glycol Proteinase 3 (PR3) Ab Myeloperoxidase Ab Complement C3 Complement C4 Blood Type Antibody Screen Crossmatch 11/09/16 11/09/16 11/09/16 09:37 09:54 11:08 WBC RBC Hgb Hct MCV MCH MCHC RDW Plt Count Add Manual Diff Total Counted Seg Neutrophils % Seg Neuts % (Manual) Band Neutrophils % Lymphocytes % (Manual) Reactive Lymphs % (Man) Monocytes % (Manual) Eosinophils % (Manual) Basophils % (Manual) Metamyelocytes % Myelocytes % Promyelocytes % Blast Cells % Nucleated RBC % Seg Neutrophils # Man Band Neutrophils # Lymphocytes # (Manual) Abs React Lymphs (Man) Monocytes # (Manual) Eosinophils # (Manual) Basophils # (Manual) Metamyelocytes # Myelocytes # Promyelocytes # Blast Cells # WBC Morphology Hypersegmented Neuts Hyposegmented Neuts Hypogranular Neuts Smudge Cells Toxic Granulation Toxic Vacuolation Dohle Bodies Pelger-Huet Anomaly Holli Rods Platelet Estimate Clumped Platelets Plt Clumps, EDTA Large Platelets Giant Platelets Platelet Satelliting Plt Morphology Comment RBC Morphology Dimorphic RBCs Polychromasia Hypochromasia Poikilocytosis Basophilic Stippling Anisocytosis Microcytosis Macrocytosis Spherocytes Pappenheimer Bodies Sickle Cells Target Cells Tear Drop Cells Ovalocytes Helmet Cells Saavedra-Foreman Bodies [place] Rings [place] Cells Bite Cells Crenated Cell Elliptocytes Acanthocytes (Spur) Rouleaux Hemoglobin C Crystals Schistocytes Malaria parasites Yasmani Bodies Hem Pathologist Commnt PT INR POC ABG pH 7.120 L POC ABG pCO2 43.0 POC ABG pO2 83 POC ABG HCO3 14.0 POC ABG Total CO2 15 POC ABG O2 Sat 92 POC ABG Base Excess -15 FiO2 100 Sodium Potassium Chloride Carbon Dioxide Anion Gap BUN Creatinine Estimated GFR BUN/Creatinine Ratio Glucose POC Glucose 57 L 107 H Lactic Acid Calcium Magnesium Total Creatine Kinase PTH Intact Ethylene Glycol Proteinase 3 (PR3) Ab Myeloperoxidase Ab Complement C3 Complement C4 Blood Type Antibody Screen Crossmatch
--- NOTE | 2016-11-09 08:20 | XRay Report ---
CHEST 1 VIEW INDICATION: Followup respiratory failure. COMPARISON: Yesterday. FINDINGS: Portable, frontal chest radiograph, 1:23 AM, 11/09/2016 reveals stable cardiomediastinal silhouette, supporting devices, appearance of the lungs and osseous structures, providing for the difference in technique. CONCLUSION: No significant interval change in mild congestion and bibasilar opacities/effusions. Thank you for the opportunity to participate in this patient's care.
[2016-11-09] MEDS ORDERED: NACL 0.9% 500 ML 500 ML ONE (08:41)
[2016-11-09] MEDS ORDERED: D50W (25GM) IV ONE ×3 (08:54→19:10)
[2016-11-09] MEDS: NEO-SYNEPHRINE 100 MG in NACL 0.9% 90 ML IV SCH ×3 (09:12→21:45)
[2016-11-09] MEDS: D50W (25GM) IV PRN ×2 (09:13→10:03)
[2016-11-09 09:52] LABS: ISTAT Base Excess -15; ISTAT PO2 83 (80-105); ISTAT SO2 92; ISTAT TCO2 15
[2016-11-09] MEDS ORDERED: VITAMIN K (ADULT ONLY) SUB-Q ONE ×2 (10:00→13:17)
--- NOTE | 2016-11-09 10:51 | Progress Note ---
Assessment and Plan Continue vasopressors and supportive care. - Patient Problems (1) Acute respiratory failure Current Visit: Yes Status: Acute (2) Acute renal failure Current Visit: Yes Status: Acute (3) Hyperkalemia Current Visit: Yes Status: Acute (4) Rhabdomyolysis Current Visit: Yes Status: Acute (5) Hypotension Current Visit: Yes Status: Acute (6) Elevated troponin Current Visit: Yes Status: Acute (7) Multisystem organ failure Current Visit: Yes Status: Acute Subjective Date of service: 11/09/16 Principal diagnosis: hypotension, MSOF Interval history: The patient remains intubated and unresponsive. On multiple pressors. Mother at bedside. Objective Last Vital Signs Temp 101.1 F H 11/09/16 10:42 Pulse 126 H 11/09/16 10:42 Resp 24 11/09/16 10:42 BP 114/51 11/09/16 10:42 Pulse Ox 82 L 11/09/16 09:37 - Physical Examination General: No Apparent Distress (intubated, unresponsive) HEENT: Positive: Normocephaly, Mucus Membranes Moist Neck: Positive: neck supple, trachea midline Cardiac: Positive: Regular Rhythm, S1/S2, Tachycardia Lungs: Positive: Rhonchi Neuro: Positive: Other (intubated, unresponsive) Abdomen: Positive: Distended Skin: Positive: Clear. Negative: Rash Extremities: Present: Cyanosis (toes). Absent: edema - Labs and Meds Coagulation 11/09/16 Range/Units 05:30 PT 32.6 H (12.2-14.9) Sec. INR 3.15 H (0.87-1.13) CBC 11/08/16 11/08/16 11/09/16 Range/Units 15:05 20:45 05:30 WBC 17.9 H (4.5-11.0) K/mm3 RBC 3.42 L (3.65-5.03) M/mm3 Hgb 9.6 L 10.7 L 10.2 L (11.8-15.2) gm/dl Hct 29.6 L 32.8 L 31.8 L (35.5-45.6) % Plt Count 14 L* (140-440) K/mm3 Comprehensive Metabolic Panel 11/09/16 Range/Units 05:30 Sodium 136 L (137-145) mmol/L Potassium 5.3 H (3.6-5.0) mmol/L Chloride 92.2 L (98-107) mmol/L Carbon Dioxide 15 L (22-30) mmol/L BUN 49 H (9-20) mg/dL Creatinine 8.5 H (0.8-1.5) mg/dL Glucose 132 H (75-100) mg/dL Calcium 4.5 L* D (8.4-10.2) mg/dL - Imaging and Cardiology EKG: image reviewed Echo: report reviewed (11/2016: mild LVH, EF 40-45%) - Telemetry EKG Rhythm: Sinus Tachycardia - EKG Sinus rhythms and dysrhythmias: sinus tachycardia
[2016-11-09] MEDS ORDERED: NACL 0.9% 500 ML 500 ML IV NR (11:30)
[2016-11-09] MEDS ORDERED: SODIUM BICARBONATE IV ONE ×2 (12:00)
[2016-11-09] MEDS ORDERED: VITAMIN K (ADULT ONLY) ONE (12:43)
--- NOTE | 2016-11-09 13:11 | Progress Note ---
Assessment and Plan 50 y/o male with acute renal failure thought secondary to rhabdomyolysis, metabolic acidosis, hypotension and what appears to be severe dehydration and methamphetamine use, now with hypoglycemia, and cardiovascular collapse requiring epinephrine drip and coagulopathy. 1. Agree with more Vitamin K and FFP and platelets 2. Continue Q6hr H/H's for the next 24 hours. Has not required PRBC's yet 3. Continue bicarb drip, increased rate back to 150 and pushed 2 amps this morning 4. Continue gram negative coverage. Vanc was given yesterday. 5. No feeds for now. 6. Continue D10 Drip and Sodium Bicarb drip. Liver is continuing to fail 7. WEan pressors for MAP's greater than 65 8. Overall prognosis here is extremely poor. Long discussion with mother again this am to re-iterate the severity of disease here. No change in code status. They appear to understand. Patient is to remain a full code. CCT 31 minutes. Subjective Date of service: 11/09/16 Principal diagnosis: hypotension, MSOF Interval history: Back on 3 pressors and about to add epi back. Did have some HD on yesterday. Spoke with mother at bedside. Explained situation is not improving. Acid base status is worse this am. H/H has held stable but platelets continuing to drop. Objective Vital Signs - 12hr 11/09/16 11/09/16 11/09/16 01:15 01:30 01:45 Temperature Pulse Rate 133 H 135 H 133 H Respiratory 24 24 24 Rate Blood Pressure 109/69 128/71 116/67 O2 Sat by Pulse 97 Oximetry 11/09/16 11/09/16 11/09/16 02:00 02:15 02:30 Temperature Pulse Rate 133 H 133 H 133 H Respiratory 24 18 Rate Blood Pressure 118/68 107/57 116/65 O2 Sat by Pulse 43 L Oximetry 11/09/16 11/09/16 11/09/16 02:45 03:00 03:15 Temperature Pulse Rate 133 H 131 H 130 H Respiratory 24 10 L 24 Rate Blood Pressure 129/68 122/62 123/65 O2 Sat by Pulse 92 91 Oximetry 11/09/16 11/09/16 11/09/16 03:30 03:45 04:00 Temperature Pulse Rate 130 H 129 H 130 H Respiratory 24 24 24 Rate Blood Pressure 130/61 125/58 128/59 O2 Sat by Pulse 90 92 93 Oximetry 11/09/16 11/09/16 11/09/16 04:15 04:23 04:30 Temperature Pulse Rate 129 H 128 H 129 H Respiratory 24 24 24 Rate Blood Pressure 126/61 126/61 126/62 O2 Sat by Pulse 93 92 93 Oximetry 11/09/16 11/09/16 11/09/16 04:45 04:46 05:00 Temperature Pulse Rate 129 H 129 H 129 H Respiratory 24 24 Rate Blood Pressure 122/61 122/61 118/61 O2 Sat by Pulse 90 94 86 Oximetry 11/09/16 11/09/16 11/09/16 05:15 05:30 05:45 Temperature Pulse Rate 128 H 129 H 129 H Respiratory 24 24 24 Rate Blood Pressure 124/53 124/59 119/57 O2 Sat by Pulse 92 83 L 84 Oximetry 11/09/16 11/09/16 11/09/16 05:53 05:55 06:00 Temperature Pulse Rate 129 H 129 H 128 H Respiratory 24 24 24 Rate Blood Pressure 119/57 119/57 120/57 O2 Sat by Pulse 86 86 88 Oximetry 11/09/16 11/09/16 11/09/16 06:15 06:30 06:45 Temperature Pulse Rate 129 H 129 H 129 H Respiratory 24 24 24 Rate Blood Pressure 121/58 120/54 125/58 O2 Sat by Pulse 87 87 91 Oximetry 11/09/16 11/09/16 11/09/16 07:00 07:47 09:00 Temperature 102.5 F H 102.5 F H Pulse Rate 129 H 114 H Respiratory 24 24 Rate Blood Pressure 120/53 90/35 O2 Sat by Pulse 91 96 Oximetry 11/09/16 11/09/16 11/09/16 09:15 09:37 09:56 Temperature 102.5 F H Pulse Rate 120 H 125 H 127 H Respiratory 24 Rate Blood Pressure 103/40 108/44 105/45 O2 Sat by Pulse 81 L 82 L Oximetry 11/09/16 11/09/16 11/09/16 10:42 11:23 11:58 Temperature 101.1 F H 99.5 F Pulse Rate 126 H 126 H Respiratory 24 Rate Blood Pressure 114/51 100/55 O2 Sat by Pulse 93 Oximetry Constitutional: comatose, appears uncomfortable, other (severely ill appearing) Eyes: non-icteric ENT: other (orally intubated, not on sedation) Neck: supple Effort: very labored Ascultation: Bilateral: clear Percussion: Bilateral: not dull Cardiovascular: other (tachy but sinus) Gastrointestinal: other (mild distention) Extremities: cool Neurologic: unable to assess CBC and BMP: 11/09/16 05:30 11/09/16 05:30 ABG, PT/INR, D-dimer: ABG POC ABG pH 7.120 (7.35-7.45) L 11/09/16 09:37 POC ABG pCO2 43.0 (35-45) 11/09/16 09:37 POC ABG pO2 83 (80-105) 11/09/16 09:37 POC ABG HCO3 14.0 11/09/16 09:37 POC ABG Total CO2 15 11/09/16 09:37 POC ABG O2 Sat 92 11/09/16 09:37 PT/INR, D-dimer PT 32.6 Sec. (12.2-14.9) H 11/09/16 05:30 INR 3.15 (0.87-1.13) H 11/09/16 05:30 Abnormal lab findings: Abnormal Labs 11/06/16 11/06/16 11/06/16 02:49 03:00 03:00 WBC 20.7 H RBC 6.69 H Hgb 19.7 H Hct 58.1 H RDW 16.3 H Plt Count Seg Neuts % (Manual) Lymphocytes % (Manual) 5.0 L Monocytes % (Manual) 8.0 H Nucleated RBC % 4.0 H Seg Neutrophils # Man 9.1 H Lymphocytes # (Manual) 1.0 L Monocytes # (Manual) 1.7 H PT INR POC ABG pH POC ABG pCO2 POC ABG pO2 Sodium 150 H Potassium 5.9 H D Chloride 92.6 L Carbon Dioxide 13 L BUN 73 H Creatinine 10.4 H Glucose POC Glucose 53 L Lactic Acid Calcium Phosphorus Magnesium Total Bilirubin 2.8 H AST 00507 H ALT 3771 H Total Creatine Kinase CK-MB (CK-2) Troponin T Total Protein 9.1 H Albumin PTH Intact Urine WBC (Auto) Urine Creatinine Complement C3 Crossmatch 11/06/16 11/06/16 11/06/16 03:16 05:37 06:00 WBC RBC Hgb Hct RDW Plt Count Seg Neuts % (Manual) Lymphocytes % (Manual) Monocytes % (Manual) Nucleated RBC % Seg Neutrophils # Man Lymphocytes # (Manual) Monocytes # (Manual) PT INR POC ABG pH 7.338 L POC ABG pCO2 17.4 L POC ABG pO2 213 H Sodium Potassium Chloride Carbon Dioxide BUN Creatinine Glucose POC Glucose 111 H Lactic Acid 10.0 H* Calcium Phosphorus Magnesium Total Bilirubin AST ALT Total Creatine Kinase CK-MB (CK-2) Troponin T Total Protein Albumin PTH Intact Urine WBC (Auto) Urine Creatinine Complement C3 Crossmatch 11/06/16 11/06/16 11/06/16 06:00 06:00 06:00 WBC 17.9 H RBC 6.02 H Hgb 17.8 H Hct 54.8 H RDW 16.0 H Plt Count Seg Neuts % (Manual) 74.0 H Lymphocytes % (Manual) 2.0 L Monocytes % (Manual) Nucleated RBC % 1.0 H Seg Neutrophils # Man 13.2 H Lymphocytes # (Manual) 0.4 L Monocytes # (Manual) PT INR POC ABG pH POC ABG pCO2 POC ABG pO2 Sodium 153 H Potassium 6.8 H* Chloride 97.0 L Carbon Dioxide 17 L BUN 77 H Creatinine 10.8 H Glucose 203 H POC Glucose Lactic Acid Calcium 6.4 L D Phosphorus 15.2 H Magnesium 3.0 H Total Bilirubin AST ALT Total Creatine Kinase CK-MB (CK-2) Troponin T Total Protein Albumin PTH Intact Urine WBC (Auto) Urine Creatinine Complement C3 Crossmatch 11/06/16 11/06/16 11/06/16 06:19 09:43 10:17 WBC RBC Hgb Hct RDW Plt Count Seg Neuts % (Manual) Lymphocytes % (Manual) Monocytes % (Manual) Nucleated RBC % Seg Neutrophils # Man Lymphocytes # (Manual) Monocytes # (Manual) PT INR POC ABG pH 7.247 L POC ABG pCO2 POC ABG pO2 142 H Sodium Potassium Chloride Carbon Dioxide BUN Creatinine 1.7 H D Glucose POC Glucose Lactic Acid Calcium Phosphorus Magnesium Total Bilirubin AST ALT Total Creatine Kinase CK-MB (CK-2) Troponin T Total Protein Albumin PTH Intact Urine WBC (Auto) Urine Creatinine Complement C3 68 L Crossmatch 11/06/16 11/06/16 11/06/16 12:10 12:10 14:44 WBC RBC Hgb Hct RDW Plt Count Seg Neuts % (Manual) Lymphocytes % (Manual) Monocytes % (Manual) Nucleated RBC % Seg Neutrophils # Man Lymphocytes # (Manual) Monocytes # (Manual) PT INR POC ABG pH 7.308 L POC ABG pCO2 POC ABG pO2 275 H Sodium Potassium Chloride Carbon Dioxide BUN Creatinine Glucose POC Glucose Lactic Acid Calcium Phosphorus Magnesium Total Bilirubin AST ALT Total Creatine Kinase CK-MB (CK-2) Troponin T Total Protein Albumin PTH Intact Urine WBC (Auto) 49.0 H Urine Creatinine 117.9 H Complement C3 Crossmatch 11/06/16 11/06/16 11/06/16 15:17 15:17 15:17 WBC RBC Hgb Hct RDW Plt Count Seg Neuts % (Manual) Lymphocytes % (Manual) Monocytes % (Manual) Nucleated RBC % Seg Neutrophils # Man Lymphocytes # (Manual) Monocytes # (Manual) PT INR POC ABG pH POC ABG pCO2 POC ABG pO2 Sodium 146 H D Potassium 5.1 H D Chloride Carbon Dioxide 17 L BUN 53 H Creatinine 8.4 H D Glucose 120 H POC Glucose Lactic Acid 9.0 H* Calcium 4.7 L* D Phosphorus Magnesium Total Bilirubin AST ALT Total Creatine Kinase CK-MB (CK-2) Troponin T 0.258 H* D Total Protein Albumin PTH Intact Urine WBC (Auto) Urine Creatinine Complement C3 Crossmatch 11/06/16 11/06/16 11/06/16 15:17 18:05 18:38 WBC RBC Hgb Hct RDW Plt Count Seg Neuts % (Manual) Lymphocytes % (Manual) Monocytes % (Manual) Nucleated RBC % Seg Neutrophils # Man Lymphocytes # (Manual) Monocytes # (Manual) PT INR POC ABG pH POC ABG pCO2 POC ABG pO2 Sodium Potassium Chloride Carbon Dioxide BUN Creatinine Glucose POC Glucose 56 L 134 H Lactic Acid Calcium Phosphorus Magnesium Total Bilirubin AST ALT Total Creatine Kinase CK-MB (CK-2) Troponin T Total Protein Albumin PTH Intact Urine WBC (Auto) Urine Creatinine Complement C3 Crossmatch See Detail 11/06/16 11/06/16 11/06/16 21:45 21:45 Unknown WBC RBC Hgb Hct RDW Plt Count Seg Neuts % (Manual) Lymphocytes % (Manual) Monocytes % (Manual) Nucleated RBC % Seg Neutrophils # Man Lymphocytes # (Manual) Monocytes # (Manual) PT INR POC ABG pH POC ABG pCO2 POC ABG pO2 Sodium Potassium Chloride Carbon Dioxide BUN Creatinine Glucose POC Glucose Lactic Acid 10.3 H* 7.1 H* Calcium Phosphorus Magnesium Total Bilirubin AST ALT Total Creatine Kinase 80665 H CK-MB (CK-2) 47.6 H Troponin T 0.284 H* Total Protein Albumin PTH Intact Urine WBC (Auto) Urine Creatinine Complement C3 Crossmatch 11/07/16 11/07/16 11/07/16 02:06 04:00 05:00 WBC RBC Hgb Hct RDW Plt Count Seg Neuts % (Manual) Lymphocytes % (Manual) Monocytes % (Manual) Nucleated RBC % Seg Neutrophils # Man Lymphocytes # (Manual) Monocytes # (Manual) PT 50.6 H INR 5.49 H* POC ABG pH POC ABG pCO2 POC ABG pO2 Sodium Potassium 6.1 H* Chloride Carbon Dioxide 16 L BUN 63 H Creatinine 9.8 H Glucose 307 H POC Glucose 222 H Lactic Acid Calcium 3.4 L* D Phosphorus Magnesium Total Bilirubin AST ALT Total Creatine Kinase 37206 H CK-MB (CK-2) Troponin T Total Protein Albumin PTH Intact Urine WBC (Auto) Urine Creatinine Complement C3 Crossmatch 11/07/16 11/07/16 11/07/16 05:28 06:00 06:00 WBC 22.6 H RBC Hgb Hct RDW 16.2 H Plt Count 37 L Seg Neuts % (Manual) Lymphocytes % (Manual) 1.0 L Monocytes % (Manual) Nucleated RBC % 3.0 H Seg Neutrophils # Man 14.2 H Lymphocytes # (Manual) 0.2 L Monocytes # (Manual) 0.9 H PT INR POC ABG pH 7.329 L POC ABG pCO2 33.9 L POC ABG pO2 157 H Sodium Potassium Chloride Carbon Dioxide BUN Creatinine Glucose POC Glucose Lactic Acid Calcium Phosphorus Magnesium Total Bilirubin AST ALT Total Creatine Kinase 53958 H CK-MB (CK-2) 79.0 H Troponin T 0.242 H* Total Protein Albumin PTH Intact Urine WBC (Auto) Urine Creatinine Complement C3 Crossmatch 11/07/16 11/07/16 11/07/16 06:21 09:50 10:46 WBC RBC Hgb Hct RDW Plt Count Seg Neuts % (Manual) Lymphocytes % (Manual) Monocytes % (Manual) Nucleated RBC % Seg Neutrophils # Man Lymphocytes # (Manual) Monocytes # (Manual) PT INR POC ABG pH POC ABG pCO2 POC ABG pO2 Sodium Potassium Chloride Carbon Dioxide BUN Creatinine Glucose POC Glucose 193 H 283 H 169 H Lactic Acid Calcium Phosphorus Magnesium Total Bilirubin AST ALT Total Creatine Kinase CK-MB (CK-2) Troponin T Total Protein Albumin PTH Intact Urine WBC (Auto) Urine Creatinine Complement C3 Crossmatch 11/07/16 11/07/16 11/07/16 11:48 14:12 15:05 WBC RBC Hgb Hct RDW Plt Count Seg Neuts % (Manual) Lymphocytes % (Manual) Monocytes % (Manual) Nucleated RBC % Seg Neutrophils # Man Lymphocytes # (Manual) Monocytes # (Manual) PT INR POC ABG pH POC ABG pCO2 POC ABG pO2 Sodium Potassium Chloride Carbon Dioxide BUN Creatinine Glucose POC Glucose 123 H 121 H 61 L Lactic Acid Calcium Phosphorus Magnesium Total Bilirubin AST ALT Total Creatine Kinase CK-MB (CK-2) Troponin T Total Protein Albumin PTH Intact Urine WBC (Auto) Urine Creatinine Complement C3 Crossmatch 11/07/16 11/07/16 11/07/16 16:19 17:15 17:15 WBC 20.0 H RBC Hgb Hct RDW 16.1 H Plt Count 27 L Seg Neuts % (Manual) 88.0 H Lymphocytes % (Manual) 7.0 L Monocytes % (Manual) Nucleated RBC % 1.0 H Seg Neutrophils # Man 17.6 H Lymphocytes # (Manual) Monocytes # (Manual) PT 51.7 H INR 5.64 H* POC ABG pH POC ABG pCO2 POC ABG pO2 Sodium Potassium Chloride Carbon Dioxide BUN Creatinine Glucose POC Glucose 216 H Lactic Acid Calcium Phosphorus Magnesium Total Bilirubin AST ALT Total Creatine Kinase CK-MB (CK-2) Troponin T Total Protein Albumin PTH Intact Urine WBC (Auto) Urine Creatinine Complement C3 Crossmatch 11/07/16 11/08/16 11/08/16 20:44 03:30 05:50 WBC RBC Hgb Hct RDW Plt Count Seg Neuts % (Manual) Lymphocytes % (Manual) Monocytes % (Manual) Nucleated RBC % Seg Neutrophils # Man Lymphocytes # (Manual) Monocytes # (Manual) PT INR POC ABG pH POC ABG pCO2 POC ABG pO2 Sodium Potassium Chloride Carbon Dioxide BUN Creatinine Glucose POC Glucose 145 H 160 H 187 H Lactic Acid Calcium Phosphorus Magnesium Total Bilirubin AST ALT Total Creatine Kinase CK-MB (CK-2) Troponin T Total Protein Albumin PTH Intact Urine WBC (Auto) Urine Creatinine Complement C3 Crossmatch 11/08/16 11/08/16 11/08/16 05:52 07:00 07:00 WBC RBC Hgb Hct RDW Plt Count Seg Neuts % (Manual) Lymphocytes % (Manual) Monocytes % (Manual) Nucleated RBC % Seg Neutrophils # Man Lymphocytes # (Manual) Monocytes # (Manual) PT 33.9 H INR 3.31 H POC ABG pH 7.315 L POC ABG pCO2 33.0 L POC ABG pO2 124 H Sodium 135 L Potassium 5.5 H Chloride 94.2 L Carbon Dioxide 17 L BUN 72 H Creatinine 11.0 H Glucose 230 H POC Glucose Lactic Acid Calcium 3.4 L* Phosphorus 8.7 H Magnesium 1.4 L Total Bilirubin 4.8 H AST 93257 H ALT 2515 H Total Creatine Kinase 53649 H CK-MB (CK-2) Troponin T Total Protein 3.6 L D Albumin 1.8 L PTH Intact Urine WBC (Auto) Urine Creatinine Complement C3 Crossmatch 11/08/16 11/08/16 11/08/16 09:49 11:20 12:05 WBC 17.1 H RBC Hgb 10.9 L Hct 33.4 L D RDW 16.0 H Plt Count 18 L* Seg Neuts % (Manual) Lymphocytes % (Manual) Monocytes % (Manual) Nucleated RBC % Seg Neutrophils # Man Lymphocytes # (Manual) Monocytes # (Manual) PT INR POC ABG pH POC ABG pCO2 POC ABG pO2 Sodium Potassium Chloride Carbon Dioxide BUN Creatinine Glucose POC Glucose 194 H Lactic Acid Calcium Phosphorus Magnesium Total Bilirubin AST ALT Total Creatine Kinase CK-MB (CK-2) Troponin T Total Protein Albumin PTH Intact 419.1 H Urine WBC (Auto) Urine Creatinine Complement C3 Crossmatch 11/08/16 11/08/16 11/08/16 13:20 14:40 15:05 WBC RBC Hgb 9.6 L Hct 29.6 L RDW Plt Count Seg Neuts % (Manual) Lymphocytes % (Manual) Monocytes % (Manual) Nucleated RBC % Seg Neutrophils # Man Lymphocytes # (Manual) Monocytes # (Manual) PT INR POC ABG pH POC ABG pCO2 POC ABG pO2 Sodium Potassium Chloride Carbon Dioxide BUN Creatinine Glucose POC Glucose 189 H Lactic Acid 5.3 H* Calcium Phosphorus Magnesium Total Bilirubin AST ALT Total Creatine Kinase CK-MB (CK-2) Troponin T Total Protein Albumin PTH Intact Urine WBC (Auto) Urine Creatinine Complement C3 Crossmatch 11/08/16 11/08/16 11/08/16 17:19 19:43 20:45 WBC RBC Hgb 10.7 L Hct 32.8 L RDW Plt Count Seg Neuts % (Manual) Lymphocytes % (Manual) Monocytes % (Manual) Nucleated RBC % Seg Neutrophils # Man Lymphocytes # (Manual) Monocytes # (Manual) PT INR POC ABG pH POC ABG pCO2 POC ABG pO2 Sodium Potassium Chloride Carbon Dioxide BUN Creatinine Glucose POC Glucose 193 H 171 H Lactic Acid Calcium Phosphorus Magnesium Total Bilirubin AST ALT Total Creatine Kinase CK-MB (CK-2) Troponin T Total Protein Albumin PTH Intact Urine WBC (Auto) Urine Creatinine Complement C3 Crossmatch 11/08/16 11/08/16 11/09/16 20:49 23:00 01:22 WBC RBC Hgb Hct RDW Plt Count Seg Neuts % (Manual) Lymphocytes % (Manual) Monocytes % (Manual) Nucleated RBC % Seg Neutrophils # Man Lymphocytes # (Manual) Monocytes # (Manual) PT INR POC ABG pH POC ABG pCO2 POC ABG pO2 Sodium Potassium Chloride Carbon Dioxide BUN Creatinine Glucose POC Glucose 171 H 148 H 116 H Lactic Acid Calcium Phosphorus Magnesium Total Bilirubin AST ALT Total Creatine Kinase CK-MB (CK-2) Troponin T Total Protein Albumin PTH Intact Urine WBC (Auto) Urine Creatinine Complement C3 Crossmatch 11/09/16 11/09/16 11/09/16 02:52 05:30 05:30 WBC RBC Hgb Hct RDW Plt Count Seg Neuts % (Manual) Lymphocytes % (Manual) Monocytes % (Manual) Nucleated RBC % Seg Neutrophils # Man Lymphocytes # (Manual) Monocytes # (Manual) PT INR POC ABG pH POC ABG pCO2 POC ABG pO2 Sodium 136 L Potassium 5.3 H Chloride 92.2 L Carbon Dioxide 15 L BUN 49 H Creatinine 8.5 H Glucose 132 H POC Glucose 141 H Lactic Acid Calcium 4.5 L* D Phosphorus Magnesium 1.5 L Total Bilirubin AST ALT Total Creatine Kinase 38102 H CK-MB (CK-2) Troponin T Total Protein Albumin PTH Intact Urine WBC (Auto) Urine Creatinine Complement C3 Crossmatch 11/09/16 11/09/16 11/09/16 05:30 05:30 06:00 WBC 17.9 H RBC 3.42 L Hgb 10.2 L Hct 31.8 L RDW 16.4 H Plt Count 14 L* Seg Neuts % (Manual) Lymphocytes % (Manual) 1.0 L Monocytes % (Manual) Nucleated RBC % 8.0 H Seg Neutrophils # Man 11.6 H Lymphocytes # (Manual) 0.2 L Monocytes # (Manual) PT 32.6 H INR 3.15 H POC ABG pH 7.181 L POC ABG pCO2 POC ABG pO2 55 L Sodium Potassium Chloride Carbon Dioxide BUN Creatinine Glucose POC Glucose Lactic Acid Calcium Phosphorus Magnesium Total Bilirubin AST ALT Total Creatine Kinase CK-MB (CK-2) Troponin T Total Protein Albumin PTH Intact Urine WBC (Auto) Urine Creatinine Complement C3 Crossmatch 11/09/16 11/09/16 11/09/16 07:59 08:54 09:37 WBC RBC Hgb Hct RDW Plt Count Seg Neuts % (Manual) Lymphocytes % (Manual) Monocytes % (Manual) Nucleated RBC % Seg Neutrophils # Man Lymphocytes # (Manual) Monocytes # (Manual) PT INR POC ABG pH 7.120 L POC ABG pCO2 POC ABG pO2 Sodium Potassium Chloride Carbon Dioxide BUN Creatinine Glucose POC Glucose < 40 L < 40 L Lactic Acid Calcium Phosphorus Magnesium Total Bilirubin AST ALT Total Creatine Kinase CK-MB (CK-2) Troponin T Total Protein Albumin PTH Intact Urine WBC (Auto) Urine Creatinine Complement C3 Crossmatch 11/09/16 11/09/16 09:54 11:08 WBC RBC Hgb Hct RDW Plt Count Seg Neuts % (Manual) Lymphocytes % (Manual) Monocytes % (Manual) Nucleated RBC % Seg Neutrophils # Man Lymphocytes # (Manual) Monocytes # (Manual) PT INR POC ABG pH POC ABG pCO2 POC ABG pO2 Sodium Potassium Chloride Carbon Dioxide BUN Creatinine Glucose POC Glucose 57 L 107 H Lactic Acid Calcium Phosphorus Magnesium Total Bilirubin AST ALT Total Creatine Kinase CK-MB (CK-2) Troponin T Total Protein Albumin PTH Intact Urine WBC (Auto) Urine Creatinine Complement C3 Crossmatch
[2016-11-09] MEDS: D5W 1,000 ML with SODIUM BICARBONATE 150 MEQ IV SCH ×2 (13:16→21:24)
[2016-11-09 13:36] LABS: Hematocrit 22.8 % (35.5-45.6); Hemoglobin 7.2 gm/dl (11.8-15.2)
[2016-11-09] MEDS ORDERED: LEVOPHED DRIP 4 MG/NS 250 ML 250 ML IV ONE (13:37)
[2016-11-09 14:44] LABS: ISTAT Base Excess -11; ISTAT HCO3 17.5; ISTAT PCO2 45.4 (35-45); ISTAT PH 7.195 (7.35-7.45); ISTAT PO2 109 (80-105); ISTAT SO2 97; ISTAT TCO2 19
[2016-11-09] MEDS: ADRENALIN 8 MG in NACL 0.9% 250ML 242 ML IV SCH ×3 (15:00→16:58)
--- NOTE | 2016-11-09 16:49 | Progress Note ---
Assessment and Plan Assessment and plan: 1. Multiorgan failure- manx as discussed below 2. Acute hypoxic better failure with ventilator dependence-continue ventilator support. Follow-up with pulmonary/critical care for vent management 3. Septic shock with DIC and thrombocytopenia and IL bleeding-vitamin k; FFP; type and screen; platelet transfusion today; continue IV fluids and IV for boluses as needed, continue vasopressor support patient is currently 3 vasopressor support agents at maximal doses and he remains severely hypotensive ; cont IV hydrocortisone. Continue with IV Zosyn; vancomycin. Follow-up with critical care 3. Acute renal failure with severe metabolic acidosis and hyperkalemia with anuria -calcium /insulin/ dextrose / bicarb cocktail; unable to do HD due to severe hypotension; Continue bicarbonate infusion and when necessary bicarbonate as needed. Follow-up with nephrology appreciated. Continue to monitor electrolytes 4. Severe rhabdomyolysis -continue aggressive hydration with normal saline, monitor CPK level 5. 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 Elevated troponin-cardiology f/u noted; supportive care 7. DVT prophylaxis-heparin 8. GI prophylaxis -pepcid Mother updated at bedside- prognosis-grave; remains full code; she understands CCT exclusive of all other billable procedures 40 minutes History Interval history: f/u respiratory failure; acute renal failure, rhabdomyolysis Patient is seen at the bedside. He is vented and on 3 pressors; had rectal bleeding overnight Hospitalist Physical - Constitutional Vitals: Temp Pulse Resp BP Pulse Ox 99.8 F H 126 H 23 107/42 98 11/09/16 16:00 11/09/16 16:15 11/09/16 16:15 11/09/16 16:15 11/09/16 16:15 General appearance: Present: other (intubated and unresponsive; anasarca) - EENT Eyes: Absent: PERRL (unreactive; no corneal reflex ) ENT: other (ETT in place) - Neck Neck: Present: supple - Respiratory Respiratory effort: other (vented; not breathing over the vent ) Respiratory: bilateral: diminished, rales, negative: rhonchi, wheezing - Cardiovascular Rhythm: regular Heart Sounds: Present: S1 & S2. Absent: gallop - Extremities Extremities: abnormal (cyanotic feet) Peripheral Pulses: within normal limits - Abdominal General gastrointestinal: soft, non-tender, distended, other (anasarca) - Psychiatric Psychiatric: other (unable to assess; unresponsive) - Neurologic Neurologic: other (unresponsive; no pupillary or corneal reflex; no gag ) Results - Labs CBC & Chem 7: 11/09/16 13:25 11/09/16 05:30 Labs: Laboratory Last Values WBC 17.9 K/mm3 (4.5-11.0) H 11/09/16 05:30 RBC 3.42 M/mm3 (3.65-5.03) L 11/09/16 05:30 Hgb 7.2 gm/dl (11.8-15.2) L D 11/09/16 13:25 Hct 22.8 % (35.5-45.6) L D 11/09/16 13:25 MCV 92 fl (84-94) 11/09/16 05:30 MCH 30 pg (28-32) 11/09/16 05:30 MCHC 32 % (32-34) 11/09/16 05:30 RDW 16.4 % (13.2-15.2) H 11/09/16 05:30 Plt Count 14 K/mm3 (140-440) L* 11/09/16 05:30 Add Manual Diff Complete 11/09/16 05:30 Total Counted 100 11/09/16 05:30 Seg Neutrophils % Maintenance And Utilities Supervisor 11/09/16 05:30 Seg Neuts % (Manual) 65.0 % (40.0-70.0) 11/09/16 05:30 Band Neutrophils % 26.0 % 11/09/16 05:30 Lymphocytes % (Manual) 1.0 % (13.4-35.0) L 11/09/16 05:30 Reactive Lymphs % (Man) 0 % 11/09/16 05:30 Monocytes % (Manual) 1.0 % (0.0-7.3) 11/09/16 05:30 Eosinophils % (Manual) 0 % (0.0-4.3) 11/09/16 05:30 Basophils % (Manual) 0 % (0.0-1.8) 11/09/16 05:30 Metamyelocytes % 1.0 % 11/09/16 05:30 Myelocytes % 2.0 % 11/09/16 05:30 Promyelocytes % 4.0 % 11/09/16 05:30 Blast Cells % 0 % 11/09/16 05:30 Nucleated RBC % 8.0 % (0.0-0.9) H 11/09/16 05:30 Seg Neutrophils # Man 11.6 K/mm3 (1.8-7.7) H 11/09/16 05:30 Band Neutrophils # 4.7 K/mm3 11/09/16 05:30 Lymphocytes # (Manual) 0.2 K/mm3 (1.2-5.4) L 11/09/16 05:30 Abs React Lymphs (Man) 0.0 K/mm3 11/09/16 05:30 Monocytes # (Manual) 0.2 K/mm3 (0.0-0.8) 11/09/16 05:30 Eosinophils # (Manual) 0.0 K/mm3 (0.0-0.4) 11/09/16 05:30 Basophils # (Manual) 0.0 K/mm3 (0.0-0.1) 11/09/16 05:30 Metamyelocytes # 0.2 K/mm3 11/09/16 05:30 Myelocytes # 0.4 K/mm3 11/09/16 05:30 Promyelocytes # 0.7 K/mm3 11/09/16 05:30 Blast Cells # 0.0 K/mm3 11/09/16 05:30 WBC Morphology Not Reportable 11/09/16 05:30 Hypersegmented Neuts Not Reportable 11/09/16 05:30 Hyposegmented Neuts Not Reportable 11/09/16 05:30 Hypogranular Neuts Not Reportable 11/09/16 05:30 Smudge Cells Not Reportable 11/09/16 05:30 Toxic Granulation Not Reportable 11/09/16 05:30 Toxic Vacuolation Not Reportable 11/09/16 05:30 Dohle Bodies Not Reportable 11/09/16 05:30 Pelger-Huet Anomaly Not Reportable 11/09/16 05:30 Holli Rods Not Reportable 11/09/16 05:30 Platelet Estimate Appears decreased 11/09/16 05:30 Clumped Platelets Not Reportable 11/09/16 05:30 Plt Clumps, EDTA Not Reportable 11/09/16 05:30 Large Platelets Not Reportable 11/09/16 05:30 Giant Platelets Few 11/09/16 05:30 Platelet Satelliting Not Reportable 11/09/16 05:30 Plt Morphology Comment Not Reportable 11/09/16 05:30 RBC Morphology Not Reportable 11/09/16 05:30 Dimorphic RBCs Not Reportable 11/09/16 05:30 Polychromasia 1+ 11/09/16 05:30 Hypochromasia Not Reportable 11/09/16 05:30 Poikilocytosis 1+ 11/09/16 05:30 Basophilic Stippling Few 11/09/16 05:30 Anisocytosis 1+ 11/09/16 05:30 Microcytosis Not Reportable 11/09/16 05:30 Macrocytosis Not Reportable 11/09/16 05:30 Spherocytes Not Reportable 11/09/16 05:30 Pappenheimer Bodies Not Reportable 11/09/16 05:30 Sickle Cells Not Reportable 11/09/16 05:30 Target Cells Not Reportable 11/09/16 05:30 Tear Drop Cells Rare 11/09/16 05:30 Ovalocytes 1+ 11/09/16 05:30 Helmet Cells Not Reportable 11/09/16 05:30 [place] Bodies Not Reportable 11/09/16 05:30 [place] Rings Not Reportable 11/09/16 05:30 Veto Cells Not Reportable 11/09/16 05:30 Bite Cells Not Reportable 11/09/16 05:30 Crenated Cell Not Reportable 11/09/16 05:30 Elliptocytes Rare 11/09/16 05:30 Acanthocytes (Spur) Not Reportable 11/09/16 05:30 Rouleaux Not Reportable 11/09/16 05:30 Hemoglobin C Crystals Not Reportable 11/09/16 05:30 Schistocytes Not Reportable 11/09/16 05:30 Malaria parasites Not Reportable 11/09/16 05:30 Yasmani Bodies Not Reportable 11/09/16 05:30 Hem Pathologist Commnt No 11/09/16 05:30 PT 32.6 Sec. (12.2-14.9) H 11/09/16 05:30 INR 3.15 (0.87-1.13) H 11/09/16 05:30 APTT 40.0 Sec. (24.2-36.6) H 11/05/16 19:00 POC ABG pH 7.195 (7.35-7.45) L 11/09/16 14:32 POC ABG pCO2 45.4 (35-45) H 11/09/16 14:32 POC ABG pO2 109 (80-105) H 11/09/16 14:32 POC ABG HCO3 17.5 11/09/16 14:32 POC ABG Total CO2 19 11/09/16 14:32 POC ABG O2 Sat 97 11/09/16 14:32 POC ABG Base Excess -11 11/09/16 14:32 FiO2 100 % 11/09/16 14:32 Sodium 136 mmol/L (137-145) L 11/09/16 05:30 Potassium 5.3 mmol/L (3.6-5.0) H 11/09/16 05:30 Chloride 92.2 mmol/L (98-107) L 11/09/16 05:30 Carbon Dioxide 15 mmol/L (22-30) L 11/09/16 05:30 Anion Gap 34 mmol/L 11/09/16 05:30 BUN 49 mg/dL (9-20) H 11/09/16 05:30 Creatinine 8.5 mg/dL (0.8-1.5) H 11/09/16 05:30 Estimated GFR 7 ml/min 11/09/16 05:30 BUN/Creatinine Ratio 5.76 % 11/09/16 05:30 Glucose 132 mg/dL (75-100) H 11/09/16 05:30 POC Glucose 88 (70-105) 11/09/16 14:01 Osmolality 358 Mosm/kg 11/06/16 10:17 Lactic Acid 5.3 mmol/L (0.7-2.0) H* 11/08/16 13:20 Calcium 4.5 mg/dL (8.4-10.2) L* D 11/09/16 05:30 Phosphorus 8.7 mg/dL (2.5-4.5) H 11/08/16 07:00 Magnesium 1.5 mg/dL (1.7-2.3) L 11/09/16 05:30 Total Bilirubin 4.8 mg/dL (0.1-1.2) H 11/08/16 07:00 AST 67328 units/L (5-40) H 11/08/16 07:00 ALT 2515 units/L (7-56) H 11/08/16 07:00 Alkaline Phosphatase 124 units/L (35-129) 11/08/16 07:00 Ammonia 62.0 umol/L (25-60) H 11/05/16 19:03 Total Creatine Kinase 90532 units/L (55-170) H 11/09/16 05:30 CK-MB (CK-2) 79.0 ng/mL (0.0-4.0) H 11/07/16 06:00 CK-MB (CK-2) Rel Index 0.1 (0-4) 11/07/16 06:00 Troponin T 0.242 ng/mL (0.00-0.029) H* 11/07/16 06:00 Total Protein 3.6 g/dL (6.3-8.2) L D 11/08/16 07:00 Albumin 1.8 g/dL (3.9-5) L 11/08/16 07:00 Albumin/Globulin Ratio 1.0 % 11/08/16 07:00 Triglycerides 551 mg/dL (2-149) H 11/05/16 19:03 Cholesterol 255 mg/dL (50-199) H 11/05/16 19:03 LDL Cholesterol Direct TNR 11/05/16 19:03 HDL Cholesterol 36 mg/dL (40-59) L 11/05/16 19:03 Cholesterol/HDL Ratio 7.08 % 11/05/16 19:03 TSH 3.430 mlU/mL (0.270-4.200) 11/05/16 19:03 Free T4 1.03 ng/dL (0.76-1.46) 11/05/16 19:03 PTH Intact 419.1 pg/mL (15-65) H 11/08/16 11:20 Urine Color Christina (Yellow) 11/06/16 12:10 Urine Turbidity Slightly-cloudy (Clear) 11/06/16 12:10 Urine pH 7.0 (5.0-7.0) 11/06/16 12:10 Ur Specific [place] 1.021 (1.003-1.030) 11/06/16 12:10 Urine Protein 100 mg/dl mg/dL (Negative) 11/06/16 12:10 Urine Glucose (UA) 150 mg/dL (Negative) 11/06/16 12:10 Urine Ketones Tr mg/dL (Negative) 11/06/16 12:10 Urine Blood Lg (Negative) 11/06/16 12:10 Urine Nitrite Neg (Negative) 11/06/16 12:10 Urine Bilirubin Neg (Negative) 11/06/16 12:10 Urine Urobilinogen < 2.0 mg/dL (<2.0) 11/06/16 12:10 Ur Leukocyte Esterase Sm (Negative) 11/06/16 12:10 Urine WBC (Auto) 49.0 /HPF (0.0-6.0) H 11/06/16 12:10 Urine RBC (Auto) 112.0 /HPF (0.0-6.0) 11/06/16 12:10 U Epithel Cells (Auto) 2.0 /HPF (0-13.0) 11/06/16 12:10 Urine Bacteria (Auto) 1+ /HPF (Negative) 11/05/16 18:01 Urine WBC Clumps 1+ /HPF 11/06/16 12:10 Hyaline Casts 5 /LPF 11/06/16 12:10 Urine Mucus Few /HPF 11/06/16 12:10 Urine Creatinine 117.9 mg/dL (0.1-20.0) H 11/06/16 12:10 Urine Sodium 67 mEq/L 11/06/16 12:10 Fraction Sodium Excret 0.5 11/06/16 12:10 Salicylates < 0.3 mg/dL (2.8-20.0) L 11/05/16 19:03 Urine Opiates Screen Presumptive negative 11/05/16 18:01 Urine Methadone Screen Presumptive negative 11/05/16 18:01 Acetaminophen < 15.0 ug/mL (10.0-30.0) 11/05/16 19:03 Ur Barbiturates Screen Presumptive negative 11/05/16 18:01 Ur Phencyclidine Scrn Presumptive negative 11/05/16 18:01 Ur Amphetamines Screen Presumptive positive 11/05/16 18:01 U Benzodiazepines Scrn Presumptive negative 11/05/16 18:01 Urine Cocaine Screen Presumptive negative 11/05/16 18:01 U Marijuana (THC) Screen Presumptive negative 11/05/16 18:01 Drugs of Abuse Note Disclamer 11/05/16 18:01 Ethylene Glycol <10.0 mcg/mL (<10.0) 11/06/16 10:17 Plasma/Serum Alcohol < 0.01 gm% (0-0.07) 11/05/16 19:03 Proteinase 3 (PR3) Ab <1.0 AI (<1.0) 11/06/16 10:17 Myeloperoxidase Ab <1.0 AI (<1.0) 11/06/16 10:17 Double Strand DNA Ab 1 IU/mL (<=4) 11/06/16 10:17 Complement C3 68 mg/dL (90-180) L 11/06/16 10:17 Complement C4 33 mg/dL (16-47) 11/06/16 10:17 Hepatitis A IgM Ab -1 (NonReactive) 11/05/16 23:35 Hep Bs Antigen Non-reactive (Negative) 11/05/16 23:35 Hep B Core IgM Ab Non-reactive (NonReactive) 11/05/16 23:35 Hepatitis C Antibody Reactive (NonReactive) 11/05/16 23:35 Blood Type A NEGATIVE 11/08/16 11:40 Antibody Screen Negative 11/08/16 11:40 Crossmatch See Detail 11/06/16 15:17 Microbiology 11/07/16 12:10 Urine,Catheterized - Indwelling Catheter Urine Culture - Final NO GROWTH AFTER 48 HOURS 11/07/16 18:09 Central Venous Line Blood Culture - Preliminary NO GROWTH AFTER 24 HOURS 11/07/16 18:09 Peripheral/Venous Blood Culture - Preliminary NO GROWTH AFTER 24 HOURS 11/05/16 16:43 Peripheral/Venous Blood Culture - Preliminary NO GROWTH AFTER 72 HOURS 11/05/16 19:03 Peripheral/Venous Blood Culture - Preliminary NO GROWTH AFTER 72 HOURS 11/06/16 06:20 Tracheal Aspirate Sputum Culture - Final
[2016-11-09] MEDS ORDERED: NACL 0.9% 500 ML 500 ML IV SCH (16:50)
[2016-11-09 19:13] LABS: Hematocrit 23.1 % (35.5-45.6); Hemoglobin 7.3 gm/dl (11.8-15.2)
[2016-11-09] MEDS ORDERED: ISOPTO TEARS 0.5% ONE (19:38)
[2016-11-09] MEDS ORDERED: ISOPTO TEARS 0.5% OU PRN (19:46)
--- NOTE | 2016-11-09 20:22 | Progress Note ---
Assessment and Plan acute renal failure patient who is critically ill and unstable for dialysis currently on 4 different vasopressors unresponsive ventilator dependent with multi-organ failure patient has septic shock rhabdomyolysis doing poorly currently and bicarbonate drip pulmonary following as well Patient is not a candidate for renal replacement therapy in my opinion His prognosis appears to be very poor Patient is a high mortality risk Discussed with nurse that family should be made aware about his illness and his poor prognosis I would recommend treating his electrolytes and labs medically as much as possible His overall prognosis is poor to grim, high mortality risk. Supportive care Subjective Principal diagnosis: hypotension, MSOF Interval history: patient was seen today for follow-up along with ICU nurse around 140 in the afternoon Patient appears to be doing very poorly and is currently on 4 different vasopressors unresponsive ventilator dependent oliguric not suitable for dialysis today events of this hospitalization his vital labs intake and output medications were reviewed from today Objective - Vital Signs Vital signs: Vital Signs - 12hr 11/09/16 11/09/16 11/09/16 08:30 08:45 09:00 Temperature 102.5 F H Pulse Rate 124 H 122 H 115 H Pulse Rate [ Apical] Pulse Rate [ From Monitor] Respiratory 24 24 24 Rate Blood Pressure 102/35 93/34 90/35 O2 Sat by Pulse 96 Oximetry 11/09/16 11/09/16 11/09/16 09:15 09:30 09:37 Temperature Pulse Rate 123 H 125 H 125 H Pulse Rate [ Apical] Pulse Rate [ From Monitor] Respiratory 24 24 Rate Blood Pressure 101/43 108/44 108/44 O2 Sat by Pulse 81 L 84 82 L Oximetry 11/09/16 11/09/16 11/09/16 09:45 09:56 10:00 Temperature 102.5 F H Pulse Rate 126 H 127 H 105 H Pulse Rate [ Apical] Pulse Rate [ From Monitor] Respiratory 24 24 24 Rate Blood Pressure 105/45 105/45 107/46 O2 Sat by Pulse 86 Oximetry 11/09/16 11/09/16 11/09/16 10:15 10:30 10:42 Temperature 101.1 F H Pulse Rate 125 H 126 H 126 H Pulse Rate [ Apical] Pulse Rate [ From Monitor] Respiratory 24 24 24 Rate Blood Pressure 111/49 114/51 114/51 O2 Sat by Pulse Oximetry 11/09/16 11/09/16 11/09/16 10:45 11:00 11:15 Temperature Pulse Rate 126 H 126 H 127 H Pulse Rate [ Apical] Pulse Rate [ From Monitor] Respiratory 24 24 24 Rate Blood Pressure 108/46 113/49 100/55 O2 Sat by Pulse Oximetry 11/09/16 11/09/16 11/09/16 11:23 11:30 11:45 Temperature Pulse Rate 126 H 125 H 126 H Pulse Rate [ Apical] Pulse Rate [ From Monitor] Respiratory 24 24 Rate Blood Pressure 100/55 111/52 104/51 O2 Sat by Pulse 93 99 94 Oximetry 11/09/16 11/09/16 11/09/16 11:58 12:00 12:15 Temperature 99.5 F Pulse Rate 127 H 127 H Pulse Rate [ Apical] Pulse Rate [ From Monitor] Respiratory 24 24 Rate Blood Pressure 113/50 111/49 O2 Sat by Pulse 96 96 Oximetry 11/09/16 11/09/16 11/09/16 12:30 12:45 13:00 Temperature Pulse Rate 128 H 127 H 126 H Pulse Rate [ Apical] Pulse Rate [ From Monitor] Respiratory 24 25 H 24 Rate Blood Pressure 106/44 110/47 102/50 O2 Sat by Pulse 99 96 98 Oximetry 11/09/16 11/09/16 11/09/16 13:03 13:15 13:30 Temperature Pulse Rate 125 H 125 H 122 H Pulse Rate [ Apical] Pulse Rate [ From Monitor] Respiratory 24 24 24 Rate Blood Pressure 102/50 100/42 90/36 O2 Sat by Pulse 96 98 98 Oximetry 11/09/16 11/09/16 11/09/16 13:45 13:50 14:00 Temperature Pulse Rate 127 H 128 H 122 H Pulse Rate [ 112 H Apical] Pulse Rate [ 112 H From Monitor] Respiratory 24 24 24 Rate Blood Pressure 104/48 100/42 83/35 O2 Sat by Pulse 98 96 97 Oximetry 11/09/16 11/09/16 11/09/16 14:07 14:15 14:30 Temperature Pulse Rate 115 H 111 H 108 H Pulse Rate [ Apical] Pulse Rate [ From Monitor] Respiratory 25 H 24 24 Rate Blood Pressure 83/35 81/34 78/32 O2 Sat by Pulse 99 100 100 Oximetry 11/09/16 11/09/16 11/09/16 14:32 14:45 15:00 Temperature Pulse Rate 107 H 124 H 128 H Pulse Rate [ Apical] Pulse Rate [ From Monitor] Respiratory 24 24 Rate Blood Pressure 81/34 96/40 101/43 O2 Sat by Pulse 99 98 100 Oximetry 11/09/16 11/09/16 11/09/16 15:15 15:30 15:45 Temperature Pulse Rate 129 H 124 H 128 H Pulse Rate [ Apical] Pulse Rate [ From Monitor] Respiratory 24 24 24 Rate Blood Pressure 111/48 98/36 114/46 O2 Sat by Pulse 100 99 98 Oximetry 11/09/16 11/09/16 11/09/16 16:00 16:15 16:23 Temperature 99.8 F H Pulse Rate 124 H 126 H 126 H Pulse Rate [ Apical] Pulse Rate [ 124 H From Monitor] Respiratory 24 23 24 Rate Blood Pressure 92/42 107/42 107/42 O2 Sat by Pulse 99 98 98 Oximetry 11/09/16 11/09/16 11/09/16 16:30 16:45 17:00 Temperature Pulse Rate 127 H 129 H 128 H Pulse Rate [ Apical] Pulse Rate [ From Monitor] Respiratory 24 24 24 Rate Blood Pressure 104/48 116/52 108/48 O2 Sat by Pulse 99 99 99 Oximetry 11/09/16 11/09/16 11/09/16 17:15 17:30 17:38 Temperature Pulse Rate 128 H 127 H 127 H Pulse Rate [ Apical] Pulse Rate [ From Monitor] Respiratory 23 25 H Rate Blood Pressure 112/47 107/44 107/44 O2 Sat by Pulse 100 100 99 Oximetry 11/09/16 11/09/16 11/09/16 17:45 18:00 18:15 Temperature 97.1 F L 98.2 F Pulse Rate 127 H 126 H 125 H Pulse Rate [ Apical] Pulse Rate [ From Monitor] Respiratory 24 24 24 Rate Blood Pressure 112/43 108/45 108/45 O2 Sat by Pulse 100 98 99 Oximetry 11/09/16 11/09/16 11/09/16 18:25 18:27 18:30 Temperature Pulse Rate 123 H 123 H 124 H Pulse Rate [ Apical] Pulse Rate [ From Monitor] Respiratory 23 24 24 Rate Blood Pressure 108/45 108/45 104/57 O2 Sat by Pulse 83 L 95 99 Oximetry 11/09/16 11/09/16 11/09/16 18:39 18:45 19:00 Temperature 98.8 F Pulse Rate 123 H 123 H 122 H Pulse Rate [ Apical] Pulse Rate [ From Monitor] Respiratory 24 24 24 Rate Blood Pressure 104/57 110/47 106/34 O2 Sat by Pulse 100 99 97 Oximetry 11/09/16 11/09/16 11/09/16 19:15 19:21 19:30 Temperature Pulse Rate 122 H 122 H 121 H Pulse Rate [ Apical] Pulse Rate [ From Monitor] Respiratory 24 24 24 Rate Blood Pressure 101/35 101/35 105/32 O2 Sat by Pulse 96 93 96 Oximetry 11/09/16 11/09/16 11/09/16 19:45 19:51 19:58 Temperature 97.9 F Pulse Rate 122 H 121 H Pulse Rate [ Apical] Pulse Rate [ From Monitor] Respiratory 24 24 Rate Blood Pressure 101/38 101/38 O2 Sat by Pulse 99 84 Oximetry 11/09/16 20:00 Temperature Pulse Rate 121 H Pulse Rate [ Apical] Pulse Rate [ From Monitor] Respiratory 24 Rate Blood Pressure 105/44 O2 Sat by Pulse 100 Oximetry - General Appearance General appearance: appears stated age (ventilator dependent on multiple vasopressors) EENT: mucous membranes moist (orally intubated) Neck: no JVD Respiratory: Present: Other (breath sounds diminished posteriorly) Cardiology: regular (S1 and S2 heard) Gastrointestinal: other (obese abdomen hypoactive bowel sounds) Neurologic: obtunded - Lab 11/09/16 19:00 11/09/16 05:30 Most recent lab results Calcium 4.5 mg/dL (8.4-10.2) L* D 11/09/16 05:30 Phosphorus 8.7 mg/dL (2.5-4.5) H 11/08/16 07:00 Magnesium 1.5 mg/dL (1.7-2.3) L 11/09/16 05:30 Urine Creatinine 117.9 mg/dL (0.1-20.0) H 11/06/16 12:10 Urine Sodium 67 mEq/L 11/06/16 12:10
[2016-11-09] MEDS ORDERED: PROTONIX IV SCH (22:00)
[2016-11-10 02:28] LABS: Albumin 1.9 g/dL (3.8-4.8); Gamma Globulin 0.6 g/dL (0.8-1.7)
[2016-11-10 04:36] VITALS: BP 139/118
--- NOTE | 2016-11-10 06:17 | Death Note ---
Note Date of : 11/10/16 Time of : 06:10 Time Pronounced: 06:15 - Preliminary Cause of (problem) (1) Acute respiratory failure Preliminary cause of (2) Multisystem organ failure Preliminary cause of (3) Septic shock Preliminary cause of
--- NOTE | 2016-11-10 14:07 | Death Summary ---
Summary - Providers Date of service: 11/10/16 Consults: 11/05/16 21:11 Consult to Physician [CONS] Routine Consulting Provider: DIANA ARIZMENDI Reason For Exam: Acute renal failure+Encephalopathy Place consult to:: dr. bond Notified:: yes 11/06/16 13:34 Consult to Physician [CONS] Routine Consulting Provider: STERLING KIM Reason For Exam: hypotension; elevated trop Place consult to:: Notified:: yes 11/08/16 09:39 Consult to Physician [CONS] Routine Consulting Provider: KIANA ADAMS Reason For Exam: [place] bleeding Place consult to:: [facility] Notified:: office Phone number called:: [phone] Was contact made?: Yes If yes, spoke with:: Time called:: 10:12 Attending: ZENAIDA MAHMOOD - summary Date of admission: 11/05/16 21:02 Date of : 11/10/16 (pronounced 6:15am) Reason for admission: respiratory failure; renal failure Significant findings: Mr. Mancini presented to the ER after he was found unresponsive; he was admitted ot the ICU with acute respiratory failure; severe rhabdomyolysis and acute renal failure with hypotension and severe metabolic acidosis and hyperkalemia and eventually anuria ; he developed multiorgan failure and persistent shock and DIC requiring multiple agents up to 4 vasopressor agents; he received transfusion of FFP and platelets and PRBC. He subsequently succumbed and was pronounced on 11/10/2016 at 6:15 a.m
[2016-11-10 15:32] LABS: Vitamin D, 25-OH, Total 21 ng/mL (30-100)
--- NOTE | 2016-11-11 11:09 | XRay Report ---
AP chest History: Followup respiratory failure. Findings: There is very poor inspiration. Lines and support devices are unchanged since yesterday's exam. There appears to be increased cardiomegaly, venous congestion and small pleural effusions. Impression: Mild interval worsening of volume overload or CHF.
== END 2016-11-10 08:35 | DRG 871 ==
LOC: ED 17:50 → CC1 21:02
PROVIDERS: ADMIT Hospitalist; ATTEND Hospitalist
PROC: 06HN33Z Insertion of Infusion Device into Left Femoral Vein, Percutaneous Approach (ICD-10-PCS; 2016-11-05)
PROC: B54CZZA Ultrasonography of Left Lower Extremity Veins, Guidance (ICD-10-PCS; 2016-11-05)
PROC: 5A1D60Z (ICD-10-PCS; 2016-11-05)
PROC: 5A1945Z Respiratory Ventilation, 24-96 Consecutive Hours (ICD-10-PCS; principal; 2016-11-06)
PROC: 0BH17EZ Insertion of Endotracheal Airway into Trachea, Via Natural or Artificial Opening (ICD-10-PCS; 2016-11-06)
PROC: 30233K1 Transfusion of Nonautologous Frozen Plasma into Peripheral Vein, Percutaneous Approach (ICD-10-PCS; 2016-11-07)
PROC: 30233L1 Transfusion of Nonautologous Fresh Plasma into Peripheral Vein, Percutaneous Approach (ICD-10-PCS; 2016-11-07)
PROC: 30233R1 Transfusion of Nonautologous Platelets into Peripheral Vein, Percutaneous Approach (ICD-10-PCS; 2016-11-09)
DX: A41.9 Sepsis, unspecified organism (principal); R65.21 Severe sepsis with septic shock; J69.0 Pneumonitis due to inhalation of food and vomit; N17.0 Acute kidney failure with tubular necrosis; J96.01 Acute respiratory failure with hypoxia; G93.41 Metabolic encephalopathy; M62.82 Rhabdomyolysis; E87.0 Hyperosmolality and hypernatremia; K62.5 Hemorrhage of anus and rectum; D68.9 Coagulation defect, unspecified; K72.90 Hepatic failure, unspecified without coma; E87.5 Hyperkalemia; F15.90 Other stimulant use, unspecified, uncomplicated; D75.1 Secondary polycythemia; I10 Essential (primary) hypertension; T50.901A Poisoning by unspecified drugs, medicaments and biological substances, accidental (unintentional), initial encounter; E86.0 Dehydration; E83.51 Hypocalcemia; E83.42 Hypomagnesemia; Z82.49 Family history of ischemic heart disease and other diseases of the circulatory system; Z79.899 Other long term (current) drug therapy; Y92.9 Unspecified place or not applicable
CPT/HCPCS: 36415; 36600; 36620; 70450; 71010; 74000; 74176; 80048; 80053; 80061; 80074; 80307; 80320; 81001; 82140; 82306; 82330; 82550; 82553; 82565; 82570; 82652; 82693; 82803; 82962; 83735; 83930; 83970; 84100; 84165; 84295; 84300; 84439; 84443; 84484; 85007; 85014; 85018; 85025; 85027; 85610; 85730; 86021; 86038; 86160; 86225; 86850; 86900; 86901; 86920; 87040; 87070; 87086; 87205; 90686; 90732; 93005; 93010; 93306; 94002; 94003; 94640; 96365; 96366; 96375; 99291; C9113; G0480; J0171; J0610; J1644; J1650; J1720; J1815; J2370; J2543; J3370; J3430; J3475; J7030; J7040; J7050; J7070; P9017; P9035